=== PATIENT | female | born 1950 | race Hispanic/Latino ===

== ENCOUNTER 2018-12-14 00:58 | Emergency (ER) | payer MEDICARE ==
[2018-12-14] MEDS ORDERED: Adacel (T-DAP) 0.5 ML SYRINGE ONE (02:16)
[2018-12-14] MEDS ORDERED: Silver Nitrate Application 1 EACH ONE ×2 (02:37→02:47)
[2018-12-14 14:02] LABS: ALT (SGPT) 15 U/L (8-55); AST (SGOT) 18 U/L (5-34); Alkaline Phosphatase 87 U/L (40-150); Anion Gap 18 mmol/L (10-20); BUN (Urea Nitrogen) 63 mg/dL (9.8-20.1); Bilirubin, Total 0.5 mg/dL (0.2-1.2); Calc. Creatinine Clearance 0 mL/min (70-130); Calcium 9.5 mg/dL (7.8-10.44); Carbon Dioxide 23 mmol/L (23-31); Chloride 100 mmol/L (98-107); Estimated GFR-MDRD 43; Globulin 4.5 g/dL (2.4-3.5); Glucose 75 mg/dL (80-115); Potassium 3.7 mmol/L (3.5-5.1); Protein, Total 8.5 g/dL (5.8-8.1); Sodium 137 mmol/L (136-145)
[2018-12-14 14:03] LABS: %Eosinophils 3.7 % (0.0-10.0); %Lymphocytes 18.1 % (21.0-51.0); %Monocytes 8.2 % (0.0-10.0); %Neutrophils 69.1 % (42.0-75.0); Mean Corpuscular Hemoglobin 30.8 pg (27.0-31.0); Mean Corpuscular Volume 93.3 fL (78.0-98.0); Mean Platelet Volume 8.8 fL (7.4-10.4); Platelet Count 265 thou/uL (130-400); RBC Distribution Width 11.6 % (11.5-14.5); Red Blood Cell (RBC) Count 3.59 mill/uL (4.20-5.40); Troponin I Less than 0.010 ng/mL (< 0.028); White Blood Cell (WBC) Count 11.3 thou/uL (4.8-10.8)
[2018-12-14 14:04] LABS: #Basophils 0.1 thou/uL (0.0-0.2); #Eosinphils 0.4 thou/uL (0.0-0.7); #Monocytes 0.9 thou/uL (0.11-0.59); #Neutrophils 7.8 thou/uL (1.40-6.50); INR-International Normal Ratio 1.1; PTT 30.7 SEC (22.9-36.1); Prothrombin Time 14.5 SEC (12.0-14.7)
== END 2018-12-14 12:01 | disposition home or self-care (01) ==
LOC: ERS 00:58
DX: L76.22 Postprocedural hemorrhage of skin and subcutaneous tissue following other procedure (principal); I11.0 Hypertensive heart disease with heart failure; I50.9 Heart failure, unspecified; E11.9 Type 2 diabetes mellitus without complications; Z23 Encounter for immunization; Z79.82 Long term (current) use of aspirin; Z79.891 Long term (current) use of opiate analgesic; Z79.899 Other long term (current) drug therapy
CPT/HCPCS: 80053; 84484; 85025; 85610; 85730; 90471; 90715

== ENCOUNTER 2019-01-16 14:29 | Inpatient (IN) | payer MEDICARE ==
[~2019-01-16 14:29] MED LIST: ISOVUE-370 76%-LOCM 1 ML ONE
[2019-01-16] MEDS ORDERED: Piperacillin/Tazobactam 3.375 GM VIAL ONE (15:20)
--- NOTE | 2019-01-16 15:26 | RAD ---
XR Foot Rt 3 View STANDARD History: Pain. Diabetic wound. Comparison: None. Findings: Osteopenia and gas with loss of cortical integrity small toe metatarsal head as well as pro ximal phalanx. Extensive adjacent soft tissue calcifications. Extensive arterial medial sclerosis. Diabetic neuropathic changes of the midfoot. Soft tissue gas is seen along the dorsal aspect of the midfoot. Impression: 1. Osteomyelitis of the small toe metatarsal head/neck extending into the proximal phalanx. 2. Subcutaneous emphysema surrounds the small toe metatarsophalangeal joint extends to the mid foot. 3. Neuropathic changes of the midfoot.
[2019-01-16 15:32] LABS: Hemoglobin 9.2 g/dL (12.0-16.0); Mean Corpuscular HGB CONC 30.6 g/dL (32.0-36.0); Mean Corpuscular Hemoglobin 28.7 pg (27.0-31.0); Mean Corpuscular Volume 93.8 fL (78.0-98.0); Mean Platelet Volume 9.1 fL (7.4-10.4); Platelet Count 337 thou/uL (130-400); RBC Distribution Width 12.2 % (11.5-14.5); Red Blood Cell (RBC) Count 3.21 mill/uL (4.20-5.40); White Blood Cell (WBC) Count 21.1 thou/uL (4.8-10.8)
[2019-01-16 15:46] LABS: ALT (SGPT) 34 U/L (8-55); AST (SGOT) 22 U/L (5-34); Albumin 3.1 g/dL (3.4-4.8); Alkaline Phosphatase 125 U/L (40-150); Anion Gap 17 mmol/L (10-20); BUN (Urea Nitrogen) 71 mg/dL (9.8-20.1); Bilirubin, Total 0.4 mg/dL (0.2-1.2); Calc. Creatinine Clearance 0 mL/min (70-130); Calcium 8.9 mg/dL (7.8-10.44); Carbon Dioxide 19 mmol/L (23-31); Chloride 99 mmol/L (98-107); Estimated GFR-MDRD 31; Glucose 236 mg/dL (80-115); Potassium 4.5 mmol/L (3.5-5.1); Protein, Total 8.1 g/dL (6.0-8.3); Sodium 130 mmol/L (136-145)
[2019-01-16 15:50] LABS: Band 7 % (5-11); Lymphocytes 3 % (21-51); MDiff Complete? YES; Monocytes 8 % (0-10); Neutrophil 82 % (42-75); Platelet Morphology Comment Appears Adequate
[2019-01-16] MEDS ORDERED: Nitroglycerin 2% Ointment 1 INCH/1 GM Packet ONE (18:03)
--- NOTE | 2019-01-16 18:33 | RAD ---
PORTABLE CHEST: 01/16/19 HISTORY: Dyspnea. COMPARISON: 11/21/15. Cardiomegaly with postop sternotomy change. Mild vascular congestion. No focal infiltrate. No signifi cant effusion. IMPRESSION: Cardiomegaly with mild vascular engorgement. POS: [facility]
[2019-01-16 18:47] LABS: Analyzer IN Cardio ER; Base Excess (BEa) -5.3 mEq/L (-2.0 to +3.0); CO2 Tension 27.7 mmHg (35.0-45.0); Calcium, Ionized 1.08 mmol/L (1.12-1.30); Carboxyhemoglobin (COHb) 0.1 gm% (0.0-3.0); Hemoglobin (Hb) 9.7 g/dL (12.0-16.0); O2 Tension (PaO2) 83.4 mmHg (> 80.0); Potassium - ABG Lab 4.03 mmol/L (3.70-5.30); pH, Arterial 7.43 (7.35-7.45)
[2019-01-16 19:04] LABS: Puncture Site R BRACHIAL
[2019-01-16 19:05] LABS: ALV-art Gradient 110.135 (0-20)
[2019-01-16] MEDS ORDERED: Ondansetron ODT 4 MG TAB PO PRN (19:17)
[2019-01-16] MEDS ORDERED: Dextrose 5% in Water 1,000 ML IV PRN (19:17)
[2019-01-16] MEDS ORDERED: Dextrose 50% Abboject 50 ML SYRINGE SLOW IVP PRN (19:17)
[2019-01-16] MEDS ORDERED: Enoxaparin Sodium 40 MG/0.4 ML SYRINGE SC SCH (19:30)
[2019-01-16] MEDS ORDERED: Nitroglycerin 0.4 MG TAB (25 Tab Bottle) SL PRN (19:42)
[2019-01-16] MEDS ORDERED: cloNIDine 0.1 MG TAB PO PRN (19:42)
[2019-01-16] MEDS ORDERED: cefTRIAXone\\ROCEPHIN 2 GM in Sodium Chloride 0.9% 100 ML IVPB SCH (20:00)
--- NOTE | 2019-01-16 20:29 | CT ---
EXAM: CT ANGIOGRAM CHEST WITH 3D RENDERIN01/16/19 HISTORY: Dyspnea. History of diabetes. History of coronary artery bypass graft. No CT evidence for acute pulmonary embolism. Postop midline sternotomy and coronary artery bypass traci nges. Somewhat dilated pulmonary outflow tract. Minimal bilateral pleural thickening. No significant acute pulmonary parenchymal process or pleural effusion. IMPRESSION: No convincing CT evidence for acute pulmonary embolism. Cardiomegaly with postop midline sternotomy a nd coronary artery bypass graft changes. Somewhat prominent pulmonary outflow tract. No evidence for other significant acute process. POS: [facility]
[2019-01-16] MEDS: Carvedilol 25 MG TAB PO SCH (21:26)
[2019-01-16] MEDS: Insulin Regular 300 UNITS/3 ML VIAL SC PRN (21:27)
[2019-01-16] MEDS: Sodium Chloride 0.9% 1,000 ML IV SCH (21:28)
[2019-01-16] MEDS: Docusate 100 MG CAP PO SCH (21:29)
[2019-01-16 23:00] LABS: CKMB 2.6 ng/mL (0-6.6)
--- NOTE | 2019-01-17 01:20 | CON ---
DATE OF CONSULTATION: HISTORY OF PRESENT ILLNESS: Ms. Perkins is a 68-year-old woman who has an extensive past cardiac and vascular history. We do not have any details available currently. Apparently, she underwent coronary artery bypass grafting in [address] Weston , but the details have been purged from the system. She is followed by Dr. Noland and has had multiple coronary stents along with peripheral vascular stents placed. She has had chronic wounds on the left foot, which have all healed. She presented to the emergency department with a right foot ulceration and I was called for further evaluation. Since her arrival, she has had some cardiopulmonary difficulties, become short of breath and is unable to give me much more history than what I have been given by the emergency department. PAST MEDICAL HISTORY: 1. Diabetes mellitus. 2. Hypertension. 3. Dyslipidemia. 4. Coronary artery disease. 5. Peripheral vascular disease. PAST SURGICAL HISTORY: All I am aware of, currently is her coronary artery bypass grafting and peripheral and coronary stenting. CURRENT MEDICATIONS: Unknown. ALLERGIES: UNKNOWN. PHYSICAL EXAMINATION: GENERAL: This is an obese, elderly woman, sitting upright in the bed who nods off to sleep when not stimulated. VITAL SIGNS: Current vitals, her pulse is 70 and regular. Blood pressure is 140/68. NECK: Supple. LUNGS: Clear bilaterally. HEART: Rhythm is regular. ABDOMEN: Obese. EXTREMITIES: The left foot has no ulcerations on it. Her right foot 4th and 5th toes have wet gangrene and extremely foul odor. This has been wrapped in dressing. I cannot palpate pulses, but I do hear a Doppler signal in dorsalis pedis and posterior tibial arteries bilaterally. ASSESSMENT AND PLAN: This is a chronically ill patient who has chronic peripheral vascular disease and gangrene of the right 4th and 5th toes with sepsis. She needs amputation of at least this 4th and 5th toes, but may ultimately lose her forefoot if not her leg at the below-knee area. She has received a dose of antibiotics and is being worked up for congestive heart failure and pulmonary embolism currently. She is being admitted to the ICU and I will follow along with you. I have tried to discuss amputation with her, and she in no uncertain terms, declined any amputation and said "save my toes." Said she will not consent for any surgery acutely. We will treat her with antibiotics, and if the foot is demarcated, we can certainly proceed if she allows us to at that time. Job ID: [id number] DENICE
--- NOTE | 2019-01-17 01:40 | CON ---
DATE OF CONSULTATION: HISTORY OF PRESENT ILLNESS: The patient is an unfortunate 68-year-old woman with a long history of peripheral vascular disease and coronary artery disease, who presented with weakness, dyspnea, and chest discomfort. The patient apparently has had multiple stents placed. She is followed primarily by Dr. Noland. She also had severe peripheral vascular disease. The patient was diagnosed with some osteomyelitis. She developed chest pain and dyspnea. The patient received nitroglycerin with resolution of her pain. PAST MEDICAL HISTORY: Significant for; 1. Coronary artery disease. 2. Peripheral vascular disease. 3. Hypertension. PAST SURGICAL HISTORY: . SOCIAL HISTORY: . MEDICATIONS: See nursing list. PHYSICAL EXAMINATION: GENERAL: Somnolent woman, in mild distress. VITAL SIGNS: Blood pressure 148/80. NECK: Full. LUNGS: Clear to auscultation. HEART: Regular rate and rhythm. Normal S1, S2. ABDOMEN: Distended. EXTREMITIES: Show infected right foot. IMPRESSION: 1. Sepsis. 2. Osteomyelitis. 3. History of coronary artery disease. 4. History of peripheral vascular disease. This patient presents with sepsis. She developed acute dyspnea. She will undergo an emergent CT scan to rule out pulmonary embolus. From a cardiac standpoint, she is being treated with nitroglycerin paste. We will obtain records from Dr. Noland. The patient's prognosis is guarded. Critical care note, time 30 minutes. Job ID: [id number]
[2019-01-17 01:58] LABS: CKMB 4.2 ng/mL (0-6.6)
--- NOTE | 2019-01-17 02:01 | HP ---
HISTORY OF PRESENT ILLNESS: The patient is a 68-year-old female. She has a known history of peripheral vascular disease. She was brought to the emergency room by ambulance noting right foot pain. She notes a wound to her right foot. Upon my arrival to the ER, the patient began to have a sudden onset of shortness of breath, tachypnea. She was given oxygen in the emergency room and sat up. It took approximately 20-30 minutes for this situation to resolve. She did note chest pain during this time. An EKG was done, which did not reveal any evidence of acute cardiac injury. Stat troponin level was done, which was mildly elevated at 0.52. Her BNP was elevated at 662. Her lactic acid was not elevated. The etiology of her sudden shortness of breath still unknown at the time of this dictation. She is undergoing CT angiogram. As noted, she originally presented for right foot wound. X-ray was taken in the emergency room, which did reveal osteomyelitis involving the phalanges of the foot. The wound had a significantly foul odor noted. She was given one dose of Zosyn and 1 dose of vancomycin. It was noted time denise that after the vancomycin, she began having some sudden shortness of breath. Once again, etiology of that is unknown. It is noted that her white blood count was elevated at 21.1, hemoglobin 9.2, hematocrit 30.1, 82 segs, 7 bands, 3 lymphocytes. An arterial blood gas was done which showed a pH of 7.43, bicarbonate 18.0, O2 saturation of 83.4. Otherwise, history is difficult to obtain from the patient. She had various levels of responsiveness. Sometimes, she was seen to fall asleep in middle of sentences. Sometimes, she seems confused to this provider who has known her for over 25 years. ALLERGIES: SHE IS ALLERGIC TO AMOXICILLIN. CURRENT MEDICATIONS: Noted and have been reviewed. PAST MEDICAL HISTORY: Positive for atherosclerotic coronary artery disease, type 2 diabetes, peripheral vascular disease, hypertension, hypercholesterolemia, previous history of sepsis. It is noted most of her medical care has been at [facility] previously. PAST SURGICAL HISTORY: Positive for coronary artery bypass graft. She believes she has had a hysterectomy. She has had multiple stents placed for peripheral vascular disease to her legs. She has a previous history of a leg ulcer, which did require some debridement and extended hospitalization. SOCIAL PERSONAL HISTORY: She is single. She does not smoke at this time. She lives mostly alone. She has nearby help. REVIEW OF SYSTEMS: Could not be obtained. PHYSICAL EXAMINATION: VITAL SIGNS: Her blood pressure is 90/70, pulse 80, respirations 16, O2 saturations 98% on 3 L. GENERAL: She appears to be somewhat pale, does respond to questioning when prompted. She is accurate with her answers. HEENT: Normocephalic. Sclerae and conjunctivae are clear. NECK: Supple. Full range of motion. No masses. No bruits are auscultated. LUNGS: Reveal bilateral breath sounds. HEART: Reveals a regular rate and rhythm. No murmurs, gallops, or rubs. ABDOMEN: Soft and nontender. Bowel sounds are present and active. No hepatosplenomegaly is noted. EXTREMITIES: Special attention to the right foot shows a gaping wound about the right 4th, 5th toe, distal aspect fairly foul odor. It appears to be gangrenous at this time. Peripheral pulses are difficult to obtain. The left foot appears to be totally clear without evidence of any type of infectious issue. LABORATORY DATA: White blood count 21.1, hemoglobin 9.2, hematocrit 30.1. Chemistry; sodium 130, potassium 4.5, chloride 99, CO2 of 19, BUN 71, creatinine 1.65, GFR 31. IMPRESSION: 1. The patient presents with possible sepsis with osteomyelitis to the right foot. 2. History of peripheral vascular disease. 3. History of coronary artery disease. 4. Sudden-onset tachypnea, shortness of breath of unknown etiology. PLAN: 1. The patient will be admitted to the ICU under sepsis protocol. She will be given IV ceftriaxone. Due to her previous allergic reaction to amoxicillin, we will hold penicillin drugs at this time. 2. I have consulted Cardiology, Cardiovascular Surgery, Intensive Care Specialties as well as Infectious Disease. We will monitor vital signs tonight. Continue IV antibiotics as noted above. Job ID: [id number]
[2019-01-17 04:17] LABS: #Basophils 0.1 thou/uL (0.0-0.2); #Eosinphils 0.2 thou/uL (0.0-0.7); #Lymphocytes 1.2 thou/uL (1.20-3.40); #Monocytes 1.4 thou/uL (0.11-0.59); #Neutrophils 18.7 thou/uL (1.40-6.50); %Basophils 0.3 % (0.0-1.0); %Eosinophils 0.8 % (0.0-10.0); %Lymphocytes 5.5 % (21.0-51.0); %Monocytes 6.5 % (0.0-10.0); Hemoglobin 8.4 g/dL (12.0-16.0); Mean Corpuscular HGB CONC 31.3 g/dL (32.0-36.0); Mean Corpuscular Hemoglobin 29.1 pg (27.0-31.0); Mean Platelet Volume 8.7 fL (7.4-10.4); Platelet Count 362 thou/uL (130-400); RBC Distribution Width 12.2 % (11.5-14.5); White Blood Cell (WBC) Count 21.5 thou/uL (4.8-10.8)
[2019-01-17 04:39] LABS: ALT (SGPT) 32 U/L (8-55); AST (SGOT) 21 U/L (5-34); Alkaline Phosphatase 138 U/L (40-150); Anion Gap 14 mmol/L (10-20); BUN (Urea Nitrogen) 64 mg/dL (9.8-20.1); Bilirubin, Total 0.3 mg/dL (0.2-1.2); Calc. Creatinine Clearance 53 mL/min (70-130); Calcium 8.2 mg/dL (7.8-10.44); Carbon Dioxide 22 mmol/L (23-31); Chloride 102 mmol/L (98-107); Estimated GFR-MDRD 35; Globulin 3.8 g/dL (2.4-3.5); Glucose 187 mg/dL (80-115); Potassium 4.3 mmol/L (3.5-5.1); Protein, Total 6.8 g/dL (6.0-8.3); Sodium 134 mmol/L (136-145)
[2019-01-17 05:05] LABS: CKMB 4.2 ng/mL (0-6.6)
[2019-01-17] MEDS ORDERED: Meperidine HCl/PF 25 MG/ML VIAL ONE (06:37)
--- NOTE | 2019-01-17 07:31 | RAD ---
Portable upright frontal chest radiograph: 01/17/2019 COMPARISON: 01/16/2019 HISTORY: Sepsis FINDINGS: Stable midline sternotomy wires, mediastinal clips, and enlargement of the cardiac silhouet te. No pneumothorax or pleural fluid. No focal consolidation or alveolar edema. IMPRESSION: No acute findings.
[2019-01-17] MEDS: Vancomycin HCl 1 GM in Premix Bag 1 BAG IVPB SCH ×2 (08:00→19:50)
[2019-01-17] MEDS: metroNIDAZOLE 500 MG in Premix Bag 1 BAG IVPB SCH ×3 (08:00→20:56)
[2019-01-17] MEDS ORDERED: Midazolam HCl 2 mg/2 ml Vial ONE (10:02)
[2019-01-17] MEDS ORDERED: Ondansetron HCl/PF 4 MG/2 ML Vial IVP PRN (10:15)
[2019-01-17] MEDS ORDERED: Promethazine HCl 25 MG/ML VIAL SLOW IVP PRN (10:15)
[2019-01-17] MEDS ORDERED: Promethazine HCl 25 MG/ML VIAL IM PRN (10:15)
[2019-01-17] MEDS ORDERED: Bupivacaine HCl 0.5%/Epinephrine 1:200,000/PF 30 ml Vial ONE (10:20)
[2019-01-17] MEDS ORDERED: Fentanyl 100 MCG/2 ML VIAL SLOW IVP PRN (11:09)
[2019-01-17] MEDS: Carvedilol 25 MG TAB PO SCH ×2 (15:17→20:56)
[2019-01-17] MEDS: Docusate 100 MG CAP PO SCH ×2 (15:17→20:57)
[2019-01-17] MEDS: Losartan 25 MG TAB PO SCH (15:17)
[2019-01-17] MEDS: Magnesium Oxide 250 MG TAB PO SCH (15:17)
[2019-01-17] MEDS: Aspirin 325 mg Enteric Coated Tablet PO SCH (15:17)
[2019-01-17] MEDS: Lorazepam 0.5 MG TAB PO SCH (15:17)
[2019-01-17] MEDS: Potassium Chloride 20 MEQ TAB PO SCH (15:18)
[2019-01-17] MEDS: Pantoprazole 40 MG GRANULES PACKET PO SCH (15:18)
--- NOTE | 2019-01-17 17:18 | OP ---
DATE OF PROCEDURE: 01/17/2019 PREOPERATIVE DIAGNOSIS: Gangrene of the right 4th and 5th toes. POSTOPERATIVE DIAGNOSIS: Gangrene of the right 4th and 5th toes. PROCEDURE PERFORMED: Transmetatarsal amputation of the right 4th and 5th toes with wound VAC application. ANESTHESIA: General endotracheal. ESTIMATED BLOOD LOSS: 100. FINDINGS: Gangrenous tissue extending down to the mid metatarsal level on the 5th toe and the metatarsal head on the 4th toe. All gangrenous tissue was debrided and wound VAC applied. DESCRIPTION OF PROCEDURE: After consent was obtained, the patient was brought to the operating room and placed in supine position on the operating table. A block had been applied to the preoperative area. Right foot was prepped and draped in usual sterile fashion. Skin incision was made around the 4th and 5th toes, extending down the mid metatarsal level on the 5th toe and the metatarsal head on the 4th toe. Gangrenous tissue was debrided. Cautery was used for hemostasis. Wound was copiously irrigated. After hemostasis had been ensured, the wound care team was called. There was excellent bleeding tissue and healthy muscle that was present underneath the gangrenous tissue that was debrided. Wound VAC was then applied. The patient was transferred to the recovery room in stable condition. Needle, sponge, and instrument counts were all reported as correct at the end of the procedure. Job ID: [id number]
[2019-01-17] MEDS: Sodium Chloride 0.9% 1,000 ML IV SCH (18:16)
[2019-01-17] MEDS: traMADol HCl 50 MG TAB PO PRN (19:24)
[2019-01-17] MEDS: Ubidecarenone 50 MG CAP PO SCH (20:56)
[2019-01-17] MEDS: Insulin Regular 300 UNITS/3 ML VIAL SC PRN (21:12)
--- NOTE | 2019-01-17 22:11 | CON ---
DATE OF CONSULTATION: 01/17/2019 REASON FOR CONSULTATION: Peripheral vascular disease and right foot gangrene. HISTORY OF PRESENT ILLNESS: A 68-year-old patient, history of coronary artery disease type 2 diabetes, and peripheral vascular disease, who developed fairly rapid onset of right foot pain and noticed the swelling and discoloration of the lateral forefoot area. On arrival, she developed tachypnea and was given supplemental oxygen, had some chest pain with normal EKG. Troponin was mildly elevated, BNP was at 662, lactic acid was normal. She has remained afebrile. Initial white cell count of 21,000. Imaging studies include a chest CTA, which showed no evidence of acute pulmonary embolism. The patient had no focal infiltrates or edema or effusions. She was transferred to the ICU and had evaluation by Dr. Mohan and she underwent amputation of the 4th and 5th rays of right foot. Currently, she is awake and oriented. Dyspnea and chest pain have resolved. No headaches. No change in visual symptoms, sore throat, odynophagia, or dysphagia. No abdominal pain. She has a Camargo catheter in place. PAST MEDICAL HISTORY: Includes coronary artery disease, type 2 diabetes, peripheral vascular disease, hypertension. PAST SURGICAL HISTORY: Bypass graft surgery, hysterectomy, and multiple peripheral vascular interventions by Dr. Noland in the past, mostly on the left side. SOCIAL HISTORY: Single, former smoker. ALLERGIES: AMOXICILLIN WITH RASH. CURRENT MEDICATIONS: 1. Tylenol. 2. DuoNeb. 3. Ecotrin. 4. Coreg. 5. Catapres. 6. Colace. 7. Sublimaze. 8. Insulin. 9. Imdur. 10. Ativan. 11. Cozaar. 12. Flagyl. 13. Protonix. 14. Vancomycin. PHYSICAL EXAMINATION: VITAL SIGNS: T-max 98.7, BP 124/64, pulse 57, respirations 20, O2 saturation 99. SKIN: Remarkable for the areas of gangrene at the distal lateral aspect of the right foot involving the 4th and 5th toes with a round ulceration measuring about 3 cm with a dark eschar at the center. No lymphadenopathy. HEENT: Ocular movements conjugate. Oral cavity is not remarkable. NECK: Supple. No jugular vein distention. LUNGS: Symmetric. Clear breath sounds. HEART: S1 and S2, regular rate. No S3 or S4. ABDOMEN: Soft, not distended or tender. No ascites. No bladder distention. Camargo catheter in place. EXTREMITIES: Pulses are not palpable in dorsalis pedis, faintly palpable in popliteals. Cap refill appears to be a little bit delayed, but the feet are warm to touch. LABORATORY DATA: Followup white cell count 21.5, hemoglobin 8.4, platelets 362. Sodium 134, creatinine 1.48, and her baseline from 2017 was 0.82, in 2018, had gone up to 1.21, so it seems to be going up her creatinine over time. In microbiology, we have presumptive Proteus mirabilis from the foot culture, not clear what this the sample is from. It looks like it is from the emergency room, so probably is a swab from the surface of the ulcer. In the Gram stain, there are multiple different organisms including gram negatives and gram-positive rods, cocci in clusters, and so on there. IMAGING STUDIES: We have a foot x-ray from 01/16 with osteomyelitis, small toe metatarsal head and neck extending into the proximal phalanx. ASSESSMENT: 1. Type 2 diabetes. 2. Chronic renal failure. 3. Coronary artery disease. 4. Peripheral vascular disease. 5. Gangrene of the right lateral forefoot region. DISCUSSION: The patient has had multiple revascularizations in the past that she has a decreased GFR and does not seem to be either eligible for angiography or likely to benefit from any further attempted intervention at this point in time. She was hesitant about allowing amputation, but finally she agreed to it and she is at risk for healing problems and higher levels of amputation even all the way to the BKA level depending on progress. Continue with the broad-spectrum coverage as currently prescribed. She does need MRSA coverage and she has also anaerobic, and gram-negative dionisio coverage will be added with Azactam. Job ID: [id number]
[2019-01-17] MEDS: Aztreonam 1 GM in Sodium Chloride 0.9% 100 ML IVPB SCH (22:31)
[2019-01-18] MEDS: Acetaminophen 325 MG TAB PO PRN (00:03)
[2019-01-18] MEDS: metroNIDAZOLE 500 MG in Premix Bag 1 BAG IVPB SCH ×4 (01:27→20:16)
[2019-01-18 05:08] LABS: #Basophils 0.1 thou/uL (0.0-0.2); #Eosinphils 0.3 thou/uL (0.0-0.7); #Lymphocytes 1.4 thou/uL (1.20-3.40); #Monocytes 1.2 thou/uL (0.11-0.59); #Neutrophils 12.7 thou/uL (1.40-6.50); %Basophils 0.6 % (0.0-1.0); %Eosinophils 1.7 % (0.0-10.0); %Lymphocytes 8.8 % (21.0-51.0); %Monocytes 7.9 % (0.0-10.0); Hemoglobin 8.9 g/dL (12.0-16.0); Mean Corpuscular Hemoglobin 30.4 pg (27.0-31.0); Mean Corpuscular Volume 92.1 fL (78.0-98.0); Mean Platelet Volume 8.8 fL (7.4-10.4); Platelet Count 423 thou/uL (130-400); RBC Distribution Width 12.2 % (11.5-14.5); Red Blood Cell (RBC) Count 2.93 mill/uL (4.20-5.40); White Blood Cell (WBC) Count 15.7 thou/uL (4.8-10.8)
[2019-01-18 05:25] LABS: Anion Gap 14 mmol/L (10-20); BUN (Urea Nitrogen) 47 mg/dL (9.8-20.1); Calc. Creatinine Clearance 72 mL/min (70-130); Calcium 8.5 mg/dL (7.8-10.44); Carbon Dioxide 23 mmol/L (23-31); Chloride 103 mmol/L (98-107); Estimated GFR-MDRD 50; Glucose 256 mg/dL (80-115); Potassium 4.2 mmol/L (3.5-5.1); Sodium 136 mmol/L (136-145)
[2019-01-18] MEDS: Aztreonam 1 GM in Sodium Chloride 0.9% 100 ML IVPB SCH ×3 (05:50→23:13)
[2019-01-18] MEDS: Insulin Regular 300 UNITS/3 ML VIAL SC PRN ×4 (05:59→20:21)
[2019-01-18 07:34] LABS: Vancomycin, Trough 17.7 ug/mL
[2019-01-18] MEDS: Vancomycin HCl 1 GM in Premix Bag 1 BAG IVPB SCH ×2 (08:34→20:17)
[2019-01-18] MEDS: Docusate 100 MG CAP PO SCH ×2 (08:40→20:17)
[2019-01-18] MEDS: Insulin Glargine 70 UNITS in Pre-Filled Syringe 1 EACH SC SCH (08:40)
[2019-01-18] MEDS: Enoxaparin Sodium 30 MG/0.3 ML SYRINGE SC SCH (08:40)
[2019-01-18] MEDS: Losartan 25 MG TAB PO SCH (08:40)
[2019-01-18] MEDS: Pantoprazole 40 MG GRANULES PACKET PO SCH (08:41)
[2019-01-18] MEDS: Aspirin 325 mg Enteric Coated Tablet PO SCH (08:42)
[2019-01-18] MEDS: Potassium Chloride 20 MEQ TAB PO SCH (08:42)
[2019-01-18] MEDS: Carvedilol 25 MG TAB PO SCH ×2 (08:42→20:17)
[2019-01-18] MEDS: Lorazepam 0.5 MG TAB PO SCH (08:42)
[2019-01-18] MEDS: Magnesium Oxide 250 MG TAB PO SCH (08:50)
[2019-01-18] MEDS ORDERED: Non-Formulary Item 1 EACH (Insulin Glargine,Hum.Rec.Anlog [Lantus Solostar] 70 UNIT) SC SCH (09:00)
--- NOTE | 2019-01-18 09:02 | PRG ---
DATE OF SERVICE: 01/18/2019 SUBJECTIVE: This morning, she is awake, alert, and responsive. She is doing better. Antibiotics were adjusted by Infectious Disease. Pulmonary denise, she is doing better. She is no longer hypotensive. OBJECTIVE: VITAL SIGNS: Blood pressure 148/70, O2 saturation _96%room air_ and pulse 60. CHEST: No wheezing or crackles. CARDIAC: Normal S1 and S2. No gallops. ABDOMEN: No masses. LABORATORY DATA: Gram-negative foot infection. Sensitive to all antibiotics. IMPRESSION AND PLAN: Status post right foot amputation in several toes, obesity , diabetes, and not septic. Will be transferred out of the ICU. Pulmonary/ Critical Care will follow at a distance. Job ID: [id number] [facility]
--- NOTE | 2019-01-18 09:27 | CON ---
DATE OF CONSULTATION: HISTORY OF PRESENT ILLNESS: This is a 68-year-old female, who was admitted to the hospital overnight with sepsis syndrome she has known history of diabetes, has chills and sweats. In the ER, blood pressure was 120/54, respiratory rate 18, temperature 98, sats are 100% on room air. She was transferred to the ICU and saw Cardiovascular Surgery and underwent amputation of several of her toes. She is back in the ICU, reason for consult. She says she has longstanding history of nocturnal hypoxemia, has low-flow O2 at 2 L. Apparently, a sleep study was done elsewhere, which was negative for sleep apnea as per the patient. She has smoked a pack a day for about 10 years, quit smoking many years ago. No previous history of TB, pneumonia, or bronchial asthma. Denies any snoring. Denies any witnessed apnea. Denies any daytime hypersomnolence. PAST MEDICAL HISTORY: Coronary artery disease, status post bypass; diabetes; hypertension; chronic pain; COPD; hypoxemia; peripheral vascular disease; anxiety; and depression. PAST SURGICAL HISTORY: Bypass, cholecystectomy, hysterectomy, leg surgery, stents. HOME MEDICATIONS: Include: 1. Home O2 at 2 L. 2. Losartan 100. 3. ISMO 90. 4. Protonix 40. 5. Aspirin 325. 6. Zoloft 25. 7. Metolaxone 2.5. 8. Nitroglycerin p.r.n. 9. Insulin 70 units in the morning, 50 at nighttime. 10. Catapres 0.1 p.r.n. 11. Lasix 40. 12. Coreg 12.5 b.i.d. ALLERGIES: PENICILLIN. SOCIAL HISTORY: Alcohol, none. Tobacco, as noted. REVIEW OF SYSTEMS: Ten-point negative. PHYSICAL EXAMINATION: VITAL SIGNS: Postsurgery, pulse 59, blood pressure 129/56, saturations 100%, and respiratory rate 16. CHEST: No wheezing or crackles. CARDIAC: Normal S1 and S2. No gallops. ABDOMEN: No mass. LABORATORY DATA: White count 21,000, H and H 8 and 26, platelet count 362. Creatinine 1.4, BUN is 64. Troponin is elevated. She has culture done, which shows Proteus mirabilis. Otherwise, blood cultures so far negative. IMPRESSION: 1. Nocturnal hypoxemia, chronic obstructive pulmonary disease, obesity hypoventilation syndrome. 2. Infected fourth and fifth toe, status post surgery; diabetes; renal failure; coronary artery disease; peripheral vascular disease; and hypertension. She is not hypertensive, she never was, even on admission. Most of the antibiotics gram-positive coverage. There is no gram-negative coverage. Since she is not hypertensive, we will not add additional antibiotics at this stage, pulmonary denise, continue neb treatment, low-flow O2, supportive care only ambulation, DVT prophylaxis. We will follow. This is a 70-minute consultation note, 50% direct patient care. Job ID: [id number]
[2019-01-18] MEDS: Sodium Chloride 0.9% 1,000 ML IV SCH (11:20)
--- NOTE | 2019-01-18 13:46 | PRG ---
DATE OF SERVICE: 01/18/2019 SUBJECTIVE: Ms. Perkins is doing well. She has had recent surgery to her right foot for amputation and necrotic tissue. She is doing well postoperatively. She reports no chest pain. OBJECTIVE: VITAL SIGNS: BP 136/70, O2 saturation 98% on 2 L. GENERAL: She is alert and active, in no distress. LUNGS: Clear. HEART: Reveals a regular rate and rhythm. No murmurs, gallops, or rubs. LABORATORY DATA: Her white blood count is 15.7, hemoglobin 8.9, hematocrit 27.0, BUN 47, creatinine 1.09. Initial blood culture done showed Proteus mirabilis organism. It is sensitive to multiple antibiotics that she is on at this time. IMPRESSION: 1. Osteomyelitis. 2. History of atherosclerotic coronary artery disease. 3. Peripheral vascular disease. 4. Type 2 diabetes mellitus. PLAN: The patient continued to be stable postop. We will restart her regular insulin, schedule that she is normally home. From my purview, she probably can be transferred to the floor. We will await other specialist's comment further for transferring. Job ID: [id number]
[2019-01-18] MEDS: traMADol HCl 50 MG TAB PO PRN (15:05)
[2019-01-18] MEDS: Ubidecarenone 50 MG CAP PO SCH (20:16)
[2019-01-18] MEDS: Insulin Glargine 50 UNITS in Pre-Filled Syringe 1 EACH SC SCH (20:16)
[2019-01-18] MEDS ORDERED: Non-Formulary Item 1 EACH (Insulin Glargine,Hum.Rec.Anlog [Lantus Solostar] 50 UNIT) SC SCH (21:00)
[2019-01-19] MEDS: metroNIDAZOLE 500 MG in Premix Bag 1 BAG IVPB SCH ×4 (01:44→20:28)
[2019-01-19] MEDS: Aztreonam 1 GM in Sodium Chloride 0.9% 100 ML IVPB SCH ×3 (05:34→21:47)
[2019-01-19] MEDS: Insulin Regular 300 UNITS/3 ML VIAL SC PRN ×4 (06:08→20:31)
[2019-01-19 06:20] LABS: Vancomycin, Random 25.2 ug/mL (See Comment)
[2019-01-19] MEDS: Vancomycin HCl 1 GM in Premix Bag 1 BAG IVPB SCH ×2 (09:01→20:28)
[2019-01-19] MEDS: Potassium Chloride 20 MEQ TAB PO SCH (09:12)
[2019-01-19] MEDS: Losartan 25 MG TAB PO SCH (09:12)
[2019-01-19] MEDS: Magnesium Oxide 250 MG TAB PO SCH (09:12)
[2019-01-19] MEDS: Carvedilol 25 MG TAB PO SCH ×2 (09:13→20:30)
[2019-01-19] MEDS: Aspirin 325 mg Enteric Coated Tablet PO SCH (09:13)
[2019-01-19] MEDS: Docusate 100 MG CAP PO SCH ×2 (09:13→20:30)
[2019-01-19] MEDS: Pantoprazole 40 MG GRANULES PACKET PO SCH (09:14)
[2019-01-19] MEDS: Enoxaparin Sodium 30 MG/0.3 ML SYRINGE SC SCH (09:14)
[2019-01-19] MEDS: Insulin Glargine 70 UNITS in Pre-Filled Syringe 1 EACH SC SCH (09:23)
[2019-01-19] MEDS: Lorazepam 0.5 MG TAB PO SCH (11:11)
[2019-01-19] MEDS: traMADol HCl 50 MG TAB PO PRN (11:12)
[2019-01-19] MEDS: Acetaminophen 325 MG TAB PO PRN (14:39)
--- NOTE | 2019-01-19 18:46 | PRG ---
DATE OF SERVICE: 01/19/2019 SUBJECTIVE: Ms. Perkins is feeling much better. She is doing well. She has no medical complaints. OBJECTIVE: VITAL SIGNS: Temperature is 97.9, BP 143/83. LUNGS: Clear. HEART: No murmur. LABORATORY DATA: Bacterial cultures of the foot show no Proteus mirabilis and presumptive Enterococcus. Her blood sugars are under better control. IMPRESSION: 1. Osteomyelitis, status post partial amputation of right foot. 2. History of atherosclerotic coronary artery disease. 3. History of peripheral vascular disease. PLAN: Continue current antibiotic regimen. We will get a Physical Therapy consult. Job ID: [id number]
[2019-01-19] MEDS: Pravastatin Sodium 20 MG TAB PO SCH (20:30)
[2019-01-19] MEDS: Insulin Glargine 50 UNITS in Pre-Filled Syringe 1 EACH SC SCH (20:30)
[2019-01-19] MEDS: Ubidecarenone 50 MG CAP PO SCH (20:30)
[2019-01-20] MEDS: metroNIDAZOLE 500 MG in Premix Bag 1 BAG IVPB SCH ×4 (02:32→21:12)
[2019-01-20] MEDS: Aztreonam 1 GM in Sodium Chloride 0.9% 100 ML IVPB SCH ×3 (05:40→22:51)
[2019-01-20] MEDS: Insulin Regular 300 UNITS/3 ML VIAL SC PRN ×4 (05:42→20:32)
[2019-01-20] MEDS ORDERED: Furosemide 40 MG/4 ML VIAL SLOW IVP SCH (07:45)
[2019-01-20] MEDS: Pantoprazole 40 MG GRANULES PACKET PO SCH (08:34)
[2019-01-20] MEDS: Enoxaparin Sodium 30 MG/0.3 ML SYRINGE SC SCH (08:34)
[2019-01-20] MEDS: Docusate 100 MG CAP PO SCH ×2 (08:34→20:13)
[2019-01-20] MEDS: Magnesium Oxide 250 MG TAB PO SCH (08:34)
[2019-01-20] MEDS: Aspirin 325 mg Enteric Coated Tablet PO SCH (08:35)
[2019-01-20] MEDS: Vancomycin HCl 1 GM in Premix Bag 1 BAG IVPB SCH ×2 (09:46→20:19)
[2019-01-20] MEDS: Insulin Glargine 70 UNITS in Pre-Filled Syringe 1 EACH SC SCH (09:47)
[2019-01-20] MEDS: Carvedilol 25 MG TAB PO SCH ×2 (09:47→20:14)
[2019-01-20] MEDS: Potassium Chloride 20 MEQ TAB PO SCH (09:50)
[2019-01-20] MEDS ORDERED: Losartan 25 MG TAB PO SCH (10:00)
[2019-01-20] MEDS: Lorazepam 1 MG TAB PO SCH (10:06)
[2019-01-20] MEDS: Losartan 25 MG TAB PO SCH (10:09)
--- NOTE | 2019-01-20 11:29 | PRG ---
DATE OF SERVICE: 01/20/2019 PRIMARY CARE PHYSICIAN: Dr. Israel Mohan. Postop day #4 from right transmetatarsal amputation fourth and fifth toes. SUBJECTIVE: The patient is doing better. She did state that she had some shortness of breath last night, required oxygen as she feels better this morning. Denies chest pain or shortness of breath now. Denies nausea or vomiting. She has not been able to ambulate yet with therapy due to needing a walking shoe, a protective boot. OBJECTIVE: VITAL SIGNS: Temperature 98.3, pulse of 51, respirations 20, blood pressure 125/63, pulse ox is 100% on 2 L. GENERAL: She is awake and alert, in no acute distress. Sitting comfortably in bed. HEENT: Mucosa is moist. NECK: Supple. HEART: Regular rate and rhythm. LUNGS: Clear. ABDOMEN: Obese, soft. EXTREMITIES: With edema bilaterally. Dressing on right foot. LABORATORY DATA: Pending. Accu-Cheks of 233, 256, 367, 261. ASSESSMENT AND PLAN: This is a 68-year-old female patient with type 2 diabetes with neuropathy, nephropathy, and peripheral artery disease, now status post right toe amputation due to gangrene and peripheral vascular disease. 1. Status post amputation. Further plan per Dr. George Mohan. 2. Type 2 diabetes. We will increase her insulin coverage due to hyperglycemia. 3. Gram-negative foot infection. We will continue antibiotics as per Dr. Rodriguez. The patient is on broad-spectrum antibiotics. 4. History of cardiomyopathy with congestive heart failure, transitioning to oral diuretics. 5. Disposition: Case Management looking at placement for rehab [facility], possible transfer to [facility]. Job ID: [id number]
[2019-01-20 12:18] LABS: Anion Gap 17 mmol/L (10-20); BUN (Urea Nitrogen) 24 mg/dL (9.8-20.1); Calc. Creatinine Clearance 95 mL/min (70-130); Carbon Dioxide 20 mmol/L (23-31); Chloride 103 mmol/L (98-107); Estimated GFR-MDRD 63; Glucose 231 mg/dL (80-115); Potassium 4.2 mmol/L (3.5-5.1); Sodium 136 mmol/L (136-145)
[2019-01-20] MEDS: Lorazepam 0.5 MG TAB PO SCH (13:15)
[2019-01-20] MEDS: Furosemide 40 MG TAB PO SCH (15:15)
[2019-01-20] MEDS: Pravastatin Sodium 20 MG TAB PO SCH (20:13)
[2019-01-20] MEDS: Ubidecarenone 50 MG CAP PO SCH (20:13)
[2019-01-20] MEDS: Insulin Glargine 50 UNITS in Pre-Filled Syringe 1 EACH SC SCH (20:33)
[2019-01-20] MEDS: traMADol HCl 50 MG TAB PO PRN (21:16)
[2019-01-21] MEDS: metroNIDAZOLE 500 MG in Premix Bag 1 BAG IVPB SCH ×3 (04:44→15:06)
[2019-01-21] MEDS: Aztreonam 1 GM in Sodium Chloride 0.9% 100 ML IVPB SCH ×2 (05:29→13:55)
[2019-01-21] MEDS: Insulin Regular 300 UNITS/3 ML VIAL SC PRN (06:47)
[2019-01-21 07:13] LABS: #Basophils 0.1 thou/uL (0.0-0.2); #Eosinphils 0.5 thou/uL (0.0-0.7); #Monocytes 0.9 thou/uL (0.11-0.59); #Neutrophils 10.5 thou/uL (1.40-6.50); %Basophils 0.7 % (0.0-1.0); %Eosinophils 3.7 % (0.0-10.0); %Monocytes 6.7 % (0.0-10.0); Hemoglobin 9.4 g/dL (12.0-16.0); Mean Corpuscular HGB CONC 31.1 g/dL (32.0-36.0); Mean Corpuscular Volume 93.3 fL (78.0-98.0); Mean Platelet Volume 7.6 fL (7.4-10.4); Platelet Count 579 thou/uL (130-400); RBC Distribution Width 12.7 % (11.5-14.5); Red Blood Cell (RBC) Count 3.25 mill/uL (4.20-5.40)
[2019-01-21 07:30] LABS: Vancomycin, Trough 23.6 ug/mL
[2019-01-21 07:37] LABS: ALT (SGPT) 20 U/L (8-55); AST (SGOT) 12 U/L (5-34); Alkaline Phosphatase 107 U/L (40-150); Anion Gap 11 mmol/L (10-20); BUN (Urea Nitrogen) 18 mg/dL (9.8-20.1); Bilirubin, Total 0.2 mg/dL (0.2-1.2); Calc. Creatinine Clearance 107 mL/min (70-130); Calcium 8.8 mg/dL (7.8-10.44); Carbon Dioxide 25 mmol/L (23-31); Chloride 106 mmol/L (98-107); Estimated GFR-MDRD 73; Globulin 4.9 g/dL (2.4-3.5); Glucose 121 mg/dL (80-115); Potassium 4.3 mmol/L (3.5-5.1); Protein, Total 7.9 g/dL (6.0-8.3); Sodium 138 mmol/L (136-145)
[2019-01-21] MEDS: Vancomycin HCl 1 GM in Premix Bag 1 BAG IVPB SCH (08:16)
[2019-01-21] MEDS: Losartan 25 MG TAB PO SCH (08:18)
[2019-01-21] MEDS: Magnesium Oxide 250 MG TAB PO SCH (08:18)
[2019-01-21] MEDS: Furosemide 40 MG TAB PO SCH ×2 (08:19→15:06)
[2019-01-21] MEDS: Aspirin 325 mg Enteric Coated Tablet PO SCH (08:19)
[2019-01-21] MEDS: Potassium Chloride 20 MEQ TAB PO SCH (08:19)
[2019-01-21] MEDS: Lorazepam 1 MG TAB PO SCH (08:20)
[2019-01-21] MEDS: Carvedilol 25 MG TAB PO SCH ×2 (08:20→20:31)
[2019-01-21] MEDS: Enoxaparin Sodium 40 MG/0.4 ML SYRINGE SC SCH (08:22)
[2019-01-21] MEDS: Pantoprazole 40 MG GRANULES PACKET PO SCH (08:22)
[2019-01-21] MEDS: Docusate 100 MG CAP PO SCH ×2 (08:23→20:33)
[2019-01-21] MEDS: Insulin Glargine 80 UNITS in Pre-Filled Syringe 1 EACH SC SCH (09:23)
--- NOTE | 2019-01-21 09:35 | PRG ---
DATE OF SERVICE: 01/21/2019 PRIMARY CARE PHYSICIAN: Israel Mohan MD Postop day #5, from right transmetatarsal amputation of the fourth and fifth toes. SUBJECTIVE: The patient is feeling better. Less short of breath today. Still requiring oxygen. Denies chest pain or shortness of breath. At this time, denies nausea or vomiting. Her appetite is good. Having no pain. OBJECTIVE: VITAL SIGNS: Temperature 97.7, pulse 61, respirations 16, blood pressure 161/65, pulse ox 100% on room air. GENERAL: She is awake and alert, in no acute distress. Speech is clear. NECK: Supple. HEART: Regular rate and rhythm. LUNGS: Clear bilaterally. ABDOMEN: Obese, soft. EXTREMITIES: No edema on the left. Right foot with dressing in place. Wound VAC in place. LABORATORY DATA: Sodium 138, potassium 4.3, chloride 106, CO2 of 25, BUN and creatinine are 18 and 0.79 with a GFR of 73. Accu-Cheks of 121, 183, 25, 342. Albumin of 3.0. White blood cell count is down to 14,000, hemoglobin and hematocrit 9.4 and 30.3, and platelets of 579. ASSESSMENT AND PLAN: This is a 68-year-old female patient admitted with gangrenous toe, history of type 2 diabetes with neuropathy and nephropathy, and peripheral artery disease. 1. Status post right foot amputation, PT and further plan per Dr. George Mohan. 2. Type 2 diabetes. We will continue to increase her insulin for better daytime coverage. 3. Foot infection. We will continue antibiotics as per Dr. Rodriguez. 4. History of cardiomyopathy and congestive heart failure, now on oral diuretics and doing well. 5. Disposition. Likely placement for inpatient rehab when she is weightbearing. Job ID: [id number]
[2019-01-21] MEDS: HumaLOG 300 UNITS/3 ML VIAL SC SCH ×2 (12:47→18:11)
--- NOTE | 2019-01-21 16:31 | PRG ---
DATE OF SERVICE: 01/21/2019 SUBJECTIVE: No pain. No dyspnea. No abdominal pain. OBJECTIVE: VITAL SIGNS: Temperature has been normal. Blood pressure 119/60, pulse 62. GENERAL: Awake, alert, in no distress, oriented. Speech is normal. LUNGS: Clear. HEART: S1 and S2, regular rate. ABDOMEN: Soft. Not distended. EXTREMITIES: Right foot with negative pressure dressing. LABORATORY DATA: White cell count 14,000, hemoglobin 9.4, platelets 579, and 75% neutrophils. Chemistry with sodium of 138, creatinine 0.79. Liver profile, normal. Microbiology with Proteus mirabilis and Enterococcus faecalis from the site with a very broad susceptibility profile. ASSESSMENT AND DISCUSSION: Type 2 diabetes, renal failure, coronary artery disease, peripheral vascular disease with previous revascularization, gangrene in right lateral forefoot region, status post ray amputation of 4th and 5th toes. Currently, on aztreonam, Flagyl, and vancomycin. In view of the susceptibilities, we will be able to switch her to levofloxacin, amoxicillin. Discontinue IV antimicrobials. The patient is not truly allergic to amoxicillin, but only she develops diarrhea when she takes it with amoxicillin and clavulanic acid formulation. Duration of therapy will depend on healing of the amputation site, but probably no more than 2 weeks depending on clinical progress. Job ID: [id number]
[2019-01-21] MEDS: Ubidecarenone 50 MG CAP PO SCH (20:28)
[2019-01-21] MEDS: AMOXicillin 250 MG CAP PO SCH (20:28)
[2019-01-21] MEDS: Pravastatin Sodium 20 MG TAB PO SCH (20:33)
[2019-01-21] MEDS: Insulin Glargine 50 UNITS in Pre-Filled Syringe 1 EACH SC SCH (21:52)
[2019-01-22] MEDS: traMADol HCl 50 MG TAB PO PRN (00:03)
[2019-01-22 06:38] LABS: #Basophils 0.1 thou/uL (0.0-0.2); #Eosinphils 0.4 thou/uL (0.0-0.7); #Lymphocytes 2.2 thou/uL (1.20-3.40); #Neutrophils 9.5 thou/uL (1.40-6.50); %Basophils 0.6 % (0.0-1.0); %Eosinophils 2.8 % (0.0-10.0); %Lymphocytes 16.4 % (21.0-51.0); %Monocytes 7.7 % (0.0-10.0); %Neutrophils 72.5 % (42.0-75.0); Hemoglobin 8.8 g/dL (12.0-16.0); Mean Corpuscular HGB CONC 32.2 g/dL (32.0-36.0); Mean Corpuscular Hemoglobin 30.6 pg (27.0-31.0); Mean Corpuscular Volume 95.3 fL (78.0-98.0); Mean Platelet Volume 7.5 fL (7.4-10.4); Platelet Count 521 thou/uL (130-400); Red Blood Cell (RBC) Count 2.88 mill/uL (4.20-5.40); White Blood Cell (WBC) Count 13.1 thou/uL (4.8-10.8)
[2019-01-22 06:59] LABS: ALT (SGPT) 17 U/L (8-55); AST (SGOT) 18 U/L (5-34); Albumin 2.9 g/dL (3.4-4.8); Alkaline Phosphatase 93 U/L (40-150); Anion Gap 12 mmol/L (10-20); BUN (Urea Nitrogen) 14 mg/dL (9.8-20.1); Bilirubin, Total 0.2 mg/dL (0.2-1.2); Calc. Creatinine Clearance 99 mL/min (70-130); Calcium 8.8 mg/dL (7.8-10.44); Carbon Dioxide 24 mmol/L (23-31); Chloride 108 mmol/L (98-107); Estimated GFR-MDRD 68; Globulin 4.5 g/dL (2.4-3.5); Glucose 73 mg/dL (80-115); Potassium 4.1 mmol/L (3.5-5.1); Protein, Total 7.4 g/dL (6.0-8.3); Sodium 140 mmol/L (136-145)
[2019-01-22] MEDS ORDERED: Metolazone 2.5 MG TAB PO PRN (07:33)
[2019-01-22] MEDS ORDERED: Furosemide 40 MG TAB PO SCH (09:00)
[2019-01-22] MEDS: AMOXicillin 250 MG CAP PO SCH ×3 (09:08→20:44)
[2019-01-22] MEDS: HumaLOG 300 UNITS/3 ML VIAL SC SCH ×3 (09:10→16:38)
[2019-01-22] MEDS: Insulin Glargine 80 UNITS in Pre-Filled Syringe 1 EACH SC SCH (09:10)
[2019-01-22] MEDS: Docusate 100 MG CAP PO SCH ×2 (09:11→20:45)
[2019-01-22] MEDS: Potassium Chloride 20 MEQ TAB PO SCH (09:11)
[2019-01-22] MEDS: Furosemide 40 MG TAB PO SCH ×2 (09:11→13:18)
[2019-01-22] MEDS: Pantoprazole 40 MG GRANULES PACKET PO SCH (09:11)
[2019-01-22] MEDS: Magnesium Oxide 250 MG TAB PO SCH (09:11)
[2019-01-22] MEDS: Prenatal Vitamin 1 TAB PO SCH ×2 (09:11→20:46)
[2019-01-22] MEDS: Lorazepam 1 MG TAB PO SCH (09:12)
[2019-01-22] MEDS: Carvedilol 25 MG TAB PO SCH ×2 (09:12→20:45)
[2019-01-22] MEDS: Aspirin 325 mg Enteric Coated Tablet PO SCH (09:14)
[2019-01-22] MEDS: Losartan 25 MG TAB PO SCH (09:15)
[2019-01-22] MEDS: Sodium Chloride 0.65% Nasal 44 ML BOT EA NARE SCH ×3 (09:22→20:47)
[2019-01-22] MEDS: Enoxaparin Sodium 40 MG/0.4 ML SYRINGE SC SCH (09:23)
--- NOTE | 2019-01-22 10:18 | PRG ---
DATE OF SERVICE: 01/22/2019 SUBJECTIVE: She is awake and alert. Does not have any medical complaints. She is currently on her breathing treatment. OBJECTIVE: VITAL SIGNS: Temperature 98.4, blood pressure 144/76. LUNGS: Clear. HEART: Reveals no murmur. LABORATORY DATA: Her hemoglobin is 8.8, hematocrit 27.5, and white count 13.1. Creatinine 0.84. Blood sugars appear to be adequately controlled for the process that she is experiencing. IMPRESSION: 1. Osteomyelitis, cellulitis, right foot. 2. History of atherosclerotic coronary artery disease. 3. History of peripheral vascular disease. 4. Type 2 diabetes mellitus. PLAN: She has been switched off the oral medicines, assessed to be in the hospital is now becoming limited as [facility] disposition was that whether she can go to [facility] or rehab. The patient would do better to be placed in some place where she could have proper wound care rather than going home directly where she has very little care. Job ID: [id number]
[2019-01-22 12:53] VITALS: BMI 39.4
[2019-01-22] MEDS: HYDROcodone/Acetaminophen 5/325 mg Tablet PO PRN ×2 (13:20→23:57)
[2019-01-22] MEDS ORDERED: Fluconazole 100 MG TAB PO SCH (15:45)
[2019-01-22] MEDS: Loratadine 10 MG TAB PO SCH (20:45)
[2019-01-22] MEDS: Insulin Glargine 50 UNITS in Pre-Filled Syringe 1 EACH SC SCH (20:46)
[2019-01-22] MEDS: Pravastatin Sodium 20 MG TAB PO SCH (20:46)
[2019-01-22] MEDS: Ubidecarenone 50 MG CAP PO SCH (20:46)
[2019-01-22] MEDS ORDERED: Lorazepam 1 MG TAB PO SCH (21:15)
[2019-01-23] MEDS: HumaLOG 300 UNITS/3 ML VIAL SC SCH ×3 (07:59→17:05)
[2019-01-23] MEDS: Insulin Glargine 80 UNITS in Pre-Filled Syringe 1 EACH SC SCH (07:59)
[2019-01-23] MEDS: Enoxaparin Sodium 40 MG/0.4 ML SYRINGE SC SCH (07:59)
[2019-01-23] MEDS: Pantoprazole 40 MG GRANULES PACKET PO SCH (08:00)
[2019-01-23] MEDS: Magnesium Oxide 250 MG TAB PO SCH (08:00)
[2019-01-23] MEDS: Furosemide 40 MG TAB PO SCH ×2 (08:00→14:34)
[2019-01-23] MEDS: AMOXicillin 250 MG CAP PO SCH ×3 (08:00→21:33)
[2019-01-23] MEDS: Potassium Chloride 20 MEQ TAB PO SCH (08:00)
[2019-01-23] MEDS: Fluconazole 100 MG TAB PO SCH (08:01)
[2019-01-23] MEDS: Aspirin 325 mg Enteric Coated Tablet PO SCH (08:01)
[2019-01-23] MEDS: Prenatal Vitamin 1 TAB PO SCH ×2 (08:01→21:34)
[2019-01-23] MEDS: Losartan 25 MG TAB PO SCH (08:01)
[2019-01-23] MEDS: Docusate 100 MG CAP PO SCH ×2 (08:02→20:11)
[2019-01-23] MEDS: Carvedilol 25 MG TAB PO SCH ×2 (08:02→21:32)
[2019-01-23] MEDS: Sodium Chloride 0.65% Nasal 44 ML BOT EA NARE SCH ×3 (08:03→21:35)
--- NOTE | 2019-01-23 14:08 | PRG ---
DATE OF SERVICE: 01/23/2019 SUBJECTIVE: Ms. Perkins is doing well. She reports no medical complaints. OBJECTIVE: VITAL SIGNS: Temperature 96.8, BP 162/96. LUNGS: Clear. HEART: Reveals a regular rate and rhythm. No murmurs, gallops, or rubs. LABORATORY DATA: Her blood sugars were adequately controlled. IMPRESSION: Osteomyelitis of the right foot, status post partial amputation of left foot with fourth and fifth toes. PLAN: The patient is able to be discharged at any time. She is stabilized from Surgery. Once we get final disposition with regard to either home or an extended care facility, we can make discharge. Job ID: [id number]
[2019-01-23] MEDS: HYDROcodone/Acetaminophen 5/325 mg Tablet PO PRN (17:08)
[2019-01-23] MEDS ORDERED: Lorazepam 1 MG TAB PO SCH (21:00)
[2019-01-23] MEDS: Ubidecarenone 50 MG CAP PO SCH (21:32)
[2019-01-23] MEDS: Pravastatin Sodium 20 MG TAB PO SCH (21:33)
[2019-01-23] MEDS: Loratadine 10 MG TAB PO SCH (21:34)
[2019-01-23] MEDS: Insulin Glargine 50 UNITS in Pre-Filled Syringe 1 EACH SC SCH (21:35)
[2019-01-24] MEDS: Insulin Glargine 80 UNITS in Pre-Filled Syringe 1 EACH SC SCH (08:50)
[2019-01-24] MEDS: Enoxaparin Sodium 40 MG/0.4 ML SYRINGE SC SCH (08:51)
[2019-01-24] MEDS: Pantoprazole 40 MG GRANULES PACKET PO SCH (08:51)
[2019-01-24] MEDS: Furosemide 40 MG TAB PO SCH ×2 (08:51→13:55)
[2019-01-24] MEDS: Potassium Chloride 20 MEQ TAB PO SCH (08:51)
[2019-01-24] MEDS: Carvedilol 25 MG TAB PO SCH (08:52)
[2019-01-24] MEDS: Aspirin 325 mg Enteric Coated Tablet PO SCH (08:52)
[2019-01-24] MEDS: Docusate 100 MG CAP PO SCH (08:53)
[2019-01-24] MEDS: Losartan 25 MG TAB PO SCH (08:53)
[2019-01-24] MEDS: Prenatal Vitamin 1 TAB PO SCH (08:54)
[2019-01-24] MEDS: Magnesium Oxide 250 MG TAB PO SCH (08:54)
[2019-01-24] MEDS: Fluconazole 100 MG TAB PO SCH (08:54)
[2019-01-24] MEDS: AMOXicillin 250 MG CAP PO SCH (09:01)
[2019-01-24] MEDS: HumaLOG 300 UNITS/3 ML VIAL SC SCH ×2 (09:02→12:41)
[2019-01-24] MEDS: Sodium Chloride 0.65% Nasal 44 ML BOT EA NARE SCH (09:04)
[2019-01-24] MEDS: HYDROcodone/Acetaminophen 5/325 mg Tablet PO PRN (10:24)
[2019-01-24 11:26] VITALS: BP 146/52; TEMP 98
--- NOTE | 2019-01-24 12:16 | CON ---
DATE OF CONSULTATION: 01/24/2019 SUBJECTIVE: Ms. Perkins is resting well. She has no medical complaints. OBJECTIVE: VITAL SIGNS: BP 158/78, temperature 97.7. LUNGS: Reveals bilateral breath sounds. HEART: Reveals a regular rate and rhythm. No murmurs, gallops, or rubs. EXTREMITIES: No clubbing, edema, or cyanosis. Wound VACs in place to the right foot. IMPRESSION: 1. Osteomyelitis, right foot. 2. History of amputation of right 4th, 5th toes. 3. Atherosclerotic coronary artery disease. 4. Type 2 diabetes mellitus, well controlled. 5. Peripheral vascular disease. PLAN: The patient is doing well. She is still on p.o. antibiotics. Hopefully, she will be placed soon in rehab center or extended nursing care. Job ID: [id number]
== END 2019-01-24 14:30 | DRG 853 ==
LOC: ERS 14:29 → CCU 18:38 → SJJU 01-18 16:22
PROVIDERS: ADMIT Family Medicine; ATTEND Family Medicine
PROC: 0Y6M0ZD Detachment at Right Foot, Partial 4th Ray, Open Approach (ICD-10-PCS; principal; 2019-01-17)
PROC: 0Y6M0ZF Detachment at Right Foot, Partial 5th Ray, Open Approach (ICD-10-PCS; 2019-01-17)
DX: A41.9 Sepsis, unspecified organism (principal); I21.A1 Myocardial infarction type 2; E11.52 Type 2 diabetes mellitus with diabetic peripheral angiopathy with gangrene; I96 Gangrene, not elsewhere classified; M86.171 Other acute osteomyelitis, right ankle and foot; Z68.41 Body mass index [BMI] 40.0-44.9, adult; I25.10 Atherosclerotic heart disease of native coronary artery without angina pectoris; E66.9 Obesity, unspecified; F41.9 Anxiety disorder, unspecified; F32.9 Major depressive disorder, single episode, unspecified; E78.00 Pure hypercholesterolemia, unspecified; E11.69 Type 2 diabetes mellitus with other specified complication; E11.22 Type 2 diabetes mellitus with diabetic chronic kidney disease; I12.9 Hypertensive chronic kidney disease with stage 1 through stage 4 chronic kidney disease, or unspecified chronic kidney disease; J44.9 Chronic obstructive pulmonary disease, unspecified; N18.9 Chronic kidney disease, unspecified; Z88.1 Allergy status to other antibiotic agents; Z88.8 Allergy status to other drugs, medicaments and biological substances; Z91.040 Latex allergy status; Z79.4 Long term (current) use of insulin; Z90.49 Acquired absence of other specified parts of digestive tract; Z95.1 Presence of aortocoronary bypass graft; Z88.0 Allergy status to penicillin; Z90.710 Acquired absence of both cervix and uterus
CPT/HCPCS: 36415; 36416; 51702; 71045; 71275; 80048; 80053; 80202; 82553; 82805; 83605; 83880; 84484; 85025; 86850; 86900; 86901; 87070; 87077; 87186; 87205; 93005; 94640; 96365; 96367; J0670; J0696; J1650; J1815; J1940; J2175; J2250; J2543; J3370; J3490; J7620; Q9966

== ENCOUNTER 2019-02-10 16:38 | Inpatient (IN) | payer MEDICARE ==
[2019-02-10 17:33] LABS: #Eosinphils 0.2 thou/uL (0.0-0.7); #Lymphocytes 1.1 thou/uL (1.20-3.40); #Monocytes 1.2 thou/uL (0.11-0.59); #Neutrophils 10.1 thou/uL (1.40-6.50); %Basophils 0.2 % (0.0-1.0); %Eosinophils 1.9 % (0.0-10.0); %Lymphocytes 8.6 % (21.0-51.0); %Monocytes 9.4 % (0.0-10.0); %Neutrophils 79.9 % (42.0-75.0); Hemoglobin 10.5 g/dL (12.0-16.0); Mean Corpuscular HGB CONC 32.1 g/dL (32.0-36.0); Mean Corpuscular Hemoglobin 29.8 pg (27.0-31.0); Mean Corpuscular Volume 92.7 fL (78.0-98.0); Mean Platelet Volume 8.4 fL (7.4-10.4); Platelet Count 300 thou/uL (130-400); RBC Distribution Width 13.2 % (11.5-14.5); Red Blood Cell (RBC) Count 3.54 mill/uL (4.20-5.40); White Blood Cell (WBC) Count 12.6 thou/uL (4.8-10.8)
[2019-02-10 17:52] LABS: ALT (SGPT) 10 U/L (8-55); AST (SGOT) 15 U/L (5-34); Albumin 3.8 g/dL (3.4-4.8); Alkaline Phosphatase 101 U/L (40-150); Anion Gap 18 mmol/L (10-20); BUN (Urea Nitrogen) 35 mg/dL (9.8-20.1); Bilirubin, Total 0.4 mg/dL (0.2-1.2); Calc. Creatinine Clearance 0 mL/min (70-130); Carbon Dioxide 25 mmol/L (23-31); Chloride 100 mmol/L (98-107); Estimated GFR-MDRD 33; Globulin 4.7 g/dL (2.4-3.5); Glucose 92 mg/dL (80-115); Potassium 4.7 mmol/L (3.5-5.1); Protein, Total 8.5 g/dL (6.0-8.3); Sodium 138 mmol/L (136-145)
[2019-02-10 18:12] LABS: CKMB 1.5 ng/mL (0-6.6)
[2019-02-10 18:24] LABS: Bilirubin Negative (Negative); Blood, Urine Negative (Negative); Clarity Clear (Clear); Glucose, Urine (Dipstick) Normal (Negative); Leukocyte Negative Leu/uL (Negative); Nitrite Negative (Negative); Protein, Urine (Dipstick) 20 mg/dL (Neg-Trace); Urobilinogen Normal mg/dL (Less than 2)
--- NOTE | 2019-02-10 18:38 | RAD ---
RADIOGRAPH CHEST 1 VIEW: DATE: 02/10/2019 TIME: 6:24 PM HISTORY: 68-year-old female with chest pain and fever. COMPARISON: 01/17/2019. FINDINGS: Again noted are the sternotomy wires and multiple surgical clips overlying the left heart and mediast inum. Again noted is the cardiomegaly. There is mild pulmonary venous engorgement, slightly greater than previously. There is mild haziness of the bilateral mid lung zones. No consolidation identified. No pneumothorax. IMPRESSION: 1. Cardiomegaly. 2. Probable mild congestive heart failure. 3. Status post coronary artery bypass graft surgery is evidence for coronary atherosclerotic disease.
[2019-02-10] MEDS ORDERED: Aspirin 325 MG TAB ONE (18:54)
--- NOTE | 2019-02-10 18:59 | RAD ---
Radiograph right foot 3 views: DATE: 02/10/2019 HISTORY: 68-year-old female with fever and right foot pain. COMPARISON: 01/16/2019 FINDINGS: Since the prior study, there has been interval amputations at the neck of the fourth metatarsal, and mid diaphysis of the fifth metatarsal. There is large overlying soft tissue defect. No christiano destructive osseous lesion identified. Diffuse soft tissue edema of the foot, especially the dorsum. Atherosclerotic calcification of the dorsalis pedis artery and posterior tibial artery. IMPRESSION: Status post recent amputations of head of fourth metatarsal and mid shaft of fifth metatarsal.
[2019-02-10] MEDS ORDERED: Ondansetron PF 4 MG/2 ML Vial ONE ×2 (19:59→20:02)
[2019-02-10] MEDS ORDERED: Morphine 2 MG/ML SYRINGE ONE ×2 (19:59→20:02)
[2019-02-10 20:58] LABS: Troponin I 0.385 ng/mL (< 0.028)
[2019-02-10] MEDS ORDERED: Acetaminophen 325 MG TAB PO PRN (22:14)
[2019-02-10 23:43] LABS: Troponin I 1.798 ng/mL (< 0.028)
[2019-02-11] MEDS ORDERED: Morphine 2 MG/ML SYRINGE SLOW IVP PRN
[2019-02-11] MEDS ORDERED: Acetaminophen 325 MG TAB PO PRN
[2019-02-11] MEDS ORDERED: Morphine 4 MG/ML VIAL SLOW IVP PRN (00:01)
[2019-02-11 05:59] LABS: Anion Gap 13 mmol/L (10-20); BUN (Urea Nitrogen) 38 mg/dL (9.8-20.1); CRP (Inflammatory) 9.72 mg/dL (= or < 0.5); Calc. Creatinine Clearance 58 mL/min (70-130); Calcium 9.1 mg/dL (7.8-10.44); Carbon Dioxide 26 mmol/L (23-31); Chloride 100 mmol/L (98-107); Estimated GFR-MDRD 38; Glucose 185 mg/dL (80-115); Potassium 4.4 mmol/L (3.5-5.1); Sodium 135 mmol/L (136-145)
[2019-02-11] MEDS ORDERED: Furosemide 40 MG/4 ML VIAL SLOW IVP SCH (10:15)
[2019-02-11] MEDS: Sodium Chloride 0.9% 10 ML ONE ×2 (11:29→16:51)
[2019-02-11] MEDS ORDERED: cloNIDine 0.1 MG TAB PO PRN (12:30)
[2019-02-11] MEDS ORDERED: Metolazone 2.5 MG TAB PO PRN (12:39)
[2019-02-11] MEDS ORDERED: Nitroglycerin 0.4 MG TAB (25 Tab Bottle) SL PRN (12:40)
[2019-02-11] MEDS ORDERED: Dextrose 5% in Water 1,000 ML IV PRN (12:45)
[2019-02-11] MEDS ORDERED: Dextrose 50% Abboject 50 ML SYRINGE IVP PRN (12:45)
[2019-02-11] MEDS ORDERED: Potassium Chloride 20 MEQ TAB PO SCH (13:30)
[2019-02-11] MEDS ORDERED: Losartan 25 MG TAB PO SCH (13:30)
[2019-02-11] MEDS ORDERED: Clopidogrel Bisulfate 75 MG TAB PO SCH (13:30)
[2019-02-11] MEDS ORDERED: Isosorbide Mononitrate (ER) 30 MG TAB PO SCH (13:30)
[2019-02-11] MEDS ORDERED: Aspirin 325 MG TAB PO SCH (13:45)
[2019-02-11] MEDS ORDERED: Sodium Chloride 0.9% 10 ML ONE (13:59)
[2019-02-11] MEDS: Sodium Chloride 0.65% Nasal 44 ML BOT EA NARE SCH ×2 (14:15→20:37)
[2019-02-11] MEDS: HumaLOG 300 UNITS/3 ML VIAL SC PRN ×2 (14:28→17:01)
[2019-02-11] MEDS: Vancomycin HCl 1 GM in Premix Bag 1 BAG IVPB SCH (16:50)
[2019-02-11] MEDS: HumaLOG 300 UNITS/3 ML VIAL SC SCH (17:00)
[2019-02-11] MEDS: Ubidecarenone 50 MG CAP PO SCH (20:35)
[2019-02-11] MEDS: Carvedilol 6.25 MG TAB PO SCH (20:36)
[2019-02-11] MEDS: Docusate 100 MG CAP PO SCH (20:36)
[2019-02-11] MEDS: Lorazepam 0.5 MG TAB PO SCH (20:37)
[2019-02-11] MEDS: Baclofen 10 MG TAB PO SCH (20:37)
[2019-02-11] MEDS: Nystatin Cream 15 GM TUBE TOP SCH (20:38)
[2019-02-11] MEDS: Furosemide 40 MG/4 ML VIAL SLOW IVP SCH (20:39)
[2019-02-11] MEDS: Simvastatin 5 MG TAB PO SCH (20:39)
[2019-02-11] MEDS: HYDROcodone/Acetaminophen 5/325 mg Tablet PO PRN (20:42)
[2019-02-11] MEDS: Insulin Glargine 45 UNITS in Pre-Filled Syringe 1 EACH SC SCH (20:49)
[2019-02-11] MEDS ORDERED: CERAVE TOP SCH (21:00)
--- NOTE | 2019-02-12 01:08 | CON ---
DATE OF CONSULTATION: HISTORY OF PRESENT ILLNESS: Fe Perkins is a 68-year-old white female, admitted with chest pain and sepsis. She underwent CABG x4 by Dr. Lehman in November 1997. She was cared for by Dr. Alvarado at that time. Since that time, she has been cared for by Dr. Noland. She underwent catheterization here in August 2000 and her grafts were patent. She also states that she underwent catheterization at the [facility] 4 or 5 years ago and her grafts were still patent. She has never had any intervention in her coronary arteries. She was in the hospital in December 2018 and underwent transmetatarsal amputation of the right 4th and 5th toes for osteomyelitis. She now was treated with IV antibiotics and discharged on p.o. antibiotics. She now is admitted to the emergency room with a temperature of 101, complained of chest pressure. She also states that she had generalized body aches and pains. With one sublingual nitroglycerin, her pain resolved. She has been admitted and placed back on IV antibiotics. PAST MEDICAL HISTORY: Coronary artery disease, hypertension, hypercholesterolemia, peripheral vascular disease with percutaneous transluminal angioplasty and she states she has never had any stents placed in her legs. Coronary artery disease with patent grafts 4 or 5 years ago. She has never had any further intervention in her coronary arteries. PAST SURGICAL HISTORY: Appendectomy, CABG, transmetatarsal amputation of the 4th and 5th toes of the right foot 3 weeks ago, cholecystectomy, hysterectomy. MEDICATIONS: As noted in the chart. ALLERGIES: AMOXICILLIN, HYDRALAZINE, AND LATEX. SOCIAL HISTORY: She does not smoke or drink. PHYSICAL EXAMINATION: VITAL SIGNS: Blood pressure 104/58, pulse 83. HEENT: PERRL. NECK: Supple. CHEST: Clear. CARDIAC: S1 and S2 are normal without any S3, S4, or murmurs. ABDOMEN: Normal bowel sounds without tenderness or organomegaly. EXTREMITIES: Reveal bandage on her right foot. No edema. LABORATORY DATA: EKG reveals old septal infarction. Hemoglobin 10.5, hematocrit 32.8, white count 12,600, platelets 300,000. Sodium 135, potassium 4.4, chloride 100, carbon dioxide 26, BUN 38, creatinine 1.39. Troponin I 1.798. BNP 351.7. IMPRESSION: 1. Probable [id number] myocardial infarction, type 1. 2. Status post coronary artery bypass grafting x4. 3. Sepsis syndrome. 4. Status post transmetatarsal amputation of 4th and 5th toes of the right foot. 5. Peripheral vascular disease, status post interventions, mostly in the left leg. 6. Hypertension. 7. Hyperlipidemia. 8. Diabetes. 9. Obesity. PLAN: At the present time, the patient is pain free and a lot of this may be a result of her sepsis syndrome. I do not feel any acute intervention is warranted at this time and that she needs to be treated with antibiotics to gain control of her infection. [facility] will [facility] from [facility] regarding her last catheterization. Dr. Rhoades followed her during her last hospitalization. However, he is out of town for the next week and I will be seeing her during that time. Job ID: [id number] [facility]
[2019-02-12] MEDS: Vancomycin HCl 1 GM in Premix Bag 1 BAG IVPB SCH ×2 (04:18→15:41)
[2019-02-12 05:56] LABS: #Basophils 0.1 thou/uL (0.0-0.2); #Eosinphils 0.5 thou/uL (0.0-0.7); #Lymphocytes 1.4 thou/uL (1.20-3.40); #Monocytes 1.2 thou/uL (0.11-0.59); #Neutrophils 7.4 thou/uL (1.40-6.50); %Eosinophils 4.6 % (0.0-10.0); %Lymphocytes 13.3 % (21.0-51.0); %Monocytes 11.1 % (0.0-10.0); %Neutrophils 70.1 % (42.0-75.0); Hemoglobin 10.4 g/dL (12.0-16.0); Mean Corpuscular Volume 94.1 fL (78.0-98.0); Mean Platelet Volume 8.3 fL (7.4-10.4); Platelet Count 306 thou/uL (130-400); RBC Distribution Width 13.2 % (11.5-14.5); Red Blood Cell (RBC) Count 3.35 mill/uL (4.20-5.40); White Blood Cell (WBC) Count 10.5 thou/uL (4.8-10.8)
[2019-02-12] MEDS: Ondansetron ODT 4 MG TAB PO PRN (05:57)
[2019-02-12 06:19] LABS: Anion Gap 16 mmol/L (10-20); BUN (Urea Nitrogen) 38 mg/dL (9.8-20.1); CRP (Inflammatory) 11.33 mg/dL (= or < 0.5); Calc. Creatinine Clearance 62 mL/min (70-130); Calcium 9.3 mg/dL (7.8-10.44); Carbon Dioxide 24 mmol/L (23-31); Chloride 99 mmol/L (98-107); Estimated GFR-MDRD 40; Glucose 181 mg/dL (80-115); Potassium 4.7 mmol/L (3.5-5.1); Sodium 134 mmol/L (136-145)
[2019-02-12] MEDS ORDERED: Sodium Chloride 0.9% 10 ML ONE (07:45)
[2019-02-12] MEDS: Carvedilol 6.25 MG TAB PO SCH ×2 (08:07→20:47)
[2019-02-12] MEDS: Aspirin 325 MG TAB PO SCH (08:07)
[2019-02-12] MEDS: Docusate 100 MG CAP PO SCH ×2 (08:14→20:48)
[2019-02-12] MEDS: Baclofen 10 MG TAB PO SCH ×2 (08:15→20:48)
--- NOTE | 2019-02-12 08:54 | HP ---
CHIEF COMPLAINT: Fever and foot infection getting worse. HISTORY OF PRESENT ILLNESS: This is a 68-year-old Latin-[place] female patient of Dr. Israel Mohan, who had been at [place] in late December of this year for an ulcer on her right foot. She underwent a transmetatarsal amputation of the right 4th and 5th toes due to gangrene. She had a wound VAC applied and then she was discharged to the rehab center, one of the extended nursing cares was not [facility]. The patient states that the wound VAC had not been working well at the facility and so she has essentially been without continuous wound VAC since discharge. She said they took the wound VAC off one or two days prior to her leaving and coming to the emergency room and that she had copious amounts of very foul smelling effluent contaminating her ortho shoe. The surgery was performed by Dr. George Mohan, and currently she has a new dressing applied to the wound. She has chronic diabetic peripheral neuropathy and poor sensation to both of her legs and feet. She has had some mild chest pain as she describes, but no true shortness of breath, and in the ER, she had a low-grade temperature around 99 to 100 and due to the level of discharge on the temperature, it felt best she get readmitted. Her initial troponin in the ER was 0.08, and her beta-natriuretic peptide at that point was 350 with a creatinine of 1.5. She has chronic renal insufficiency, so that was not necessarily different for her. PAST MEDICAL HISTORY: Positive for atherosclerotic cardiovascular disease. She has had a four-v[place] [address] W[address]. She since that time sees Dr. 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 She is also a type 2 diabetic. She has hypertension and hyperlipidemia. She has a past history of sepsis. She had recent gangrene. She has significant peripheral vascular disease. PAST SURGICAL HISTORY: CABG x4 in 1995. She has had peripheral vascular ballooning of vessels. She has had transmetatarsal amputation of the right foot 4th and 5th digits that was just last month. She has had a vaginal hysterectomy followed later by a previously unknown ruptured appendix extraction that has significant calcified phlegmon around it, and at that time, they took both her ovaries, which had been left from the previous hysterectomy. She has also had a cholecystectomy. [facility] ALLERGIES: SHE HAS NO KNOWN DRUG ALLERGIES, ALTHOUGH SHE DOES STATE THAT SHE GETS SEVERE DIARRHEA FROM [facility], BUT SHE HAS NO PROBLEMS WITH PENICILLINS BY THEMSELVES, IT IS JUST THE CLAVULANIC THAT SHE DOES NOT TOLERATE. FAMILY HISTORY: Noncontributory. 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 Stopped smoking in 1995 at the time of the bypass. She does not drink alcohol. She is , has two children, and has a couple of grandchildren. REVIEW OF SYSTEMS: She denies any headache. No visual changes. No trouble chewing or swallowing. She had mild chest pain, but no shortness of breath. She denies any abdominal pain. Denies any cough or hemoptysis. No nausea or vomiting. Denies any changes in bowel or bladder habits. Denies any weakness. She has chronic numbness in her legs and feet. Denies any suicidal or homicidal ideations. She denies any auditory or visual hallucinations. PHYSICAL EXAMINATION: VITAL SIGNS: Today, she is afebrile. Temperature is 97.4, pulse 83, respirations 17 to 18, saturating 98% to 99% on 2 L, and BP currently is 125/62. GENERAL: She is lying in bed, relatively comfortable, cooperative, pleasant. HEENT: Essentially unremarkable. Pupils are equal, round, and reactive to light and accommodation. Extraocular movements are intact. Mucous membranes are moist and pink. NECK: Obese, but supple. No JVD. No bruits. No thyromegaly. HEART: S1 and S2 with no rubs, murmurs, or gallops. No heaves, lifts, or clicks. LUNGS: Clear to auscultation. No rales, rhonchi, or wheezes. ABDOMEN: Soft, obese, nontender. No appreciable organomegaly. Bowel sounds are hypoactive at this time. GENITOURINARY: Deferred. EXTREMITIES: She has weak, but palpable pulses in all four extremities. There are some bruising and ecchymosis on the right ankle, possibly from her ortho shoe. She has a dressing in place over the wounds on her right foot with some serosanguineous drainage. The wounds have some purulent type drainage, but there is appearance of good blood flow and appear trying to heal. There is some proud flesh forming. NEUROLOGIC: She is alert and oriented x4. Cranial nerves 2 through 12 are equal and symmetrical. LABORATORY DATA: Her white count is 12.6, RBC is 3.5, hemoglobin is 10.5, hematocrit is 32.8, platelet counts of 300, neutrophils at 80%, lymphocytes at 8.6%. Chemistries; sodium is initially 138, potassium is 4.7, chloride is 100, bicarb is 25, BUN is 35 with a creatinine of 1.55, GFR is 33. Lactic acid is 1.8. Her CK-MB came back at 1.5 with a troponin of 0.08. Her beta-natriuretic peptide was 350. Urine was essentially unremarkable. Repeat troponins, the second one came back slightly elevated at 0.38, the next one came back at 1.79. The C-reactive protein came back this morning at 9.7. Her creatinine improved a little bit this morning with some IV fluids overnight and it is down to 1.39. Her glucose is elevated at 180s to 190s. HOME MEDICINES: She has [place] 5/325, she takes one every eight as needed for pain. She has isosorbide mononitrate 30 mg extended release, she takes three of those a day. She is on 325 aspirin a day. She is on 75 mg Plavix a day. She has 25 mg of sertraline a day. She has 20 mEq of K-Dur daily. She has metolazone 2.5 mg daily as needed. She has nitroglycerin sublingual as needed. She has 0.5 lorazepam at night. She has Lantus, she told me she takes 50 units at night and 70 units in the morning. She also has baclofen 10 mg twice a day. She has Colace 100 mg twice a day. Clonidine 0.1 mg p.o. as needed at night. She is on Lasix 40 mg, she says she takes one a day, although the list has down as two a day, but she says she only takes one. Her carvedilol 12.5 mg twice a day and losartan 100 mg daily. She has a mealtime sliding scale Humalog. She has been on Levaquin orally 500 mg a day. She also has p.r.n. Zofran. She is on pravastatin 20 mg a day, CoQ10 of 200 mg a day. She has been on nystatin cream and Lamisil cream as well as Protonix 20 mg a day. She is also getting Santyl applied to her wound daily. DIAGNOSTIC STUDIES: She had a chest x-ray done in the ER, which showed cardiomegaly, mild congestive heart failure, and there is visible coronary atherosclerotic calcified vessel disease. Her foot x-ray showed no signs of destructive osseous nature. All the issues on the x-ray appeared to be soft tissue in nature. There are no fractures or dislocations. Her EKG does not show an ST depression or elevation, normal sinus rhythm. ASSESSMENT: Postop cellulitis and amputation site with known peripheral vascular disease, known chronic renal insufficiency. She has known congestive heart failure and coronary artery disease with a 4-vessel bypass. She has increased troponin and increased beta-natriuretic peptide with congestive heart failure. Also type 2 diabetes with renal insufficiency and also type 2 diabetes with peripheral neuropathy. PLAN: We are waiting to restart her empirical antibiotics. We are waiting on results of cultures. Wound Care has been consulted. Hopefully, we will get a new wound VAC applied. Cardiology has been consulted. We will see about getting an echo as well as further input on her elevated troponins. At this point, the differential diagnosis includes renal causes an infection and also her CHF exacerbation with increase in her troponins, and since she has been asymptomatic and there are no EKG changes with it. They will see her this morning and Dr. Mohan will take over tomorrow. Job ID: [id number]
[2019-02-12] MEDS ORDERED: Clopidogrel Bisulfate 75 MG TAB PO SCH (09:00)
[2019-02-12] MEDS ORDERED: Insulin Glargine 80 UNITS in Pre-Filled Syringe 1 EACH SC SCH (09:00)
[2019-02-12] MEDS ORDERED: Isosorbide Mononitrate (ER) 30 MG TAB PO SCH (09:00)
[2019-02-12] MEDS ORDERED: Losartan 25 MG TAB PO SCH (09:00)
[2019-02-12] MEDS ORDERED: Potassium Chloride 20 MEQ TAB PO SCH (09:00)
[2019-02-12] MEDS: Furosemide 40 MG/4 ML VIAL SLOW IVP SCH ×2 (11:53→20:49)
[2019-02-12] MEDS: Nystatin Cream 15 GM TUBE TOP SCH ×2 (11:54→20:53)
[2019-02-12] MEDS: HumaLOG 300 UNITS/3 ML VIAL SC SCH ×3 (11:54→19:05)
[2019-02-12] MEDS: Sodium Chloride 0.65% Nasal 44 ML BOT EA NARE SCH ×3 (11:55→20:50)
--- NOTE | 2019-02-12 12:58 | PRG ---
DATE OF SERVICE: 02/12/2019 SUBJECTIVE: The patient is resting comfortably. She has no medical complaints. OBJECTIVE: VITAL SIGNS: Temperature 98.2, BP 120/63. LUNGS: Clear. HEART: Regular rate and rhythm. No murmur, gallops, or rubs. LABORATORY DATA: White blood count 10.5, hemoglobin 10.4, and hematocrit 31.5. Electrolytes; sodium 134, potassium 4.7, chloride 99, CO2 of 24, BUN 38, and creatinine 1.32. Troponin is 5.332. Blood culture reveals a methicillin-resistant Staph. IMPRESSION: 1. Status post amputation of foot with possible secondary foot infection. 2. She does have an elevated troponin. I have been notified the filenet developer. 3. Consult Dr. George Mohan who previously operated on her foot for further recommendations. 4. Consult Dr. Rodriguez. Job ID: [id number]
[2019-02-12] MEDS: Sodium Chloride 0.9% 10 ML ONE (15:32)
[2019-02-12] MEDS ORDERED: Nitroglycerin 100MG/250ML BOT 0 ML ONE (16:45)
[2019-02-12] MEDS: Ubidecarenone 50 MG CAP PO SCH (20:46)
[2019-02-12] MEDS: HYDROcodone/Acetaminophen 5/325 mg Tablet PO PRN (20:47)
[2019-02-12] MEDS: Lorazepam 0.5 MG TAB PO SCH (20:47)
[2019-02-12] MEDS: Simvastatin 5 MG TAB PO SCH (20:49)
[2019-02-12] MEDS: Insulin Glargine 45 UNITS in Pre-Filled Syringe 1 EACH SC SCH (21:43)
--- NOTE | 2019-02-12 23:20 | CON ---
DATE OF CONSULTATION: 02/12/2019 REASON FOR REQUEST: Concern with infection, right foot amputation site. HISTORY OF PRESENT ILLNESS: A 68-year-old whom I had seen in December 2018 when she presented with a history of coronary artery disease, type 2 diabetes, and PVD with right lateral forefoot necrosis/gangrene. The patient had amputation of the 4th and 5th rays and was prescribed broad spectrum coverage, and initially she was placed on aztreonam, Flagyl, and vancomycin, and then transitioned to levofloxacin and amoxicillin, IV antimicrobials were discontinued. She had been receiving the treatment at [facility] and apparently they left the pump for the negative pressure dressing and left the tubing and dressing in place without removing it and then developed chest pain and had some chills and fever. Looking at the lists reported she had been still on levofloxacin, but not amoxicillin. The vital signs on arrival with a temperature of 101. The remainder of the exam showed some tachycardia. Lungs sounds were clear and the right foot wound with foul odor. Currently, she is awake, sitting in bed, appears in no distress. Some visual impairment related to her diabetes. No sore throat, odynophagia, or dysphagia. No dyspnea or chest pain anymore. No abdominal pain or diarrhea. Voiding without difficulty. PAST MEDICAL HISTORY: Includes type 2 diabetes mellitus, peripheral vascular disease with multiple prior revascularizations, not eligible for any further intervention due to her renal function, coronary artery disease, chronic renal failure, hypertension. PAST SURGICAL HISTORY: Bypass graft, hysterectomy, multiple peripheral vascular interventions by Dr. Noland, mostly on the left side. SOCIAL HISTORY: Single, former smoker. ALLERGIES: AMOXICILLINS, NOT A TRUE ALLERGY, MORE OF GASTROINTESTINAL ADVERSE REACTION. CURRENT MEDICATIONS: 1. Tylenol. 2. Mondamin. 3. DuoNeb. 4. Aspirin. 5. Lioresal. 6. Coreg. 7. Catapres. 8. Plavix. 9. Colace. 10. Lasix. 11. Insulin. 12. Levofloxacin. 13. Cozaar. 14. Morphine. 15. Zofran. 16. Vancomycin. PHYSICAL EXAMINATION: VITAL SIGNS: T-max 101, she has been afebrile since, blood pressure 102/51, pulse 63, respirations 16, O2 saturation 95. SKIN: Shows the amputation site with fairly healthy-appearing granulation tissue at the base. No undermining. Hyperpigmentation surrounding the round-shaped wound which measures about 7 cm x 5 with granulation tissue covers about 100% of the base of the wound. HEENT: No lymphadenopathy. Ocular movements are conjugate. LUNGS: Symmetric, clear breath sounds. NECK: No jugular vein distention. HEART: S1 and S2. No murmurs. ABDOMEN: Soft, not distended. No bladder distention. NEUROLOGIC: Nonfocal. Diminished dorsalis pedis, but right and left leg pulses are 1+ in popliteals. Cognitive function appears to be intact. LABORATORY DATA: White cell count is 12.6 and 10.5, hemoglobin 10.4, platelets 300, 79% neutrophils and now 70%. Sodium 134, creatinine 1.32 and her baseline of 1.55, GFR at 40. CRP 11. BNP 962. Urinalysis was normal. Microbiology with MRSA retrieved from the wound with susceptibility to rifampin, tetracycline, and vancomycin. Repeat foot x-ray with the amputations, without any destructive osseous lesions. She had a chest x-ray with cardiomegaly and mild CHF. She had a previous CT angio from January 16 without evidence of pulmonary embolism. ASSESSMENT: 1. Coronary artery disease. 2. Type 2 diabetes. 3. Peripheral vascular disease with prior revascularizations, mostly on the left side. 4. Chronic renal insufficiency, stage 3 to 4. 5. Hypertension. 6. Gangrene right lateral forefoot, status post 4th and 5th ray amputations. 7. Malfunction of the negative pressure dressing with partial removal. 8. Fever. 9. Chest pain. DISCUSSION: The patient may have had transient bacteremia associated with the open wound and dysfunction of the negative pressure dressing with maceration and accumulation of pathogens in the surface of the wound. She had previously been on Levaquin and amoxicillin based on prior microbiology, which included Proteus mirabilis and Enterococcus faecalis. The current isolate may not be related to her clinical decompensation, but there is a possibility that she may have had transient bacteremia and I believe it is worthwhile to cover the MRSA with clindamycin or with the doxycycline and rifampin, probably doxycycline and rifampin to decrease the risk of Clostridium difficile. The wound has excellent granulation tissue, and if the blood cultures remain negative, then she could be discharged to complete another 2 weeks of doxycycline and rifampin. Job ID: [id number] [facility]
[2019-02-13 03:40] LABS: Hemoglobin 9.1 g/dL (12.0-16.0); Mean Corpuscular HGB CONC 32.9 g/dL (32.0-36.0); Mean Corpuscular Hemoglobin 30.6 pg (27.0-31.0); Mean Corpuscular Volume 92.9 fL (78.0-98.0); Platelet Count 308 thou/uL (130-400); Red Blood Cell (RBC) Count 2.97 mill/uL (4.20-5.40); White Blood Cell (WBC) Count 8.9 thou/uL (4.8-10.8)
[2019-02-13] MEDS: Vancomycin HCl 1 GM in Premix Bag 1 BAG IVPB SCH (03:45)
[2019-02-13 03:54] LABS: Vancomycin, Trough 22.9 ug/mL
[2019-02-13 03:57] LABS: Anion Gap 14 mmol/L (10-20); BUN (Urea Nitrogen) 37 mg/dL (9.8-20.1); CRP (Inflammatory) 5.71 mg/dL (= or < 0.5); Calc. Creatinine Clearance 69 mL/min (70-130); Calcium 8.8 mg/dL (7.8-10.44); Carbon Dioxide 26 mmol/L (23-31); Cardiac Risk 5.5 (Less than 4.5); Chloride 99 mmol/L (98-107); Cholesterol 149 mg/dl (< 200 Desired); Estimated GFR-MDRD 46; Glucose 187 mg/dL (80-115); HDL Cholesterol 27 mg/dL (>60 Neg Risk); LDL Cholesterol, Calculated 90 mg/dL; Potassium 4.3 mmol/L (3.5-5.1); Sodium 135 mmol/L (136-145); Triglycerides 160 mg/dL (Less than 150)
[2019-02-13 04:44] LABS: Band 2 % (5-11); Eosinophils 3 % (0-10); Lymphocytes 21 % (21-51); MDiff Complete? YES; Monocytes 12 % (0-10); Myelocyte 1 % (0-0); Neutrophil 61 % (42-75)
[2019-02-13] MEDS ORDERED: traMADol HCl 50 MG TAB PO PRN (07:35)
[2019-02-13] MEDS ORDERED: cloNIDine 0.1 MG TAB PO PRN (07:35)
[2019-02-13] MEDS ORDERED: Metolazone 2.5 MG TAB PO PRN (07:35)
[2019-02-13] MEDS ORDERED: HYDROcodone/Acetaminophen 5/325 mg Tablet PO PRN (07:35)
[2019-02-13] MEDS ORDERED: NITROGLYCERIN 0.4 MG SL PRN (07:35)
--- NOTE | 2019-02-13 08:09 | PRG ---
DATE OF SERVICE: 02/13/2019 SUBJECTIVE: Ms. Perkins is resting comfortably. She has no medical complaints. OBJECTIVE: VITAL SIGNS: Temperature 99.4, pulse 56, BP 113/54. LUNGS: Clear. HEART: Reveals no murmur. LABORATORY DATA: White blood count is 8.9, hemoglobin 9.1, hematocrit 27.6. Sodium 135, potassium 4.3, chloride 99, CO2 of 26, BUN 118. BNP slightly elevated at 967. C-reactive protein is 5.71. IMPRESSION: 1. Cellulitis, osteomyelitis, right foot. 2. Possible transient bacteremia with fever, now under control. 3. Status post [id number] elevated myocardial infarction. PLAN: I have discussed the wound care. The wound issues have been discussed with the cardiovascular surgeon as well as Infectious Disease and feels like this patient could be transferred back expectantly in the next couple of days for p.o. medications. Cardiology needs to come back to reassess and put in further input regarding her cardiac situation. Job ID: [id number]
[2019-02-13] MEDS: Aspirin 325 MG TAB PO SCH (08:48)
[2019-02-13] MEDS: Carvedilol 6.25 MG TAB PO SCH ×2 (08:48→20:37)
[2019-02-13] MEDS: Docusate 100 MG CAP PO SCH ×2 (08:49→20:36)
[2019-02-13] MEDS: Potassium Chloride 20 MEQ TAB PO SCH (08:49)
[2019-02-13] MEDS: Isosorbide Mononitrate (ER) 30 MG TAB PO SCH (08:49)
[2019-02-13] MEDS: Clopidogrel Bisulfate 75 MG TAB PO SCH (08:49)
[2019-02-13] MEDS: Furosemide 80 MG TAB PO SCH (08:49)
[2019-02-13] MEDS: Baclofen 10 MG TAB PO SCH ×2 (08:50→20:37)
[2019-02-13] MEDS: Sodium Chloride 0.65% Nasal 44 ML BOT EA NARE SCH ×3 (08:51→20:38)
[2019-02-13] MEDS: HumaLOG 300 UNITS/3 ML VIAL SC SCH ×4 (08:53→17:20)
[2019-02-13] MEDS: Pantoprazole 40 MG GRANULES PACKET PO SCH (08:53)
[2019-02-13] MEDS ORDERED: Non-Formulary Item 1 EACH (Pantoprazole Sodium [Pantoprazole Sodium] 20 MG) PO SCH (09:00)
[2019-02-13] MEDS ORDERED: Furosemide 40 MG TAB PO SCH (09:00)
[2019-02-13] MEDS ORDERED: Non-Formulary Item 1 EACH (Losartan Potassium [Losartan Potassium] 100 MG) PO SCH (09:00)
[2019-02-13] MEDS ORDERED: Furosemide 40 MG/4 ML VIAL SLOW IVP SCH (09:00)
[2019-02-13] MEDS ORDERED: Insulin Glargine 80 UNITS in Pre-Filled Syringe 1 EACH SC SCH (09:00)
[2019-02-13] MEDS: Losartan 25 MG TAB PO SCH (09:01)
[2019-02-13] MEDS: Nystatin Cream 15 GM TUBE TOP SCH ×2 (09:09→20:39)
[2019-02-13] MEDS: Sodium Chloride 0.9% 1,000 ML IV SCH (09:21)
--- NOTE | 2019-02-13 15:48 | PQF ---
CLINICAL DOCUMENTATION IMPROVEMENT CLARIFICATION FORM: ICD-10 Updated PLEASE DO AN ADDENDUM TO THE PROGRESS NOTE WITH ANY DOCUMENTATION UPDATES OR ADDITIONS AND CARRY THROUGH TO DC SUMMARY. THANK YOU. DATE: 02/13/2019; 02/16/2019; 02/19/2019; 02/21/2019 ATTN: Dr. Mohan Please exercise your independent, professional judgment in responding to the clarification form. Clinical indicators are provided on the bottom of this form for your review Please check appropriate box(es): [ ] Sepsis due to post-op wound. [ ] Sepsis due to other: [ x ] Localized infection without sepsis [ ] Other diagnosis [ ] Unable to determine In addition, please specify: Present on Admission (POA): [ x ] Yes [ ] No [ ] Unable to determine For continuity of documentation, please document condition throughout progress notes and discharge summary. Thank You. CLINICAL INDICATORS - SIGNS / SYMPTOMS / LABS ED RECORD 02/10: BP 159/77, Pulse 101, R18, Temp. 101.0 DX: Sepsis H&P 02/10: white count is 12.6 C-reactive protein 9.7 Postop cellulitis and amputation site with known PVD 02/12 (Himanshu) admitted with chest pain and sepsis. Sepsis syndrome 02/12 (Jennifer) Pt may have had transient bacteremia associated with the open wound and dysfunction of the negative pressure dressing with maceration and accumulation of pathogens in the surface of the wound. RISKS: H&P: She has had transmetatarsal amputation of the r foot 4th and 5th digits that was last month. Postop cellulitis and amputation site with known PVD, known chronic renal insufficiency. She has known CHF and CAD with 4-vessel bypass. PN 02/13: Possible transient bacteremia with fever. TREATMENT: ID Consult MAR: 02/11-02/13: IV Levaquin MAR: Order 02/13 Vancomycin HCL 750 mg IV Thank you, Aixa (This form is maintained as a part of the permanent medical record) 2014 [employer]. All Rights Reserved Aixa Hatfield RN, BSN [email or web address] Office: [phone]
[2019-02-13] MEDS ORDERED: Vancomycin HCl 750 MG in Sodium Chloride 0.9% 250 ML 250 ML IVPB SCH (16:00)
--- NOTE | 2019-02-13 16:12 | PQF ---
CLINICAL DOCUMENTATION IMPROVEMENT CLARIFICATION FORM: ICD-10 Updated PLEASE DO AN ADDENDUM TO THE PROGRESS NOTE WITH ANY DOCUMENTATION UPDATES OR ADDITIONS AND CARRY THROUGH TO DC SUMMARY. THANK YOU. DATE: 02/13/2019; 02/16/2019 ATTN: Dr. Mohan Please exercise your independent, professional judgment in responding to the clarification form. Clinical indicators are provided on the bottom of this form for your review Please check appropriate box(s): HEART FAILURE: A. TYPE: [ ] Systolic / HFrEF [ ] Diastolic / HFpEF [ x ] Combined Systolic / Diastolic B. ACUITY [ ] Acute [ ] Acute on Chronic [ ] Chronic [ ] Other diagnosis [ ] Unable to determine In addition, please specify: Present on Admission (POA): [ ] Yes [ ] No [ x ] Unable to determine For continuity of documentation, please document condition throughout progress notes and discharge summary. Thank You. CLINICAL INDICATORS - SIGNS / SYMPTOMS / LABS H&P 02/10: Her beta-natriuretic peptide was 350 She has increased troponin and increased beta-natriuretic peptide with congestive heart failure. ECHO 02/11: Ejection fraction is visually estimated at 35-40% 02/12 (Jennifer) BNP 962 chest x-ray with cardiomegaly and mild CHF RISKS: H&P 02/10: She has known congestive heart failure and CAD with a 4-vessel bypass. Also type 2 DM with renal insufficiency and also type 2 diabetes with peripheral neuropathy. 02/13 (Marques) S/p NONSTEMI. TREAMENT: MAR: Order 02/11-02/13: Lasix 40mg slow IVP daily MAR: Order 02/13: Lasix 80mg po daily Thank you, Aixa (This form is maintained as a part of the permanent medical record) 2014 [employer]. All Rights Reserved Aixa Hatfield RN, BSN [email or web address] Office: [phone] [facility]
[2019-02-13] MEDS ORDERED: Communication Order-Pharmacy FS SCH (16:30)
[2019-02-13] MEDS: Vancomycin HCl 750 MG in Sodium Chloride 0.9% 250 ML 250 ML IVPB SCH (16:51)
[2019-02-13] MEDS: Ubidecarenone 50 MG CAP PO SCH (20:36)
[2019-02-13] MEDS: Insulin Glargine 45 UNITS in Pre-Filled Syringe 1 EACH SC SCH (20:37)
[2019-02-13] MEDS: Loratadine 10 MG TAB PO SCH (20:37)
[2019-02-13] MEDS: Lorazepam 0.5 MG TAB PO SCH (20:37)
[2019-02-13] MEDS: HYDROcodone/Acetaminophen 5/325 mg Tablet PO PRN (20:50)
[2019-02-13] MEDS ORDERED: DIMETHICONE TP SCH (21:00)
[2019-02-13] MEDS ORDERED: Non-Formulary Item 1 EACH (Insulin Glargine,Hum.Rec.Anlog [Lantus Solostar] 45 UNIT) SC SCH (21:00)
[2019-02-13] MEDS ORDERED: Atorvastatin Calcium 40 MG TAB PO SCH (21:00)
[2019-02-13] MEDS ORDERED: DIMETHICONE TOP SCH (21:00)
[2019-02-13] MEDS ORDERED: Pravastatin Sodium 20 MG TAB PO SCH (21:00)
[2019-02-13] MEDS ORDERED: Non-Formulary Item 1 EACH (Loratadine [Loratadine] 10 MG) PO SCH (21:00)
[2019-02-13] MEDS ORDERED: Simvastatin 5 MG TAB PO SCH (21:00)
--- NOTE | 2019-02-13 22:44 | EKG ---
Test Reason : STAT Blood Pressure : / mmHG Vent. Rate : 093 BPM Atrial Rate : 093 BPM P-R Int : 210 ms QRS Dur : 110 ms QT Int : 402 ms P-R-T Axes : 051 014 118 degrees QTc Int : 499 ms Sinus rhythm with 1st degree A-V block Cannot rule out Anterior infarct , age undetermined Abnormal ECG When compared with ECG of 10-FEB-2019 16:55, (Unconfirmed) CO interval has increased QRS axis Shifted left Minimal criteria for Anterior infarct are now Present T wave inversion no longer evident in Lateral leads Confirmed by Elidia ADEN ([id number]) on 02/13/2019 10:44:15 PM Referred By: Jonny ROBLERO Confirmed By:Elidia ADEN
[2019-02-14] MEDS: Vancomycin HCl 750 MG in Sodium Chloride 0.9% 250 ML 250 ML IVPB SCH ×2 (04:12→16:36)
[2019-02-14 05:25] LABS: #Eosinphils 0.4 thou/uL (0.0-0.7); #Lymphocytes 2.3 thou/uL (1.20-3.40); #Monocytes 1.1 thou/uL (0.11-0.59); %Basophils 0.5 % (0.0-1.0); %Eosinophils 4.8 % (0.0-10.0); %Neutrophils 56.7 % (42.0-75.0); Hemoglobin 9.3 g/dL (12.0-16.0); Mean Corpuscular HGB CONC 32.4 g/dL (32.0-36.0); Mean Corpuscular Hemoglobin 30.3 pg (27.0-31.0); Mean Corpuscular Volume 93.6 fL (78.0-98.0); Mean Platelet Volume 8.1 fL (7.4-10.4); Platelet Count 326 thou/uL (130-400); Red Blood Cell (RBC) Count 3.07 mill/uL (4.20-5.40); White Blood Cell (WBC) Count 8.8 thou/uL (4.8-10.8)
[2019-02-14] MEDS: Aspirin 325 MG TAB PO SCH (05:34)
[2019-02-14] MEDS: Carvedilol 6.25 MG TAB PO SCH ×2 (05:35→20:57)
[2019-02-14] MEDS: Losartan 25 MG TAB PO SCH (05:35)
[2019-02-14] MEDS: Isosorbide Mononitrate (ER) 30 MG TAB PO SCH (05:35)
[2019-02-14] MEDS: Baclofen 10 MG TAB PO SCH ×2 (05:35→20:56)
[2019-02-14] MEDS: Clopidogrel Bisulfate 75 MG TAB PO SCH (05:36)
[2019-02-14 05:46] LABS: Anion Gap 15 mmol/L (10-20); BUN (Urea Nitrogen) 32 mg/dL (9.8-20.1); CRP (Inflammatory) 3.04 mg/dL (= or < 0.5); Calc. Creatinine Clearance 80 mL/min (70-130); Calcium 8.6 mg/dL (7.8-10.44); Carbon Dioxide 21 mmol/L (23-31); Chloride 102 mmol/L (98-107); Estimated GFR-MDRD 53; Glucose 99 mg/dL (80-115); Potassium 4.2 mmol/L (3.5-5.1); Sodium 134 mmol/L (136-145)
[2019-02-14] MEDS ORDERED: Protamine Sulfate 50 MG/5 ML VIAL ONE (06:20)
[2019-02-14] MEDS ORDERED: Heparin 10,000 UNITS/1 ML VIAL ONE (06:20)
[2019-02-14] MEDS ORDERED: Lidocaine 1% (PF) 30 ML VIAL ONE (06:21)
[2019-02-14] MEDS: Sodium Chloride 0.9% 1,000 ML IV SCH (06:22)
[2019-02-14] MEDS ORDERED: Midazolam HCl 2 mg/2 ml Vial ONE (07:25)
[2019-02-14] MEDS ORDERED: Fentanyl 100 MCG/2 ML VIAL ONE (07:25)
[2019-02-14] MEDS ORDERED: Sodium Chloride 0.9% 200 ML IV PRN (08:33)
[2019-02-14] MEDS ORDERED: Nitroglycerin 0.4 MG TAB (25 Tab Bottle) SL PRN (08:33)
[2019-02-14] MEDS ORDERED: Acetaminophen/Codeine 30-300mg Tablet PO PRN ×2 (08:33)
[2019-02-14] MEDS ORDERED: Sodium Chloride 0.9% 1,000 ML IV SCH (08:34)
[2019-02-14] MEDS: Docusate 100 MG CAP PO SCH ×2 (09:37→20:57)
[2019-02-14] MEDS: Ezetimibe 10 MG TAB PO SCH (09:45)
[2019-02-14] MEDS: Pantoprazole 40 MG GRANULES PACKET PO SCH (09:45)
[2019-02-14] MEDS: Potassium Chloride 20 MEQ TAB PO SCH (09:46)
[2019-02-14] MEDS: Furosemide 80 MG TAB PO SCH (09:46)
[2019-02-14] MEDS: Sodium Chloride 0.65% Nasal 44 ML BOT EA NARE SCH ×3 (09:47→20:59)
[2019-02-14] MEDS: Nystatin Cream 15 GM TUBE TOP SCH ×2 (09:47→20:58)
[2019-02-14] MEDS: HYDROcodone/Acetaminophen 5/325 mg Tablet PO PRN ×2 (10:04→21:05)
[2019-02-14] MEDS: HumaLOG 300 UNITS/3 ML VIAL SC SCH ×2 (12:59→17:09)
[2019-02-14] MEDS ORDERED: Iopamidol 370 76% 50 ML VIAL FS ONE (13:31)
[2019-02-14] MEDS ORDERED: Iopamidol 370 76% 100 ML VIAL ONE (13:31)
[2019-02-14 16:22] LABS: Vancomycin, Trough 25.7 ug/mL
[2019-02-14] MEDS: Lorazepam 0.5 MG TAB PO SCH (20:58)
[2019-02-14] MEDS: Loratadine 10 MG TAB PO SCH (20:58)
[2019-02-14] MEDS: Insulin Glargine 45 UNITS in Pre-Filled Syringe 1 EACH SC SCH (20:58)
[2019-02-14] MEDS: Ubidecarenone 50 MG CAP PO SCH (21:00)
[2019-02-14] MEDS ORDERED: Atorvastatin Calcium 40 MG TAB PO SCH ×2 (21:00)
[2019-02-15] MEDS: Vancomycin HCl 750 MG in Sodium Chloride 0.9% 250 ML 250 ML IVPB SCH ×2 (03:54→17:30)
[2019-02-15 05:35] LABS: Anion Gap 15 mmol/L (10-20); BUN (Urea Nitrogen) 29 mg/dL (9.8-20.1); Calc. Creatinine Clearance 86 mL/min (70-130); Calcium 8.5 mg/dL (7.8-10.44); Carbon Dioxide 22 mmol/L (23-31); Chloride 105 mmol/L (98-107); Estimated GFR-MDRD 57; Glucose 100 mg/dL (80-115); Potassium 4.2 mmol/L (3.5-5.1); Sodium 138 mmol/L (136-145)
[2019-02-15] MEDS ORDERED: Furosemide 100 MG/10 ML VIAL SLOW IVP SCH (06:45)
--- NOTE | 2019-02-15 08:13 | RAD ---
CHEST 2 VIEWS: Date: 02/15/19 HISTORY: Shortness of breath. COMPARISON: 02/10/19. FINDINGS: Minimal cardiomegaly with postop midline sternotomy changes. Bilateral vascular congestion with some increased interstitial markings bilaterally and evidence for small left pleural effusion. No confluen t pneumonia. IMPRESSION: Minimal cardiomegaly. Mild vascular congestion. Probable small left pleural effusion. Evidence for mi nimal congestive heart failure. No new process. POS: MARCO ANTONIO
[2019-02-15] MEDS: HumaLOG 300 UNITS/3 ML VIAL SC SCH ×3 (08:46→17:31)
[2019-02-15] MEDS: Clopidogrel Bisulfate 75 MG TAB PO SCH (08:47)
[2019-02-15] MEDS: Ezetimibe 10 MG TAB PO SCH (08:47)
[2019-02-15] MEDS: Aspirin 325 MG TAB PO SCH (08:47)
[2019-02-15] MEDS: Carvedilol 6.25 MG TAB PO SCH ×2 (08:48→21:45)
[2019-02-15] MEDS: Losartan 25 MG TAB PO SCH (08:49)
[2019-02-15] MEDS: Pantoprazole 40 MG GRANULES PACKET PO SCH (08:49)
[2019-02-15] MEDS: Isosorbide Mononitrate (ER) 30 MG TAB PO SCH (08:49)
[2019-02-15] MEDS: Potassium Chloride 20 MEQ TAB PO SCH (08:49)
[2019-02-15] MEDS: Baclofen 10 MG TAB PO SCH ×2 (08:49→21:46)
[2019-02-15] MEDS: Docusate 100 MG CAP PO SCH ×2 (08:51→21:45)
[2019-02-15] MEDS: Sodium Chloride 0.65% Nasal 44 ML BOT EA NARE SCH ×3 (09:00→21:49)
[2019-02-15] MEDS: Nystatin Cream 15 GM TUBE TOP SCH ×2 (09:00→21:46)
[2019-02-15] MEDS: Insulin Glargine 80 UNITS in Pre-Filled Syringe 1 EACH SC SCH (11:52)
[2019-02-15] MEDS ORDERED: Furosemide 40 MG/4 ML VIAL SLOW IVP SCH (15:00)
--- NOTE | 2019-02-15 15:46 | PRG ---
DATE OF SERVICE: 02/15/2019 SUBJECTIVE: Ms. Perkins apparently had a little bit tougher night last night. She was complaining of some shortness of breath, and is feeling she maybe overhydrated and fluid overloaded. She had a chest x-ray done this morning. She received some breathing treatment. She was getting ready to get some IV Lasix that was ordered by physician. There is no chest pain. No fever. No nausea, vomiting, or diarrhea. OBJECTIVE: VITAL SIGNS: Temperature 98.2, BP 124/60, weight is 212, which was slightly increased from an admission weight and yesterday's weight. LUNGS: Bilateral breath sounds. HEART: Reveals a regular rate and rhythm without murmurs, gallops, or rubs. IMAGING DATA: Chest x-ray does show some vascular congestion consistent with pulmonary edema. IMPRESSION: 1. Atherosclerotic coronary artery disease, status post . 2. Status post partial foot amputations of the fourth and fifth digits, right foot, with active cellulitis of the right foot. 3. Probable pulmonary edema. PLAN: She will receive 60 mg of IV Lasix now. Re-evaluate situation at 12 noon. Job ID: [id number]
[2019-02-15] MEDS: Ubidecarenone 50 MG CAP PO SCH (21:45)
[2019-02-15] MEDS: Loratadine 10 MG TAB PO SCH (21:45)
[2019-02-15] MEDS: Lorazepam 0.5 MG TAB PO SCH (21:45)
[2019-02-15] MEDS: Rosuvastatin 20 MG TAB PO SCH (21:45)
[2019-02-15] MEDS: Insulin Glargine 45 UNITS in Pre-Filled Syringe 1 EACH SC SCH (21:49)
[2019-02-16] MEDS: HYDROcodone/Acetaminophen 5/325 mg Tablet PO PRN (01:12)
[2019-02-16] MEDS: Vancomycin HCl 750 MG in Sodium Chloride 0.9% 250 ML 250 ML IVPB SCH ×2 (04:11→18:43)
[2019-02-16 05:34] LABS: Anion Gap 13 mmol/L (10-20); BUN (Urea Nitrogen) 23 mg/dL (9.8-20.1); Calc. Creatinine Clearance 80 mL/min (70-130); Calcium 8.6 mg/dL (7.8-10.44); Carbon Dioxide 25 mmol/L (23-31); Chloride 103 mmol/L (98-107); Estimated GFR-MDRD 52; Glucose 167 mg/dL (80-115); Potassium 4.6 mmol/L (3.5-5.1); Sodium 136 mmol/L (136-145)
[2019-02-16] MEDS ORDERED: Metolazone 5 MG TAB PO SCH (08:00)
[2019-02-16] MEDS: Pantoprazole 40 MG GRANULES PACKET PO SCH (09:40)
[2019-02-16] MEDS: Losartan 25 MG TAB PO SCH (09:40)
[2019-02-16] MEDS: Potassium Chloride 20 MEQ TAB PO SCH (09:41)
[2019-02-16] MEDS: Ezetimibe 10 MG TAB PO SCH (09:41)
[2019-02-16] MEDS: Isosorbide Mononitrate (ER) 30 MG TAB PO SCH (09:41)
[2019-02-16] MEDS: Baclofen 10 MG TAB PO SCH ×2 (09:41→20:51)
[2019-02-16] MEDS: Clopidogrel Bisulfate 75 MG TAB PO SCH (09:41)
[2019-02-16] MEDS: Aspirin 325 MG TAB PO SCH (09:41)
[2019-02-16] MEDS: Furosemide 80 MG TAB PO SCH (09:42)
[2019-02-16] MEDS: Carvedilol 6.25 MG TAB PO SCH ×2 (09:42→20:51)
[2019-02-16] MEDS: Docusate 100 MG CAP PO SCH ×2 (09:43→20:52)
[2019-02-16] MEDS: Nystatin Cream 15 GM TUBE TOP SCH ×2 (09:43→20:52)
[2019-02-16] MEDS: Sodium Chloride 0.65% Nasal 44 ML BOT EA NARE SCH ×3 (09:43→20:52)
[2019-02-16] MEDS: Insulin Glargine 80 UNITS in Pre-Filled Syringe 1 EACH SC SCH (09:44)
[2019-02-16] MEDS: HumaLOG 300 UNITS/3 ML VIAL SC SCH ×3 (09:44→18:44)
--- NOTE | 2019-02-16 13:51 | PRG ---
DATE OF SERVICE: 02/16/2019 SUBJECTIVE: The patient is resting comfortably. She still complains of some mild shortness of breath, otherwise states she is feeling good. OBJECTIVE: VITAL SIGNS: Temperature 98.1, O2 saturations 99% on nasal cannula, BP 120/58. LUNGS: Bilateral breath sounds. HEART: Reveals regular rate and rhythm. No murmurs, gallops, or rubs. Her weight is still elevated at 212. She still has some home positive fluid intake balance. LABORATORY DATA: Creatinine is 1.05. IMPRESSION: 1. Osteomyelitis, right foot. 2. Myocardial infarction. 3. Probably still having some evidence of pulmonary edema. PLAN: We will give extra dose of Lasix today. Continue current treatments. Job ID: [id number]
[2019-02-16] MEDS: Rosuvastatin 20 MG TAB PO SCH (20:51)
[2019-02-16] MEDS: Lorazepam 0.5 MG TAB PO SCH (20:51)
[2019-02-16] MEDS: Loratadine 10 MG TAB PO SCH (20:51)
[2019-02-16] MEDS: Ubidecarenone 50 MG CAP PO SCH (20:51)
[2019-02-16] MEDS: Insulin Glargine 45 UNITS in Pre-Filled Syringe 1 EACH SC SCH (20:51)
[2019-02-17] MEDS: Vancomycin HCl 750 MG in Sodium Chloride 0.9% 250 ML 250 ML IVPB SCH ×2 (04:55→16:19)
[2019-02-17 07:13] LABS: Anion Gap 14 mmol/L (10-20); BUN (Urea Nitrogen) 22 mg/dL (9.8-20.1); Calc. Creatinine Clearance 92 mL/min (70-130); Calcium 8.6 mg/dL (7.8-10.44); Carbon Dioxide 26 mmol/L (23-31); Chloride 101 mmol/L (98-107); Estimated GFR-MDRD 62; Glucose 102 mg/dL (80-115); Potassium 4.2 mmol/L (3.5-5.1); Sodium 137 mmol/L (136-145)
--- NOTE | 2019-02-17 09:06 | PRG ---
DATE OF SERVICE: 02/17/2019 PRIMARY CARE PHYSICIAN: Dr. Israel Mohan. SUBJECTIVE: The patient has some shortness of breath when out of bed, feeling comfortable now, sleeping okay at nighttime. No events noted per nursing. She denies chest pain. She denies pain in her foot. No further fevers or chills. OBJECTIVE: VITAL SIGNS: Temperature 96.6, pulse of 59-66, respirations 18, blood pressure 117/58, pulse ox is 98% on 2 L, fluid balance is -930 mL after a dose of IV Lasix yesterday. Weight is 212. GENERAL: She is awake and alert, in no acute distress. She is resting in bed. NECK: Supple. HEART: Regular rate and rhythm. LUNGS: Distant, but no wheeze, rales, or rhonchi. ABDOMEN: Obese, soft, nontender, and nondistended. EXTREMITIES: Wound VAC placed on right foot. LABORATORY DATA: Reviewed. Sodium 137, potassium 4.2, chloride 101, CO2 of 26 , BUN and creatinine 22 and 0.91, with a GFR of 62. Accu-Cheks of 120, 163 and 187. ASSESSMENT/PLAN: This is a 68-year-old female patient with a history of obesity , type 2 diabetes, coronary artery disease status post coronary artery bypass graft with recent amputation of her foot, admitted with postoperative cellulitis and congestive heart failure exacerbation. 1. Recent osteomyelitis and cellulitis. Further plan per surgery, possible extension of her amputation next week. 2. Coronary artery disease status post myocardial infarction resulting in left ventricular function depression with an ejection fraction of 35-40 percent. Cardiology following, planning on LifeVest placement. 3. Type 2 diabetes. We will continue current regimen including insulin coverage. 4. Congestive heart failure with decreased left ventricular ejection fraction. Her fluid status appears to be stable. I will continue diuresis including Lasix and p.r.n. metolazone. Job ID: [id number] [facility]
[2019-02-17] MEDS: HumaLOG 300 UNITS/3 ML VIAL SC SCH ×3 (10:37→17:13)
[2019-02-17] MEDS: Insulin Glargine 80 UNITS in Pre-Filled Syringe 1 EACH SC SCH (10:37)
[2019-02-17] MEDS: Ezetimibe 10 MG TAB PO SCH (10:38)
[2019-02-17] MEDS: Isosorbide Mononitrate (ER) 30 MG TAB PO SCH (10:38)
[2019-02-17] MEDS: Aspirin 325 MG TAB PO SCH (10:39)
[2019-02-17] MEDS: Carvedilol 6.25 MG TAB PO SCH ×2 (10:39→21:24)
[2019-02-17] MEDS: Docusate 100 MG CAP PO SCH ×2 (10:39→21:26)
[2019-02-17] MEDS: Potassium Chloride 20 MEQ TAB PO SCH (10:39)
[2019-02-17] MEDS: Losartan 25 MG TAB PO SCH (10:40)
[2019-02-17] MEDS: Furosemide 80 MG TAB PO SCH (10:50)
[2019-02-17] MEDS: Clopidogrel Bisulfate 75 MG TAB PO SCH (10:50)
[2019-02-17] MEDS: Sodium Chloride 0.65% Nasal 44 ML BOT EA NARE SCH ×3 (10:51→21:26)
[2019-02-17] MEDS: Nystatin Cream 15 GM TUBE TOP SCH ×2 (10:51→21:26)
[2019-02-17] MEDS: Pantoprazole 40 MG GRANULES PACKET PO SCH (10:56)
[2019-02-17] MEDS: Baclofen 10 MG TAB PO SCH ×2 (10:56→21:25)
--- NOTE | 2019-02-17 11:24 | PDOC.CTH ---
Cardiology Progress Note - Subjective Patient still with SOB and orthopnea. Admits to frequent urination, but still having difficulty breathing. - Objective Vital Signs Temp Pulse Resp BP BP BP Pulse Ox 02/17/19 10:39 133/75 02/17/19 07:58 96.6 F L 59 L 18 117/58 L 98 02/17/19 04:00 98.1 F 66 18 164/75 H 97 Admit Weight 205 lb Weight 212 lb 5 oz 02/16/19 02/17/19 02/18/19 06:59 06:59 06:59 Intake Total 1840 1270 Output Total 1250 2200 400 Balance 590 -930 -400 - Physical Examination General/Neuro: alert & oriented x3 Neck: no JVD present Lungs: other: (decreased BS bilaterally) Heart: RRR Abdomen: NT/ND - Labs Result Diagrams: 02/14/19 04:54 02/17/19 05:28 Troponin/CKMB CK-MB (CK-2) 1.5 ng/mL (0-6.6) 02/10/19 17:15 Troponin I 5.320 ng/mL (< 0.028) H* 02/12/19 05:41 - Assessment/Plan 1. Acute on chronic systolic CHF 2. ICMO 3. CAD 4. Osteomyelitis Patient still volume overloaded. Will add zaroxolyn x 2-3 days. Pt seen and examined. Agree with above.
[2019-02-17] MEDS ORDERED: Metolazone 5 MG TAB PO SCH (11:30)
--- NOTE | 2019-02-17 14:31 | EKG ---
Test Reason : SEPSIS Blood Pressure : / mmHG Vent. Rate : 103 BPM Atrial Rate : 103 BPM P-R Int : 164 ms QRS Dur : 102 ms QT Int : 378 ms P-R-T Axes : 018 114 108 degrees QTc Int : 495 ms Sinus tachycardia Right axis deviation Marked ST abnormality, possible lateral subendocardial injury Abnormal ECG Confirmed by JAYCEE BAKER ([id number]), commissioning editor CON DAVIS ([id number]) on 02/17/2019 2:31:34 PM Referred By: Confirmed By:JAYCEE BAKER
[2019-02-17] MEDS: Ubidecarenone 50 MG CAP PO SCH (21:24)
[2019-02-17] MEDS: Rosuvastatin 20 MG TAB PO SCH (21:25)
[2019-02-17] MEDS: Insulin Glargine 45 UNITS in Pre-Filled Syringe 1 EACH SC SCH (21:25)
[2019-02-17] MEDS: Lorazepam 0.5 MG TAB PO SCH (21:25)
[2019-02-17] MEDS: Loratadine 10 MG TAB PO SCH (21:25)
[2019-02-18] MEDS: HYDROcodone/Acetaminophen 5/325 mg Tablet PO PRN (02:08)
[2019-02-18] MEDS: Vancomycin HCl 750 MG in Sodium Chloride 0.9% 250 ML 250 ML IVPB SCH ×2 (03:04→16:29)
[2019-02-18 04:58] LABS: Anion Gap 16 mmol/L (10-20); BUN (Urea Nitrogen) 19 mg/dL (9.8-20.1); Calc. Creatinine Clearance 90 mL/min (70-130); Calcium 8.7 mg/dL (7.8-10.44); Carbon Dioxide 25 mmol/L (23-31); Chloride 103 mmol/L (98-107); Estimated GFR-MDRD 60; Glucose 132 mg/dL (80-115); Potassium 3.9 mmol/L (3.5-5.1); Sodium 140 mmol/L (136-145)
[2019-02-18] MEDS ORDERED: Metolazone 5 MG TAB PO SCH (08:30)
[2019-02-18] MEDS: Carvedilol 6.25 MG TAB PO SCH ×2 (09:28→20:55)
[2019-02-18] MEDS: HumaLOG 300 UNITS/3 ML VIAL SC SCH ×3 (09:42→17:23)
[2019-02-18] MEDS: Pantoprazole 40 MG GRANULES PACKET PO SCH (09:43)
[2019-02-18] MEDS: Furosemide 80 MG TAB PO SCH (09:43)
[2019-02-18] MEDS: Losartan 25 MG TAB PO SCH (09:43)
[2019-02-18] MEDS: Insulin Glargine 80 UNITS in Pre-Filled Syringe 1 EACH SC SCH (09:43)
[2019-02-18] MEDS: Baclofen 10 MG TAB PO SCH ×2 (09:43→20:55)
[2019-02-18] MEDS: Aspirin 325 MG TAB PO SCH (09:44)
[2019-02-18] MEDS: Isosorbide Mononitrate (ER) 30 MG TAB PO SCH (09:44)
[2019-02-18] MEDS: Clopidogrel Bisulfate 75 MG TAB PO SCH (09:44)
[2019-02-18] MEDS: Potassium Chloride 20 MEQ TAB PO SCH (09:44)
[2019-02-18] MEDS: Sodium Chloride 0.65% Nasal 44 ML BOT EA NARE SCH ×3 (09:45→20:56)
[2019-02-18] MEDS: Nystatin Cream 15 GM TUBE TOP SCH ×2 (09:45→20:57)
[2019-02-18] MEDS: Docusate 100 MG CAP PO SCH ×2 (09:46→20:52)
[2019-02-18] MEDS: Ezetimibe 10 MG TAB PO SCH (09:46)
--- NOTE | 2019-02-18 10:07 | PRG ---
DATE OF SERVICE: 02/18/2019 PRIMARY CARE PHYSICIAN: Israel Mohan MD SUBJECTIVE: The patient is feeling much better today than yesterday. She is not short of breath, not requiring oxygen at this time. She is getting out of bed to the bedside chair with little difficulty. Denies chest pain. Tolerating wound dressing changes to her foot. No fevers or chills. Appetite is good. OBJECTIVE: VITAL SIGNS: Temperature 96.1, pulse 65, respirations 16, blood pressure 120/58, pulse ox is 96% on room air. I's and O's from yesterday 1450 and output 4200. Weight today is 212 pounds. GENERAL: She is awake and alert, in no acute distress. She is resting comfortably. No conversational dyspnea. NECK: Supple. HEART: Regular rate and rhythm. LUNGS: Distant, but clear. ABDOMEN: Soft. EXTREMITIES: With dressing in place. Wound VAC in place. LABORATORY DATA: Vancomycin trough is 24. White blood cell count down to 8800, hemoglobin and hematocrit 9.3 and 28.7, and platelets of 326 from 02/14. Sodium 140, potassium 3.9, chloride 103, CO2 of 25, BUN and creatinine are 19 and 0.93 with a GFR of 60. Serum glucose of 132. Accu-Cheks of 143, 164, 113. ASSESSMENT AND PLAN: This is a 68-year-old female patient with a history of obesity, type 2 diabetes, coronary artery disease with recent amputation of her foot for osteomyelitis with methicillin-resistant Staphylococcus aureus. 1. Osteomyelitis and cellulitis. Further plan per surgery considering placement of a graft if she can tolerate the surgery. We will continue vancomycin for methicillin-resistant Staphylococcus aureus. We will switch to doxycycline and rifampin as per Dr. Rodriguez when she is getting ready to be discharged to a facility. Continue wound care as per plan. 2. Coronary artery disease, status post myocardial infarction. 3. Ischemic cardiomyopathy with decreased left ventricular ejection fraction. Awaiting LifeVest placement. 4. Type 2 diabetes. We will continue insulin coverage. 5. Congestive heart failure, much improved after Zaroxolyn. Continue as per Cardiology. Job ID: [id number]
--- NOTE | 2019-02-18 11:02 | PDOC.CTH ---
Cardiology Progress Note - Subjective Patient feeling much better today. Breathing easier. No complaints. - Objective Vital Signs Temp Pulse Resp BP BP BP Pulse Ox 02/18/19 09:28 133/75 02/18/19 08:07 96.1 F L 65 16 120/58 L 96 02/18/19 04:00 98.4 F 62 20 138/61 98 Admit Weight 205 lb Weight 212 lb 5 oz 02/17/19 02/18/19 02/19/19 06:59 06:59 06:59 Intake Total 1270 1450 Output Total 2200 4200 Balance -930 -2750 - Physical Examination General/Neuro: alert & oriented x3 Neck: no JVD present Lungs: CTA Heart: RRR Abdomen: NT/ND - Telemetry Telemetry Rhythm: SR - Labs Result Diagrams: 02/14/19 04:54 02/18/19 04:07 Troponin/CKMB CK-MB (CK-2) 1.5 ng/mL (0-6.6) 02/10/19 17:15 Troponin I 5.320 ng/mL (< 0.028) H* 02/12/19 05:41 - Assessment/Plan 1. Acute on chronic systolic CHF 2. ICMO 3. CAD 4. Osteomyelitis Overall improved. Zaroxolyn today and then d/c. Plan for surgery per primary team. High risk of ACS and regional block recommended by Dr. Downs.
[2019-02-18] MEDS: Rosuvastatin 20 MG TAB PO SCH (20:55)
[2019-02-18] MEDS: Loratadine 10 MG TAB PO SCH (20:56)
[2019-02-18] MEDS: Lorazepam 0.5 MG TAB PO SCH (20:56)
[2019-02-18] MEDS: Ubidecarenone 50 MG CAP PO SCH (20:56)
[2019-02-18] MEDS: Insulin Glargine 45 UNITS in Pre-Filled Syringe 1 EACH SC SCH (21:46)
[2019-02-19] MEDS: HYDROcodone/Acetaminophen 5/325 mg Tablet PO PRN ×2 (00:06→22:26)
[2019-02-19] MEDS: Vancomycin HCl 750 MG in Sodium Chloride 0.9% 250 ML 250 ML IVPB SCH ×2 (04:16→16:00)
[2019-02-19 05:20] LABS: Anion Gap 15 mmol/L (10-20); BUN (Urea Nitrogen) 19 mg/dL (9.8-20.1); Calc. Creatinine Clearance 92 mL/min (70-130); Calcium 8.5 mg/dL (7.8-10.44); Carbon Dioxide 24 mmol/L (23-31); Chloride 102 mmol/L (98-107); Estimated GFR-MDRD 62; Glucose 109 mg/dL (80-115); Potassium 4.2 mmol/L (3.5-5.1); Sodium 137 mmol/L (136-145)
[2019-02-19] MEDS: Baclofen 10 MG TAB PO SCH ×2 (09:33→21:07)
[2019-02-19] MEDS: Ezetimibe 10 MG TAB PO SCH (09:35)
[2019-02-19] MEDS: Furosemide 80 MG TAB PO SCH (09:35)
[2019-02-19] MEDS: Clopidogrel Bisulfate 75 MG TAB PO SCH (09:35)
[2019-02-19] MEDS: Aspirin 325 MG TAB PO SCH (09:35)
[2019-02-19] MEDS: Nystatin Cream 15 GM TUBE TOP SCH ×2 (09:36→21:14)
[2019-02-19] MEDS: Sodium Chloride 0.65% Nasal 44 ML BOT EA NARE SCH ×3 (09:37→21:14)
[2019-02-19] MEDS: Pantoprazole 40 MG GRANULES PACKET PO SCH (09:38)
[2019-02-19] MEDS: Isosorbide Mononitrate (ER) 30 MG TAB PO SCH (09:42)
[2019-02-19] MEDS: Carvedilol 6.25 MG TAB PO SCH ×2 (09:42→21:07)
[2019-02-19] MEDS: Docusate 100 MG CAP PO SCH ×2 (09:43→21:08)
[2019-02-19] MEDS: Insulin Glargine 80 UNITS in Pre-Filled Syringe 1 EACH SC SCH (09:43)
[2019-02-19] MEDS: Losartan 25 MG TAB PO SCH (09:43)
[2019-02-19] MEDS: HumaLOG 300 UNITS/3 ML VIAL SC SCH ×3 (09:44→17:20)
[2019-02-19] MEDS: Potassium Chloride 20 MEQ TAB PO SCH (09:45)
--- NOTE | 2019-02-19 15:00 | PRG ---
DATE OF SERVICE: 02/19/2019 SUBJECTIVE: The patient is feeling well and has no medical complaints today. OBJECTIVE: VITAL SIGNS: BP . LUNGS: Clear. HEART: Reveals no murmur. EXTREMITIES: Wound to the right foot was re-examined with Dr. George Mohan today. The wound is healing well. He informs me, he will possibly skin graft her as early as of this week. IMPRESSION: 1. Osteomyelitis, right foot. 2. Atherosclerotic coronary artery disease. 3. Chronic renal insufficiency. 4. Type 2 diabetes mellitus. PLAN: Continue current therapy. Job ID: [id number]
[2019-02-19 15:46] LABS: Vancomycin, Trough 26.4 ug/mL
[2019-02-19] MEDS: Ubidecarenone 50 MG CAP PO SCH (21:06)
[2019-02-19] MEDS: Loratadine 10 MG TAB PO SCH (21:07)
[2019-02-19] MEDS: Rosuvastatin 20 MG TAB PO SCH (21:07)
[2019-02-19] MEDS: Lorazepam 0.5 MG TAB PO SCH (21:08)
[2019-02-19] MEDS: Insulin Glargine 45 UNITS in Pre-Filled Syringe 1 EACH SC SCH (21:08)
[2019-02-20 05:27] LABS: Anion Gap 15 mmol/L (10-20); BUN (Urea Nitrogen) 19 mg/dL (9.8-20.1); Calc. Creatinine Clearance 87 mL/min (70-130); Calcium 8.9 mg/dL (7.8-10.44); Carbon Dioxide 25 mmol/L (23-31); Chloride 101 mmol/L (98-107); Estimated GFR-MDRD 57; Glucose 121 mg/dL (80-115); Sodium 137 mmol/L (136-145)
--- NOTE | 2019-02-20 08:53 | PRG ---
DATE OF SERVICE: 02/20/2019 SUBJECTIVE: Ms. Perkins is resting well. She has no medical complaints. She states she is actually feeling pretty good. OBJECTIVE: VITAL SIGNS: Her blood pressure is 118/58, temperature 98.3, and O2 sats 95% on room air. LUNGS: Clear. HEART: Reveals a regular rate and rhythm. No murmurs, gallops, or rubs. LABORATORY DATA: Her blood glucoses are well controlled. IMPRESSION: 1. Status post partial amputation of right foot, right 2nd and 3rd toe. 2. Status post [id number] elevated myocardial infarction. 3. Type 2 diabetes mellitus. 4. Chronic renal insufficiency. PLAN: The patient will have her wound re-evaluated tomorrow and probably will have skin grafting done. Otherwise, medically she is stable. The largest problem she face right now is actually disposition. The patient is unable to care for herself mostly at home. She will probably need some type of temporary placement for both walking and wound care. We will put in a returned case inspector consult for future disposition for rehab, wound care, and overall reconditioning. Job ID: [id number]
[2019-02-20] MEDS: HumaLOG 300 UNITS/3 ML VIAL SC SCH ×3 (09:07→17:46)
[2019-02-20] MEDS: Insulin Glargine 80 UNITS in Pre-Filled Syringe 1 EACH SC SCH (09:08)
[2019-02-20] MEDS: Sodium Chloride 0.65% Nasal 44 ML BOT EA NARE SCH ×3 (09:18→21:50)
[2019-02-20] MEDS: Nystatin Cream 15 GM TUBE TOP SCH ×2 (09:19→21:49)
[2019-02-20] MEDS: Losartan 25 MG TAB PO SCH (09:21)
[2019-02-20] MEDS: Baclofen 10 MG TAB PO SCH ×2 (09:22→21:48)
[2019-02-20] MEDS: Clopidogrel Bisulfate 75 MG TAB PO SCH (09:22)
[2019-02-20] MEDS: Carvedilol 6.25 MG TAB PO SCH ×2 (09:22→21:48)
[2019-02-20] MEDS: Isosorbide Mononitrate (ER) 30 MG TAB PO SCH (09:22)
[2019-02-20] MEDS: Furosemide 80 MG TAB PO SCH (09:22)
[2019-02-20] MEDS: Aspirin 325 MG TAB PO SCH (09:22)
[2019-02-20] MEDS: Ezetimibe 10 MG TAB PO SCH (09:22)
[2019-02-20] MEDS: Potassium Chloride 20 MEQ TAB PO SCH (09:22)
[2019-02-20] MEDS: Pantoprazole 40 MG GRANULES PACKET PO SCH (09:23)
[2019-02-20] MEDS: Docusate 100 MG CAP PO SCH ×2 (09:25→21:49)
[2019-02-20] MEDS: Ondansetron ODT 4 MG TAB PO PRN (13:52)
[2019-02-20 15:34] LABS: Vancomycin, Random 12.9 ug/mL (See Comment)
[2019-02-20 15:40] LABS: Troponin I 0.069 ng/mL (< 0.028)
[2019-02-20] MEDS: Vancomycin HCl 500 MG in Sodium Chloride 0.9% 100 ML IVPB SCH (17:45)
[2019-02-20 19:53] LABS: Troponin I 0.055 ng/mL (< 0.028)
[2019-02-20 20:09] LABS: Troponin I 0.057 ng/mL (< 0.028)
[2019-02-20] MEDS: Ubidecarenone 50 MG CAP PO SCH (21:48)
[2019-02-20] MEDS: Lorazepam 0.5 MG TAB PO SCH (21:48)
[2019-02-20] MEDS: Rosuvastatin 20 MG TAB PO SCH (21:48)
[2019-02-20] MEDS: Loratadine 10 MG TAB PO SCH (21:48)
[2019-02-20] MEDS: Insulin Glargine 45 UNITS in Pre-Filled Syringe 1 EACH SC SCH (21:49)
[2019-02-21] MEDS: HYDROcodone/Acetaminophen 5/325 mg Tablet PO PRN ×2 (00:01→21:37)
[2019-02-21] MEDS: Vancomycin HCl 500 MG in Sodium Chloride 0.9% 100 ML IVPB SCH ×2 (03:00→15:41)
[2019-02-21 05:55] LABS: Anion Gap 14 mmol/L (10-20); BUN (Urea Nitrogen) 26 mg/dL (9.8-20.1); Calc. Creatinine Clearance 78 mL/min (70-130); Calcium 8.9 mg/dL (7.8-10.44); Carbon Dioxide 28 mmol/L (23-31); Chloride 100 mmol/L (98-107); Estimated GFR-MDRD 50; Glucose 89 mg/dL (80-115); Sodium 138 mmol/L (136-145)
[2019-02-21] MEDS: Insulin Glargine 80 UNITS in Pre-Filled Syringe 1 EACH SC SCH (09:20)
[2019-02-21] MEDS: HumaLOG 300 UNITS/3 ML VIAL SC SCH ×3 (09:20→18:34)
[2019-02-21] MEDS: Carvedilol 6.25 MG TAB PO SCH ×2 (09:29→20:26)
[2019-02-21] MEDS: Baclofen 10 MG TAB PO SCH ×2 (09:29→20:26)
[2019-02-21] MEDS: Losartan 25 MG TAB PO SCH (09:29)
[2019-02-21] MEDS: Furosemide 80 MG TAB PO SCH (09:30)
[2019-02-21] MEDS: Aspirin 325 MG TAB PO SCH (09:30)
[2019-02-21] MEDS: Potassium Chloride 20 MEQ TAB PO SCH (09:30)
[2019-02-21] MEDS: Pantoprazole 40 MG GRANULES PACKET PO SCH (09:31)
[2019-02-21] MEDS: Docusate 100 MG CAP PO SCH ×2 (09:33→20:27)
[2019-02-21] MEDS: Nystatin Cream 15 GM TUBE TOP SCH ×2 (09:34→20:27)
[2019-02-21] MEDS: Sodium Chloride 0.65% Nasal 44 ML BOT EA NARE SCH ×3 (09:35→20:27)
[2019-02-21] MEDS: Ezetimibe 10 MG TAB PO SCH ×2 (09:44→20:26)
--- NOTE | 2019-02-21 14:04 | PRG ---
DATE OF SERVICE: 02/21/2019 SUBJECTIVE: The patient is resting well. She had noticed an episode of chest pain yesterday that has now resolved. Cardiac enzymes are negative for acute DC. She reports that she is feeling better now. OBJECTIVE: VITAL SIGNS: Temperature 96.5, blood pressure 106/53, and O2 saturation 97% on room air. LUNGS: Clear. HEART: Reveals a regular rate and rhythm. No murmurs, gallops, or rubs. LABORATORY DATA: Sodium 138, potassium 4.0, chloride 100, CO2 of 28, BUN 26, and creatinine 1.09. Blood sugars are under good control. IMPRESSION: 1. Status post partial amputation of foot. 2. Atherosclerotic coronary artery disease. 3. Type 2 diabetes mellitus, insulin dependent. PLAN: 1. The patient is in need of LifeVest. 2. Foot procedure tomorrow. Job ID: [id number]
[2019-02-21] MEDS ORDERED: Sodium Chloride 0.9% 10 ML ONE (15:33)
[2019-02-21 15:48] LABS: Vancomycin, Trough 15.2 ug/mL
[2019-02-21] MEDS: Loratadine 10 MG TAB PO SCH (20:25)
[2019-02-21] MEDS: Ubidecarenone 50 MG CAP PO SCH (20:25)
[2019-02-21] MEDS: Lorazepam 0.5 MG TAB PO SCH (20:25)
[2019-02-21] MEDS: Rosuvastatin 20 MG TAB PO SCH (20:26)
[2019-02-21] MEDS: Insulin Glargine 45 UNITS in Pre-Filled Syringe 1 EACH SC SCH (20:27)
[2019-02-22] MEDS: Vancomycin HCl 500 MG in Sodium Chloride 0.9% 100 ML IVPB SCH ×2 (02:56→16:58)
[2019-02-22 07:06] LABS: Anion Gap 16 mmol/L (10-20); BUN (Urea Nitrogen) 28 mg/dL (9.8-20.1); Calc. Creatinine Clearance 87 mL/min (70-130); Calcium 9.2 mg/dL (7.8-10.44); Carbon Dioxide 26 mmol/L (23-31); Chloride 102 mmol/L (98-107); Estimated GFR-MDRD 57; Glucose 86 mg/dL (80-115); Potassium 4.1 mmol/L (3.5-5.1); Sodium 140 mmol/L (136-145)
[2019-02-22] MEDS: Sodium Chloride 0.65% Nasal 44 ML BOT EA NARE SCH ×3 (08:58→21:39)
[2019-02-22] MEDS: HumaLOG 300 UNITS/3 ML VIAL SC SCH ×3 (08:58→17:38)
[2019-02-22] MEDS ORDERED: Glycopyrrolate 0.2 MG/ML 5 ML SYRINGE ONE (10:11)
[2019-02-22] MEDS ORDERED: Succinylcholine Chloride 20 MG/ML 10 ml SYRINGE FS ONE (10:11)
[2019-02-22] MEDS ORDERED: Ondansetron PF 4 MG/2 ML Vial ONE (10:11)
[2019-02-22] MEDS ORDERED: ePHEDrine 50 MG/ML VIAL ONE (10:11)
[2019-02-22] MEDS ORDERED: PROVENTIL INHALER 6.7 G (200 INHALATIONS) ONE (10:11)
[2019-02-22] MEDS ORDERED: PHENYLEPHRINE-NS 100 MCG/ML 10 ML SYRINGE ONE (10:11)
[2019-02-22] MEDS ORDERED: Lidocaine 1% PF 5 ML VIAL ONE (10:11)
[2019-02-22] MEDS ORDERED: PROPOFOL 200 MG/20 ML VIAL ONE (10:11)
--- NOTE | 2019-02-22 11:01 | PQF ---
CLINICAL DOCUMENTATION IMPROVEMENT CLARIFICATION FORM: ICD-10 Updated PLEASE DO AN ADDENDUM TO THE PROGRESS NOTE WITH ANY DOCUMENTATION UPDATES OR ADDITIONS AND CARRY THROUGH TO DC SUMMARY. THANK YOU. DATE: 02/22/2019 ATTN: Dr. Mohan Please exercise your independent, professional judgment in responding to the clarification form. Clinical indicators are provided on the bottom of this form for your review Please check appropriate box(s): [ ] Acute on Chronic Renal Failure please specify Stage of CKD (see below) [ x ] CKD without ARF/FUENTES please specify Stage of CKD [ ] Other diagnosis [ ] Unable to determine In addition, please specify: Present on Admission (POA): [ ] Yes [ ] No [ ] Unable to determine For continuity of documentation, please document condition throughout progress notes and discharge summary. Thank You. CLINICAL INDICATORS - SIGNS / SYMPTOMS / LABS 02/12 (Jennifer) creatinine 1.32 and her baseline of 1.55, GFR at 40 Chronic renal insufficiency, stage 3 to 4 02/10 02/16 02/22 LABS: Creatinine 1.55 1.05 0.97 Estimated GFR 33 52 57 02/14(Himanshu) FUENTES resolved PN 02/19-02/20: Chronic renal insufficiency. RISKS: H&P 02/10: She has chronic renal insufficiency. PMH Positive for atherosclerotic cardiovascular disease. She is also a type 2 diabetic. TREATMENT: Order 02/13-02/14: NS IV 50ml/hr Lab Orders for CMP 02/10, and BMP 02/11 through 02/22 National Kid[employer] Guidelines for CKD Staging Stage I Kidney damage with normal or increased GFR GFR > 90 Stage II Kidney damage with mildly decreased GFR GFR 60-89 Stage III Kidney damage with moderately decreased GFR GFR 30-59 Stage IV Kidney damage with severely decreased GFR GFR 16-29 Stage V Kidney failure GFR<15 ESRD End Stage Renal Disease On dialysis Acute Renal Failure/Acute Kidney Failure defined as: Increases in SCr by (>) 0.3 mg/dl within 48 hours OR- Increases in SCr by (>) 1.5 times baseline, known or presumed to have occurred within the prior 7 days OR- Urine volume < 0.5 ml/kg/hour for 6 hours (KDIGO supplement 2012 for RIFLE/KRISTEN criteria) Thank you, Aixa (This form is maintained as a part of the permanent medical record) 2014 [employer]. All Rights Reserved Aixa Hatfield RN, BSN [email or web address] Office: [phone] [facility]
[2019-02-22] MEDS ORDERED: Midazolam HCl 2 mg/2 ml Vial ONE (11:34)
[2019-02-22] MEDS ORDERED: Fentanyl 100 MCG/2 ML VIAL ONE (11:34)
[2019-02-22] MEDS ORDERED: Bupivacaine HCl 0.5%/Epinephrine 1:200,000/PF 30 ml Vial ONE (11:35)
[2019-02-22] MEDS ORDERED: Dextrose 50% Abboject 50 ML SYRINGE ONE (11:46)
[2019-02-22] MEDS ORDERED: Ketamine 50 MG/ML (10ML VIAL) ONE (12:09)
[2019-02-22] MEDS ORDERED: Albuterol Sulfate HFA (OR ONLY) ONE (13:38)
[2019-02-22] MEDS ORDERED: Promethazine HCl 25 MG/ML VIAL SLOW IVP PRN (13:52)
[2019-02-22] MEDS ORDERED: Ondansetron HCl/PF 4 MG/2 ML Vial IVP PRN (13:52)
[2019-02-22] MEDS ORDERED: Promethazine HCl 25 MG/ML VIAL IM PRN (13:52)
[2019-02-22] MEDS: Insulin Glargine 80 UNITS in Pre-Filled Syringe 1 EACH SC SCH (13:54)
--- NOTE | 2019-02-22 14:39 | PRG ---
DATE OF SERVICE: 02/22/2019 SUBJECTIVE: She is doing well. She reports no medical complaints or problems. She feels like she is doing good. She is scheduled for procedures today. OBJECTIVE: VITAL SIGNS: BP 137/68, temperature 96.7, O2 saturation 99%. LUNGS: Clear. HEART: Reveals regular rate and rhythm. No murmurs, gallops, or rubs. LABORATORY DATA: Her blood sugars are adequate. Creatinine 0.97. IMPRESSION: 1. Osteomyelitis, right foot. 2. Status post non ST-segment elevated myocardial infarction. 3. Renal insufficiency. 4. Type 2 diabetes mellitus. PLAN: She is scheduled to proceed with skin graft today. Job ID: [id number]
[2019-02-22] MEDS: Carvedilol 6.25 MG TAB PO SCH ×2 (15:00→21:36)
[2019-02-22] MEDS: Nystatin Cream 15 GM TUBE TOP SCH ×2 (15:00→21:40)
[2019-02-22] MEDS: Baclofen 10 MG TAB PO SCH ×2 (15:00→21:36)
[2019-02-22] MEDS: Docusate 100 MG CAP PO SCH ×2 (15:00→21:39)
[2019-02-22] MEDS: Aspirin 325 MG TAB PO SCH (15:32)
[2019-02-22] MEDS: Potassium Chloride 20 MEQ TAB PO SCH (15:33)
[2019-02-22] MEDS: Pantoprazole 40 MG GRANULES PACKET PO SCH (15:33)
[2019-02-22] MEDS: Losartan 25 MG TAB PO SCH (15:33)
[2019-02-22] MEDS: Furosemide 80 MG TAB PO SCH (15:35)
--- NOTE | 2019-02-22 21:12 | OP ---
DATE OF PROCEDURE: 02/22/2019 PREOPERATIVE DIAGNOSIS: Open wound for skin grafting of the right foot. POSTOPERATIVE DIAGNOSIS: Open wound for skin grafting of the right foot. PROCEDURE PERFORMED: Split-thickness skin graft placed to the right foot with wound VAC coverage. ANESTHESIA: General endotracheal. ESTIMATED BLOOD LOSS: Minimal. SPECIMENS: None. DESCRIPTION OF PROCEDURE: After consent was obtained, the patient was brought to the operating room, placed in supine position on the operating room table. Appropriate central line was placed and general endotracheal anesthesia was induced. The right leg was prepped and draped in usual sterile fashion. The granulation bed was freshened sharply. The right thigh was then prepped with mineral oil for skin graft donation. A short skin graft specimen was taken with dermatome. This was then meshed. The best specimen was placed on the granulation bed and sutured with clips. Xeroform dressing was applied followed by wound VAC. The donor site was covered with a Tegaderm dressing. The patient tolerated the procedure well, was awakened, extubated, and transferred to recovery room in stable condition. Needle, sponge, and instrument counts were reported as correct at the end of the procedure. Job ID: [id number]
[2019-02-22] MEDS: Loratadine 10 MG TAB PO SCH (21:35)
[2019-02-22] MEDS: Ezetimibe 10 MG TAB PO SCH (21:35)
[2019-02-22] MEDS: Ubidecarenone 50 MG CAP PO SCH (21:35)
[2019-02-22] MEDS: Rosuvastatin 20 MG TAB PO SCH (21:36)
[2019-02-22] MEDS: Lorazepam 0.5 MG TAB PO SCH (21:36)
[2019-02-22] MEDS: Insulin Glargine 45 UNITS in Pre-Filled Syringe 1 EACH SC SCH (21:37)
[2019-02-22] MEDS: HYDROcodone/Acetaminophen 5/325 mg Tablet PO PRN (23:17)
[2019-02-23] MEDS: Vancomycin HCl 500 MG in Sodium Chloride 0.9% 100 ML IVPB SCH ×2 (03:40→16:19)
[2019-02-23 05:18] LABS: Anion Gap 15 mmol/L (10-20); BUN (Urea Nitrogen) 23 mg/dL (9.8-20.1); Calc. Creatinine Clearance 89 mL/min (70-130); Calcium 8.6 mg/dL (7.8-10.44); Carbon Dioxide 22 mmol/L (23-31); Chloride 102 mmol/L (98-107); Estimated GFR-MDRD 60; Glucose 177 mg/dL (80-115); Potassium 4.4 mmol/L (3.5-5.1); Sodium 135 mmol/L (136-145)
[2019-02-23] MEDS: Carvedilol 6.25 MG TAB PO SCH ×2 (09:30→22:02)
[2019-02-23] MEDS: Insulin Glargine 80 UNITS in Pre-Filled Syringe 1 EACH SC SCH (09:32)
[2019-02-23] MEDS: Losartan 25 MG TAB PO SCH (09:33)
[2019-02-23] MEDS: Potassium Chloride 20 MEQ TAB PO SCH (09:34)
[2019-02-23] MEDS: Furosemide 80 MG TAB PO SCH (09:34)
[2019-02-23] MEDS: Aspirin 325 MG TAB PO SCH (09:35)
[2019-02-23] MEDS: Pantoprazole 40 MG GRANULES PACKET PO SCH (09:35)
[2019-02-23] MEDS: Baclofen 10 MG TAB PO SCH ×2 (09:35→22:02)
[2019-02-23] MEDS: HumaLOG 300 UNITS/3 ML VIAL SC SCH ×3 (09:37→17:46)
[2019-02-23] MEDS: Docusate 100 MG CAP PO SCH ×2 (09:38→22:06)
[2019-02-23] MEDS: Sodium Chloride 0.65% Nasal 44 ML BOT EA NARE SCH ×3 (09:39→22:14)
[2019-02-23] MEDS: Nystatin Cream 15 GM TUBE TOP SCH ×2 (09:40→22:15)
[2019-02-23] MEDS: Fluconazole 100 MG TAB PO SCH (09:45)
--- NOTE | 2019-02-23 12:03 | PRG ---
DATE OF SERVICE: 02/23/2019 SUBJECTIVE: She is doing well. She had her skin graft procedure yesterday. She reports that she may be having a yeast infection today. OBJECTIVE: VITAL SIGNS: Temperature 97.1, blood pressure 115/55. LUNGS: Clear. HEART: Reveals a regular rate and rhythm. No murmurs, gallops, or rubs. LABORATORY DATA: Blood sugars out of controlled. IMPRESSION: 1. Status post partial amputation of right foot, specifically right 4th and 5th toes, status post skin grafting to previous wound. 2. ST-segment elevated myocardial infarction. 3. Type 2 diabetes mellitus. PLAN: She will continue current medications. We will add Diflucan. Can hopefully anticipate discharge shortly next week. Job ID: [id number]
[2019-02-23] MEDS: Ubidecarenone 50 MG CAP PO SCH (22:01)
[2019-02-23] MEDS: Rosuvastatin 20 MG TAB PO SCH (22:02)
[2019-02-23] MEDS: Lorazepam 0.5 MG TAB PO SCH (22:03)
[2019-02-23] MEDS: Loratadine 10 MG TAB PO SCH (22:05)
[2019-02-23] MEDS: Insulin Glargine 45 UNITS in Pre-Filled Syringe 1 EACH SC SCH (22:38)
[2019-02-23] MEDS: HumaLOG 300 UNITS/3 ML VIAL SC PRN (22:39)
[2019-02-23] MEDS: Ezetimibe 10 MG TAB PO SCH (22:41)
[2019-02-24] MEDS: Vancomycin HCl 500 MG in Sodium Chloride 0.9% 100 ML IVPB SCH (04:29)
[2019-02-24 05:47] LABS: Anion Gap 13 mmol/L (10-20); BUN (Urea Nitrogen) 22 mg/dL (9.8-20.1); Calc. Creatinine Clearance 83 mL/min (70-130); Carbon Dioxide 25 mmol/L (23-31); Chloride 103 mmol/L (98-107); Estimated GFR-MDRD 55; Glucose 116 mg/dL (80-115); Potassium 4.3 mmol/L (3.5-5.1); Sodium 137 mmol/L (136-145)
[2019-02-24] MEDS ORDERED: Labetalol HCl 100 MG/20 ML VIAL ONE (08:14)
[2019-02-24] MEDS: Aspirin 325 MG TAB PO SCH (08:57)
[2019-02-24] MEDS: Baclofen 10 MG TAB PO SCH ×2 (08:57→20:43)
[2019-02-24] MEDS: Potassium Chloride 20 MEQ TAB PO SCH (08:57)
[2019-02-24] MEDS: Carvedilol 6.25 MG TAB PO SCH ×2 (08:58→20:43)
[2019-02-24] MEDS: Fluconazole 100 MG TAB PO SCH (08:58)
[2019-02-24] MEDS: Pantoprazole 40 MG GRANULES PACKET PO SCH (08:59)
[2019-02-24] MEDS: Losartan 25 MG TAB PO SCH (08:59)
[2019-02-24] MEDS: Furosemide 80 MG TAB PO SCH (08:59)
[2019-02-24] MEDS: Docusate 100 MG CAP PO SCH ×2 (09:00→20:44)
[2019-02-24] MEDS: Nystatin Cream 15 GM TUBE TOP SCH ×2 (09:00→20:45)
[2019-02-24] MEDS: Sodium Chloride 0.65% Nasal 44 ML BOT EA NARE SCH ×3 (09:01→20:45)
[2019-02-24] MEDS: HumaLOG 300 UNITS/3 ML VIAL SC SCH ×2 (09:02→17:41)
[2019-02-24] MEDS: Insulin Glargine 80 UNITS in Pre-Filled Syringe 1 EACH SC SCH (09:09)
[2019-02-24] MEDS: Clopidogrel Bisulfate 75 MG TAB PO SCH (09:10)
--- NOTE | 2019-02-24 09:55 | PRG ---
DATE OF SERVICE: 02/24/2019 PRIMARY CARE PHYSICIAN: Israel Mohan MD SUBJECTIVE: The patient is feeling well. She denies chest pain. Denies shortness of breath. Appetite is good. She is ready to leave the hospital, doing well postoperatively. Minimal pain in her foot. OBJECTIVE: VITAL SIGNS: Temperature is 97.4, pulse is 61, respirations are 17, blood pressure is 141/65, pulse ox is 94% on room air. GENERAL: She is awake and alert, in no acute distress. Speech is clear. NECK: Supple. HEART: Regular rate and rhythm. LUNGS: Clear. ABDOMEN: Soft. EXTREMITIES: With no edema. Right foot with dressing in place, wound VAC in place. LABORATORY DATA: Sodium 137, potassium 4.3, chloride 103, CO2 of 25, BUN and creatinine 22 and 1.01 with a GFR of 55. Accu-Cheks of 124, 206, 170, 64. ASSESSMENT/PLAN: This is a 68-year-old female patient admitted with osteomyelitis and cellulitis, status post amputation of her right forefoot with methicillin-resistant Staphylococcus aureus. She is now postoperative day 2 from skin graft placement. 1. Status post skin graft. Further plan per Dr. George Mohan. He would like the wound VAC to be in place without being changed for 7 days for re-evaluation later next week. 2. Osteomyelitis and cellulitis. Appreciate Dr. Rodriguez' evaluation. We will go ahead and switch her to oral doxycycline, rifampin, and will continue that for 2 weeks after her discharge. 3. Type 2 diabetes with some hypoglycemia. We will hold her lunchtime Humalog. 4. Coronary artery disease status post myocardial infarction. She appears to be stable at this time. 5. Ischemic cardiomyopathy with decreased left ventricular ejection fraction. Continue to await for LifeVest placement to be done prior to her discharge. Job ID: [id number]
[2019-02-24] MEDS: HumaLOG 300 UNITS/3 ML VIAL SC PRN (11:28)
[2019-02-24] MEDS: Rifampin 300 MG CAP PO SCH ×2 (11:28→20:44)
[2019-02-24] MEDS: Ezetimibe 10 MG TAB PO SCH (20:44)
[2019-02-24] MEDS: Ubidecarenone 50 MG CAP PO SCH (20:44)
[2019-02-24] MEDS: Loratadine 10 MG TAB PO SCH (20:44)
[2019-02-24] MEDS: Lorazepam 0.5 MG TAB PO SCH (20:44)
[2019-02-24] MEDS: Rosuvastatin 20 MG TAB PO SCH (20:44)
[2019-02-24] MEDS: Doxycycline 100 MG CAP PO SCH (20:44)
[2019-02-24] MEDS: Insulin Glargine 45 UNITS in Pre-Filled Syringe 1 EACH SC SCH (20:51)
[2019-02-25 05:38] LABS: #Basophils 0.1 thou/uL (0.0-0.2); #Eosinphils 0.4 thou/uL (0.0-0.7); #Lymphocytes 1.7 thou/uL (1.20-3.40); #Monocytes 0.9 thou/uL (0.11-0.59); #Neutrophils 6.7 thou/uL (1.40-6.50); %Basophils 0.6 % (0.0-1.0); %Eosinophils 4.3 % (0.0-10.0); %Lymphocytes 17.2 % (21.0-51.0); %Monocytes 9.2 % (0.0-10.0); %Neutrophils 68.6 % (42.0-75.0); Hemoglobin 10.6 g/dL (12.0-16.0); Mean Corpuscular HGB CONC 32.9 g/dL (32.0-36.0); Mean Corpuscular Hemoglobin 29.7 pg (27.0-31.0); Mean Corpuscular Volume 90.3 fL (78.0-98.0); Platelet Count 308 thou/uL (130-400); RBC Distribution Width 13.3 % (11.5-14.5); Red Blood Cell (RBC) Count 3.58 mill/uL (4.20-5.40); White Blood Cell (WBC) Count 9.8 thou/uL (4.8-10.8)
[2019-02-25] MEDS: Doxycycline 100 MG CAP PO SCH ×2 (08:56→20:26)
[2019-02-25] MEDS: Fluconazole 100 MG TAB PO SCH (08:56)
[2019-02-25] MEDS: Aspirin 325 MG TAB PO SCH (08:56)
[2019-02-25] MEDS: Baclofen 10 MG TAB PO SCH ×2 (08:56→20:27)
[2019-02-25] MEDS: Potassium Chloride 20 MEQ TAB PO SCH (08:56)
[2019-02-25] MEDS: Furosemide 80 MG TAB PO SCH (08:56)
[2019-02-25] MEDS: Losartan 25 MG TAB PO SCH (08:57)
[2019-02-25] MEDS: Clopidogrel Bisulfate 75 MG TAB PO SCH (08:58)
[2019-02-25] MEDS: Pantoprazole 40 MG GRANULES PACKET PO SCH (08:58)
[2019-02-25] MEDS: Insulin Glargine 80 UNITS in Pre-Filled Syringe 1 EACH SC SCH (08:59)
[2019-02-25] MEDS: Sodium Chloride 0.65% Nasal 44 ML BOT EA NARE SCH ×3 (09:01→20:29)
[2019-02-25] MEDS: Nystatin Cream 15 GM TUBE TOP SCH ×2 (09:01→20:29)
[2019-02-25] MEDS: HumaLOG 300 UNITS/3 ML VIAL SC SCH ×2 (09:03→17:06)
--- NOTE | 2019-02-25 09:03 | PRG ---
DATE OF SERVICE: 02/25/2019 PRIMARY CARE PHYSICIAN: Israel Mohan MD SUBJECTIVE: Postoperative day #3 from skin graft placement. The patient continues to feel well. She did have some pain last night in her foot. She denies chest pain. Denies shortness of breath. Appetite is good. Nonweightbearing on her right foot. OBJECTIVE: VITAL SIGNS: Temperature is 97.6, pulse of 68, respirations are 14, blood pressure is 108/54, pulse ox is 94% on room air. Weight is 200. GENERAL: She is awake and alert, in no acute distress. Speech is clear. HEENT: Mucosa is moist. NECK: Supple. HEART: Regular rate and rhythm. LUNGS: Clear. ABDOMEN: Obese, soft, nontender, nondistended. EXTREMITIES: Right foot with dressing in place with wound VAC appearing patent. Left foot decreased sensation, dry calluses on the foot. No sign of infection. LABORATORY DATA: White blood cell count 9.8, hemoglobin and hematocrit 10.6 and 32.3, and platelets of 308. Accu-Cheks are 105, 151, 119, and 136. ASSESSMENT AND PLAN: This is a 68-year-old female patient admitted with osteomyelitis and cellulitis of her right foot status post amputation of the right forefoot, being treated for methicillin-resistant Staphylococcus aureus infection, now postoperative day #3 from skin graft placement. 1. Status post skin graft. Further plan per Dr. George Mohan. Plan to keep the wound VAC in place until of this week, to be re-evaluated at that time. 2. Osteomyelitis and cellulitis. We will continue doxycycline and rifampin for two weeks as per Dr. Rodriguez. 3. Type 2 diabetes. Seems to be more stable. We will continue insulin as ordered, holding her lunchtime Humalog to prevent hypoglycemia. 4. Coronary artery disease status post myocardial infarction, stable. 5. Ischemic cardiomyopathy. Continuing to await LifeVest to be delivered prior to her discharge. Job ID: [id number]
[2019-02-25] MEDS: Docusate 100 MG CAP PO SCH ×2 (09:04→20:28)
[2019-02-25] MEDS: Carvedilol 6.25 MG TAB PO SCH ×2 (09:19→20:27)
[2019-02-25] MEDS: Rifampin 300 MG CAP PO SCH ×2 (12:53→20:42)
[2019-02-25] MEDS ORDERED: HYDROcodone/Acetaminophen 5/325 mg Tablet PO PRN (13:46)
[2019-02-25] MEDS: Ubidecarenone 50 MG CAP PO SCH (20:27)
[2019-02-25] MEDS: Loratadine 10 MG TAB PO SCH (20:27)
[2019-02-25] MEDS: Rosuvastatin 20 MG TAB PO SCH (20:27)
[2019-02-25] MEDS: Ezetimibe 10 MG TAB PO SCH (20:27)
[2019-02-25] MEDS: Lorazepam 0.5 MG TAB PO SCH (20:28)
[2019-02-25] MEDS: Insulin Glargine 45 UNITS in Pre-Filled Syringe 1 EACH SC SCH (20:30)
[2019-02-25] MEDS: HYDROcodone/Acetaminophen 5/325 mg Tablet PO PRN (23:34)
[2019-02-26] MEDS: Doxycycline 100 MG CAP PO SCH ×2 (09:14→20:51)
[2019-02-26] MEDS: Pantoprazole 40 MG GRANULES PACKET PO SCH (09:14)
[2019-02-26] MEDS: Baclofen 10 MG TAB PO SCH ×2 (09:16→20:52)
[2019-02-26] MEDS: Clopidogrel Bisulfate 75 MG TAB PO SCH (09:16)
[2019-02-26] MEDS: Aspirin 325 MG TAB PO SCH (09:16)
[2019-02-26] MEDS: Furosemide 80 MG TAB PO SCH (09:16)
[2019-02-26] MEDS: Fluconazole 100 MG TAB PO SCH (09:16)
[2019-02-26] MEDS: Carvedilol 6.25 MG TAB PO SCH ×2 (09:16→20:52)
[2019-02-26] MEDS: Sodium Chloride 0.65% Nasal 44 ML BOT EA NARE SCH ×3 (09:17→20:53)
[2019-02-26] MEDS: Losartan 25 MG TAB PO SCH (09:17)
[2019-02-26] MEDS: Potassium Chloride 20 MEQ TAB PO SCH (09:17)
[2019-02-26] MEDS: HumaLOG 300 UNITS/3 ML VIAL SC SCH ×2 (09:18→18:09)
[2019-02-26] MEDS: Docusate 100 MG CAP PO SCH ×2 (09:18→20:54)
[2019-02-26] MEDS: Nystatin Cream 15 GM TUBE TOP SCH ×2 (09:18→20:53)
[2019-02-26] MEDS: Insulin Glargine 80 UNITS in Pre-Filled Syringe 1 EACH SC SCH (09:24)
[2019-02-26] MEDS: Aquaphor 30 GM JAR TOP SCH (09:25)
--- NOTE | 2019-02-26 09:38 | PRG ---
DATE OF SERVICE: 02/26/2019 SUBJECTIVE: Ms. Perkins is doing well. Her blood sugars are running a little bit low. She has no other medical complaints. OBJECTIVE: VITAL SIGNS: Blood pressure 143/72, temperature 97.6. LUNGS: Clear. HEART: Reveals a regular rate and rhythm. No murmurs, gallops, or rubs. IMPRESSION: 1. Status post partial amputation of left foot. 2. Status post skin graft. 3. ST-segment elevated myocardial infarction and history of atherosclerotic coronary artery disease. 4. Type 2 diabetes mellitus. PLAN: We will reduce her nighttime insulin dose by 5 units. Continue current medications. Job ID: [id number]
[2019-02-26] MEDS: Rifampin 300 MG CAP PO SCH ×2 (11:13→20:54)
[2019-02-26] MEDS: Ezetimibe 10 MG TAB PO SCH (20:51)
[2019-02-26] MEDS: Rosuvastatin 20 MG TAB PO SCH (20:51)
[2019-02-26] MEDS: Ubidecarenone 50 MG CAP PO SCH (20:51)
[2019-02-26] MEDS: Loratadine 10 MG TAB PO SCH (20:52)
[2019-02-26] MEDS: Insulin Glargine 40 UNITS in Pre-Filled Syringe 1 EACH SC SCH (20:53)
[2019-02-26] MEDS: Lorazepam 0.5 MG TAB PO SCH (20:53)
[2019-02-26] MEDS: HYDROcodone/Acetaminophen 5/325 mg Tablet PO PRN (23:40)
[2019-02-27] MEDS ORDERED: hydrALAZINE 20 MG/ML VIAL ONE (05:37)
[2019-02-27] MEDS: HumaLOG 300 UNITS/3 ML VIAL SC SCH ×2 (08:01→12:00)
[2019-02-27] MEDS: Nystatin Cream 15 GM TUBE TOP SCH ×2 (08:01→20:22)
[2019-02-27] MEDS: Aquaphor 30 GM JAR TOP SCH (08:02)
[2019-02-27] MEDS: Doxycycline 100 MG CAP PO SCH ×2 (08:02→20:20)
[2019-02-27] MEDS: Baclofen 10 MG TAB PO SCH ×2 (08:02→20:20)
[2019-02-27] MEDS: Carvedilol 6.25 MG TAB PO SCH ×2 (08:03→21:43)
[2019-02-27] MEDS: Losartan 25 MG TAB PO SCH (08:03)
[2019-02-27] MEDS: Clopidogrel Bisulfate 75 MG TAB PO SCH (08:03)
[2019-02-27] MEDS: Fluconazole 100 MG TAB PO SCH (08:04)
[2019-02-27] MEDS: Sodium Chloride 0.65% Nasal 44 ML BOT EA NARE SCH ×3 (08:04→20:21)
[2019-02-27] MEDS: Furosemide 80 MG TAB PO SCH (08:04)
[2019-02-27] MEDS: Potassium Chloride 20 MEQ TAB PO SCH (08:04)
[2019-02-27] MEDS: Docusate 100 MG CAP PO SCH ×2 (08:04→20:20)
[2019-02-27] MEDS: Pantoprazole 40 MG GRANULES PACKET PO SCH (08:04)
[2019-02-27] MEDS: Aspirin 325 MG TAB PO SCH (08:04)
[2019-02-27] MEDS: Insulin Glargine 80 UNITS in Pre-Filled Syringe 1 EACH SC SCH (10:19)
[2019-02-27] MEDS: Rifampin 300 MG CAP PO SCH ×2 (11:17→20:24)
[2019-02-27] MEDS: HumaLOG 300 UNITS/3 ML VIAL SC PRN (11:58)
[2019-02-27 12:47] VITALS: BMI 39.4
--- NOTE | 2019-02-27 14:26 | PRG ---
DATE OF SERVICE: 02/27/2019 SUBJECTIVE: Ms. Perkins is still having some issues with hypoglycemia. Otherwise, she reports no other complaints. OBJECTIVE: VITAL SIGNS: Temperature 97.1, blood pressure 115/56. LUNGS: Clear. HEART: Reveals regular rate and rhythm. No murmurs, gallops, or rubs. LABORATORY DATA: Blood sugar last night was 51, this morning is 166. IMPRESSION: 1. Status post partial amputation of right foot with skin graft down. 2. Atherosclerotic coronary artery disease. 3. Type 2 diabetes mellitus. PLAN: We will provide through the daytime and at night to avoid hypoglycemic reaction. Also, provide Glucerna at the bedside as well. Job ID: [id number]
[2019-02-27] MEDS: Ezetimibe 10 MG TAB PO SCH (20:20)
[2019-02-27] MEDS: Lorazepam 0.5 MG TAB PO SCH (20:20)
[2019-02-27] MEDS: Loratadine 10 MG TAB PO SCH (20:21)
[2019-02-27] MEDS: Insulin Glargine 40 UNITS in Pre-Filled Syringe 1 EACH SC SCH (20:22)
[2019-02-27] MEDS: Rosuvastatin 20 MG TAB PO SCH (20:23)
[2019-02-27] MEDS: Ubidecarenone 50 MG CAP PO SCH (21:43)
[2019-02-28] MEDS: HYDROcodone/Acetaminophen 5/325 mg Tablet PO PRN ×2 (00:16→23:35)
[2019-02-28] MEDS: Pantoprazole 40 MG GRANULES PACKET PO SCH (08:58)
[2019-02-28] MEDS: Losartan 25 MG TAB PO SCH (08:58)
[2019-02-28] MEDS: Aspirin 325 MG TAB PO SCH (08:58)
[2019-02-28] MEDS: Doxycycline 100 MG CAP PO SCH ×2 (08:58→21:07)
[2019-02-28] MEDS: Carvedilol 6.25 MG TAB PO SCH ×2 (08:59→21:06)
[2019-02-28] MEDS: Clopidogrel Bisulfate 75 MG TAB PO SCH (08:59)
[2019-02-28] MEDS: Furosemide 80 MG TAB PO SCH (08:59)
[2019-02-28] MEDS: Fluconazole 100 MG TAB PO SCH (08:59)
[2019-02-28] MEDS: Baclofen 10 MG TAB PO SCH ×2 (09:00→21:06)
[2019-02-28] MEDS: Docusate 100 MG CAP PO SCH ×2 (09:00→21:07)
[2019-02-28] MEDS: Sodium Chloride 0.65% Nasal 44 ML BOT EA NARE SCH ×3 (09:01→21:08)
[2019-02-28] MEDS: Aquaphor 30 GM JAR TOP SCH (09:02)
[2019-02-28] MEDS: Nystatin Cream 15 GM TUBE TOP SCH ×2 (09:02→21:08)
[2019-02-28] MEDS: HumaLOG 300 UNITS/3 ML VIAL SC SCH ×2 (11:02→17:44)
[2019-02-28] MEDS: Potassium Chloride 20 MEQ TAB PO SCH (11:03)
[2019-02-28] MEDS: Insulin Glargine 80 UNITS in Pre-Filled Syringe 1 EACH SC SCH (11:03)
[2019-02-28] MEDS: Rifampin 300 MG CAP PO SCH ×2 (11:03→21:08)
--- NOTE | 2019-02-28 12:28 | PRG ---
DATE OF SERVICE: 02/28/2019 SUBJECTIVE: She is resting well. She has no medical complaints. All IV antibiotics have been stopped. She is now on rifampin. OBJECTIVE: VITAL SIGNS: Temperature 99.6 and BP 149/91. LUNGS: Clear. HEART: No murmur. IMPRESSION: She is stable. She will be getting LifeVest soon. At this point, she is stable for discharge once wound VAC comes off. Job ID: [id number]
[2019-02-28] MEDS: Ezetimibe 10 MG TAB PO SCH (21:07)
[2019-02-28] MEDS: Rosuvastatin 20 MG TAB PO SCH (21:07)
[2019-02-28] MEDS: Insulin Glargine 40 UNITS in Pre-Filled Syringe 1 EACH SC SCH (21:07)
[2019-02-28] MEDS: Lorazepam 0.5 MG TAB PO SCH (21:07)
[2019-02-28] MEDS: Loratadine 10 MG TAB PO SCH (21:07)
[2019-02-28] MEDS: Ubidecarenone 50 MG CAP PO SCH (21:08)
[2019-03-01] MEDS: Insulin Glargine 80 UNITS in Pre-Filled Syringe 1 EACH SC SCH (10:20)
[2019-03-01] MEDS: Doxycycline 100 MG CAP PO SCH ×2 (10:20→20:42)
[2019-03-01] MEDS: Furosemide 80 MG TAB PO SCH (10:20)
[2019-03-01] MEDS: Aspirin 325 MG TAB PO SCH (10:21)
[2019-03-01] MEDS: Fluconazole 100 MG TAB PO SCH (10:21)
[2019-03-01] MEDS: Rifampin 300 MG CAP PO SCH ×2 (10:21→20:44)
[2019-03-01] MEDS: Pantoprazole 40 MG GRANULES PACKET PO SCH (10:21)
[2019-03-01] MEDS: Carvedilol 6.25 MG TAB PO SCH ×2 (10:21→20:43)
[2019-03-01] MEDS: Baclofen 10 MG TAB PO SCH ×2 (10:21→20:42)
[2019-03-01] MEDS: Clopidogrel Bisulfate 75 MG TAB PO SCH (10:22)
[2019-03-01] MEDS: Losartan 25 MG TAB PO SCH (10:22)
[2019-03-01] MEDS: Sodium Chloride 0.65% Nasal 44 ML BOT EA NARE SCH ×3 (10:23→20:41)
[2019-03-01] MEDS: Nystatin Cream 15 GM TUBE TOP SCH ×2 (10:24→20:43)
[2019-03-01] MEDS: Aquaphor 30 GM JAR TOP SCH (10:25)
[2019-03-01] MEDS: HumaLOG 300 UNITS/3 ML VIAL SC SCH ×2 (10:25→17:53)
[2019-03-01] MEDS: Docusate 100 MG CAP PO SCH ×2 (10:26→20:44)
[2019-03-01] MEDS: Potassium Chloride 20 MEQ TAB PO SCH (13:12)
[2019-03-01] MEDS: HumaLOG 300 UNITS/3 ML VIAL SC PRN (13:12)
--- NOTE | 2019-03-01 14:25 | PRG ---
DATE OF SERVICE: 03/01/2019 SUBJECTIVE: Ms. Perkins is doing well. She has now had her wound VAC removed. OBJECTIVE: VITAL SIGNS: Temperature 97.3, blood pressure 165/74. LUNGS: Clear. HEART: Reveals no murmur. LABORATORY DATA: Blood sugars adequately controlled. IMPRESSION: 1. Status post partial amputation, right foot. 2. Status post skin graft, right foot. 3. Atherosclerotic coronary artery disease, status post [id number] elevated myocardial infarction. 4. Type 2 diabetes mellitus. 5. Renal insufficiency. PLAN: The patient is medically ready to be discharged to any rehab facility. Job ID: [id number]
[2019-03-01] MEDS: Ubidecarenone 50 MG CAP PO SCH (20:41)
[2019-03-01] MEDS: Ezetimibe 10 MG TAB PO SCH (20:41)
[2019-03-01] MEDS: Lorazepam 0.5 MG TAB PO SCH (20:42)
[2019-03-01] MEDS: Rosuvastatin 20 MG TAB PO SCH (20:43)
[2019-03-01] MEDS: Insulin Glargine 40 UNITS in Pre-Filled Syringe 1 EACH SC SCH (20:43)
[2019-03-01] MEDS: Loratadine 10 MG TAB PO SCH (20:43)
[2019-03-01] MEDS: HYDROcodone/Acetaminophen 5/325 mg Tablet PO PRN (23:42)
[2019-03-02] MEDS: Aspirin 325 MG TAB PO SCH (08:42)
[2019-03-02] MEDS: Clopidogrel Bisulfate 75 MG TAB PO SCH (08:42)
[2019-03-02] MEDS: Carvedilol 6.25 MG TAB PO SCH ×2 (08:42→21:32)
[2019-03-02] MEDS: Baclofen 10 MG TAB PO SCH ×2 (08:42→21:32)
[2019-03-02] MEDS: Furosemide 80 MG TAB PO SCH (08:43)
[2019-03-02] MEDS: Potassium Chloride 20 MEQ TAB PO SCH (08:43)
[2019-03-02] MEDS: Losartan 25 MG TAB PO SCH (08:43)
[2019-03-02] MEDS: Doxycycline 100 MG CAP PO SCH ×2 (08:43→21:32)
[2019-03-02] MEDS: Fluconazole 100 MG TAB PO SCH (08:43)
[2019-03-02] MEDS: Nystatin Cream 15 GM TUBE TOP SCH ×2 (08:44→21:32)
[2019-03-02] MEDS: Pantoprazole 40 MG GRANULES PACKET PO SCH (08:44)
[2019-03-02] MEDS: Sodium Chloride 0.65% Nasal 44 ML BOT EA NARE SCH ×3 (08:44→21:32)
[2019-03-02] MEDS: Aquaphor 30 GM JAR TOP SCH (08:45)
[2019-03-02] MEDS: Docusate 100 MG CAP PO SCH ×2 (08:46→21:33)
[2019-03-02] MEDS: HumaLOG 300 UNITS/3 ML VIAL SC SCH ×2 (10:15→18:25)
[2019-03-02] MEDS: Rifampin 300 MG CAP PO SCH ×2 (10:15→21:33)
[2019-03-02] MEDS: HYDROcodone/Acetaminophen 5/325 mg Tablet PO PRN ×2 (10:16→22:48)
[2019-03-02] MEDS: Insulin Glargine 80 UNITS in Pre-Filled Syringe 1 EACH SC SCH (10:16)
--- NOTE | 2019-03-02 14:35 | PRG ---
DATE OF SERVICE: 03/02/2019 SUBJECTIVE: She is doing well. She is ready for discharge from the hospital. We are awaiting placement in a assisted facility for rehabilitation and wound care. OBJECTIVE: VITAL SIGNS: Temperature is 97.8, blood pressure 164/65. LUNGS: Clear. HEART: Reveals a regular rate and rhythm. No murmurs, gallops, or rubs. EXTREMITIES: No clubbing, edema, or cyanosis. LABORATORY DATA: Her blood sugars are out of control. IMPRESSION: Stable at this time. PLAN: Can probably be discharged today to rehab bed or assisted facility bed if it becomes available. Job ID: [id number]
[2019-03-02] MEDS: Rosuvastatin 20 MG TAB PO SCH (21:32)
[2019-03-02] MEDS: Ubidecarenone 50 MG CAP PO SCH (21:32)
[2019-03-02] MEDS: Ezetimibe 10 MG TAB PO SCH (21:32)
[2019-03-02] MEDS: Loratadine 10 MG TAB PO SCH (21:32)
[2019-03-02] MEDS: Lorazepam 0.5 MG TAB PO SCH (21:33)
[2019-03-02] MEDS: Insulin Glargine 40 UNITS in Pre-Filled Syringe 1 EACH SC SCH (21:33)
[2019-03-03] MEDS: Carvedilol 6.25 MG TAB PO SCH ×2 (09:13→20:12)
[2019-03-03] MEDS: Pantoprazole 40 MG GRANULES PACKET PO SCH (09:13)
[2019-03-03] MEDS: Losartan 25 MG TAB PO SCH (09:13)
[2019-03-03] MEDS: Doxycycline 100 MG CAP PO SCH ×2 (09:14→20:14)
[2019-03-03] MEDS: Fluconazole 100 MG TAB PO SCH (09:14)
[2019-03-03] MEDS: Potassium Chloride 20 MEQ TAB PO SCH (09:14)
[2019-03-03] MEDS: Furosemide 80 MG TAB PO SCH (09:15)
[2019-03-03] MEDS: Baclofen 10 MG TAB PO SCH ×2 (09:16→20:13)
[2019-03-03] MEDS: Insulin Glargine 80 UNITS in Pre-Filled Syringe 1 EACH SC SCH (09:16)
[2019-03-03] MEDS: Aquaphor 30 GM JAR TOP SCH (09:16)
[2019-03-03] MEDS: Clopidogrel Bisulfate 75 MG TAB PO SCH (09:16)
[2019-03-03] MEDS: Nystatin Cream 15 GM TUBE TOP SCH ×2 (09:16→20:15)
[2019-03-03] MEDS: Sodium Chloride 0.65% Nasal 44 ML BOT EA NARE SCH ×3 (09:16→20:15)
[2019-03-03] MEDS: Aspirin 325 MG TAB PO SCH (09:16)
[2019-03-03] MEDS: Docusate 100 MG CAP PO SCH ×2 (09:17→20:16)
[2019-03-03] MEDS: HumaLOG 300 UNITS/3 ML VIAL SC SCH ×2 (09:17→17:49)
[2019-03-03] MEDS: Rifampin 300 MG CAP PO SCH ×2 (09:18→20:13)
[2019-03-03] MEDS: Ubidecarenone 50 MG CAP PO SCH (20:06)
[2019-03-03] MEDS: Rosuvastatin 20 MG TAB PO SCH (20:07)
[2019-03-03] MEDS: Ezetimibe 10 MG TAB PO SCH (20:10)
[2019-03-03] MEDS: Lorazepam 0.5 MG TAB PO SCH (20:12)
[2019-03-03] MEDS: Loratadine 10 MG TAB PO SCH (20:12)
[2019-03-03] MEDS: HYDROcodone/Acetaminophen 5/325 mg Tablet PO PRN (20:14)
[2019-03-03] MEDS: Insulin Glargine 40 UNITS in Pre-Filled Syringe 1 EACH SC SCH (20:15)
[2019-03-04] MEDS: HYDROcodone/Acetaminophen 5/325 mg Tablet PO PRN ×2 (04:49→22:08)
[2019-03-04] MEDS: Doxycycline 100 MG CAP PO SCH ×2 (09:59→21:51)
[2019-03-04] MEDS: Aspirin 325 MG TAB PO SCH (09:59)
[2019-03-04] MEDS: Furosemide 80 MG TAB PO SCH (09:59)
[2019-03-04] MEDS: Sodium Chloride 0.65% Nasal 44 ML BOT EA NARE SCH ×3 (09:59→21:55)
[2019-03-04] MEDS: Losartan 25 MG TAB PO SCH (09:59)
[2019-03-04] MEDS: Clopidogrel Bisulfate 75 MG TAB PO SCH (10:00)
[2019-03-04] MEDS: Potassium Chloride 20 MEQ TAB PO SCH (10:00)
[2019-03-04] MEDS: Fluconazole 100 MG TAB PO SCH (10:00)
[2019-03-04] MEDS: Pantoprazole 40 MG GRANULES PACKET PO SCH (10:00)
[2019-03-04] MEDS: Carvedilol 6.25 MG TAB PO SCH ×2 (10:00→21:52)
[2019-03-04] MEDS: Baclofen 10 MG TAB PO SCH ×2 (10:00→21:54)
[2019-03-04] MEDS: Docusate 100 MG CAP PO SCH ×2 (10:01→21:54)
[2019-03-04] MEDS: Aquaphor 30 GM JAR TOP SCH (10:01)
[2019-03-04] MEDS: Nystatin Cream 15 GM TUBE TOP SCH ×2 (10:01→21:55)
[2019-03-04] MEDS: Insulin Glargine 80 UNITS in Pre-Filled Syringe 1 EACH SC SCH (10:02)
[2019-03-04] MEDS: HumaLOG 300 UNITS/3 ML VIAL SC SCH ×2 (10:06→17:13)
[2019-03-04] MEDS: Rifampin 300 MG CAP PO SCH ×2 (10:21→22:01)
[2019-03-04] MEDS: HumaLOG 300 UNITS/3 ML VIAL SC PRN (12:10)
--- NOTE | 2019-03-04 13:26 | PRG ---
DATE OF SERVICE: 03/04/2019 SUBJECTIVE: The patient is doing well this morning. She is awake and alert. She is sitting up. She has a good appetite. OBJECTIVE: VITAL SIGNS: Temperature 98.1, pulse 89, respiration 18, pulse ox 97%, and blood pressure 126/71. HEART: Regular rate and rhythm. LUNGS: Clear. ABDOMEN: Soft. ASSESSMENT: 1. Status post partial amputation, right foot. 2. Status post skin graft, right foot. 3. Atherosclerotic coronary artery disease, status post non-ST elevation myocardial infarction. 4. Diabetes. 5. Renal insufficiency. PLAN: 1. Continue wound care. 2. Hopefully placement in the a.m. Job ID: [id number]
[2019-03-04] MEDS: Ubidecarenone 50 MG CAP PO SCH (21:51)
[2019-03-04] MEDS: Lorazepam 0.5 MG TAB PO SCH (21:51)
[2019-03-04] MEDS: Rosuvastatin 20 MG TAB PO SCH (21:52)
[2019-03-04] MEDS: Loratadine 10 MG TAB PO SCH (21:52)
[2019-03-04] MEDS: Ezetimibe 10 MG TAB PO SCH (21:54)
[2019-03-04] MEDS: Insulin Glargine 40 UNITS in Pre-Filled Syringe 1 EACH SC SCH (22:03)
--- NOTE | 2019-03-05 08:31 | PRG ---
DATE OF SERVICE: 03/03/2019 SUBJECTIVE: The patient remains stable. She is status post partial amputation of the right foot with skin grafting. She is presently receiving antibiotics. She is awaiting transfer to residential facility, presently having insurance issues. OBJECTIVE: VITAL SIGNS: Temperature 97.0, pulse 77, blood pressure , and O2 saturation 97%. HEART: Regular rate and rhythm. LUNGS: Clear. ABDOMEN: Soft, obese. EXTREMITIES: Right lower extremity with a dressing present. LABORATORY DATA: Blood sugar 128, 155. ASSESSMENT: 1. Status post partial amputation, right foot. 2. Status post skin graft, right foot. 3. Atherosclerotic coronary artery disease, status post non-ST elevation myocardial infarction. 4. Diabetes. 5. Renal insufficiency. PLAN: Awaiting discharge to a rehab facility. Job ID: [id number]
[2019-03-05] MEDS: Baclofen 10 MG TAB PO SCH ×2 (08:57→20:48)
[2019-03-05] MEDS: Fluconazole 100 MG TAB PO SCH (08:57)
[2019-03-05] MEDS: Clopidogrel Bisulfate 75 MG TAB PO SCH (08:58)
[2019-03-05] MEDS: Furosemide 80 MG TAB PO SCH (08:58)
[2019-03-05] MEDS: Pantoprazole 40 MG GRANULES PACKET PO SCH (08:58)
[2019-03-05] MEDS: Carvedilol 6.25 MG TAB PO SCH ×2 (08:59→20:48)
[2019-03-05] MEDS: Losartan 25 MG TAB PO SCH (08:59)
[2019-03-05] MEDS: Docusate 100 MG CAP PO SCH ×2 (09:00→20:49)
[2019-03-05] MEDS: HumaLOG 300 UNITS/3 ML VIAL SC SCH ×2 (09:00→18:00)
[2019-03-05] MEDS: Doxycycline 100 MG CAP PO SCH ×2 (09:00→20:47)
[2019-03-05] MEDS: Aspirin 325 MG TAB PO SCH (09:00)
[2019-03-05] MEDS: Potassium Chloride 20 MEQ TAB PO SCH (09:00)
[2019-03-05] MEDS: Sodium Chloride 0.65% Nasal 44 ML BOT EA NARE SCH ×3 (09:01→20:49)
[2019-03-05] MEDS: Aquaphor 30 GM JAR TOP SCH (09:01)
[2019-03-05] MEDS: Nystatin Cream 15 GM TUBE TOP SCH ×2 (09:01→20:49)
[2019-03-05] MEDS: Insulin Glargine 80 UNITS in Pre-Filled Syringe 1 EACH SC SCH (09:07)
[2019-03-05] MEDS: Rifampin 300 MG CAP PO SCH ×2 (11:58→20:48)
--- NOTE | 2019-03-05 12:52 | PRG ---
DATE OF SERVICE: 03/05/2019 SUBJECTIVE: The patient is doing well. She has had no medical complaints. She is ready for discharge. We are awaiting for acceptance at a correction facility. She is complaining that her cholesterol medicine is causing body aches. She will like to have it stopped. OBJECTIVE: VITAL SIGNS: Temperature 98.2, blood pressure 124/59. LUNGS: Clear. HEART: Reveals no murmur. IMPRESSION: 1. Status post partial amputation of right foot with skin graft present. 2. On this hospitalization, non-ST segment elevated myocardial infarction. PLAN: Due to her cholesterol intolerance, we will stop Zetia as well as at this time. Job ID: [id number]
[2019-03-05] MEDS: Loratadine 10 MG TAB PO SCH (20:48)
[2019-03-05] MEDS: Ubidecarenone 50 MG CAP PO SCH (20:48)
[2019-03-05] MEDS: HYDROcodone/Acetaminophen 5/325 mg Tablet PO PRN (20:54)
[2019-03-05] MEDS: Insulin Glargine 40 UNITS in Pre-Filled Syringe 1 EACH SC SCH (20:54)
[2019-03-06] MEDS: HYDROcodone/Acetaminophen 5/325 mg Tablet PO PRN (07:16)
--- NOTE | 2019-03-06 08:24 | RAD ---
EXAM: Right knee: 4 views INDICATIONS: Knee pain COMPARISON: None. FINDINGS: Joint spaces are maintained. Very mild degenerative change. No fracture or acute osseous le dank. No significant joint effusion. IMPRESSION: Very mild degenerative change
[2019-03-06] MEDS: HumaLOG 300 UNITS/3 ML VIAL SC SCH ×2 (08:43→11:55)
[2019-03-06] MEDS: Docusate 100 MG CAP PO SCH (08:43)
[2019-03-06] MEDS: Losartan 25 MG TAB PO SCH (08:45)
[2019-03-06] MEDS: Doxycycline 100 MG CAP PO SCH (08:45)
[2019-03-06] MEDS: Clopidogrel Bisulfate 75 MG TAB PO SCH (08:46)
[2019-03-06] MEDS: Carvedilol 6.25 MG TAB PO SCH (08:46)
[2019-03-06] MEDS: Potassium Chloride 20 MEQ TAB PO SCH (08:46)
[2019-03-06] MEDS: Aspirin 325 MG TAB PO SCH (08:46)
[2019-03-06] MEDS: Nystatin Cream 15 GM TUBE TOP SCH (08:47)
[2019-03-06] MEDS: Baclofen 10 MG TAB PO SCH (08:47)
[2019-03-06] MEDS: Pantoprazole 40 MG GRANULES PACKET PO SCH (08:47)
[2019-03-06] MEDS: Furosemide 80 MG TAB PO SCH (08:47)
[2019-03-06] MEDS: Aquaphor 30 GM JAR TOP SCH (08:51)
[2019-03-06] MEDS: Sodium Chloride 0.65% Nasal 44 ML BOT EA NARE SCH (08:51)
[2019-03-06] MEDS: Insulin Glargine 80 UNITS in Pre-Filled Syringe 1 EACH SC SCH (10:15)
[2019-03-06 11:25] VITALS: BP 125/61; TEMP 98.1
[2019-03-06] MEDS: Rifampin 300 MG CAP PO SCH (11:55)
--- NOTE | 2019-03-06 13:39 | PRG ---
DATE OF SERVICE: 03/06/2019 SUBJECTIVE: She complained of right knee pain, right elbow pain. She is worried that might be related to her cholesterol medicines that has been stopped. She has not noted any trauma. Pain came on all of a sudden. Otherwise, no other medical complaints. OBJECTIVE: VITAL SIGNS: Blood pressure 142/67, temperature 97.8. LUNGS: Clear. HEART: Reveals no murmur. EXTREMITIES: The right knee shows no evidence of any significant redness or effusion. Right elbow shows no evidence of any redness or effusion. IMPRESSION: 1. Stable. 2. Right elbow and right knee pain. PLAN: We will check uric acid, x-ray of right knee. From my standpoint, she still is stable to be discharged. Unfortunately, we have been waiting for insurance approval for [facility] discharge. We will continue to await their approval. Job ID: [id number]
--- NOTE | 2019-03-07 21:10 | PQF ---
[address]JEY L[address] RICHARD A MD [id number] [facility]-283 [id number] CLINICAL DOCUMENTATION CLARIFICATION FORM: POST DISCHARGE Addendum to original discharge summary date: ____ Late entry note date: __ DATE: 03/07/19 ATTN: Israel Porter Please exercise your independent, professional judgment in responding to the clarification form. Clinical indicators are provided on the bottom of this form for your review Can you please further specify if Right foot Cellulitis is due to post amputation or not? Please check appropriate box(s): [ ] Right foot Cellulitis is due to post amputation [ ] Right foot Cellulitis is not due to post amputation [ ] Other diagnosis please specify [ ] Unable to determine In addition, please specify: Present on Admission (POA): [ ] Yes [ ] No [ ] Unable to determine CLINICAL INDICATORS - SIGNS / SYMPTOMS / LABS H and P 02/10 pg.1- "Chief complaint: Fever and foot infection getting worse" H and P 02/10 pg.1- "She underwent a transmetatarsal amputation of the right 4th and 5th toes due to gangrene" PN 02/12 Dr. Mohan pg.1- "Status post amputation with possible secondary foot infection" PN 02/15 Dr. Mohan pg.1- "Status post partial foot amputation of the 4th and 5th digits, right foot, with active cellulitis of the right foot " PN 02/16 Dr. Mohan pg.1- "Osteomyelitis right foot" Microbiology 02/10- "Methicillin resistant S. aureus" RISK FACTORS Diabetes mellitus- H and P 02/10 pg.1 Hypertension- H and P 02/10 pg.1 Peripheral Vascular Disease- H and P 02/10 pg.1 Status post amputation -PN 02/12 Dr. Mohan pg.1 TREATMENT: Infectious Consult- Dr. Rodriguez 02/12 Split-thickness skin graft- OP report 02/22 Dr. Mohan IV Fluids- SEP 01 Wound culture- Microbiology IV antibiotics- SEP 01 (This form is maintained as a part of the permanent medical record) 2014 [employer], [employer]. All Rights Reserved Charles [employer] .[employer] [not provided] MTDD
== END 2019-03-06 12:54 | DRG 573 ==
LOC: ERS 16:38 → 2NO 18:58
PROVIDERS: ADMIT Family Medicine; ATTEND Family Medicine
PROC: 4A023N7 Measurement of Cardiac Sampling and Pressure, Left Heart, Percutaneous Approach (ICD-10-PCS; 2019-02-14)
PROC: B2131ZZ Fluoroscopy of Multiple Coronary Artery Bypass Grafts using Low Osmolar Contrast (ICD-10-PCS; 2019-02-14)
PROC: B2111ZZ Fluoroscopy of Multiple Coronary Arteries using Low Osmolar Contrast (ICD-10-PCS; 2019-02-14)
PROC: B2151ZZ Fluoroscopy of Left Heart using Low Osmolar Contrast (ICD-10-PCS; 2019-02-14)
PROC: 0HRMX74 Replacement of Right Foot Skin with Autologous Tissue Substitute, Partial Thickness, External Approach (ICD-10-PCS; principal; 2019-02-22)
PROC: 0HBHXZZ Excision of Right Upper Leg Skin, External Approach (ICD-10-PCS; 2019-02-22)
DX: L03.115 Cellulitis of right lower limb (principal); I21.A1 Myocardial infarction type 2; I50.23 Acute on chronic systolic (congestive) heart failure; I13.0 Hypertensive heart and chronic kidney disease with heart failure and stage 1 through stage 4 chronic kidney disease, or unspecified chronic kidney disease; N18.4 Chronic kidney disease, stage 4 (severe); M86.171 Other acute osteomyelitis, right ankle and foot; N17.9 Acute kidney failure, unspecified; B95.62 Methicillin resistant Staphylococcus aureus infection as the cause of diseases classified elsewhere; I25.10 Atherosclerotic heart disease of native coronary artery without angina pectoris; E11.22 Type 2 diabetes mellitus with diabetic chronic kidney disease; I25.5 Ischemic cardiomyopathy; E78.00 Pure hypercholesterolemia, unspecified; E66.9 Obesity, unspecified; E11.69 Type 2 diabetes mellitus with other specified complication; E11.51 Type 2 diabetes mellitus with diabetic peripheral angiopathy without gangrene; E11.649 Type 2 diabetes mellitus with hypoglycemia without coma; Z95.5 Presence of coronary angioplasty implant and graft; Z95.1 Presence of aortocoronary bypass graft; Z90.710 Acquired absence of both cervix and uterus; Z90.49 Acquired absence of other specified parts of digestive tract; Z88.1 Allergy status to other antibiotic agents; Z79.899 Other long term (current) drug therapy; Z87.891 Personal history of nicotine dependence; Z79.4 Long term (current) use of insulin; Z88.8 Allergy status to other drugs, medicaments and biological substances; Z91.040 Latex allergy status; Z68.38 Body mass index [BMI] 38.0-38.9, adult
CPT/HCPCS: 36415; 36416; 51701; 71045; 71046; 80048; 80053; 80061; 80202; 81003; 82553; 83605; 83880; 84484; 84550; 85025; 85347; 86140; 87040; 87070; 87077; 87186; 87205; 93005; 93010; 93306; 93459; 93798; 94640; 94760; 96365; 96375; 99152; A4353; C1769; J0360; J0670; J1644; J1815; J1940; J1956; J2001; J2250; J2270; J2405; J2704; J2720; J3010; J3370; J3490; J7050; J7620; Q0162; Q9967

== ENCOUNTER 2019-03-30 23:55 | Emergency (ER) | payer MEDICARE | END 2019-03-31 02:52 | disposition home or self-care (01) | LOC: ERS 23:55 | DX: T38.3X1A Poisoning by insulin and oral hypoglycemic [antidiabetic] drugs, accidental (unintentional), initial encounter (principal); E11.9 Type 2 diabetes mellitus without complications; I10 Essential (primary) hypertension; F41.9 Anxiety disorder, unspecified; F32.9 Major depressive disorder, single episode, unspecified; I25.10 Atherosclerotic heart disease of native coronary artery without angina pectoris; Z95.1 Presence of aortocoronary bypass graft; Z79.899 Other long term (current) drug therapy; Z79.82 Long term (current) use of aspirin; Z79.4 Long term (current) use of insulin | CPT/HCPCS: 36416; 99284 ==

== ENCOUNTER 2019-04-07 11:12 | Inpatient (IN) | payer MEDICARE ==
[2019-04-07 11:30] LABS: #Basophils 0.1 thou/uL (0.0-0.2); #Eosinphils 1.7 thou/uL (0.0-0.7); #Lymphocytes 1.3 thou/uL (1.20-3.40); #Monocytes 0.8 thou/uL (0.11-0.59); #Neutrophils 5.6 thou/uL (1.40-6.50); %Basophils 0.9 % (0.0-1.0); %Eosinophils 18.1 % (0.0-10.0); %Lymphocytes 14.1 % (21.0-51.0); %Monocytes 8.3 % (0.0-10.0); %Neutrophils 58.6 % (42.0-75.0); Hemoglobin 11.4 g/dL (12.0-16.0); Mean Corpuscular HGB CONC 32.6 g/dL (32.0-36.0); Mean Corpuscular Hemoglobin 30.1 pg (27.0-31.0); Mean Corpuscular Volume 92.1 fL (78.0-98.0); Mean Platelet Volume 8.1 fL (7.4-10.4); Platelet Count 244 thou/uL (130-400); RBC Distribution Width 14.4 % (11.5-14.5); White Blood Cell (WBC) Count 9.5 thou/uL (4.8-10.8)
[2019-04-07 11:54] LABS: ALT (SGPT) 12 U/L (8-55); AST (SGOT) 20 U/L (5-34); Albumin 3.6 g/dL (3.4-4.8); Alkaline Phosphatase 84 U/L (40-110); Anion Gap 15 mmol/L (10-20); BUN (Urea Nitrogen) 24 mg/dL (9.8-20.1); Bilirubin, Total 0.3 mg/dL (0.2-1.2); CK (CPK) 61 U/L (29-168); Calc. Creatinine Clearance 0 mL/min (70-130); Calcium 9.1 mg/dL (7.8-10.44); Carbon Dioxide 25 mmol/L (23-31); Chloride 100 mmol/L (98-107); Estimated GFR-MDRD 47; Globulin 5.1 g/dL (2.4-3.5); Glucose 111 mg/dL (80-115); Potassium 4.5 mmol/L (3.5-5.1); Protein, Total 8.7 g/dL (6.0-8.3); Sodium 135 mmol/L (136-145)
--- NOTE | 2019-04-07 12:01 | RAD ---
PORTABLE CHEST ONE VIEW: 04/07/2019 11:23 a.m. HISTORY: Dizziness. Near syncope. COMPARISON: 02/15/2019 FINDINGS: Changes of median sternotomy are again seen. The heart is enlarged. No lobar consolidation, pneumotho races, christiano pulmonary edema or pleural effusions are seen. IMPRESSION: No acute process. POS: [facility]
[2019-04-07] MEDS ORDERED: Norepinephrine 4 MG/4 ML VIAL ONE (12:24)
--- NOTE | 2019-04-07 13:07 | CT ---
CT BRAIN WITHOUT CONTRAST: HISTORY: Syncope. FINDINGS: No evidence of acute infarct, hemorrhage, midline shift or abnormal extraaxial fluid collections is s een. The ventricular size is appropriate and the basilar cisterns are patent. The bony calvarium is i ntact. There is mild mucosal disease in the paranasal sinuses. IMPRESSION: No CT evidence of acute intracranial process. POS: [facility]
[2019-04-07 15:36] LABS: Lactic Acid 1.3 mmol/L (0.5-2.2)
[2019-04-07] MEDS ORDERED: Dextrose 5% in Water 1,000 ML IV PRN (17:16)
[2019-04-07] MEDS ORDERED: Dextrose 50% Abboject 50 ML SYRINGE SLOW IVP PRN (17:16)
[2019-04-07] MEDS ORDERED: Norepinephrine 8 MG/0.9% NS 250 ML IVPB SCH (17:30)
[2019-04-07] MEDS: Lorazepam 1 MG TAB PO SCH (21:47)
[2019-04-07] MEDS ORDERED: HYDROcodone/Acetaminophen 5/325 mg Tablet PO SCH (22:00)
[2019-04-08 04:44] LABS: #Basophils 0.1 thou/uL (0.0-0.2); #Eosinphils 1.6 thou/uL (0.0-0.7); #Lymphocytes 1.8 thou/uL (1.20-3.40); #Monocytes 0.9 thou/uL (0.11-0.59); #Neutrophils 5.9 thou/uL (1.40-6.50); %Basophils 0.6 % (0.0-1.0); %Eosinophils 15.2 % (0.0-10.0); %Lymphocytes 17.9 % (21.0-51.0); %Monocytes 8.9 % (0.0-10.0); %Neutrophils 57.3 % (42.0-75.0); Hemoglobin 10.2 g/dL (12.0-16.0); Mean Corpuscular Hemoglobin 30.4 pg (27.0-31.0); Mean Corpuscular Volume 92.1 fL (78.0-98.0); Mean Platelet Volume 8.2 fL (7.4-10.4); Platelet Count 233 thou/uL (130-400); RBC Distribution Width 14.1 % (11.5-14.5); Red Blood Cell (RBC) Count 3.36 mill/uL (4.20-5.40); White Blood Cell (WBC) Count 10.3 thou/uL (4.8-10.8)
[2019-04-08 04:52] LABS: ALT (SGPT) 11 U/L (8-55); AST (SGOT) 18 U/L (5-34); Albumin 3.1 g/dL (3.4-4.8); Alkaline Phosphatase 74 U/L (40-110); Anion Gap 11 mmol/L (10-20); BUN (Urea Nitrogen) 17 mg/dL (9.8-20.1); Bilirubin, Total Less than 0.2 mg/dL (0.2-1.2); Calc. Creatinine Clearance 100 mL/min (70-130); Calcium 8.3 mg/dL (7.8-10.44); Carbon Dioxide 26 mmol/L (23-31); Chloride 104 mmol/L (98-107); Estimated GFR-MDRD 69; Globulin 4.5 g/dL (2.4-3.5); Glucose 124 mg/dL (80-115); Potassium 4.1 mmol/L (3.5-5.1); Protein, Total 7.6 g/dL (6.0-8.3); Sodium 137 mmol/L (136-145)
[2019-04-08] MEDS ORDERED: HYDROcodone/Acetaminophen 5/325 mg Tablet PO PRN (07:34)
[2019-04-08] MEDS: Aspirin 325 mg Enteric Coated Tablet PO SCH (08:27)
[2019-04-08] MEDS: Enoxaparin Sodium 30 MG/0.3 ML SYRINGE SC SCH (08:27)
[2019-04-08] MEDS: HumaLOG 300 UNITS/3 ML VIAL SC SCH ×2 (08:29→17:13)
[2019-04-08] MEDS ORDERED: Aspirin 81 mg Enteric Coated Tablet PO SCH (09:00)
[2019-04-08] MEDS ORDERED: Insulin Glargine 80 UNITS in Pre-Filled Syringe 1 EACH SC SCH (09:00)
[2019-04-08] MEDS ORDERED: Prevnar 13-Val Conj/PF 0.5 ML SYRINGE IM ONE (09:00)
--- NOTE | 2019-04-08 10:58 | CON ---
DATE OF CONSULTATION: 04/08/2019 ORGAN BUILDER: While at [facility] is Himanshu Wagner. Her primary securities analyst is Dr. Moisés Noland. HISTORY OF PRESENT ILLNESS: Ms. Perkins is a 68-year-old woman with history of severe coronary artery disease. She recently was hospitalized. Please see the details on that admission. She went home. She is feeling progressively weak and lightheaded. She almost fainted. She was able to get up against the wall and slide down without falling. She was found to be hypotensive here. She was on Levophed last night, but she is off the Levophed now. The patient apparently was discharged on 03/06/2019. PAST MEDICAL HISTORY: 1. She has a history of bypass surgery. 2. History of peripheral vascular disease. She has had a balloon dilatation of arteries to her lower extremities. She has had previous bypass as mentioned. PAST SURGICAL HISTORY: 1. Previous bypass surgery. 2. Transmetatarsal amputation in the fourth and fifth toes, right foot recently. ALLERGIES: INTOLERANCE TO AMOXICILLIN AND LATEX. HOME MEDICATIONS: 1. Hydrocodone. 2. Clopidogrel. 3. Aspirin. 4. Potassium. 5. Furosemide 80 mg a day. 6. Coreg 12.5 mg twice a day. 7. Losartan 100 mg a day. 8. Ranolazine. REVIEW OF SYSTEMS: CONSTITUTIONAL: Positive for weakness and fatigue. VISION: No changes. HEARING: No changes. PULMONARY: No shortness of breath currently. CARDIAC: No chest pain. GASTROINTESTINAL: No nausea, vomiting, or diarrhea. PHYSICAL EXAMINATION: GENERAL: This is a pleasant elderly woman resting comfortably, in no distress. She does look chronically ill. VITAL SIGNS: Her blood pressure now 118/57, pulse 90. LUNGS: Clear. CARDIAC: Normal S1, normal S2. ABDOMEN: Obese, nontender. EXTREMITIES: Warm and dry. No clubbing, cyanosis, or edema. LABORATORY DATA: The troponin level 0.015. ASSESSMENT: 1. Orthostatic hypotension probably related to medications. 2. Coronary artery disease, previous bypass. 3. Peripheral vascular disease. PLAN: Reduce cardiac medicines. Okay to move out to the floor. Dr. Downs to resume care tomorrow. Job ID: [id number]
[2019-04-08] MEDS: HumaLOG 300 UNITS/3 ML VIAL SC PRN ×3 (11:41→20:33)
--- NOTE | 2019-04-08 13:00 | CON ---
DATE OF CONSULTATION: 04/08/2019 SERVICE: Pulmonary Medicine. HISTORY OF PRESENT ILLNESS: The patient is a 68-year-old white female with past medical history significant for polypharmacy. She lives in a nursing facility. She woke up, absolutely normal yesterday morning. She took all of her medications and within a couple of hours, she started having feelings of severe dizziness. She describes it as the entire world was spinning on her. She slumped up against a wall in order to not fall. She slid down the wall, and landed on her bottom. In this location, she continued to have persistent dizziness. She called her family, who subsequently called 911. She was brought to the emergency department. There, she was discovered to have severely reduced blood pressure. A central line was placed, and she was initially on some Levophed. Whenever the Levophed was provided, her blood pressure came up and her dizziness went away, but as it was being weaned away, her blood pressure would fall and her dizziness would return. Prior to this, she did not have any fevers, chills, cough, sputum production, nausea, vomiting, diarrhea, or any nidus of infection. She denies having any significant vaginal discharge, sore throat, hot red swollen joints, or new rashes. PAST MEDICAL HISTORY: 1. Peripheral vascular disease. 2. Coronary artery disease. 3. Type 2 diabetes mellitus. 4. Hypertension. 5. Dyslipidemia. 6. Major depressive disorder. PAST SURGICAL HISTORY: 1. Coronary artery bypass graft. 2. Peripheral vascular ballooning of vessels. 3. Transmetatarsal amputation, right foot, 4th and 5th digits. 4. Hysterectomy, transvaginal. 5. Bilateral oophorectomy. 6. Laparotomy. 7. Cholecystectomy. ALLERGIES: NO KNOWN DRUG ALLERGIES. MEDICATIONS: List of her inpatient medications were reviewed. No specific updates were made at this time. FAMILY HISTORY: Noncontributory. SOCIAL HISTORY: Negative for current alcohol, tobacco, or illicit drug use. She has a 40-zbid-uorr history of smoking, but quit in the 90s. 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 REVIEW OF SYSTEMS: General, head, ears, eyes, nose, throat, cardiovascular, respiratory, GI, , musculoskeletal, neurologic, and skin is negative except as mentioned in the HPI. PHYSICAL EXAMINATION: VITAL SIGNS: Afebrile; pulse 75; blood pressure 132/62; respirations 24; and saturation 93%, currently on room air. GENERAL: The patient is awake and alert, in no apparent distress. LUNGS: Very good air entry with no prolonged expiratory phase, wheezing, rhonchi, or crackles. HEART: Normal rate, regular. ABDOMEN: Soft, nontender, and nondistended. Bowel sounds are positive. MUSCULOSKELETAL: No cyanosis or clubbing. No pitting in bilateral lower extremities. NEUROLOGIC: Grossly nonfocal. LABORATORY DATA: WBC 10.3, hemoglobin 10.2, and platelets 233,000. Basic metabolic profile and liver function studies are all unremarkable. Cortisol level and TSH fall within normal limits. Urinalysis is negative. ASSESSMENT: 1. Hypotension, likely secondary to polypharmacy. 2. Prerenal azotemia, resolved. DISCUSSION AND PLAN: Now that she is off the Levophed, the femoral catheter can be discontinued. She is stable for transition out of the ICU to the telemetry unit. We will watch her for an additional day, but we will likely need to deescalate her blood pressure medications and other nonessential medications through time. When she leaves the ICU, she will have no further requirements for inpatient Pulmonary or Critical Care opinion, I will sign off. Please call with additional questions or concerns through time. 70 minutes have been devoted to this patient in various activities. I personally reviewed all imaging studies and laboratory data noted within this document. For fifty percent of this time, I was interacting with the patient at the bedside or coordinating care with the care team. For the remainder of the time I was immediately available to the patient in the hospital unit. Job ID: [id number] [facility]
[2019-04-08] MEDS ORDERED: Acetaminophen 325 MG TAB PO PRN (16:29)
[2019-04-08] MEDS ORDERED: traMADol HCl 50 MG TAB PO PRN (16:29)
[2019-04-08] MEDS: HYDROcodone/Acetaminophen 5/325 mg Tablet PO PRN (16:37)
--- NOTE | 2019-04-08 16:40 | PRG ---
DATE OF SERVICE: 04/08/2019 SUBJECTIVE: The patient was seen and examined at the bedside. OBJECTIVE: VITAL SIGNS: Her blood pressure is 142/69, pulse is 77, respiratory rate is 17, O2 saturation is 97% on room air. HEENT: Head is atraumatic and normocephalic. Sclerae are nonicteric. Conjunctivae are pinkish. LUNGS: Clear. HEART: S1, S2 normal. No S3. No S4. ABDOMEN: Soft, nontender, nondistended. EXTREMITIES: No clubbing, cyanosis, or edema. NEUROLOGIC: She follows my commands. She moves all 4 extremities. LABORATORY DATA: White count of 10.3, hemoglobin 10.2, hematocrit 30.9, platelet count 233,000. Normal chemistry except for glucose which is 124, albumin of 3.1 and globulin 4.5. IMPRESSION: 1. Hypotension most likely related to volume depletion and the patient is on several blood pressure medications at home and diuretics. We will cut back significantly on that regimen and during the next couple of days we will try to introduce gradually much smaller regimen for her blood pressure. 2. Coronary artery disease, chronic, stable. 3. Peripheral vascular disease. 4. Renal insufficiency, which is improved with IV fluids and her creatinine is back to normal. We will continue her rifampin which is supposed to be for her previous infection of her foot. Job ID: [id number]
[2019-04-08] MEDS: Carvedilol 6.25 MG TAB PO SCH (17:15)
[2019-04-08] MEDS: Lorazepam 1 MG TAB PO SCH (20:07)
[2019-04-08] MEDS: Ubidecarenone 50 MG CAP PO SCH (20:26)
[2019-04-08] MEDS: Baclofen 10 MG TAB PO SCH (20:30)
[2019-04-08] MEDS: Insulin Glargine 40 UNITS in Pre-Filled Syringe 1 EACH SC SCH (20:31)
[2019-04-08] MEDS: Loratadine 10 MG TAB PO SCH (20:32)
[2019-04-08] MEDS: Nystatin Cream 30 GM TUBE TOP SCH (20:33)
[2019-04-08] MEDS: Rifampin 300 MG CAP PO SCH (20:33)
[2019-04-09] MEDS: HYDROcodone/Acetaminophen 5/325 mg Tablet PO PRN ×2 (01:00→12:16)
[2019-04-09 05:24] LABS: #Basophils 0.1 thou/uL (0.0-0.2); #Eosinphils 1.9 thou/uL (0.0-0.7); #Lymphocytes 2.4 thou/uL (1.20-3.40); #Monocytes 0.9 thou/uL (0.11-0.59); #Neutrophils 4.6 thou/uL (1.40-6.50); %Basophils 0.6 % (0.0-1.0); %Eosinophils 19.2 % (0.0-10.0); %Lymphocytes 24.2 % (21.0-51.0); %Monocytes 9.2 % (0.0-10.0); %Neutrophils 46.7 % (42.0-75.0); Hemoglobin 11.8 g/dL (12.0-16.0); Mean Corpuscular HGB CONC 32.9 g/dL (32.0-36.0); Mean Corpuscular Hemoglobin 29.8 pg (27.0-31.0); Mean Corpuscular Volume 90.5 fL (78.0-98.0); Mean Platelet Volume 8.6 fL (7.4-10.4); Platelet Count 218 thou/uL (130-400); RBC Distribution Width 14.2 % (11.5-14.5); Red Blood Cell (RBC) Count 3.96 mill/uL (4.20-5.40); White Blood Cell (WBC) Count 9.9 thou/uL (4.8-10.8)
[2019-04-09 05:45] LABS: Anion Gap 16 mmol/L (10-20); BUN (Urea Nitrogen) 18 mg/dL (9.8-20.1); Calc. Creatinine Clearance 87 mL/min (70-130); Calcium 9.1 mg/dL (7.8-10.44); Carbon Dioxide 21 mmol/L (23-31); Chloride 103 mmol/L (98-107); Estimated GFR-MDRD 59; Glucose 190 mg/dL (80-115); Potassium 4.1 mmol/L (3.5-5.1); Sodium 136 mmol/L (136-145)
[2019-04-09] MEDS: HumaLOG 300 UNITS/3 ML VIAL SC PRN ×4 (06:10→21:26)
[2019-04-09] MEDS: Carvedilol 6.25 MG TAB PO SCH ×2 (07:54→16:44)
[2019-04-09] MEDS: Clopidogrel Bisulfate 75 MG TAB PO SCH (07:54)
[2019-04-09] MEDS: Losartan 25 MG TAB PO SCH (07:55)
[2019-04-09] MEDS: Baclofen 10 MG TAB PO SCH ×2 (07:56→20:14)
[2019-04-09] MEDS: Enoxaparin Sodium 30 MG/0.3 ML SYRINGE SC SCH (07:56)
--- NOTE | 2019-04-09 08:04 | HP ---
CHIEF COMPLAINT: Lightheadedness. HISTORY OF PRESENT ILLNESS: This patient is a 68-year-old female with a history of diabetes mellitus, significant coronary artery disease, recent amputation of the right 3rd, 4th, and 5th toes with subsequent infection which was treated in the hospital and then she had a skin graft applied, which has been actually doing quite well. The patient was subsequently admitted to [place]. When she left there, she came home and said she had a bit of time getting all of her medications straightened out and was actually here on 03/31/2019, after having taken the wrong insulin. She says she has been back on her medicines appropriately weighed and has been doing well this morning. She was doing well, got up to get some breakfast. She subsequently became lightheaded and had a significant headache. She then had to lean up against the wall because she was so lightheaded and essentially slid down to the ground. She did not injure herself in any way. She was brought here to the emergency department where she was hypotensive with a BP of 60/40. She has received fluid resuscitation and has still required Levophed drip. She reports she is feeling much better now, almost back to normal, but continues to have some mild headache. REVIEW OF SYSTEMS: She has had normal appetite and thirst. She has had normal p.o. intake. Denies any fevers, chills, any specific sources of any infections. All other systems reviewed, all pertinent positives and negatives noted in the History of Present Illness. PAST MEDICAL HISTORY: Atherosclerotic heart disease with a 4-vessel bypass in 1995. She typically was followed by Dr. Noland. She has had multiple balloon angioplasties done in both of her lower extremities. She had echocardiogram done in January with an ejection fraction of 35% to 40% with moderate mitral regurgitation. The patient reports that she was placed on a LifeVest at that time, which she has continued to wear at home, but had taken it off today because she was going to take shower. She also had a heart catheterization performed in January, which revealed a left main and 3-vessel coronary artery disease, indicating 3 of 4 grafts were patent with diffuse disease in 2, the patent vein grafts, moderately-impaired ventricular function and moderate mitral regurgitation. She has the above-mentioned type 2 diabetes, hypertension, and hyperlipidemia. Chronic back pain with disk pathology. PAST SURGICAL HISTORY: 4-vessel bypass in 1995, peripheral vascular interventions, transmetatarsal amputation of the right foot 4th and 5th digits, vaginal hysterectomy, appendectomy, oophorectomy, and cholecystectomy. FAMILY HISTORY: Reviewed, noncontributory. 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 Quit smoking in 1995, and she had her bypass graft. No alcohol. No drugs. She is . She has two children. She is a partial code indicating she is okay with the pressors that she is currently receiving. She is also okay with intubation, but does not want chest compressions or cardioversion. ALLERGIES: AMOXICILLIN, HYDRALAZINE, AND LATEX. HOME MEDICATIONS: 1. Tylenol p.r.n. 2. Aspirin 325 daily. 3. Baclofen 10 mg b.i.d. p.r.n. abdominal cramps and spasm. 4. Carvedilol 12.5 b.i.d. 5. Plavix 75 mg daily. 6. Clonidine 0.1 mg daily p.r.n. hypertension. 7. CoQ10. 8. Docusate. 9. Lasix 40 mg two p.o. daily. 10. DuoNebs p.r.n. 11. Isosorbide 90 mg daily. 12. Lantus 45 units subcu at bedtime and 80 units q.a.m. 13. Loratadine 10 mg daily. 14. Lorazepam 0.5 at bedtime p.r.n. 15. Losartan 100 mg daily. 16. Metolazone 2.5 daily p.r.n. edema. 17. Nitroglycerin p.r.n. 18. [place] p.r.n. 19. Ondansetron p.r.n. 20. Potassium 20 mEq daily. 21. Pravastatin 20 mg daily. 22. Protonix 40 mg daily. 23. Sertraline 25 mg daily. 24. Tramadol p.r.n. 25. Santyl ointment topical. PHYSICAL EXAMINATION: VITAL SIGNS: Most recent vital signs; blood pressure 135/59 on Levophed drip, pulse 75, respirations 18, and O2 saturation 100% on room air. GENERAL APPEARANCE: Age-appropriate female, in no distress. She is awake, alert, oriented, pleasant, and cooperative. HEART: Regular rate and rhythm. No murmurs, gallops, or rubs. LUNGS: Clear to auscultation bilaterally. Good chest wall expansion and air exchange. ABDOMEN: Soft, nontender, and nondistended. Positive bowel sounds. No masses. No organomegaly. EXTREMITIES: No cyanosis, clubbing, or edema. There is some chronic stasis dermatitis changes of both lower extremities, nothing active. The right distal lateral foot status post amputation with skin graft. This area looks good. There is no significant erythema, drainage, or odor. The skin graft site of the right mid thigh appears healthy as well. PSYCHIATRIC: The patient has normal affect and behavior. NEUROLOGIC: The patient has normal spontaneous movement of all extremities. Normal cognition. LABORATORY DATA: White count 9.5, hemoglobin 11.4, and platelets 244. Sodium 135, potassium 4.5, chloride 100, CO2 of 25, BUN 24, creatinine 1.16, glucose 111, lactic acid 2.2, calcium 9.1, AST 20, ALT 12, troponin 0.015, and albumin 3.6. IMAGING STUDIES: Chest x-ray, no acute processes. Brain CT, no evidence of acute intracranial process. IMPRESSION AND PLAN: 1. Severe hypotension, etiology is unclear. She does not appear to have cardiogenic shock nor does she appear to have active sepsis. Concerned the patient may have simply hypotension related to her blood pressure medications. We will continue with the Levophed drip. She has had 2.5 L of fluid in the emergency department. We will not aggressively continue with those fluids given her ejection fraction. We will discuss with Dr. Rodrigues. We will check a TSH and a cortisol level in the morning and hold off on any steroids prior to that time. 2. Cardiomyopathy. The patient appeared to have an ejection fraction of 35% to 40% with significant coronary artery disease. I do not see any evidence that she has had any ventricular arrhythmias yet. She was put on a LifeVest. We will continue to monitor her heart rhythm and avoid too much volume resuscitation to avoid volume overload or heart failure. We will consult Cardiology. 3. Diabetes mellitus. Continue with her home insulin regimen with a.c. and h.s. Accu-Cheks and diabetic diet. 4. Coronary artery disease. We will continue with her aspirin, but holding her other medications until we can establish a better blood pressure. Also holding her diuretics. 5. Peripheral arterial disease. The patient's amputation site appears to be healthy with no evidence of infection. Not starting any antibiotics at this time as there is no clear indication. Job ID: [id number]
[2019-04-09] MEDS: Aspirin 325 mg Enteric Coated Tablet PO SCH (08:05)
[2019-04-09] MEDS: Insulin Glargine 40 UNITS in Pre-Filled Syringe 1 EACH SC SCH ×2 (08:05→20:15)
[2019-04-09] MEDS: HumaLOG 300 UNITS/3 ML VIAL SC SCH ×2 (08:06→16:45)
[2019-04-09] MEDS: Nystatin Cream 30 GM TUBE TOP SCH ×2 (08:13→20:16)
--- NOTE | 2019-04-09 08:48 | PRG ---
DATE OF SERVICE: 04/09/2019 SUBJECTIVE: Fe Perkins, who was admitted to the hospital with hypotension. This morning, her blood pressure much improved. Denies any pain, discomfort, dizziness, or shortness of breath. It is felt the hypotension was due to multiple medication. OBJECTIVE: VITAL SIGNS: This morning, her blood pressure is 130/75, saturations 90% on room air, respiratory rate 18, and pulse 80. CHEST: No wheezing or crackles. CARDIAC: Normal S1 and S2. No gallops. ABDOMEN: No masses. LABORATORY DATA: Unremarkable. Lytes are normal. Glucose 211. ASSESSMENT: 1. Hypotension, medication related. 2. Obesity. PLAN: She was transferred out of the ICU. Pulmonary/Critical Care will follow at a distance. Job ID: [id number]
[2019-04-09] MEDS: Rifampin 300 MG CAP PO SCH ×2 (09:31→20:17)
--- NOTE | 2019-04-09 13:04 | PRG ---
DATE OF SERVICE: 04/09/2019 SUBJECTIVE: The patient is seen and examined at bedside. She is doing well. She does not have much complaints to offer. OBJECTIVE: VITAL SIGNS: Blood pressure is 134/75, pulse is 77, respiratory rate is 21, temperature is 98.5. Echocardiogram showed LVEF estimated at 50% to 55%, moderate mitral regurgitation and moderately elevated pulmonary artery pressure. IMPRESSION: 1. Hypotension, resolved. 2. Coronary artery disease, chronic, stable. 3. Peripheral vascular disease. 4. Renal insufficiency improved with intravenous fluids. PLAN: Transition to telemetry for additional 24 hour observation to make sure the blood pressure is in the appropriate range. Also, the patient was put back on her home meds except for diuretics and Cardiology will make decision about the dose of Lasix she needs to be on. For now, we will start her back on 40 mg of Lasix tomorrow morning. Job ID: [id number]
[2019-04-09 14:33] VITALS: BMI 39.2
[2019-04-09] MEDS: Loratadine 10 MG TAB PO SCH (20:15)
[2019-04-09] MEDS: Ubidecarenone 50 MG CAP PO SCH (20:17)
[2019-04-10] MEDS: Lorazepam 1 MG TAB PO SCH (00:20)
[2019-04-10] MEDS: HYDROcodone/Acetaminophen 5/325 mg Tablet PO PRN (00:20)
[2019-04-10 04:26] LABS: #Basophils 0.1 thou/uL (0.0-0.2); #Eosinphils 1.9 thou/uL (0.0-0.7); #Lymphocytes 1.9 thou/uL (1.20-3.40); #Monocytes 0.8 thou/uL (0.11-0.59); #Neutrophils 4.3 thou/uL (1.40-6.50); %Basophils 0.6 % (0.0-1.0); %Eosinophils 21.4 % (0.0-10.0); %Lymphocytes 21.3 % (21.0-51.0); %Monocytes 8.4 % (0.0-10.0); %Neutrophils 48.3 % (42.0-75.0); Hemoglobin 10.8 g/dL (12.0-16.0); Mean Corpuscular HGB CONC 32.5 g/dL (32.0-36.0); Mean Corpuscular Hemoglobin 29.6 pg (27.0-31.0); Mean Corpuscular Volume 90.9 fL (78.0-98.0); Mean Platelet Volume 8.1 fL (7.4-10.4); Platelet Count 242 thou/uL (130-400); RBC Distribution Width 14.1 % (11.5-14.5); Red Blood Cell (RBC) Count 3.64 mill/uL (4.20-5.40); White Blood Cell (WBC) Count 8.9 thou/uL (4.8-10.8)
[2019-04-10 04:36] VITALS: TEMP 98.5
[2019-04-10 04:44] LABS: Anion Gap 16 mmol/L (10-20); BUN (Urea Nitrogen) 18 mg/dL (9.8-20.1); Calc. Creatinine Clearance 98 mL/min (70-130); Carbon Dioxide 23 mmol/L (23-31); Chloride 104 mmol/L (98-107); Estimated GFR-MDRD 68; Glucose 120 mg/dL (80-115); Sodium 139 mmol/L (136-145)
[2019-04-10] MEDS: Losartan 25 MG TAB PO SCH (08:46)
[2019-04-10] MEDS: Baclofen 10 MG TAB PO SCH (08:50)
[2019-04-10] MEDS: Carvedilol 6.25 MG TAB PO SCH (08:51)
[2019-04-10] MEDS: Rifampin 300 MG CAP PO SCH (08:52)
[2019-04-10] MEDS: Clopidogrel Bisulfate 75 MG TAB PO SCH (08:53)
[2019-04-10] MEDS: Insulin Glargine 40 UNITS in Pre-Filled Syringe 1 EACH SC SCH (08:53)
[2019-04-10] MEDS: Aspirin 325 mg Enteric Coated Tablet PO SCH (08:54)
[2019-04-10] MEDS: Enoxaparin Sodium 30 MG/0.3 ML SYRINGE SC SCH (08:54)
[2019-04-10] MEDS: HumaLOG 300 UNITS/3 ML VIAL SC SCH (08:54)
[2019-04-10 08:59] VITALS: BP 144/75
[2019-04-10] MEDS ORDERED: Furosemide 40 MG TAB PO SCH (09:00)
--- NOTE | 2019-04-10 11:09 | DIS ---
DATE OF ADMISSION: 04/07/2019 DATE OF DISCHARGE: 04/10/2019 PRIMARY CARE PHYSICIAN: Dr. Israel Mohan. DISCHARGE DISPOSITION: Home. PRIMARY DISCHARGE DIAGNOSIS: Hypotension due to orthostatic hypotension secondary to medication. SECONDARY DISCHARGE DIAGNOSES: Chronic cardiomyopathy with EF 35% to 40%, coronary artery disease, peripheral vascular disease, diabetes type 2, anxiety and depression, obesity with BMI 39, gastroesophageal reflux disease. PRIMARY PROCEDURE/OPERATION: None. RADIOLOGICAL INVESTIGATION: CT brain negative. A chest x-ray, normal. Echocardiography showed EF 50% to 55%. SIGNIFICANT LABORATORY DATA: WBC 8.9, hemoglobin 10.8, platelet 242. Sodium 139, potassium 4.0, BUN 18, creatinine 0.84, calcium 9.0. DISCHARGE MEDICATIONS: 1. Aspirin 325 mg p.o. daily. 2. Plavix 75 mg p.o. daily. 3. Baclofen 10 mg daily. 4. Dimethicone topical lotion as needed at bedtime. 5. Colace 100 mg b.i.d. 6. Claritin 10 mg at bedtime. 7. Lorazepam 2 mg at bedtime. 8. Losartan 100 mg daily. 9. Nystatin topical application b.i.d. 10. Protonix 20 mg daily. 11. Potassium chloride 20 mEq p.o. daily. 12. Santyl ointment topical application as directed. 13. Zoloft 25 mg daily. 14. Coreg 6.25 mg b.i.d., dose reduced. 15. Lasix 40 mg p.o. daily, dose reduced. 16. Humalog 10 units subcu b.i.d. 17. Lantus 80 units in the morning and 40 units at bedtime. 18. Imdur 120 mg daily. 19. Ranexa 500 mg b.i.d. 20. Rifampin 300 mg b.i.d. 21. Coenzyme Q10 200 mg p.o. at bedtime. 22. Clonidine 0.1 mg p.o. at bedtime p.r.n. 23. [place] 5 one tab q.8 hourly p.r.n. 24. Zofran 4 mg q.6 hourly p.r.n. 25. Tramadol 50 mg q.6 hourly p.r.n. 26. Tylenol 650 mg q.4 hourly p.r.n. CONTRAINDICATION: None. CODE STATUS: Intubation only. INPATIENT PROFESSOR OF THEATRE: Cardiology group was consulted while in hospital. Pulmonary group was consulted while in hospital. TEST RESULT PENDING ON DISCHARGE: None. ALLERGIES: AMOXICILLIN, AUGMENTIN, HYDRALAZINE. DISCHARGE PLAN: Posthospital, the patient will follow up with primary care physician in one week. The patient will follow up with Cardiology and cardiovascular surgeon as instructed. HOSPITAL COURSE: A 68-year-old female who was admitted by Dr. Donald. Please see his H and P for further details. The patient was brought to the ER for hypotension. Her blood pressure was 60/40. She received fluid resuscitation in the emergency room, but her blood pressure was low and that is why she required Levophed drip. She was admitted to ICU. Her low blood pressure was related with overmedication. Subsequently, her blood pressure significantly improved. During this admission, echocardiography showed improvement in the EF. Cardiology reduced dose of Lasix to 40 mg daily and Coreg to 6.25 mg b.i.d. Rest of medication was continued as per previous. The patient is instructed to keep checking her blood pressure at home and monitoring blood pressure and keep a record of blood pressure as well. If blood pressure is less than 120 systolic, then the patient is advised to hold blood pressure medication. After record of 1 week blood pressure reading, the patient is instructed to make appointment with primary care physician for further adjustment of medication. During this admission, we have reduced Coreg and Lasix. Rest of medication will be adjusted based on her vitals recorded. I have seen and examined the patient at bedside today. Plan of care discussed with the patient in detail. Cardiology cleared her for discharge as well. PHYSICAL EXAMINATION: VITAL SIGNS: Today vital sign; temperature 98.5, pulse 72, respiratory rate 18, blood pressure 144/75. Weight 207 pounds. GENERAL: The patient is currently alert, awake, no obvious acute distress. HEENT: Head; normocephalic, atraumatic. NECK: Supple. No JVD. No thyromegaly. No carotid bruit. No jugular venous distention. LUNGS: Clear to auscultation without any rhonchi or rales. CARDIAC: S1, S2. Regular without any murmur. No gallop. No rub. ABDOMEN: Soft. Bowel sounds present. Nontender. Nondistended. No organomegaly. No mass. EXTREMITIES: Right foot is in dressing, otherwise unremarkable. NEUROLOGIC: Nonfocal examination. The patient is overall medically stable for discharge today. Job ID: [id number] [facility]
[2019-04-10] MEDS: HumaLOG 300 UNITS/3 ML VIAL SC PRN (12:04)
--- NOTE | 2019-04-11 04:46 | PQF ---
[employer]ner [employer] Winform Viewer [address] SALIM NOORJIBHAI MD [id number] CLINICAL DOCUMENTATION CLARIFICATION FORM: POST DISCHARGE Addendum to original discharge summary date: ____ Late entry note date: __ DATE: 04/11/19 ATTN: Theodore Dick Please exercise your independent, professional judgment in responding to the clarification form. Clinical indicators are provided on the bottom of this form for your review Can you please further specify the diagnosis based on the clinical indicators below? Please check appropriate box(s): [ x ] Hypotension due to adverse effect of multiple drugs [ ] Hypotension due to poisoning of multiple drugs [ ] Other diagnosis please specify [ ] Unable to determine In addition, please specify: Present on Admission (POA): [x ] Yes [ ] No [ ] Unable to determine For continuity of documentation, please document condition throughout progress notes and discharge summary. Thank You. CLINICAL INDICATORS - SIGNS / SYMPTOMS / LABS H and P pg.1 04/07- she was hypotensive with BP of 60/[address] Mahoney 04/08 pg.2- Orthostatic hypotension probably related to medications Consult Dr. Rodrigues 04/08 pg.2- Hypotension likely secondary to polypharmacy PN 04/09 Dr. Shaw- Hypotension was due to multiple medication DS 04/10 pg.1- Hypotension due to orthostatic hypotension secondary to medication DS pg.2- her blood pressure was related with overmedication RISK FACTORS Diabetes Mellitus- H and P og.4 CAD-Consult Dr. Mahoney pg.2 Obesity- PN 04/[address] Shaw 68 years old female H and P pg 1 HTN H and P pg 1 HLD H and P pg 1 TREATMENTS: 2.5 L Fluid resuscitation- H and P pg.1 Levophed drip- H and P pg.1 (This form is maintained as a part of the permanent medical record) 2015 [employer]. All Rights Reserved [email or web address] [not provided] ARANZAD
== END 2019-04-10 14:10 | disposition home or self-care (01) | DRG 312 ==
LOC: ERS 11:12 → CCU 16:21
PROVIDERS: ADMIT Internal Medicine; ATTEND Internal Medicine
PROC: 06HY33Z Insertion of Infusion Device into Lower Vein, Percutaneous Approach (ICD-10-PCS; 2019-04-07)
PROC: 3E033XZ Introduction of Vasopressor into Peripheral Vein, Percutaneous Approach (ICD-10-PCS; principal; 2019-04-08)
PROC: 3E0234Z Introduction of Serum, Toxoid and Vaccine into Muscle, Percutaneous Approach (ICD-10-PCS; 2019-04-08)
DX: I95.2 Hypotension due to drugs (principal); I42.9 Cardiomyopathy, unspecified; T50.915A Adverse effect of multiple unspecified drugs, medicaments and biological substances, initial encounter; I25.10 Atherosclerotic heart disease of native coronary artery without angina pectoris; E78.5 Hyperlipidemia, unspecified; E11.51 Type 2 diabetes mellitus with diabetic peripheral angiopathy without gangrene; F41.9 Anxiety disorder, unspecified; F32.9 Major depressive disorder, single episode, unspecified; R79.89 Other specified abnormal findings of blood chemistry; E66.9 Obesity, unspecified; I34.0 Nonrheumatic mitral (valve) insufficiency; N28.9 Disorder of kidney and ureter, unspecified; Z68.39 Body mass index [BMI] 39.0-39.9, adult; Z89.421 Acquired absence of other right toe(s); Z90.710 Acquired absence of both cervix and uterus; Z95.1 Presence of aortocoronary bypass graft; Z90.49 Acquired absence of other specified parts of digestive tract; Z88.1 Allergy status to other antibiotic agents; Z88.8 Allergy status to other drugs, medicaments and biological substances; Z91.040 Latex allergy status; Z79.82 Long term (current) use of aspirin; Z79.4 Long term (current) use of insulin; Z79.899 Other long term (current) drug therapy; I11.0 Hypertensive heart disease with heart failure; I50.9 Heart failure, unspecified; Z95.5 Presence of coronary angioplasty implant and graft; G89.29 Other chronic pain; Z79.02 Long term (current) use of antithrombotics/antiplatelets
CPT/HCPCS: 36415; 36416; 36556; 70450; 71045; 80048; 80053; 82533; 82550; 83605; 84443; 84484; 85025; 90471; 90670; 93005; 93306; 96361; 96365; 96366; G0009; J1650; J1815

== ENCOUNTER 2019-05-27 08:46 | Emergency (ER) | payer MEDICARE, SELFPAY ==
[2019-05-27] MEDS ORDERED: Ketorolac Tromethamine 30 MG/ML VIAL ONE (09:15)
[2019-05-27] MEDS ORDERED: Cyclobenzaprine 10 MG TAB ONE (09:15)
[2019-05-27] MEDS ORDERED: Morphine 4 MG/ML VIAL ONE (10:17)
== END 2019-05-27 10:50 | disposition home or self-care (01) ==
LOC: ERS 08:46
DX: G89.29 Other chronic pain (principal); M54.5 Low back pain; I25.10 Atherosclerotic heart disease of native coronary artery without angina pectoris; E11.9 Type 2 diabetes mellitus without complications; I10 Essential (primary) hypertension; F41.9 Anxiety disorder, unspecified; F32.9 Major depressive disorder, single episode, unspecified; Z79.899 Other long term (current) drug therapy
CPT/HCPCS: 96372; 99283; J1885; J2270

== ENCOUNTER 2020-04-02 11:17 | Outpatient (CLI) | payer BC, MEDICARE ==
--- NOTE | 2020-04-02 11:52 | RAD ---
EXAM: Chest PA and lateral: HISTORY: Dyspnea COMPARISON: 02/15/2019 FINDINGS: Cardiomegaly with mild vascular engorgement is similar to prior exam. No focal infiltrate. Postop kashif rnotomy change.Pacemaker leads have been placed since prior exam and appear adequately positioned. Osseous structures are unremarkable. IMPRESSION: No acute finding
== END 2020-04-02 11:18 | disposition home or self-care (01) ==
LOC: SCSRAD 11:17
PROVIDERS: ATTEND Family Medicine
DX: R06.00 Dyspnea, unspecified (principal)
CPT/HCPCS: 36415; 71046; 80053; 83036; 85025

== ENCOUNTER 2021-10-26 22:31 | Inpatient (IN) | payer MEDICARE ==
[2021-10-26 23:20] LABS: #Basophils 0.1 thou/uL (0.0-0.2); #Eosinphils 0.3 thou/uL (0.0-0.7); #Lymphocytes 1.5 thou/uL (1.20-3.40); #Neutrophils 5.4 thou/uL (1.40-6.50); %Basophils 0.8 % (0.0-1.0); %Eosinophils 3.6 % (0.0-10.0); %Lymphocytes 18.6 % (21.0-51.0); %Monocytes 12.1 % (0.0-10.0); Hemoglobin 8.3 g/dL (12.0-16.0); Mean Corpuscular HGB CONC 29.5 g/dL (32.0-36.0); Mean Corpuscular Hemoglobin 23.9 pg (27.0-31.0); Mean Corpuscular Volume 80.9 fL (78.0-98.0); Mean Platelet Volume 9.4 fL (7.4-10.4); Platelet Count 380 thou/uL (130-400); RBC Distribution Width 18.9 % (11.5-14.5); Red Blood Cell (RBC) Count 3.46 mill/uL (4.20-5.40); White Blood Cell (WBC) Count 8.2 thou/uL (4.8-10.8)
[2021-10-26 23:31] LABS: ALT (SGPT) 9 U/L (8-55); AST (SGOT) 16 U/L (5-34); Albumin 3.5 g/dL (3.4-4.8); Alkaline Phosphatase 89 U/L (40-110); Anion Gap 17 mmol/L (10-20); BUN (Urea Nitrogen) 45 mg/dL (9.8-20.1); Bilirubin, Total 0.3 mg/dL (0.2-1.2); Calc. Creatinine Clearance 0 mL/min (70-130); Calcium 8.5 mg/dL (7.8-10.44); Carbon Dioxide 20 mmol/L (23-31); Chloride 104 mmol/L (98-107); Glucose 306 mg/dL (80-115); Potassium 5.8 mmol/L (3.5-5.1); Protein, Total 7.5 g/dL (5.8-8.1); Sodium 135 mmol/L (136-145)
[2021-10-26] MEDS ORDERED: ALPRAZolam 0.25 MG TAB ONE (23:31)
[2021-10-27] MEDS ORDERED: Furosemide 40 MG/4 ML VIAL ONE (01:40)
[2021-10-27 03:44] VITALS: BMI 62.5
[2021-10-27 03:44] LABS: Troponin I 0.251 ng/mL (< 0.028)
[2021-10-27] MEDS ORDERED: Ondansetron PF 4 MG/2 ML Vial IVP PRN (05:26)
[2021-10-27] MEDS ORDERED: Dextrose 50% Abboject 50 ML SYRINGE SLOW IVP PRN (05:28)
[2021-10-27] MEDS ORDERED: HumaLOG 300 UNITS/3 ML VIAL SC PRN (05:28)
[2021-10-27] MEDS ORDERED: Dextrose 5% in Water 1,000 ML IV PRN (05:28)
[2021-10-27 06:47] LABS: #Basophils 0.1 thou/uL (0.0-0.2); #Eosinphils 0.4 thou/uL (0.0-0.7); #Lymphocytes 2.2 thou/uL (1.20-3.40); #Monocytes 1.1 thou/uL (0.11-0.59); #Neutrophils 4.5 thou/uL (1.40-6.50); %Basophils 1.1 % (0.0-1.0); %Eosinophils 4.5 % (0.0-10.0); %Lymphocytes 26.1 % (21.0-51.0); %Monocytes 13.4 % (0.0-10.0); %Neutrophils 54.9 % (42.0-75.0); Hemoglobin 8.5 g/dL (12.0-16.0); Mean Corpuscular HGB CONC 27.8 g/dL (32.0-36.0); Mean Corpuscular Hemoglobin 22.7 pg (27.0-31.0); Mean Corpuscular Volume 81.9 fL (78.0-98.0); Mean Platelet Volume 9.1 fL (7.4-10.4); Platelet Count 424 thou/uL (130-400); Red Blood Cell (RBC) Count 3.74 mill/uL (4.20-5.40); White Blood Cell (WBC) Count 8.3 thou/uL (4.8-10.8)
[2021-10-27 07:07] LABS: Anion Gap 14 mmol/L (10-20); BUN (Urea Nitrogen) 42 mg/dL (9.8-20.1); Calc. Creatinine Clearance 59 mL/min (70-130); Calcium 8.9 mg/dL (7.8-10.44); Carbon Dioxide 22 mmol/L (23-31); Chloride 107 mmol/L (98-107); Glucose 109 mg/dL (80-115); Sodium 138 mmol/L (136-145)
[2021-10-27 07:27] LABS: Free T4 (Free Thyroxine) 0.84 ng/dL (0.70-1.48)
[2021-10-27 08:46] LABS: Troponin I 0.265 ng/mL (< 0.028)
[2021-10-27] MEDS: Heparin 5,000 UNITS/ML VIAL SC SCH ×3 (08:47→20:28)
[2021-10-27] MEDS: Aspirin 325 mg Enteric Coated Tablet PO SCH (08:47)
[2021-10-27] MEDS ORDERED: Furosemide 20 MG TAB PO SCH (09:00)
[2021-10-27] MEDS: Metolazone 2.5 MG TAB PO SCH (09:01)
[2021-10-27 12:12] LABS: SARS-CoV-2 PCR by NAA Not Detected (NotDetected)
[2021-10-27 12:26] LABS: Actual Bicarbonate (HCO3a) 24.1 mEq/L (22-28); CO2 Tension 36.5 mmHg (35.0-45.0); Calcium, Ionized (arterial) 1.13 mmol/L (1.12-1.30); Carboxyhemoglobin (COHb) 0.7 gm% (0.0-3.0); Hemoglobin (Hb) 9.2 g/dL (12.0-16.0); O2 Tension (PaO2), arterial 73.3 mmHg (> 80.0); Potassium - ABG Lab 5.25 mmol/L (3.70-5.30); pH, Arterial 7.44 (7.35-7.45)
[2021-10-27 12:32] LABS: ALV-art Gradient 30.805 mmHg (0-20); Puncture Site LRA
[2021-10-27] MEDS: Furosemide 40 MG/4 ML VIAL SLOW IVP SCH (14:42)
[2021-10-27] MEDS: Acetaminophen 325 MG TAB PO PRN ×2 (15:23→23:31)
[2021-10-27] MEDS: HumaLOG 300 UNITS/3 ML VIAL SC PRN (17:27)
[2021-10-27] MEDS: traMADol HCl 50 MG TAB PO PRN (18:30)
[2021-10-27] MEDS ORDERED: Carvedilol 6.25 MG TAB PO SCH (21:00)
[2021-10-28] MEDS: traMADol HCl 50 MG TAB PO PRN (00:34)
[2021-10-28 05:16] LABS: #Basophils 0.1 thou/uL (0.0-0.2); #Eosinphils 0.3 thou/uL (0.0-0.7); #Lymphocytes 1.8 thou/uL (1.20-3.40); #Monocytes 0.8 thou/uL (0.11-0.59); #Neutrophils 4.1 thou/uL (1.40-6.50); %Eosinophils 4.8 % (0.0-10.0); %Lymphocytes 25.4 % (21.0-51.0); %Monocytes 11.2 % (0.0-10.0); %Neutrophils 57.7 % (42.0-75.0); Hemoglobin 8.2 g/dL (12.0-16.0); Mean Corpuscular HGB CONC 27.6 g/dL (32.0-36.0); Mean Corpuscular Hemoglobin 22.5 pg (27.0-31.0); Mean Corpuscular Volume 81.6 fL (78.0-98.0); Mean Platelet Volume 9.4 fL (7.4-10.4); Platelet Count 438 thou/uL (130-400); RBC Distribution Width 18.9 % (11.5-14.5); Red Blood Cell (RBC) Count 3.64 mill/uL (4.20-5.40); White Blood Cell (WBC) Count 7.1 thou/uL (4.8-10.8)
[2021-10-28 05:27] LABS: Anion Gap 15 mmol/L (10-20); BUN (Urea Nitrogen) 46 mg/dL (9.8-20.1); Calc. Creatinine Clearance 52 mL/min (70-130); Calcium 8.6 mg/dL (7.8-10.44); Carbon Dioxide 23 mmol/L (23-31); Chloride 102 mmol/L (98-107); Glucose 227 mg/dL (80-115); Potassium 4.9 mmol/L (3.5-5.1); Sodium 135 mmol/L (136-145)
[2021-10-28] MEDS: Furosemide 40 MG/4 ML VIAL SLOW IVP SCH (05:29)
[2021-10-28] MEDS: HumaLOG 300 UNITS/3 ML VIAL SC PRN ×2 (06:16→11:12)
[2021-10-28 07:28] VITALS: TEMP 97.7
[2021-10-28] MEDS: Aspirin 325 mg Enteric Coated Tablet PO SCH (07:31)
[2021-10-28] MEDS: Heparin 5,000 UNITS/ML VIAL SC SCH (07:31)
[2021-10-28] MEDS: Metolazone 2.5 MG TAB PO SCH (07:32)
[2021-10-28] MEDS: Acetaminophen 325 MG TAB PO PRN (07:32)
[2021-10-28 11:34] VITALS: BP 116/72
== END 2021-10-28 15:30 | disposition short-term general hospital (02) | DRG 291 ==
LOC: ERS 22:31 → 2SW 10-27 00:46 → OBSVTOIN 10-28 12:04
PROVIDERS: ADMIT Internal Medicine; ATTEND Internal Medicine
DX: I13.0 Hypertensive heart and chronic kidney disease with heart failure and stage 1 through stage 4 chronic kidney disease, or unspecified chronic kidney disease (principal); I50.43 Acute on chronic combined systolic (congestive) and diastolic (congestive) heart failure; J96.00 Acute respiratory failure, unspecified whether with hypoxia or hypercapnia; N17.9 Acute kidney failure, unspecified; E66.2 Morbid (severe) obesity with alveolar hypoventilation; I24.8 Other forms of acute ischemic heart disease; Z68.41 Body mass index [BMI] 40.0-44.9, adult; E78.5 Hyperlipidemia, unspecified; I25.10 Atherosclerotic heart disease of native coronary artery without angina pectoris; E11.51 Type 2 diabetes mellitus with diabetic peripheral angiopathy without gangrene; D63.1 Anemia in chronic kidney disease; G89.29 Other chronic pain; F41.9 Anxiety disorder, unspecified; E11.22 Type 2 diabetes mellitus with diabetic chronic kidney disease; E87.5 Hyperkalemia; F32.A Depression, unspecified; E78.2 Mixed hyperlipidemia; E11.621 Type 2 diabetes mellitus with foot ulcer; L97.519 Non-pressure chronic ulcer of other part of right foot with unspecified severity; N18.32 Chronic kidney disease, stage 3b; I48.91 Unspecified atrial fibrillation; E03.9 Hypothyroidism, unspecified; Z20.822 Contact with and (suspected) exposure to COVID-19; Z88.1 Allergy status to other antibiotic agents; Z88.8 Allergy status to other drugs, medicaments and biological substances; Z91.040 Latex allergy status; Z79.82 Long term (current) use of aspirin; Z79.4 Long term (current) use of insulin; Z79.899 Other long term (current) drug therapy; Z95.810 Presence of automatic (implantable) cardiac defibrillator; Z95.1 Presence of aortocoronary bypass graft; Z95.5 Presence of coronary angioplasty implant and graft; Z90.710 Acquired absence of both cervix and uterus; Z90.49 Acquired absence of other specified parts of digestive tract; Z89.431 Acquired absence of right foot
CPT/HCPCS: 36415; 36416; 36600; 71045; 80048; 80053; 82140; 82553; 82805; 83880; 84439; 84443; 84481; 84484; 85025; 87804; 93005; 94760; 96374; J1644; J1940; J2405; U0003; U0005

== ENCOUNTER 2022-01-02 13:29 | Inpatient (IN) | payer MEDICARE ==
[~2022-01-02 13:29] MED LIST changes: +Heparin 1,000 UNITS/ML VIAL ONE; -ISOVUE-370 76%-LOCM 1 ML ONE
[2022-01-02] MEDS ORDERED: Cefepime 2 GM VIAL ONE (14:19)
[2022-01-02 14:24] LABS: #Basophils 0.1 thou/uL (0.0-0.2); #Eosinphils 0.3 thou/uL (0.0-0.7); #Lymphocytes 1.7 thou/uL (1.20-3.40); #Monocytes 0.8 thou/uL (0.11-0.59); #Neutrophils 5.2 thou/uL (1.40-6.50); %Basophils 0.6 % (0.0-1.0); %Eosinophils 3.4 % (0.0-10.0); %Lymphocytes 20.9 % (21.0-51.0); %Monocytes 9.4 % (0.0-10.0); %Neutrophils 65.6 % (42.0-75.0); Hemoglobin 9.8 g/dL (12.0-16.0); Mean Corpuscular HGB CONC 28.9 g/dL (32.0-36.0); Mean Corpuscular Hemoglobin 26.2 pg (27.0-31.0); Mean Corpuscular Volume 90.7 fL (78.0-98.0); Mean Platelet Volume 9.6 fL (7.4-10.4); Platelet Count 289 thou/uL (130-400); RBC Distribution Width 21.6 % (11.5-14.5); Red Blood Cell (RBC) Count 3.73 mill/uL (4.20-5.40); White Blood Cell (WBC) Count 7.9 thou/uL (4.8-10.8)
[2022-01-02 14:38] LABS: Anisocytosis MODERATE=16-30 cells (100X) (0-5/hpf); Hypochromia SLIGHT = 6-15 cells (100X) (0-5/hpf); MDiff Complete? YES; Ovalocytes SLIGHT = 2-5 cells (100X) (0-1/hpf); Platelet Morphology Comment Appears Adequate; Polychromasia SLIGHT = 2-3 cells (100X) (0-2/hpf)
[2022-01-02 14:43] LABS: ALT (SGPT) 13 U/L (8-55); AST (SGOT) 15 U/L (5-34); Albumin 2.7 g/dL (3.4-4.8); Alkaline Phosphatase 99 U/L (40-110); Anion Gap 14 mmol/L (10-20); BUN (Urea Nitrogen) 16 mg/dL (9.8-20.1); Bilirubin, Total 0.8 mg/dL (0.2-1.2); Calc. Creatinine Clearance 0 mL/min (70-130); Calcium 8.5 mg/dL (7.8-10.44); Carbon Dioxide 23 mmol/L (23-31); Chloride 103 mmol/L (98-107); Estimated GFR 71; Globulin 5.1 g/dL (2.4-3.5); Glucose 142 mg/dL (80-115); Potassium 4.3 mmol/L (3.5-5.1); Protein, Total 7.8 g/dL (5.8-8.1); Sodium 136 mmol/L (136-145)
[2022-01-02] MEDS ORDERED: VANCOMYCIN 2 GRAM/500 ML BAG 2 GM in Premix Bag 1 BAG IVPB SCH (14:45)
[2022-01-02] MEDS ORDERED: Dextrose 5% in Water 1,000 ML IV PRN (16:48)
[2022-01-02] MEDS ORDERED: Dextrose 50% Abboject 50 ML SYRINGE SLOW IVP PRN (16:48)
[2022-01-02 16:49] LABS: SARS-CoV-2 NAA Rapid Test Not Detected (NotDetected)
[2022-01-02 20:04] VITALS: BMI 38.0
[2022-01-02] MEDS ORDERED: Vancomycin 1 GM in Premix Bag 1 BAG IVPB SCH (21:00)
[2022-01-03] MEDS: Cefepime 2 GM in Sodium Chloride 0.9% 100 ML IVPB SCH ×2 (02:19→13:56)
[2022-01-03] MEDS: HYDROcodone/Acetaminophen 5/325 mg Tablet PO PRN ×4 (02:54→21:00)
[2022-01-03 05:49] LABS: #Eosinphils 0.2 thou/uL (0.0-0.7); #Lymphocytes 1.4 thou/uL (1.20-3.40); #Monocytes 0.8 thou/uL (0.11-0.59); #Neutrophils 6.7 thou/uL (1.40-6.50); %Basophils 0.2 % (0.0-1.0); %Eosinophils 2.1 % (0.0-10.0); %Lymphocytes 15.1 % (21.0-51.0); %Monocytes 8.7 % (0.0-10.0); %Neutrophils 73.8 % (42.0-75.0); Hemoglobin 10.6 g/dL (12.0-16.0); Mean Corpuscular HGB CONC 29.5 g/dL (32.0-36.0); Mean Corpuscular Hemoglobin 26.7 pg (27.0-31.0); Mean Corpuscular Volume 90.5 fL (78.0-98.0); Mean Platelet Volume 9.8 fL (7.4-10.4); Platelet Count 305 thou/uL (130-400); RBC Distribution Width 21.6 % (11.5-14.5); Red Blood Cell (RBC) Count 3.98 mill/uL (4.20-5.40)
[2022-01-03 06:11] LABS: ALT (SGPT) 12 U/L (8-55); AST (SGOT) 15 U/L (5-34); Albumin 2.6 g/dL (3.4-4.8); Alkaline Phosphatase 97 U/L (40-110); Anion Gap 16 mmol/L (10-20); BUN (Urea Nitrogen) 12 mg/dL (9.8-20.1); Bilirubin, Total 0.8 mg/dL (0.2-1.2); Calc. Creatinine Clearance 99 mL/min (70-130); Calcium 8.7 mg/dL (7.8-10.44); Carbon Dioxide 20 mmol/L (23-31); Chloride 107 mmol/L (98-107); Estimated GFR 83; Globulin 5.1 g/dL (2.4-3.5); Glucose 154 mg/dL (80-115); Potassium 4.7 mmol/L (3.5-5.1); Protein, Total 7.7 g/dL (5.8-8.1); Sodium 138 mmol/L (136-145)
[2022-01-03] MEDS: Enoxaparin Sodium 40 MG/0.4 ML SYRINGE SC SCH (09:24)
[2022-01-03] MEDS: HumaLOG 300 UNITS/3 ML VIAL SC PRN ×3 (11:49→20:56)
[2022-01-03] MEDS ORDERED: Nitroglycerin 0.4 MG TAB (25 Tab Bottle) SL PRN (15:59)
[2022-01-03] MEDS: VANCOMYCIN 1.75 GM/500 ML BAG 1.75 GM in Premix Bag 1 BAG IVPB SCH (16:41)
[2022-01-03] MEDS: Carvedilol 6.25 MG TAB PO SCH (16:42)
[2022-01-03] MEDS: Dronedarone HCl 400 MG TAB PO SCH (16:42)
[2022-01-03] MEDS: Insulin Glargine 30 UNITS/0.3 ML VIAL SC SCH (20:55)
[2022-01-04] MEDS: Cefepime 2 GM in Sodium Chloride 0.9% 100 ML IVPB SCH ×2 (02:26→14:57)
[2022-01-04 05:26] LABS: #Basophils 0.1 thou/uL (0.0-0.2); #Eosinphils 0.4 thou/uL (0.0-0.7); #Lymphocytes 1.5 thou/uL (1.20-3.40); #Monocytes 0.8 thou/uL (0.11-0.59); #Neutrophils 6.8 thou/uL (1.40-6.50); %Basophils 0.6 % (0.0-1.0); %Eosinophils 4.7 % (0.0-10.0); %Lymphocytes 15.1 % (21.0-51.0); %Monocytes 8.7 % (0.0-10.0); Mean Corpuscular Hemoglobin 26.7 pg (27.0-31.0); Mean Corpuscular Volume 91.9 fL (78.0-98.0); Mean Platelet Volume 9.3 fL (7.4-10.4); Platelet Count 303 thou/uL (130-400); RBC Distribution Width 21.3 % (11.5-14.5); Red Blood Cell (RBC) Count 3.76 mill/uL (4.20-5.40); White Blood Cell (WBC) Count 9.6 thou/uL (4.8-10.8)
[2022-01-04 05:41] LABS: ALT (SGPT) 12 U/L (8-55); AST (SGOT) 11 U/L (5-34); Albumin 2.5 g/dL (3.4-4.8); Alkaline Phosphatase 98 U/L (40-110); Anion Gap 12 mmol/L (10-20); BUN (Urea Nitrogen) 14 mg/dL (9.8-20.1); Bilirubin, Total 0.6 mg/dL (0.2-1.2); Calc. Creatinine Clearance 97 mL/min (70-130); Calcium 8.4 mg/dL (7.8-10.44); Carbon Dioxide 23 mmol/L (23-31); Chloride 106 mmol/L (98-107); Estimated GFR 81; Globulin 5.1 g/dL (2.4-3.5); Glucose 201 mg/dL (80-115); Potassium 4.4 mmol/L (3.5-5.1); Protein, Total 7.6 g/dL (5.8-8.1); Sodium 137 mmol/L (136-145)
[2022-01-04] MEDS: Clopidogrel Bisulfate 75 MG TAB PO SCH (08:46)
[2022-01-04] MEDS: Ferrous Sulfate 325 MG TAB PO SCH (08:46)
[2022-01-04] MEDS: Digoxin 0.125 MG TAB PO SCH (08:47)
[2022-01-04] MEDS: Spironolactone 25 MG TAB PO SCH (08:47)
[2022-01-04] MEDS: Magnesium Oxide 400 MG TAB PO SCH (08:47)
[2022-01-04] MEDS: Carvedilol 6.25 MG TAB PO SCH ×2 (08:47→16:51)
[2022-01-04] MEDS: Ascorbic Acid 500 mg Chewable Tablet PO SCH (08:47)
[2022-01-04] MEDS: Dronedarone HCl 400 MG TAB PO SCH ×2 (08:47→16:52)
[2022-01-04] MEDS: Enoxaparin Sodium 40 MG/0.4 ML SYRINGE SC SCH (08:48)
[2022-01-04] MEDS: Aspirin 81 mg Enteric Coated Tablet PO SCH (08:48)
[2022-01-04] MEDS: Furosemide 20 MG TAB PO SCH (08:48)
[2022-01-04] MEDS: HYDROcodone/Acetaminophen 5/325 mg Tablet PO PRN ×2 (09:35→20:52)
[2022-01-04] MEDS: Insulin Glargine 30 UNITS/0.3 ML VIAL SC SCH ×2 (09:36→22:01)
[2022-01-04] MEDS ORDERED: Bacitracin Zinc Ointment 30 gm TUBE ONE (15:25)
[2022-01-04] MEDS ORDERED: Bupivacaine PF 0.5% 30 ML VIAL ONE (15:25)
[2022-01-04] MEDS ORDERED: Thrombin 5000 UNITS/5 ML VIAL ONE (15:25)
[2022-01-04] MEDS ORDERED: Neomycin-Polymyxin 1 ML AMP ONE (15:25)
[2022-01-04] MEDS ORDERED: fentaNYL Citrate/PF 100 MCG/2 ML SYRINGE ONE ×2 (15:26→17:05)
[2022-01-04] MEDS ORDERED: Midazolam HCl 2 mg/2 ml Vial ONE (15:26)
[2022-01-04] MEDS ORDERED: Ketamine 50 MG/ML (10ML VIAL) ONE (15:27)
[2022-01-04] MEDS ORDERED: Dexmedetomidine 200 MCG/2 ML VIAL ONE (15:27)
[2022-01-04 15:34] LABS: Vancomycin, Trough 14.6 ug/mL
[2022-01-04] MEDS ORDERED: ePHEDrine 50 MG/ML VIAL ONE ×2 (15:45)
[2022-01-04] MEDS ORDERED: Ondansetron PF 4 MG/2 ML Vial ONE (15:45)
[2022-01-04] MEDS ORDERED: Lidocaine 1% PF 5 ML VIAL ONE (15:45)
[2022-01-04] MEDS: VANCOMYCIN 1.75 GM/500 ML BAG 1.75 GM in Premix Bag 1 BAG IVPB SCH (16:51)
[2022-01-04] MEDS ORDERED: Promethazine HCl 25 MG/ML VIAL IM PRN (18:17)
[2022-01-04] MEDS ORDERED: Ondansetron HCl/PF 4 MG/2 ML Vial IVP PRN (18:17)
[2022-01-04] MEDS ORDERED: Promethazine HCl 25 MG/ML VIAL IVPB PRN (18:17)
[2022-01-04] MEDS: Ondansetron PF 4 MG/2 ML Vial IVP PRN (20:17)
[2022-01-05] MEDS: Cefepime 2 GM in Sodium Chloride 0.9% 100 ML IVPB SCH ×2 (03:38→13:15)
[2022-01-05] MEDS: Clopidogrel Bisulfate 75 MG TAB PO SCH (08:22)
[2022-01-05] MEDS: Dronedarone HCl 400 MG TAB PO SCH ×2 (08:22→16:51)
[2022-01-05] MEDS: Furosemide 20 MG TAB PO SCH (08:22)
[2022-01-05] MEDS: Enoxaparin Sodium 40 MG/0.4 ML SYRINGE SC SCH (08:22)
[2022-01-05] MEDS: Digoxin 0.125 MG TAB PO SCH (08:22)
[2022-01-05] MEDS: Carvedilol 6.25 MG TAB PO SCH ×2 (08:22→16:51)
[2022-01-05] MEDS: Ferrous Sulfate 325 MG TAB PO SCH (08:23)
[2022-01-05] MEDS: Magnesium Oxide 400 MG TAB PO SCH (08:23)
[2022-01-05] MEDS: Spironolactone 25 MG TAB PO SCH (08:23)
[2022-01-05] MEDS: Insulin Glargine 30 UNITS/0.3 ML VIAL SC SCH ×2 (08:24→20:23)
[2022-01-05] MEDS: Ascorbic Acid 500 mg Chewable Tablet PO SCH (08:24)
[2022-01-05] MEDS: Aspirin 81 mg Enteric Coated Tablet PO SCH (08:24)
[2022-01-05] MEDS: HYDROcodone/Acetaminophen 5/325 mg Tablet PO PRN ×2 (08:26→14:13)
[2022-01-05] MEDS ORDERED: Meperidine HCl/PF 25 MG/ML VIAL IM PRN (14:07)
[2022-01-05] MEDS ORDERED: Promethazine HCl 25 MG/ML VIAL IM PRN (14:10)
[2022-01-05] MEDS: Morphine 4 MG/ML VIAL SLOW IVP PRN (14:26)
[2022-01-05] MEDS: VANCOMYCIN 1.75 GM/500 ML BAG 1.75 GM in Premix Bag 1 BAG IVPB SCH (15:50)
[2022-01-05] MEDS: Senokot S 8.6-50 MG TAB PO SCH (20:23)
[2022-01-05] MEDS: HYDROcodone/Acetaminophen 7.5/325 mg Tablet PO PRN (23:39)
[2022-01-06] MEDS: Cefepime 2 GM in Sodium Chloride 0.9% 100 ML IVPB SCH ×2 (01:38→14:07)
[2022-01-06] MEDS: Polyethylene Glycol 3350 17 GM Packet PO SCH (08:29)
[2022-01-06] MEDS: Carvedilol 6.25 MG TAB PO SCH ×2 (08:30→16:44)
[2022-01-06] MEDS: Dronedarone HCl 400 MG TAB PO SCH ×2 (08:30→16:44)
[2022-01-06] MEDS: Digoxin 0.125 MG TAB PO SCH (08:30)
[2022-01-06] MEDS: Spironolactone 25 MG TAB PO SCH (08:30)
[2022-01-06] MEDS: Saccharomyces boulardii 250 MG CAP PO SCH (08:30)
[2022-01-06] MEDS: Senokot S 8.6-50 MG TAB PO SCH ×2 (08:31→21:04)
[2022-01-06] MEDS: Magnesium Oxide 400 MG TAB PO SCH (08:31)
[2022-01-06] MEDS: Aspirin 81 mg Enteric Coated Tablet PO SCH (08:31)
[2022-01-06] MEDS: Clopidogrel Bisulfate 75 MG TAB PO SCH (08:32)
[2022-01-06] MEDS: Furosemide 20 MG TAB PO SCH (08:32)
[2022-01-06] MEDS: Ferrous Sulfate 325 MG TAB PO SCH (08:32)
[2022-01-06] MEDS: Insulin Glargine 30 UNITS/0.3 ML VIAL SC SCH ×3 (08:32→21:05)
[2022-01-06] MEDS: Ascorbic Acid 500 mg Chewable Tablet PO SCH (08:32)
[2022-01-06] MEDS: Heparin 5,000 UNITS/ML VIAL SC SCH ×2 (08:42→21:05)
[2022-01-06] MEDS: Morphine 4 MG/ML VIAL SLOW IVP PRN (11:00)
[2022-01-06] MEDS: HYDROcodone/Acetaminophen 7.5/325 mg Tablet PO PRN ×2 (14:11→21:04)
[2022-01-06 15:14] LABS: #Basophils 0.1 thou/uL (0.0-0.2); #Eosinphils 0.4 thou/uL (0.0-0.7); #Lymphocytes 1.2 thou/uL (1.20-3.40); #Monocytes 0.9 thou/uL (0.11-0.59); #Neutrophils 7.1 thou/uL (1.40-6.50); %Basophils 0.6 % (0.0-1.0); %Eosinophils 4.3 % (0.0-10.0); %Lymphocytes 11.9 % (21.0-51.0); %Monocytes 9.6 % (0.0-10.0); %Neutrophils 73.7 % (42.0-75.0); Hemoglobin 8.9 g/dL (12.0-16.0); Mean Corpuscular HGB CONC 29.2 g/dL (32.0-36.0); Mean Corpuscular Hemoglobin 26.5 pg (27.0-31.0); Mean Corpuscular Volume 90.7 fL (78.0-98.0); Mean Platelet Volume 9.6 fL (7.4-10.4); Platelet Count 280 thou/uL (130-400); RBC Distribution Width 21.8 % (11.5-14.5); Red Blood Cell (RBC) Count 3.37 mill/uL (4.20-5.40); White Blood Cell (WBC) Count 9.7 thou/uL (4.8-10.8)
[2022-01-06 15:30] LABS: Anion Gap 15 mmol/L (10-20); BUN (Urea Nitrogen) 16 mg/dL (9.8-20.1); Calc. Creatinine Clearance 68 mL/min (70-130); Calcium 8.3 mg/dL (7.8-10.44); Carbon Dioxide 24 mmol/L (23-31); Chloride 106 mmol/L (98-107); Estimated GFR 53; Glucose 104 mg/dL (80-115); Magnesium 1.6 mg/dL (1.6-2.6); Potassium 4.5 mmol/L (3.5-5.1); Sodium 140 mmol/L (136-145)
[2022-01-06 15:32] LABS: Vancomycin, Trough 23.6 ug/mL
[2022-01-06] MEDS: VANCOMYCIN 1.25 GM/250 ML BAG 1.25 GM in Premix Bag 1 BAG IVPB SCH (16:42)
[2022-01-06] MEDS ORDERED: Electrolyte Replacement Protocol FS SCH (17:45)
[2022-01-06] MEDS ORDERED: Magnesium 2 GM/50 ML(in water) 2 GM in Premix Bag 1 BAG IVPB SCH (18:00)
[2022-01-07] MEDS: Cefepime 2 GM in Sodium Chloride 0.9% 100 ML IVPB SCH ×2 (01:05→14:27)
[2022-01-07] MEDS: HYDROcodone/Acetaminophen 7.5/325 mg Tablet PO PRN ×2 (04:32→09:41)
[2022-01-07] MEDS: Furosemide 20 MG TAB PO SCH (08:25)
[2022-01-07] MEDS: Digoxin 0.125 MG TAB PO SCH (08:25)
[2022-01-07] MEDS: Clopidogrel Bisulfate 75 MG TAB PO SCH (08:25)
[2022-01-07] MEDS: Ferrous Sulfate 325 MG TAB PO SCH (08:25)
[2022-01-07] MEDS: Aspirin 81 mg Enteric Coated Tablet PO SCH (08:26)
[2022-01-07] MEDS: Dronedarone HCl 400 MG TAB PO SCH ×2 (08:26→16:13)
[2022-01-07] MEDS: Senokot S 8.6-50 MG TAB PO SCH ×2 (08:26→20:21)
[2022-01-07] MEDS: Magnesium Oxide 400 MG TAB PO SCH (08:27)
[2022-01-07] MEDS: Carvedilol 6.25 MG TAB PO SCH ×2 (08:27→16:13)
[2022-01-07] MEDS: Heparin 5,000 UNITS/ML VIAL SC SCH ×2 (08:28→20:21)
[2022-01-07] MEDS: Ascorbic Acid 500 mg Chewable Tablet PO SCH (08:28)
[2022-01-07] MEDS: Spironolactone 25 MG TAB PO SCH (08:28)
[2022-01-07] MEDS: Saccharomyces boulardii 250 MG CAP PO SCH (08:28)
[2022-01-07] MEDS: Insulin Glargine 30 UNITS/0.3 ML VIAL SC SCH (08:46)
[2022-01-07] MEDS: Polyethylene Glycol 3350 17 GM Packet PO SCH (09:42)
[2022-01-07] MEDS ORDERED: Insulin Glargine 30 UNITS/0.3 ML VIAL SC SCH ×2 (11:45→21:00)
[2022-01-07] MEDS: HumaLOG 300 UNITS/3 ML VIAL SC PRN (16:15)
[2022-01-07] MEDS: VANCOMYCIN 1.25 GM/250 ML BAG 1.25 GM in Premix Bag 1 BAG IVPB SCH (16:16)
[2022-01-07] MEDS: Morphine 4 MG/ML VIAL SLOW IVP PRN (17:20)
[2022-01-07] MEDS: ALPRAZolam 0.25 MG TAB PO PRN (20:21)
[2022-01-08] MEDS: HYDROcodone/Acetaminophen 7.5/325 mg Tablet PO PRN ×3 (00:27→15:30)
[2022-01-08] MEDS: Cefepime 2 GM in Sodium Chloride 0.9% 100 ML IVPB SCH ×2 (02:00→13:47)
[2022-01-08] MEDS: Simethicone Chewable 80 MG TAB PO PRN (04:32)
[2022-01-08] MEDS: Ondansetron ODT 4 MG TAB PO PRN (04:32)
[2022-01-08 06:35] LABS: #Basophils 0.1 thou/uL (0.0-0.2); #Eosinphils 0.4 thou/uL (0.0-0.7); #Lymphocytes 1.3 thou/uL (1.20-3.40); #Monocytes 0.8 thou/uL (0.11-0.59); %Basophils 0.9 % (0.0-1.0); %Lymphocytes 13.3 % (21.0-51.0); %Monocytes 9.7 % (0.0-10.0); %Neutrophils 73.2 % (42.0-75.0); Anion Gap 13 mmol/L (10-20); BUN (Urea Nitrogen) 21 mg/dL (9.8-20.1); Calc. Creatinine Clearance 61 mL/min (70-130); Calcium 8.2 mg/dL (7.8-10.44); Carbon Dioxide 23 mmol/L (23-31); Chloride 105 mmol/L (98-107); Estimated GFR 47; Glucose 221 mg/dL (80-115); Hemoglobin 8.8 g/dL (12.0-16.0); Mean Corpuscular HGB CONC 29.8 g/dL (32.0-36.0); Mean Corpuscular Hemoglobin 27.2 pg (27.0-31.0); Mean Corpuscular Volume 91.4 fL (78.0-98.0); Mean Platelet Volume 9.4 fL (7.4-10.4); Platelet Count 294 thou/uL (130-400); Potassium 4.8 mmol/L (3.5-5.1); Red Blood Cell (RBC) Count 3.23 mill/uL (4.20-5.40); Sodium 136 mmol/L (136-145); White Blood Cell (WBC) Count 9.2 thou/uL (4.8-10.8)
[2022-01-08] MEDS: Carvedilol 6.25 MG TAB PO SCH ×2 (08:09→16:37)
[2022-01-08] MEDS: Ferrous Sulfate 325 MG TAB PO SCH (09:23)
[2022-01-08] MEDS: Ascorbic Acid 500 mg Chewable Tablet PO SCH (09:23)
[2022-01-08] MEDS: Dronedarone HCl 400 MG TAB PO SCH ×2 (09:23→16:37)
[2022-01-08] MEDS: Magnesium Oxide 400 MG TAB PO SCH (09:24)
[2022-01-08] MEDS: Digoxin 0.125 MG TAB PO SCH (09:24)
[2022-01-08] MEDS: Polyethylene Glycol 3350 17 GM Packet PO SCH (09:24)
[2022-01-08] MEDS: Heparin 5,000 UNITS/ML VIAL SC SCH ×2 (09:24→22:03)
[2022-01-08] MEDS: Aspirin 81 mg Enteric Coated Tablet PO SCH (09:24)
[2022-01-08] MEDS: Clopidogrel Bisulfate 75 MG TAB PO SCH (09:24)
[2022-01-08] MEDS: Senokot S 8.6-50 MG TAB PO SCH ×2 (09:25→22:02)
[2022-01-08] MEDS: Saccharomyces boulardii 250 MG CAP PO SCH (09:25)
[2022-01-08] MEDS ORDERED: diphenhydrAMINE 30 GM TUBE TOP PRN (14:21)
[2022-01-08] MEDS: Vancomycin 1 GM in Premix Bag 1 BAG IVPB SCH (16:49)
[2022-01-08] MEDS ORDERED: Ketamine 50 MG/ML (10ML VIAL) ONE (18:23)
[2022-01-08] MEDS ORDERED: fentaNYL Citrate/PF 100 MCG/2 ML SYRINGE ONE (18:24)
[2022-01-08] MEDS ORDERED: Neomycin-Polymyxin 1 ML AMP ONE (18:27)
[2022-01-08] MEDS ORDERED: Bacitracin Zinc Ointment 30 gm TUBE ONE (18:27)
[2022-01-08] MEDS ORDERED: Bupivacaine 0.25% HCL 30 ML VIAL ONE (18:27)
[2022-01-08] MEDS ORDERED: Ondansetron PF 4 MG/2 ML Vial ONE (19:00)
[2022-01-08] MEDS ORDERED: Lidocaine 1% PF 5 ML VIAL ONE (19:00)
[2022-01-08] MEDS ORDERED: Mineral Oil Sterile 10 ML VIAL ONE (19:34)
[2022-01-08] MEDS ORDERED: Ondansetron HCl/PF 4 MG/2 ML Vial IVP PRN (20:20)
[2022-01-08] MEDS ORDERED: HYDROmorphone 2 MG/ML VIAL SLOW IVP PRN (20:20)
[2022-01-08] MEDS ORDERED: Promethazine HCl 25 MG/ML VIAL IVPB PRN (20:20)
[2022-01-08] MEDS ORDERED: PACU-Morphine 4MG/ML VIAL SLOW IVP PRN (20:20)
[2022-01-08] MEDS ORDERED: Morphine Sulfate 2 MG/ML SYRINGE SLOW IVP PRN (20:20)
[2022-01-08] MEDS ORDERED: Promethazine HCl 25 MG/ML VIAL IM PRN (20:20)
[2022-01-08] MEDS ORDERED: Fentanyl 100 MCG/2 ML VIAL ONE (21:05)
[2022-01-08] MEDS: Ammonium Lactate 12% Lotion 225 GM BOT TOP SCH (22:01)
[2022-01-08] MEDS: Morphine 4 MG/ML VIAL SLOW IVP PRN (22:02)
[2022-01-09] MEDS: Cefepime 2 GM in Sodium Chloride 0.9% 100 ML IVPB SCH ×2 (01:13→13:57)
[2022-01-09] MEDS: HYDROcodone/Acetaminophen 7.5/325 mg Tablet PO PRN ×3 (02:05→15:02)
[2022-01-09] MEDS: Polyethylene Glycol 3350 17 GM Packet PO SCH (08:37)
[2022-01-09] MEDS: Digoxin 0.125 MG TAB PO SCH (08:37)
[2022-01-09] MEDS: Dronedarone HCl 400 MG TAB PO SCH ×2 (08:38→18:00)
[2022-01-09] MEDS: Senokot S 8.6-50 MG TAB PO SCH ×2 (08:38→21:06)
[2022-01-09] MEDS: Carvedilol 6.25 MG TAB PO SCH ×2 (08:38→18:00)
[2022-01-09] MEDS: Ferrous Sulfate 325 MG TAB PO SCH (08:41)
[2022-01-09] MEDS: Clopidogrel Bisulfate 75 MG TAB PO SCH (08:41)
[2022-01-09] MEDS: Ascorbic Acid 500 mg Chewable Tablet PO SCH (08:41)
[2022-01-09] MEDS: Furosemide 20 MG TAB PO SCH (08:41)
[2022-01-09] MEDS: Aspirin 81 mg Enteric Coated Tablet PO SCH (08:42)
[2022-01-09] MEDS: Saccharomyces boulardii 250 MG CAP PO SCH (08:44)
[2022-01-09] MEDS: Magnesium Oxide 400 MG TAB PO SCH (08:44)
[2022-01-09] MEDS: Spironolactone 25 MG TAB PO SCH (08:44)
[2022-01-09] MEDS: Ammonium Lactate 12% Lotion 225 GM BOT TOP SCH ×2 (08:46→21:04)
[2022-01-09] MEDS: Heparin 5,000 UNITS/ML VIAL SC SCH ×2 (08:46→21:07)
[2022-01-09 11:25] LABS: #Eosinphils 0.3 thou/uL (0.0-0.7); #Lymphocytes 0.9 thou/uL (1.20-3.40); #Monocytes 0.6 thou/uL (0.11-0.59); #Neutrophils 6.2 thou/uL (1.40-6.50); %Basophils 0.6 % (0.0-1.0); %Eosinophils 3.6 % (0.0-10.0); %Lymphocytes 11.6 % (21.0-51.0); %Monocytes 7.5 % (0.0-10.0); %Neutrophils 76.7 % (42.0-75.0); Hemoglobin 9.4 g/dL (12.0-16.0); Mean Corpuscular HGB CONC 29.9 g/dL (32.0-36.0); Mean Corpuscular Hemoglobin 27.4 pg (27.0-31.0); Mean Corpuscular Volume 91.9 fL (78.0-98.0); Platelet Count 308 thou/uL (130-400); RBC Distribution Width 20.5 % (11.5-14.5); Red Blood Cell (RBC) Count 3.43 mill/uL (4.20-5.40); White Blood Cell (WBC) Count 8.1 thou/uL (4.8-10.8)
[2022-01-09] MEDS: HumaLOG 300 UNITS/3 ML VIAL SC PRN ×3 (12:53→21:06)
[2022-01-09] MEDS ORDERED: Insulin Glargine 30 UNITS/0.3 ML VIAL SC SCH (15:15)
[2022-01-09] MEDS: Vancomycin 1 GM in Premix Bag 1 BAG IVPB SCH (15:35)
[2022-01-09] MEDS: traZODone HCl 50 MG TAB PO PRN (21:05)
[2022-01-09] MEDS: Acetaminophen 325 MG TAB PO PRN (21:05)
[2022-01-10] MEDS: Cefepime 2 GM in Sodium Chloride 0.9% 100 ML IVPB SCH ×2 (01:31→13:10)
[2022-01-10] MEDS: HYDROcodone/Acetaminophen 7.5/325 mg Tablet PO PRN ×3 (02:05→16:02)
[2022-01-10] MEDS: Ascorbic Acid 500 mg Chewable Tablet PO SCH (07:50)
[2022-01-10] MEDS: Saccharomyces boulardii 250 MG CAP PO SCH (07:50)
[2022-01-10] MEDS: Furosemide 20 MG TAB PO SCH (07:50)
[2022-01-10] MEDS: Senokot S 8.6-50 MG TAB PO SCH ×2 (07:50→21:13)
[2022-01-10] MEDS: Carvedilol 6.25 MG TAB PO SCH ×2 (07:51→17:42)
[2022-01-10] MEDS: Magnesium Oxide 400 MG TAB PO SCH (07:51)
[2022-01-10] MEDS: Spironolactone 25 MG TAB PO SCH (07:51)
[2022-01-10] MEDS: Aspirin 81 mg Enteric Coated Tablet PO SCH (07:52)
[2022-01-10] MEDS: Digoxin 0.125 MG TAB PO SCH (07:53)
[2022-01-10] MEDS: Ferrous Sulfate 325 MG TAB PO SCH (07:53)
[2022-01-10] MEDS: Clopidogrel Bisulfate 75 MG TAB PO SCH (07:53)
[2022-01-10] MEDS: Insulin Glargine 30 UNITS/0.3 ML VIAL SC SCH (07:56)
[2022-01-10] MEDS: Dronedarone HCl 400 MG TAB PO SCH ×2 (07:56→17:42)
[2022-01-10] MEDS: Heparin 5,000 UNITS/ML VIAL SC SCH ×2 (07:56→21:12)
[2022-01-10] MEDS: Ammonium Lactate 12% Lotion 225 GM BOT TOP SCH ×2 (07:57→21:13)
[2022-01-10] MEDS: Polyethylene Glycol 3350 17 GM Packet PO SCH (07:57)
[2022-01-10] MEDS: HumaLOG 300 UNITS/3 ML VIAL SC PRN ×2 (13:11→17:42)
[2022-01-10 15:16] LABS: Vancomycin, Trough 21.2 ug/mL
[2022-01-10] MEDS: Vancomycin 1 GM in Premix Bag 1 BAG IVPB SCH (15:46)
[2022-01-10] MEDS: traZODone HCl 50 MG TAB PO PRN (21:12)
[2022-01-10] MEDS: Acetaminophen 325 MG TAB PO PRN (21:12)
[2022-01-11] MEDS: HYDROcodone/Acetaminophen 7.5/325 mg Tablet PO PRN ×4 (00:55→22:35)
[2022-01-11] MEDS: HumaLOG 300 UNITS/3 ML VIAL SC PRN ×3 (05:47→17:12)
[2022-01-11 07:19] LABS: #Basophils 0.1 thou/uL (0.0-0.2); #Eosinphils 0.4 thou/uL (0.0-0.7); #Lymphocytes 1.3 thou/uL (1.20-3.40); #Monocytes 0.7 thou/uL (0.11-0.59); #Neutrophils 5.8 thou/uL (1.40-6.50); %Basophils 0.7 % (0.0-1.0); %Eosinophils 4.9 % (0.0-10.0); %Monocytes 8.4 % (0.0-10.0); Hemoglobin 9.1 g/dL (12.0-16.0); Mean Corpuscular HGB CONC 27.8 g/dL (32.0-36.0); Mean Corpuscular Hemoglobin 26.3 pg (27.0-31.0); Mean Corpuscular Volume 94.9 fL (78.0-98.0); Mean Platelet Volume 9.3 fL (7.4-10.4); Platelet Count 318 thou/uL (130-400); RBC Distribution Width 20.4 % (11.5-14.5); Red Blood Cell (RBC) Count 3.46 mill/uL (4.20-5.40); White Blood Cell (WBC) Count 8.2 thou/uL (4.8-10.8)
[2022-01-11 07:37] LABS: Anion Gap 17 mmol/L (10-20); BUN (Urea Nitrogen) 21 mg/dL (9.8-20.1); Calc. Creatinine Clearance 64 mL/min (70-130); Calcium 8.5 mg/dL (7.8-10.44); Carbon Dioxide 18 mmol/L (23-31); Chloride 107 mmol/L (98-107); Estimated GFR 49; Glucose 219 mg/dL (80-115); Magnesium 1.6 mg/dL (1.6-2.6); Potassium 4.8 mmol/L (3.5-5.1); Sodium 137 mmol/L (136-145)
[2022-01-11] MEDS: Spironolactone 25 MG TAB PO SCH (08:20)
[2022-01-11] MEDS: Dronedarone HCl 400 MG TAB PO SCH ×2 (08:20→16:14)
[2022-01-11] MEDS: Clopidogrel Bisulfate 75 MG TAB PO SCH (08:20)
[2022-01-11] MEDS: Ascorbic Acid 500 mg Chewable Tablet PO SCH (08:20)
[2022-01-11] MEDS: Ferrous Sulfate 325 MG TAB PO SCH (08:21)
[2022-01-11] MEDS: Furosemide 20 MG TAB PO SCH (08:21)
[2022-01-11] MEDS: Carvedilol 6.25 MG TAB PO SCH ×2 (08:22→16:15)
[2022-01-11] MEDS: Digoxin 0.125 MG TAB PO SCH (08:22)
[2022-01-11] MEDS: Aspirin 81 mg Enteric Coated Tablet PO SCH (08:22)
[2022-01-11] MEDS: Insulin Glargine 30 UNITS/0.3 ML VIAL SC SCH ×2 (08:22→21:31)
[2022-01-11] MEDS: Saccharomyces boulardii 250 MG CAP PO SCH (08:22)
[2022-01-11] MEDS: Senokot S 8.6-50 MG TAB PO SCH (08:22)
[2022-01-11] MEDS: Magnesium Oxide 400 MG TAB PO SCH (08:22)
[2022-01-11] MEDS: Heparin 5,000 UNITS/ML VIAL SC SCH ×2 (08:22→21:00)
[2022-01-11] MEDS: Ammonium Lactate 12% Lotion 225 GM BOT TOP SCH ×2 (08:23→21:01)
[2022-01-11] MEDS: Polyethylene Glycol 3350 17 GM Packet PO SCH (08:33)
[2022-01-11 08:51] LABS: MDiff Complete? YES; Platelet Morphology Comment Appears Adequate; Polychromasia SLIGHT = 2-3 cells (100X) (0-2/hpf)
[2022-01-11] MEDS ORDERED: Magnesium 2 GM/50 ML(in water) 2 GM in Premix Bag 1 BAG IVPB SCH (09:00)
[2022-01-11] MEDS ORDERED: Senokot S 8.6-50 MG TAB PO PRN (11:19)
[2022-01-11] MEDS: Vancomycin HCl 750 MG in Sodium Chloride 0.9% 250 ML 250 ML IVPB SCH (16:14)
[2022-01-12] MEDS ORDERED: Albuterol Sulfate 2.5 mg/3 ml Neb NEB PRN (05:04)
[2022-01-12] MEDS: Heparin 5,000 UNITS/ML VIAL SC SCH ×2 (08:40→21:23)
[2022-01-12] MEDS: Ferrous Sulfate 325 MG TAB PO SCH (08:40)
[2022-01-12] MEDS: Spironolactone 25 MG TAB PO SCH (08:40)
[2022-01-12] MEDS: Clopidogrel Bisulfate 75 MG TAB PO SCH (08:40)
[2022-01-12] MEDS: Saccharomyces boulardii 250 MG CAP PO SCH (08:41)
[2022-01-12] MEDS: Magnesium Oxide 400 MG TAB PO SCH (08:41)
[2022-01-12] MEDS: Ammonium Lactate 12% Lotion 225 GM BOT TOP SCH ×2 (08:41→21:22)
[2022-01-12] MEDS: Ascorbic Acid 500 mg Chewable Tablet PO SCH (08:41)
[2022-01-12] MEDS: Furosemide 20 MG TAB PO SCH (08:41)
[2022-01-12] MEDS: Carvedilol 6.25 MG TAB PO SCH ×2 (08:41→16:20)
[2022-01-12] MEDS: Digoxin 0.125 MG TAB PO SCH (08:41)
[2022-01-12] MEDS: Aspirin 81 mg Enteric Coated Tablet PO SCH (08:41)
[2022-01-12] MEDS: Dronedarone HCl 400 MG TAB PO SCH ×2 (08:41→16:20)
[2022-01-12] MEDS: Insulin Glargine 30 UNITS/0.3 ML VIAL SC SCH ×2 (08:42→21:23)
[2022-01-12 08:55] LABS: Troponin I 0.017 ng/mL (< 0.028)
[2022-01-12] MEDS: Ondansetron ODT 4 MG TAB PO PRN (09:00)
[2022-01-12 11:40] LABS: Troponin I 0.019 ng/mL (< 0.028)
[2022-01-12] MEDS: HYDROcodone/Acetaminophen 7.5/325 mg Tablet PO PRN (14:27)
[2022-01-12 14:28] LABS: Troponin I 0.024 ng/mL (< 0.028)
[2022-01-12] MEDS: Vancomycin HCl 750 MG in Sodium Chloride 0.9% 250 ML 250 ML IVPB SCH (16:21)
[2022-01-12] MEDS: HumaLOG 300 UNITS/3 ML VIAL SC PRN ×2 (17:37→21:29)
[2022-01-13] MEDS: HYDROcodone/Acetaminophen 7.5/325 mg Tablet PO PRN ×3 (00:23→18:12)
[2022-01-13] MEDS: HumaLOG 300 UNITS/3 ML VIAL SC PRN ×3 (06:08→21:17)
[2022-01-13] MEDS: Simethicone Chewable 80 MG TAB PO PRN (06:09)
[2022-01-13 06:47] LABS: ALT (SGPT) 9 U/L (8-55); AST (SGOT) 13 U/L (5-34); Albumin 2.9 g/dL (3.4-4.8); Alkaline Phosphatase 93 U/L (40-110); Anion Gap 19 mmol/L (10-20); BUN (Urea Nitrogen) 24 mg/dL (9.8-20.1); Bilirubin, Total 0.4 mg/dL (0.2-1.2); Calc. Creatinine Clearance 63 mL/min (70-130); Calcium 8.7 mg/dL (7.8-10.44); Carbon Dioxide 21 mmol/L (23-31); Chloride 103 mmol/L (98-107); Estimated GFR 48; Globulin 5.1 g/dL (2.4-3.5); Glucose 172 mg/dL (80-115); Magnesium 1.6 mg/dL (1.6-2.6); Potassium 4.5 mmol/L (3.5-5.1); Sodium 138 mmol/L (136-145)
[2022-01-13 07:30] LABS: #Eosinphils 0.3 thou/uL (0.0-0.7); #Lymphocytes 1.4 thou/uL (1.20-3.40); #Monocytes 0.8 thou/uL (0.11-0.59); #Neutrophils 5.9 thou/uL (1.40-6.50); %Basophils 0.6 % (0.0-1.0); %Eosinophils 3.2 % (0.0-10.0); %Lymphocytes 16.9 % (21.0-51.0); %Monocytes 9.8 % (0.0-10.0); %Neutrophils 69.5 % (42.0-75.0); Hemoglobin 9.5 g/dL (12.0-16.0); Mean Corpuscular HGB CONC 29.7 g/dL (32.0-36.0); Mean Corpuscular Volume 90.7 fL (78.0-98.0); Mean Platelet Volume 9.5 fL (7.4-10.4); Platelet Count 323 thou/uL (130-400); RBC Distribution Width 20.9 % (11.5-14.5); Red Blood Cell (RBC) Count 3.54 mill/uL (4.20-5.40); White Blood Cell (WBC) Count 8.5 thou/uL (4.8-10.8)
[2022-01-13] MEDS ORDERED: Magnesium 2 GM/50 ML(in water) 2 GM in Premix Bag 1 BAG IVPB SCH (08:00)
[2022-01-13] MEDS: Ammonium Lactate 12% Lotion 225 GM BOT TOP SCH ×2 (08:07→21:24)
[2022-01-13] MEDS: Digoxin 0.125 MG TAB PO SCH (08:07)
[2022-01-13] MEDS: Dronedarone HCl 400 MG TAB PO SCH ×2 (08:07→18:16)
[2022-01-13] MEDS: Ferrous Sulfate 325 MG TAB PO SCH (08:07)
[2022-01-13] MEDS: Saccharomyces boulardii 250 MG CAP PO SCH (08:08)
[2022-01-13] MEDS: Aspirin 81 mg Enteric Coated Tablet PO SCH (08:09)
[2022-01-13] MEDS: Furosemide 20 MG TAB PO SCH (08:09)
[2022-01-13] MEDS: Carvedilol 6.25 MG TAB PO SCH ×2 (08:10→18:15)
[2022-01-13] MEDS: Ascorbic Acid 500 mg Chewable Tablet PO SCH (08:10)
[2022-01-13] MEDS: Magnesium Oxide 400 MG TAB PO SCH (08:10)
[2022-01-13] MEDS: Heparin 5,000 UNITS/ML VIAL SC SCH ×2 (08:10→21:20)
[2022-01-13] MEDS: Spironolactone 25 MG TAB PO SCH (08:10)
[2022-01-13] MEDS: Clopidogrel Bisulfate 75 MG TAB PO SCH (08:10)
[2022-01-13] MEDS: Insulin Glargine 30 UNITS/0.3 ML VIAL SC SCH ×2 (08:11→21:17)
[2022-01-13] MEDS ORDERED: Insulin Glargine 30 UNITS/0.3 ML VIAL SC SCH (09:00)
[2022-01-13] MEDS: Vancomycin HCl 750 MG in Sodium Chloride 0.9% 250 ML 250 ML IVPB SCH (18:13)
[2022-01-13] MEDS: Ondansetron PF 4 MG/2 ML Vial IVP PRN (21:16)
[2022-01-13] MEDS: ALPRAZolam 0.25 MG TAB PO PRN (21:20)
[2022-01-14] MEDS: Acetaminophen 325 MG TAB PO PRN ×2 (02:21→09:21)
[2022-01-14] MEDS ORDERED: Glimepiride 1 MG TAB PO SCH (08:00)
[2022-01-14] MEDS ORDERED: Losartan 25 MG TAB PO SCH (09:00)
[2022-01-14] MEDS: Carvedilol 6.25 MG TAB PO SCH (09:15)
[2022-01-14] MEDS: Dronedarone HCl 400 MG TAB PO SCH (09:17)
[2022-01-14] MEDS: Ferrous Sulfate 325 MG TAB PO SCH (09:17)
[2022-01-14] MEDS: Ammonium Lactate 12% Lotion 225 GM BOT TOP SCH (09:18)
[2022-01-14] MEDS: Spironolactone 25 MG TAB PO SCH (09:18)
[2022-01-14] MEDS: Aspirin 81 mg Enteric Coated Tablet PO SCH (09:19)
[2022-01-14] MEDS: Digoxin 0.125 MG TAB PO SCH (09:19)
[2022-01-14] MEDS: Furosemide 20 MG TAB PO SCH (09:19)
[2022-01-14] MEDS: Ascorbic Acid 500 mg Chewable Tablet PO SCH (09:19)
[2022-01-14] MEDS: Clopidogrel Bisulfate 75 MG TAB PO SCH (09:19)
[2022-01-14] MEDS: Saccharomyces boulardii 250 MG CAP PO SCH (09:20)
[2022-01-14] MEDS: Magnesium Oxide 400 MG TAB PO SCH (09:20)
[2022-01-14] MEDS: Insulin Glargine 30 UNITS/0.3 ML VIAL SC SCH (09:21)
[2022-01-14] MEDS: Heparin 5,000 UNITS/ML VIAL SC SCH (09:22)
[2022-01-14] MEDS ORDERED: ALPRAZolam 0.25 MG TAB PO PRN (11:12)
[2022-01-14 11:38] VITALS: BP 173/79; TEMP 98.1
[2022-01-14] MEDS: HYDROcodone/Acetaminophen 7.5/325 mg Tablet PO PRN (11:54)
== END 2022-01-14 14:27 | DRG 629 ==
LOC: ERS 13:29 → MSONC 16:20 → T4-B 01-04 14:11 → 2SW 01-12 09:51
PROVIDERS: ADMIT Internal Medicine; ATTEND Internal Medicine
PROC: 0LB80ZZ Excision of Left Hand Tendon, Open Approach (ICD-10-PCS; principal; 2022-01-02)
PROC: 01Q60ZZ Repair Radial Nerve, Open Approach (ICD-10-PCS; 2022-01-02)
PROC: 01Q40ZZ Repair Ulnar Nerve, Open Approach (ICD-10-PCS; 2022-01-02)
PROC: 0PBV0ZZ Excision of Left Finger Phalanx, Open Approach (ICD-10-PCS; 2022-01-02)
PROC: 0HBQXZZ Excision of Finger Nail, External Approach (ICD-10-PCS; 2022-01-02)
PROC: 0JBK0ZZ Excision of Left Hand Subcutaneous Tissue and Fascia, Open Approach (ICD-10-PCS; 2022-01-08)
PROC: 0HRGXK3 Replacement of Left Hand Skin with Nonautologous Tissue Substitute, Full Thickness, External Approach (ICD-10-PCS; 2022-01-08)
PROC: B548ZZA Ultrasonography of Superior Vena Cava, Guidance (ICD-10-PCS; 2022-01-11)
PROC: 02HV33Z Insertion of Infusion Device into Superior Vena Cava, Percutaneous Approach (ICD-10-PCS; 2022-01-11)
DX: E11.628 Type 2 diabetes mellitus with other skin complications (principal); L03.114 Cellulitis of left upper limb; L02.512 Cutaneous abscess of left hand; I50.42 Chronic combined systolic (congestive) and diastolic (congestive) heart failure; M86.142 Other acute osteomyelitis, left hand; I13.0 Hypertensive heart and chronic kidney disease with heart failure and stage 1 through stage 4 chronic kidney disease, or unspecified chronic kidney disease; I25.810 Atherosclerosis of coronary artery bypass graft(s) without angina pectoris; E11.69 Type 2 diabetes mellitus with other specified complication; M65.142 Other infective (teno)synovitis, left hand; Z20.822 Contact with and (suspected) exposure to COVID-19; E11.51 Type 2 diabetes mellitus with diabetic peripheral angiopathy without gangrene; F41.9 Anxiety disorder, unspecified; F32.A Depression, unspecified; J44.9 Chronic obstructive pulmonary disease, unspecified; E66.01 Morbid (severe) obesity due to excess calories; E11.22 Type 2 diabetes mellitus with diabetic chronic kidney disease; I48.0 Paroxysmal atrial fibrillation; N18.30 Chronic kidney disease, stage 3 unspecified; E78.2 Mixed hyperlipidemia; I25.5 Ischemic cardiomyopathy; D63.1 Anemia in chronic kidney disease; N17.9 Acute kidney failure, unspecified; B95.62 Methicillin resistant Staphylococcus aureus infection as the cause of diseases classified elsewhere; G47.33 Obstructive sleep apnea (adult) (pediatric); E83.42 Hypomagnesemia; Z90.49 Acquired absence of other specified parts of digestive tract; Z95.1 Presence of aortocoronary bypass graft; Z88.1 Allergy status to other antibiotic agents; Z91.040 Latex allergy status; Z88.8 Allergy status to other drugs, medicaments and biological substances; Z79.82 Long term (current) use of aspirin; Z79.899 Other long term (current) drug therapy; Z79.84 Long term (current) use of oral hypoglycemic drugs; Z95.810 Presence of automatic (implantable) cardiac defibrillator; Z87.891 Personal history of nicotine dependence; Z68.38 Body mass index [BMI] 38.0-38.9, adult
CPT/HCPCS: 36415; 36416; 36569; 80048; 80053; 80202; 82565; 83605; 83735; 84484; 85025; 85652; 87040; 87070; 87077; 87186; 87205; 88304; 88311; 94640; 94760; 96374; 96375; 97139; C1751; C9363-KX-JC; J0692; J1644; J1650; J1815; J2250; J2270; J2405; J3010; J3370; J3475; J3490; J7050; J7611; Q0162; S0020; U0002; U0003; U0005

== ENCOUNTER 2022-02-05 08:40 | Day surgery (SDC) | payer MEDICARE ==
[2022-01-28 14:51] VITALS: BMI 36.4
[2022-02-05] MEDS ORDERED: Dextrose 50% Abboject 50 ML SYRINGE ONE ×2 (09:51→12:36)
[2022-02-05] MEDS ORDERED: Sodium Chloride 0.9% 0 ML ONE ×2 (09:52)
[2022-02-05] MEDS ORDERED: Bacitracin Zinc Ointment 30 gm TUBE ONE (11:27)
[2022-02-05] MEDS ORDERED: Mineral Oil Sterile 10 ML VIAL ONE (11:27)
[2022-02-05] MEDS ORDERED: fentaNYL Citrate/PF 100 MCG/2 ML SYRINGE ONE (12:21)
[2022-02-05] MEDS ORDERED: Phenylephrine 10 MG/ML VIAL ONE (12:21)
[2022-02-05] MEDS ORDERED: Levofloxacin 500 mg/D5W 100 ml Premix Bag ONE (12:48)
[2022-02-05] MEDS ORDERED: Clindamycin/D5W 900 mg/50 ml Premix Bag ONE (12:48)
[2022-02-05] MEDS ORDERED: Lidocaine 1% PF 5 ML VIAL ONE (12:57)
[2022-02-05] MEDS ORDERED: Dexamethasone 20 MG/5 ML VIAL ONE (12:57)
[2022-02-05] MEDS ORDERED: PROPOFOL 200 MG/20 ML VIAL ONE (12:57)
[2022-02-05] MEDS ORDERED: HYDROcodone/Acetaminophen 5/325 mg Tablet ONE (15:43)
== END 2022-02-05 16:23 | disposition home or self-care (01) ==
LOC: SDC 08:40
PROVIDERS: ATTEND Orthopaedic Surgery Hand Surgery
PROC: 0HREX73 Replacement of Left Lower Arm Skin with Autologous Tissue Substitute, Full Thickness, External Approach (ICD-10-PCS; principal; 2022-02-05)
DX: S61.502A Unspecified open wound of left wrist, initial encounter (principal); M86.242 Subacute osteomyelitis, left hand; E11.40 Type 2 diabetes mellitus with diabetic neuropathy, unspecified; I13.0 Hypertensive heart and chronic kidney disease with heart failure and stage 1 through stage 4 chronic kidney disease, or unspecified chronic kidney disease; E11.22 Type 2 diabetes mellitus with diabetic chronic kidney disease; N18.30 Chronic kidney disease, stage 3 unspecified; I50.42 Chronic combined systolic (congestive) and diastolic (congestive) heart failure; G89.29 Other chronic pain; M54.41 Lumbago with sciatica, right side; M54.42 Lumbago with sciatica, left side; I25.10 Atherosclerotic heart disease of native coronary artery without angina pectoris; J44.9 Chronic obstructive pulmonary disease, unspecified; Z79.02 Long term (current) use of antithrombotics/antiplatelets; Z79.2 Long term (current) use of antibiotics; Z79.4 Long term (current) use of insulin; Z79.82 Long term (current) use of aspirin; Z79.84 Long term (current) use of oral hypoglycemic drugs; Z79.899 Other long term (current) drug therapy; Z88.0 Allergy status to penicillin; Z88.8 Allergy status to other drugs, medicaments and biological substances; Z91.040 Latex allergy status; Z91.048 Other nonmedicinal substance allergy status; Z95.1 Presence of aortocoronary bypass graft; Z95.810 Presence of automatic (implantable) cardiac defibrillator
CPT/HCPCS: 36416; J1100; J1956; J2370; J2704; J3490; J7999

== ENCOUNTER 2022-02-25 01:12 | Emergency (ER) | payer MEDICARE | END 2022-02-25 01:58 | disposition home or self-care (01) | LOC: ERS 01:12 | DX: S61.102A Unspecified open wound of left thumb with damage to nail, initial encounter (principal); I11.0 Hypertensive heart disease with heart failure; I50.9 Heart failure, unspecified; I25.10 Atherosclerotic heart disease of native coronary artery without angina pectoris; E11.9 Type 2 diabetes mellitus without complications; I73.9 Peripheral vascular disease, unspecified; W26.8XXA Contact with other sharp object(s), not elsewhere classified, initial encounter; Z79.82 Long term (current) use of aspirin; Z79.84 Long term (current) use of oral hypoglycemic drugs; Z79.899 Other long term (current) drug therapy | CPT/HCPCS: 99283 ==

== ENCOUNTER 2022-03-01 21:30 | Inpatient (IN) | payer MEDICARE ==
[2022-03-01 23:56] LABS: Hemoglobin 12.6 g/dL (12.0-16.0); Mean Corpuscular HGB CONC 29.5 g/dL (32.0-36.0); Mean Corpuscular Hemoglobin 27.2 pg (27.0-31.0); Mean Corpuscular Volume 92.2 fL (78.0-98.0); Mean Platelet Volume 9.9 fL (7.4-10.4); Platelet Count 302 thou/uL (130-400); RBC Distribution Width 16.6 % (11.5-14.5); Red Blood Cell (RBC) Count 4.65 mill/uL (4.20-5.40); White Blood Cell (WBC) Count 20.6 thou/uL (4.8-10.8)
[2022-03-02 00:10] LABS: ALT (SGPT) 133 U/L (8-55); AST (SGOT) 106 U/L (5-34); Albumin 2.8 g/dL (3.4-4.8); Alkaline Phosphatase 148 U/L (40-110); Anion Gap 19 mmol/L (10-20); BUN (Urea Nitrogen) 43 mg/dL (9.8-20.1); Bilirubin, Total 1.9 mg/dL (0.2-1.2); Calc. Creatinine Clearance 0 mL/min (70-130); Calcium 8.4 mg/dL (7.8-10.44); Carbon Dioxide 18 mmol/L (23-31); Chloride 108 mmol/L (98-107); Estimated GFR 41; Glucose 268 mg/dL (80-115); Potassium 4.3 mmol/L (3.5-5.1); Protein, Total 6.8 g/dL (5.8-8.1); Sodium 141 mmol/L (136-145)
[2022-03-02 00:11] LABS: Band 9 % (5-11); Lymphocytes 1 % (21-51); MDiff Complete? YES; Macrocytosis MODERATE=16-30 cells (100X) (0-5/hpf); Monocytes 2 % (0-10); Neutrophil 88 % (42-75); Ovalocytes SLIGHT = 2-5 cells (100X) (0-1/hpf); Platelet Morphology Comment Appears Decreased; Target Cells SLIGHT = 2-5 cells (100X) (0-1/hpf)
[2022-03-02 01:18] LABS: CKMB 23.8 ng/mL (0-6.6)
[2022-03-02 03:05] LABS: Bilirubin Negative (Negative); Blood, Urine 1+ (Negative); Clarity Turbid (Clear); Glucose, Urine (Dipstick) 200 mg/dL (Negative); Ketone, Urine Trace mg/dL (Negative); Leukocyte 75 Leu/uL (Negative); Nitrite Negative (Negative); Protein, Urine (Dipstick) 300 mg/dL (Neg-Trace); Specific Gravity, Urine 1.024 (1.002-1.036); Urobilinogen Normal mg/dL (Less than 2); pH, Urine 5.5 (5.0-9.0)
[2022-03-02 03:20] LABS: Renal Epithelial 0-3 HPF (None Seen)
[2022-03-02 03:21] LABS: Bacteria/HPF Rare-Few HPF (None Seen); RBC/HPF 0-3 HPF (0-3)
[2022-03-02] MEDS ORDERED: Cefepime 2 GM VIAL ONE (03:33)
[2022-03-02] MEDS ORDERED: Preparation H Suppository PR SCH (04:00)
[2022-03-02 04:24] LABS: Troponin I 0.074 ng/mL (< 0.028)
[2022-03-02 05:03] LABS: SARS-CoV-2 NAA Rapid Test Not Detected (NotDetected)
[2022-03-02] MEDS ORDERED: Vancomycin 1 GM/200 ML BAG ONE (05:14)
[2022-03-02] MEDS ORDERED: Ondansetron PF 4 MG/2 ML Vial ONE ×2 (05:27→11:17)
[2022-03-02 06:58] LABS: Troponin I 0.066 ng/mL (< 0.028)
[2022-03-02] MEDS ORDERED: Bacitracin 1 PK ONE (07:02)
[2022-03-02] MEDS ORDERED: Vancomycin 1 GM in Premix Bag 1 BAG IVPB SCH (08:45)
[2022-03-02] MEDS ORDERED: Acetaminophen 325 MG TAB PO PRN (08:59)
[2022-03-02] MEDS ORDERED: Bisacodyl 5 MG TAB PO PRN (08:59)
[2022-03-02] MEDS ORDERED: Cefepime 2 GM in Sodium Chloride 0.9% 100 ML IVPB SCH (09:00)
[2022-03-02 09:02] VITALS: BMI 38.0
[2022-03-02] MEDS ORDERED: Dextrose 50% Abboject 50 ML SYRINGE SLOW IVP PRN (09:09)
[2022-03-02] MEDS ORDERED: Dextrose 5% in Water 1,000 ML IV PRN (09:09)
[2022-03-02] MEDS ORDERED: HYDROcodone/Acetaminophen 5/325 mg Tablet ONE (09:10)
[2022-03-02] MEDS ORDERED: Enoxaparin Sodium 40 MG/0.4 ML SYRINGE ONE (09:13)
[2022-03-02] MEDS ORDERED: Vancomycin HCl 500 MG in Sodium Chloride 0.9% 100 ML IVPB SCH (09:15)
[2022-03-02] MEDS: Enoxaparin Sodium 40 MG/0.4 ML SYRINGE SC SCH (09:29)
[2022-03-02] MEDS: HYDROcodone/Acetaminophen 5/325 mg Tablet PO PRN (09:30)
[2022-03-02] MEDS: Ondansetron PF 4 MG/2 ML Vial IVP PRN ×2 (11:37→16:49)
[2022-03-02 12:15] LABS: HBCM Index 0.05 S/CO (0-0.79); Hep A IgM AB Non-Reactive (NonReactive); Hep A IgM S/CO 0.15 S/CO (0-0.79); Hep B Surf Ag Non-Reactive S/CO (NonReactive); Hep C IgG Ab Non-Reactive (NonReactive); Hep C Index 0.24 S/CO (0-0.79); Hepatitis B Core IgM Abs Non-Reactive (NonReactive)
[2022-03-02] MEDS: Carvedilol 6.25 MG TAB PO SCH (16:49)
[2022-03-02] MEDS: Cefepime 2 GM in Sodium Chloride 0.9% 100 ML IVPB SCH (17:30)
[2022-03-03 05:11] LABS: Anion Gap 16 mmol/L (10-20); BUN (Urea Nitrogen) 41 mg/dL (9.8-20.1); Calc. Creatinine Clearance 60 mL/min (70-130); Calcium 8.3 mg/dL (7.8-10.44); Carbon Dioxide 20 mmol/L (23-31); Chloride 108 mmol/L (98-107); Estimated GFR 46; Glucose 287 mg/dL (80-115); Sodium 140 mmol/L (136-145)
[2022-03-03 05:16] LABS: #Eosinphils 0.1 thou/uL (0.0-0.7); #Lymphocytes 0.6 thou/uL (1.20-3.40); #Monocytes 1.1 thou/uL (0.11-0.59); #Neutrophils 10.8 thou/uL (1.40-6.50); %Eosinophils 1.1 % (0.0-10.0); %Monocytes 8.6 % (0.0-10.0); %Neutrophils 85.3 % (42.0-75.0); Hemoglobin 10.5 g/dL (12.0-16.0); Mean Corpuscular HGB CONC 29.4 g/dL (32.0-36.0); Mean Platelet Volume 9.9 fL (7.4-10.4); Platelet Count 263 thou/uL (130-400); RBC Distribution Width 16.7 % (11.5-14.5); Red Blood Cell (RBC) Count 3.89 mill/uL (4.20-5.40); White Blood Cell (WBC) Count 12.7 thou/uL (4.8-10.8)
[2022-03-03] MEDS: Cefepime 2 GM in Sodium Chloride 0.9% 100 ML IVPB SCH ×2 (05:30→15:12)
[2022-03-03] MEDS: Vancomycin 1.5 GRAM/300 ML BAG 1.5 GM in Premix Bag 1 BAG IVPB SCH (06:16)
[2022-03-03] MEDS: Digoxin 0.125 MG TAB PO SCH (08:31)
[2022-03-03] MEDS: Losartan 25 MG TAB PO SCH (08:31)
[2022-03-03] MEDS: Aspirin 81 mg Enteric Coated Tablet PO SCH (08:31)
[2022-03-03] MEDS: Furosemide 20 MG TAB PO SCH (08:32)
[2022-03-03] MEDS: Glimepiride 1 MG TAB PO SCH (08:32)
[2022-03-03] MEDS: Carvedilol 6.25 MG TAB PO SCH ×2 (08:32→17:13)
[2022-03-03] MEDS: Spironolactone 25 MG TAB PO SCH (08:32)
[2022-03-03] MEDS: Enoxaparin Sodium 40 MG/0.4 ML SYRINGE SC SCH (08:33)
[2022-03-03] MEDS: HumaLOG 300 UNITS/3 ML VIAL SC PRN (17:20)
[2022-03-03] MEDS: HYDROcodone/Acetaminophen 5/325 mg Tablet PO PRN (21:36)
[2022-03-03] MEDS: Hydrocortisone Acetate 25 MG Suppository PR PRN (21:37)
[2022-03-04] MEDS: Cefepime 2 GM in Sodium Chloride 0.9% 100 ML IVPB SCH ×2 (03:26→14:53)
[2022-03-04 04:39] LABS: #Eosinphils 0.7 thou/uL (0.0-0.7); #Lymphocytes 0.7 thou/uL (1.20-3.40); #Monocytes 0.9 thou/uL (0.11-0.59); #Neutrophils 7.3 thou/uL (1.40-6.50); %Basophils 0.3 % (0.0-1.0); %Eosinophils 7.1 % (0.0-10.0); %Monocytes 9.4 % (0.0-10.0); %Neutrophils 76.2 % (42.0-75.0); Hemoglobin 9.7 g/dL (12.0-16.0); Mean Corpuscular HGB CONC 29.9 g/dL (32.0-36.0); Mean Corpuscular Hemoglobin 27.6 pg (27.0-31.0); Mean Corpuscular Volume 92.3 fL (78.0-98.0); Platelet Count 210 thou/uL (130-400); RBC Distribution Width 16.5 % (11.5-14.5); Red Blood Cell (RBC) Count 3.51 mill/uL (4.20-5.40); White Blood Cell (WBC) Count 9.6 thou/uL (4.8-10.8)
[2022-03-04 04:56] LABS: ALT (SGPT) 75 U/L (8-55); AST (SGOT) 43 U/L (5-34); Albumin 2.5 g/dL (3.4-4.8); Alkaline Phosphatase 105 U/L (40-110); Anion Gap 14 mmol/L (10-20); BUN (Urea Nitrogen) 38 mg/dL (9.8-20.1); Bilirubin, Total 0.8 mg/dL (0.2-1.2); Calc. Creatinine Clearance 63 mL/min (70-130); Calcium 7.8 mg/dL (7.8-10.44); Carbon Dioxide 19 mmol/L (23-31); Chloride 111 mmol/L (98-107); Estimated GFR 45; Globulin 3.4 g/dL (2.4-3.5); Glucose 217 mg/dL (80-115); Potassium 4.1 mmol/L (3.5-5.1); Protein, Total 5.9 g/dL (5.8-8.1); Sodium 140 mmol/L (136-145); Vancomycin, Trough 25.6 ug/mL
[2022-03-04] MEDS: HumaLOG 300 UNITS/3 ML VIAL SC PRN ×2 (05:31→20:36)
[2022-03-04] MEDS: Vancomycin 1.5 GRAM/300 ML BAG 1.5 GM in Premix Bag 1 BAG IVPB SCH (05:37)
[2022-03-04] MEDS: Enoxaparin Sodium 40 MG/0.4 ML SYRINGE SC SCH (08:32)
[2022-03-04] MEDS: Spironolactone 25 MG TAB PO SCH (08:33)
[2022-03-04] MEDS: Digoxin 0.125 MG TAB PO SCH (08:33)
[2022-03-04] MEDS: Carvedilol 6.25 MG TAB PO SCH ×2 (08:34→18:24)
[2022-03-04] MEDS: Bacitracin 1 PK TOP SCH (08:34)
[2022-03-04] MEDS: Losartan 25 MG TAB PO SCH (08:34)
[2022-03-04] MEDS: Glimepiride 1 MG TAB PO SCH (08:35)
[2022-03-04] MEDS: Furosemide 20 MG TAB PO SCH (08:35)
[2022-03-04] MEDS: Aspirin 81 mg Enteric Coated Tablet PO SCH (08:35)
[2022-03-04] MEDS ORDERED: Bacitracin Zinc Ointment 30 gm TUBE TOP SCH (09:00)
[2022-03-04] MEDS ORDERED: Vancomycin 1 GM in Premix Bag 1 BAG IVPB SCH (12:00)
[2022-03-04] MEDS: HYDROcodone/Acetaminophen 5/325 mg Tablet PO PRN ×2 (15:44→20:31)
[2022-03-05] MEDS: HYDROcodone/Acetaminophen 5/325 mg Tablet PO PRN ×3 (02:30→21:11)
[2022-03-05] MEDS: Hydrocortisone Acetate 25 MG Suppository PR PRN (02:31)
[2022-03-05] MEDS: Cefepime 2 GM in Sodium Chloride 0.9% 100 ML IVPB SCH ×2 (03:12→16:54)
[2022-03-05] MEDS: HumaLOG 300 UNITS/3 ML VIAL SC PRN ×3 (05:55→17:02)
[2022-03-05] MEDS: Carvedilol 6.25 MG TAB PO SCH ×2 (09:17→16:55)
[2022-03-05] MEDS: Aspirin 81 mg Enteric Coated Tablet PO SCH (09:18)
[2022-03-05] MEDS: Spironolactone 25 MG TAB PO SCH (09:18)
[2022-03-05] MEDS: Digoxin 0.125 MG TAB PO SCH (09:18)
[2022-03-05] MEDS: Glimepiride 1 MG TAB PO SCH (09:18)
[2022-03-05] MEDS: Bacitracin 1 PK TOP SCH (09:18)
[2022-03-05] MEDS: Enoxaparin Sodium 40 MG/0.4 ML SYRINGE SC SCH (09:19)
[2022-03-05] MEDS: Furosemide 20 MG TAB PO SCH (09:19)
[2022-03-05] MEDS: Losartan 25 MG TAB PO SCH (09:19)
[2022-03-05 09:28] LABS: #Basophils 0.1 thou/uL (0.0-0.2); #Eosinphils 1.3 thou/uL (0.0-0.7); #Neutrophils 7.9 thou/uL (1.40-6.50); %Basophils 0.6 % (0.0-1.0); %Eosinophils 11.5 % (0.0-10.0); %Lymphocytes 9.1 % (21.0-51.0); %Monocytes 8.9 % (0.0-10.0); %Neutrophils 69.9 % (42.0-75.0); Hemoglobin 10.5 g/dL (12.0-16.0); Mean Corpuscular HGB CONC 29.2 g/dL (32.0-36.0); Mean Corpuscular Hemoglobin 26.6 pg (27.0-31.0); Mean Corpuscular Volume 91.1 fL (78.0-98.0); Platelet Count 203 thou/uL (130-400); RBC Distribution Width 16.5 % (11.5-14.5); Red Blood Cell (RBC) Count 3.94 mill/uL (4.20-5.40); White Blood Cell (WBC) Count 11.3 thou/uL (4.8-10.8)
[2022-03-05 09:37] LABS: ALT (SGPT) 68 U/L (8-55); AST (SGOT) 36 U/L (5-34); Albumin 2.9 g/dL (3.4-4.8); Alkaline Phosphatase 119 U/L (40-110); Anion Gap 14 mmol/L (10-20); BUN (Urea Nitrogen) 30 mg/dL (9.8-20.1); Bilirubin, Total 0.8 mg/dL (0.2-1.2); CRP (Inflammatory) 0.77 mg/dL (= or < 0.5); Calc. Creatinine Clearance 71 mL/min (70-130); Calcium 7.9 mg/dL (7.8-10.44); Carbon Dioxide 20 mmol/L (23-31); Chloride 107 mmol/L (98-107); Estimated GFR 51; Globulin 4.1 g/dL (2.4-3.5); Glucose 246 mg/dL (80-115); Magnesium 1.6 mg/dL (1.6-2.6); Potassium 4.1 mmol/L (3.5-5.1); Sodium 137 mmol/L (136-145)
[2022-03-05 09:56] LABS: Vancomycin, Random 26.8 ug/mL (See Comment)
[2022-03-05] MEDS: Insulin Glargine 30 UNITS/0.3 ML VIAL SC SCH ×2 (10:00→21:13)
[2022-03-05 10:08] LABS: Hypochromia SLIGHT = 6-15 cells (100X) (0-5/hpf); MDiff Complete? YES; Ovalocytes SLIGHT = 2-5 cells (100X) (0-1/hpf); Platelet Morphology Comment Appears Adequate; Polychromasia SLIGHT = 2-3 cells (100X) (0-2/hpf)
[2022-03-05] MEDS ORDERED: Vancomycin 1 GM in Premix Bag 1 BAG IVPB SCH (12:00)
[2022-03-05 12:33] LABS: Vancomycin, Trough 24.5 ug/mL
[2022-03-05] MEDS ORDERED: Vancomycin HCl 750 MG in Sodium Chloride 0.9% 250 ML 250 ML IVPB SCH ×2 (16:00→17:00)
[2022-03-06] MEDS: HYDROcodone/Acetaminophen 5/325 mg Tablet PO PRN ×4 (03:15→20:35)
[2022-03-06] MEDS: Cefepime 2 GM in Sodium Chloride 0.9% 100 ML IVPB SCH ×2 (03:16→16:04)
[2022-03-06] MEDS: Hydrocortisone Acetate 25 MG Suppository PR PRN ×2 (03:40→20:35)
[2022-03-06 03:55] LABS: #Basophils 0.1 thou/uL (0.0-0.2); #Eosinphils 1.3 thou/uL (0.0-0.7); #Lymphocytes 0.8 thou/uL (1.20-3.40); #Neutrophils 7.6 thou/uL (1.40-6.50); %Basophils 0.6 % (0.0-1.0); %Eosinophils 12.4 % (0.0-10.0); %Lymphocytes 7.1 % (21.0-51.0); %Monocytes 9.5 % (0.0-10.0); %Neutrophils 70.4 % (42.0-75.0); Hemoglobin 9.7 g/dL (12.0-16.0); Mean Corpuscular HGB CONC 29.8 g/dL (32.0-36.0); Mean Corpuscular Hemoglobin 27.3 pg (27.0-31.0); Mean Corpuscular Volume 91.7 fL (78.0-98.0); Mean Platelet Volume 10.3 fL (7.4-10.4); Platelet Count 176 thou/uL (130-400); RBC Distribution Width 16.7 % (11.5-14.5); Red Blood Cell (RBC) Count 3.55 mill/uL (4.20-5.40); White Blood Cell (WBC) Count 10.8 thou/uL (4.8-10.8)
[2022-03-06 04:11] LABS: Anion Gap 11 mmol/L (10-20); BUN (Urea Nitrogen) 26 mg/dL (9.8-20.1); Calc. Creatinine Clearance 86 mL/min (70-130); Calcium 7.7 mg/dL (7.8-10.44); Carbon Dioxide 22 mmol/L (23-31); Chloride 108 mmol/L (98-107); Estimated GFR 62; Glucose 186 mg/dL (80-115); Sodium 137 mmol/L (136-145)
[2022-03-06] MEDS: Digoxin 0.125 MG TAB PO SCH (10:04)
[2022-03-06] MEDS: Enoxaparin Sodium 40 MG/0.4 ML SYRINGE SC SCH (10:04)
[2022-03-06] MEDS: Glimepiride 1 MG TAB PO SCH (10:05)
[2022-03-06] MEDS: Furosemide 20 MG TAB PO SCH (10:05)
[2022-03-06] MEDS: Insulin Glargine 30 UNITS/0.3 ML VIAL SC SCH ×2 (10:05→20:39)
[2022-03-06] MEDS: Losartan 25 MG TAB PO SCH (10:05)
[2022-03-06] MEDS: Carvedilol 6.25 MG TAB PO SCH ×2 (10:06→16:04)
[2022-03-06] MEDS: Aspirin 81 mg Enteric Coated Tablet PO SCH (10:06)
[2022-03-06] MEDS: Spironolactone 25 MG TAB PO SCH (10:30)
[2022-03-06] MEDS: Bacitracin 1 PK TOP SCH (10:30)
[2022-03-06 16:26] LABS: Vancomycin, Random 23.7 ug/mL (See Comment)
[2022-03-06] MEDS ORDERED: Vancomycin HCl 500 MG in Sodium Chloride 0.9% 100 ML IVPB SCH (17:00)
[2022-03-07] MEDS: Cefepime 2 GM in Sodium Chloride 0.9% 100 ML IVPB SCH (03:30)
[2022-03-07] MEDS: HYDROcodone/Acetaminophen 5/325 mg Tablet PO PRN ×2 (03:35→11:11)
[2022-03-07] MEDS: Glimepiride 1 MG TAB PO SCH (09:02)
[2022-03-07] MEDS: Carvedilol 6.25 MG TAB PO SCH ×2 (09:02→17:16)
[2022-03-07] MEDS: Bacitracin 1 PK TOP SCH (09:03)
[2022-03-07] MEDS: Spironolactone 25 MG TAB PO SCH (09:03)
[2022-03-07] MEDS: Digoxin 0.125 MG TAB PO SCH (09:03)
[2022-03-07] MEDS: Aspirin 81 mg Enteric Coated Tablet PO SCH (09:03)
[2022-03-07] MEDS: Enoxaparin Sodium 40 MG/0.4 ML SYRINGE SC SCH (09:03)
[2022-03-07] MEDS: Doxycycline 100 MG CAP PO SCH ×2 (09:03→20:53)
[2022-03-07] MEDS: Furosemide 20 MG TAB PO SCH (09:03)
[2022-03-07] MEDS: Losartan 25 MG TAB PO SCH (09:04)
[2022-03-07] MEDS: Insulin Glargine 30 UNITS/0.3 ML VIAL SC SCH ×2 (09:04→20:52)
[2022-03-07 10:46] LABS: ALT (SGPT) 48 U/L (8-55); AST (SGOT) 28 U/L (5-34); Albumin 2.8 g/dL (3.4-4.8); Alkaline Phosphatase 119 U/L (40-110); BUN (Urea Nitrogen) 24 mg/dL (9.8-20.1); Bilirubin, Total 0.7 mg/dL (0.2-1.2); Calc. Creatinine Clearance 88 mL/min (70-130); Calcium 8.1 mg/dL (7.8-10.44); Carbon Dioxide 23 mmol/L (23-31); Chloride 106 mmol/L (98-107); Estimated GFR 63; Globulin 4.1 g/dL (2.4-3.5); Glucose 103 mg/dL (80-115); Potassium 4.6 mmol/L (3.5-5.1); Protein, Total 6.9 g/dL (5.8-8.1); Sodium 137 mmol/L (136-145)
[2022-03-07 10:48] LABS: Anion Gap 13 mmol/L (10-20)
[2022-03-07] MEDS ORDERED: Fluconazole 100 MG TAB PO SCH (12:45)
[2022-03-07] MEDS ORDERED: Morphine ER 15 MG TAB PO SCH (13:00)
[2022-03-07] MEDS: Ondansetron PF 4 MG/2 ML Vial IVP PRN (15:45)
[2022-03-07] MEDS: Morphine 2 MG/ML VIAL SLOW IVP PRN (17:15)
[2022-03-07] MEDS: Nystatin Ointment 15 GM TUBE TOP SCH (20:58)
[2022-03-08] MEDS: Morphine ER 15 MG TAB PO SCH ×2 (00:39→13:12)
[2022-03-08] MEDS: Doxycycline 100 MG CAP PO SCH ×2 (08:32→20:15)
[2022-03-08] MEDS: Losartan 25 MG TAB PO SCH (08:32)
[2022-03-08] MEDS: Digoxin 0.125 MG TAB PO SCH (08:33)
[2022-03-08] MEDS: Glimepiride 1 MG TAB PO SCH (08:33)
[2022-03-08] MEDS: Spironolactone 25 MG TAB PO SCH (08:33)
[2022-03-08] MEDS: Furosemide 20 MG TAB PO SCH (08:34)
[2022-03-08] MEDS: Aspirin 81 mg Enteric Coated Tablet PO SCH (08:35)
[2022-03-08] MEDS: Enoxaparin Sodium 40 MG/0.4 ML SYRINGE SC SCH (08:35)
[2022-03-08] MEDS: Carvedilol 6.25 MG TAB PO SCH ×2 (08:35→17:01)
[2022-03-08] MEDS: Insulin Glargine 30 UNITS/0.3 ML VIAL SC SCH ×2 (08:35→20:15)
[2022-03-08] MEDS: Bacitracin 1 PK TOP SCH (08:36)
[2022-03-08] MEDS: Nystatin Ointment 15 GM TUBE TOP SCH ×2 (08:36→20:15)
[2022-03-08] MEDS: Fluconazole 100 MG TAB PO SCH (14:22)
[2022-03-08] MEDS: HumaLOG 300 UNITS/3 ML VIAL SC PRN (17:03)
[2022-03-08] MEDS: HYDROcodone/Acetaminophen 5/325 mg Tablet PO PRN (19:58)
[2022-03-08] MEDS: Morphine 2 MG/ML VIAL SLOW IVP PRN (22:14)
[2022-03-09] MEDS: Morphine ER 15 MG TAB PO SCH ×2 (01:09→12:12)
[2022-03-09] MEDS: Morphine 2 MG/ML VIAL SLOW IVP PRN ×2 (04:05→21:15)
[2022-03-09] MEDS: HYDROcodone/Acetaminophen 5/325 mg Tablet PO PRN ×2 (07:28→17:59)
[2022-03-09] MEDS: Losartan 25 MG TAB PO SCH (09:20)
[2022-03-09] MEDS: Fluconazole 100 MG TAB PO SCH (09:21)
[2022-03-09] MEDS: Carvedilol 6.25 MG TAB PO SCH ×2 (09:21→16:12)
[2022-03-09] MEDS: Furosemide 20 MG TAB PO SCH (09:22)
[2022-03-09] MEDS: Insulin Glargine 30 UNITS/0.3 ML VIAL SC SCH ×2 (09:23→21:15)
[2022-03-09] MEDS: Spironolactone 25 MG TAB PO SCH (09:23)
[2022-03-09] MEDS: Aspirin 81 mg Enteric Coated Tablet PO SCH (09:23)
[2022-03-09] MEDS: Glimepiride 1 MG TAB PO SCH (09:23)
[2022-03-09] MEDS: Digoxin 0.125 MG TAB PO SCH (09:23)
[2022-03-09] MEDS: Doxycycline 100 MG CAP PO SCH ×2 (09:24→21:21)
[2022-03-09] MEDS: Enoxaparin Sodium 40 MG/0.4 ML SYRINGE SC SCH (09:24)
[2022-03-09] MEDS: Nystatin Ointment 15 GM TUBE TOP SCH ×2 (09:24→21:14)
[2022-03-09] MEDS: Bacitracin 1 PK TOP SCH (09:28)
[2022-03-09] MEDS: HumaLOG 300 UNITS/3 ML VIAL SC PRN ×2 (12:17→17:19)
[2022-03-10] MEDS: Morphine ER 15 MG TAB PO SCH ×2 (02:19→13:11)
[2022-03-10] MEDS: HYDROcodone/Acetaminophen 5/325 mg Tablet PO PRN ×2 (02:22→06:16)
[2022-03-10] MEDS: Morphine 2 MG/ML VIAL SLOW IVP PRN (05:03)
[2022-03-10 06:56] LABS: Anion Gap 12 mmol/L (10-20); BUN (Urea Nitrogen) 22 mg/dL (9.8-20.1); Calc. Creatinine Clearance 82 mL/min (70-130); Calcium 8.3 mg/dL (7.8-10.44); Carbon Dioxide 25 mmol/L (23-31); Chloride 104 mmol/L (98-107); Estimated GFR 58; Glucose 83 mg/dL (80-115); Potassium 4.7 mmol/L (3.5-5.1); Sodium 136 mmol/L (136-145)
[2022-03-10 08:02] VITALS: TEMP 97.9
[2022-03-10] MEDS: Losartan 25 MG TAB PO SCH (09:01)
[2022-03-10] MEDS: Furosemide 20 MG TAB PO SCH (09:02)
[2022-03-10] MEDS: Fluconazole 100 MG TAB PO SCH (09:02)
[2022-03-10] MEDS: Glimepiride 1 MG TAB PO SCH (09:03)
[2022-03-10] MEDS: Aspirin 81 mg Enteric Coated Tablet PO SCH (09:03)
[2022-03-10] MEDS: Insulin Glargine 30 UNITS/0.3 ML VIAL SC SCH (09:03)
[2022-03-10] MEDS: Carvedilol 6.25 MG TAB PO SCH (09:03)
[2022-03-10] MEDS: Bacitracin 1 PK TOP SCH (09:04)
[2022-03-10] MEDS: Spironolactone 25 MG TAB PO SCH (09:04)
[2022-03-10] MEDS: Doxycycline 100 MG CAP PO SCH (09:04)
[2022-03-10] MEDS: Digoxin 0.125 MG TAB PO SCH (09:04)
[2022-03-10] MEDS: Enoxaparin Sodium 40 MG/0.4 ML SYRINGE SC SCH (09:04)
[2022-03-10] MEDS: Nystatin Ointment 15 GM TUBE TOP SCH (09:05)
[2022-03-10 09:17] VITALS: BP 138/68
[2022-03-10] MEDS: Ondansetron PF 4 MG/2 ML Vial IVP PRN (13:16)
== END 2022-03-10 14:49 | disposition home or self-care (01) | DRG 641 ==
LOC: ERS 21:30 → ERHOLD 03-02 02:37 → 2NO 03-02 16:25 → T4-A 03-07 16:13
PROVIDERS: ADMIT Internal Medicine; ATTEND Internal Medicine
DX: E86.0 Dehydration (principal); I13.0 Hypertensive heart and chronic kidney disease with heart failure and stage 1 through stage 4 chronic kidney disease, or unspecified chronic kidney disease; I24.8 Other forms of acute ischemic heart disease; I50.42 Chronic combined systolic (congestive) and diastolic (congestive) heart failure; I25.5 Ischemic cardiomyopathy; Z20.822 Contact with and (suspected) exposure to COVID-19; E11.22 Type 2 diabetes mellitus with diabetic chronic kidney disease; E78.5 Hyperlipidemia, unspecified; I25.10 Atherosclerotic heart disease of native coronary artery without angina pectoris; E11.40 Type 2 diabetes mellitus with diabetic neuropathy, unspecified; E11.51 Type 2 diabetes mellitus with diabetic peripheral angiopathy without gangrene; N18.30 Chronic kidney disease, stage 3 unspecified; D72.829 Elevated white blood cell count, unspecified; Z95.1 Presence of aortocoronary bypass graft; Z90.49 Acquired absence of other specified parts of digestive tract; Z90.710 Acquired absence of both cervix and uterus; Z88.1 Allergy status to other antibiotic agents; Z91.040 Latex allergy status; Z91.048 Other nonmedicinal substance allergy status; Z79.82 Long term (current) use of aspirin; Z79.899 Other long term (current) drug therapy; Z79.01 Long term (current) use of anticoagulants; Z79.02 Long term (current) use of antithrombotics/antiplatelets; Z79.84 Long term (current) use of oral hypoglycemic drugs; Z95.810 Presence of automatic (implantable) cardiac defibrillator; Z87.891 Personal history of nicotine dependence; Z79.4 Long term (current) use of insulin
CPT/HCPCS: 36415; 36416; 71045; 76705; 80048; 80053; 80074; 80202; 81003; 81015; 82553; 83605; 83735; 84484; 85025; 85652; 86140; 87040; 87811; 93005; 96365; 96366; 96367; 96375; 97139; J0692; J1650; J1815; J2270; J2405; J3370; J3490; J7050; U0002

== ENCOUNTER 2022-03-26 20:57 | Inpatient (IN) | payer MEDICARE ==
[2022-03-26 22:04] LABS: #Eosinphils 0.3 thou/uL (0.0-0.7); #Lymphocytes 1.1 thou/uL (1.20-3.40); #Monocytes 0.9 thou/uL (0.11-0.59); #Neutrophils 6.8 thou/uL (1.40-6.50); %Basophils 0.3 % (0.0-1.0); %Eosinophils 3.7 % (0.0-10.0); %Lymphocytes 11.9 % (21.0-51.0); %Monocytes 9.6 % (0.0-10.0); %Neutrophils 74.5 % (42.0-75.0); Hemoglobin 9.3 g/dL (12.0-16.0); Mean Corpuscular HGB CONC 29.2 g/dL (32.0-36.0); Mean Corpuscular Hemoglobin 26.5 pg (27.0-31.0); Mean Corpuscular Volume 90.9 fL (78.0-98.0); Platelet Count 424 thou/uL (130-400); RBC Distribution Width 16.9 % (11.5-14.5); Red Blood Cell (RBC) Count 3.49 mill/uL (4.20-5.40); White Blood Cell (WBC) Count 9.1 thou/uL (4.8-10.8)
[2022-03-26 22:13] LABS: INR-International Normal Ratio 1.5; PTT 37.2 sec (22.9-36.1); Prothrombin Time 17.8 sec (12.0-14.7)
[2022-03-26 22:20] LABS: ALT (SGPT) 12 U/L (8-55); AST (SGOT) 16 U/L (5-34); Albumin 3.2 g/dL (3.4-4.8); Alkaline Phosphatase 120 U/L (40-110); Anion Gap 17 mmol/L (10-20); BUN (Urea Nitrogen) 41 mg/dL (9.8-20.1); CK (CPK) 56 U/L (29-168); Calc. Creatinine Clearance 0 mL/min (70-130); Calcium 8.6 mg/dL (7.8-10.44); Carbon Dioxide 23 mmol/L (23-31); Chloride 105 mmol/L (98-107); Estimated GFR 28; Globulin 4.6 g/dL (2.4-3.5); Glucose 203 mg/dL (80-115); Potassium 5.3 mmol/L (3.5-5.1); Protein, Total 7.8 g/dL (5.8-8.1); Sodium 140 mmol/L (136-145)
[2022-03-26] MEDS ORDERED: Fentanyl 100 MCG/2 ML VIAL ONE (22:20)
[2022-03-26 22:40] LABS: Bilirubin, Total 0.8 mg/dL (0.2-1.2)
[2022-03-26] MEDS ORDERED: Furosemide 40 MG/4 ML VIAL ONE (23:11)
[2022-03-26] MEDS ORDERED: Nitroglycerin 2% Ointment 1 INCH/1 GM Packet ONE (23:11)
[2022-03-26] MEDS ORDERED: Aspirin Chewable 81 MG TAB ONE (23:11)
[2022-03-27 00:42] VITALS: BMI 43.2
[2022-03-27 02:11] LABS: CKMB 2.6 ng/mL (0-6.6)
[2022-03-27] MEDS ORDERED: Dextrose 50% Abboject 50 ML SYRINGE SLOW IVP PRN (02:26)
[2022-03-27] MEDS ORDERED: Dextrose 5% in Water 1,000 ML IV PRN (02:26)
[2022-03-27] MEDS ORDERED: Acetaminophen 650 MG Suppository PR PRN (02:26)
[2022-03-27] MEDS ORDERED: Electrolyte Replacement Protocol 1 EACH FS SCH (03:00)
[2022-03-27] MEDS ORDERED: Furosemide 40 MG/4 ML VIAL SLOW IVP SCH (03:00)
[2022-03-27 04:25] LABS: #Eosinphils 0.4 thou/uL (0.0-0.7); #Lymphocytes 1.3 thou/uL (1.20-3.40); #Monocytes 0.8 thou/uL (0.11-0.59); #Neutrophils 7.1 thou/uL (1.40-6.50); %Basophils 0.3 % (0.0-1.0); %Eosinophils 4.5 % (0.0-10.0); %Lymphocytes 13.1 % (21.0-51.0); %Monocytes 8.6 % (0.0-10.0); %Neutrophils 73.5 % (42.0-75.0); Hemoglobin 9.1 g/dL (12.0-16.0); Mean Corpuscular HGB CONC 28.8 g/dL (32.0-36.0); Mean Corpuscular Hemoglobin 26.4 pg (27.0-31.0); Mean Corpuscular Volume 91.4 fL (78.0-98.0); Platelet Count 420 thou/uL (130-400); RBC Distribution Width 16.8 % (11.5-14.5); Red Blood Cell (RBC) Count 3.45 mill/uL (4.20-5.40); White Blood Cell (WBC) Count 9.6 thou/uL (4.8-10.8)
[2022-03-27 04:44] LABS: Anion Gap 17 mmol/L (10-20); BUN (Urea Nitrogen) 42 mg/dL (9.8-20.1); Calc. Creatinine Clearance 45 mL/min (70-130); Calcium 8.6 mg/dL (7.8-10.44); Carbon Dioxide 24 mmol/L (23-31); Chloride 104 mmol/L (98-107); Estimated GFR 27; Glucose 201 mg/dL (80-115); Potassium 5.1 mmol/L (3.5-5.1); Sodium 140 mmol/L (136-145)
[2022-03-27] MEDS: HumaLOG 300 UNITS/3 ML VIAL SC PRN ×3 (05:21→20:23)
[2022-03-27] MEDS: Enoxaparin Sodium 40 MG/0.4 ML SYRINGE SC SCH (08:30)
[2022-03-27 11:37] LABS: Bacteria/HPF None Seen HPF (None Seen); Bilirubin Negative (Negative); Blood, Urine Negative (Negative); Clarity Clear (Clear); Glucose, Urine (Dipstick) Normal (Negative); Ketone, Urine Negative (Negative); Leukocyte 75 Leu/uL (Negative); Nitrite Negative (Negative); Protein, Urine (Dipstick) Negative (Neg-Trace); RBC/HPF 0-3 HPF (0-3); Specific Gravity, Urine 1.011 (1.002-1.036); Squamous Epithelial 0-3 HPF (0-3); Urobilinogen Normal mg/dL (Less than 2); WBC/HPF 0-3 HPF (0-3); pH, Urine 5.5 (5.0-9.0)
[2022-03-27] MEDS: Acetaminophen 325 MG TAB PO PRN (20:17)
[2022-03-28] MEDS: Acetaminophen 325 MG TAB PO PRN (03:50)
[2022-03-28 05:05] LABS: #Eosinphils 0.5 thou/uL (0.0-0.7); #Lymphocytes 1.1 thou/uL (1.20-3.40); #Monocytes 0.9 thou/uL (0.11-0.59); #Neutrophils 5.8 thou/uL (1.40-6.50); %Basophils 0.4 % (0.0-1.0); %Eosinophils 6.1 % (0.0-10.0); %Lymphocytes 13.6 % (21.0-51.0); %Monocytes 11.1 % (0.0-10.0); %Neutrophils 68.7 % (42.0-75.0); Hemoglobin 8.4 g/dL (12.0-16.0); Mean Corpuscular HGB CONC 28.3 g/dL (32.0-36.0); Mean Corpuscular Hemoglobin 25.9 pg (27.0-31.0); Mean Corpuscular Volume 91.5 fL (78.0-98.0); Mean Platelet Volume 9.3 fL (7.4-10.4); Platelet Count 363 thou/uL (130-400); RBC Distribution Width 16.7 % (11.5-14.5); Red Blood Cell (RBC) Count 3.26 mill/uL (4.20-5.40); White Blood Cell (WBC) Count 8.4 thou/uL (4.8-10.8)
[2022-03-28 05:23] LABS: Anion Gap 15 mmol/L (10-20); BUN (Urea Nitrogen) 42 mg/dL (9.8-20.1); Calc. Creatinine Clearance 43 mL/min (70-130); Calcium 8.6 mg/dL (7.8-10.44); Carbon Dioxide 25 mmol/L (23-31); Chloride 104 mmol/L (98-107); Estimated GFR 26; Glucose 184 mg/dL (80-115); Potassium 4.7 mmol/L (3.5-5.1); Sodium 139 mmol/L (136-145)
[2022-03-28] MEDS: HumaLOG 300 UNITS/3 ML VIAL SC PRN ×4 (05:52→21:06)
[2022-03-28] MEDS ORDERED: Furosemide 40 MG/4 ML VIAL SLOW IVP SCH ×4 (06:00→10:00)
[2022-03-28] MEDS: Enoxaparin Sodium 40 MG/0.4 ML SYRINGE SC SCH (09:16)
[2022-03-28] MEDS: Furosemide 40 MG/4 ML VIAL SLOW IVP SCH (15:19)
[2022-03-28] MEDS: DOBUTamine 500 mg/250 ml 250 ML IVPB SCH (17:40)
[2022-03-28] MEDS: Ondansetron PF 4 MG/2 ML Vial IVP PRN (21:05)
[2022-03-28] MEDS ORDERED: Fentanyl 100 MCG/2 ML VIAL SLOW IVP SCH (23:45)
[2022-03-29 05:19] LABS: #Basophils 0.1 thou/uL (0.0-0.2); #Eosinphils 0.6 thou/uL (0.0-0.7); #Lymphocytes 1.1 thou/uL (1.20-3.40); #Monocytes 0.9 thou/uL (0.11-0.59); #Neutrophils 6.1 thou/uL (1.40-6.50); %Basophils 0.6 % (0.0-1.0); %Eosinophils 6.6 % (0.0-10.0); %Lymphocytes 12.6 % (21.0-51.0); %Monocytes 10.6 % (0.0-10.0); %Neutrophils 69.6 % (42.0-75.0); Hemoglobin 8.5 g/dL (12.0-16.0); Mean Corpuscular HGB CONC 28.2 g/dL (32.0-36.0); Mean Corpuscular Hemoglobin 25.6 pg (27.0-31.0); Mean Corpuscular Volume 90.9 fL (78.0-98.0); Mean Platelet Volume 9.2 fL (7.4-10.4); Platelet Count 329 thou/uL (130-400); RBC Distribution Width 16.6 % (11.5-14.5); Red Blood Cell (RBC) Count 3.33 mill/uL (4.20-5.40); White Blood Cell (WBC) Count 8.8 thou/uL (4.8-10.8)
[2022-03-29 05:33] LABS: Anion Gap 14 mmol/L (10-20); BUN (Urea Nitrogen) 38 mg/dL (9.8-20.1); Calc. Creatinine Clearance 53 mL/min (70-130); Calcium 8.7 mg/dL (7.8-10.44); Carbon Dioxide 27 mmol/L (23-31); Chloride 102 mmol/L (98-107); Estimated GFR 35; Glucose 135 mg/dL (80-115); Potassium 4.6 mmol/L (3.5-5.1); Sodium 138 mmol/L (136-145)
[2022-03-29] MEDS: Furosemide 40 MG/4 ML VIAL SLOW IVP SCH ×2 (05:54→17:46)
[2022-03-29] MEDS ORDERED: Aspirin 81 mg Enteric Coated Tablet PO SCH (10:30)
[2022-03-29] MEDS ORDERED: Carvedilol 3.125 MG TAB PO SCH (10:45)
[2022-03-29] MEDS: DOBUTamine 500 mg/250 ml 250 ML IVPB SCH (10:56)
[2022-03-29] MEDS: Enoxaparin Sodium 40 MG/0.4 ML SYRINGE SC SCH (11:12)
[2022-03-29] MEDS: Carvedilol 3.125 MG TAB PO SCH (17:46)
[2022-03-29] MEDS: Morphine 2 MG/ML VIAL SLOW IVP PRN (21:00)
[2022-03-30] MEDS: DOBUTamine 500 mg/250 ml 250 ML IVPB SCH ×2 (04:28→22:19)
[2022-03-30 05:14] LABS: #Eosinphils 0.7 thou/uL (0.0-0.7); #Lymphocytes 0.9 thou/uL (1.20-3.40); #Monocytes 0.9 thou/uL (0.11-0.59); #Neutrophils 6.4 thou/uL (1.40-6.50); %Basophils 0.5 % (0.0-1.0); %Eosinophils 7.6 % (0.0-10.0); %Lymphocytes 10.4 % (21.0-51.0); %Neutrophils 71.5 % (42.0-75.0); Hemoglobin 8.5 g/dL (12.0-16.0); Mean Corpuscular HGB CONC 29.4 g/dL (32.0-36.0); Mean Corpuscular Hemoglobin 26.1 pg (27.0-31.0); Mean Platelet Volume 9.2 fL (7.4-10.4); Platelet Count 291 thou/uL (130-400); RBC Distribution Width 16.3 % (11.5-14.5); Red Blood Cell (RBC) Count 3.25 mill/uL (4.20-5.40); White Blood Cell (WBC) Count 8.9 thou/uL (4.8-10.8)
[2022-03-30 05:17] LABS: Anion Gap 12 mmol/L (10-20); BUN (Urea Nitrogen) 33 mg/dL (9.8-20.1); Calc. Creatinine Clearance 62 mL/min (70-130); Calcium 8.5 mg/dL (7.8-10.44); Carbon Dioxide 29 mmol/L (23-31); Chloride 100 mmol/L (98-107); Estimated GFR 42; Glucose 143 mg/dL (80-115); Potassium 4.6 mmol/L (3.5-5.1); Sodium 136 mmol/L (136-145)
[2022-03-30] MEDS: Furosemide 40 MG/4 ML VIAL SLOW IVP SCH ×2 (05:31→14:10)
[2022-03-30] MEDS: Ondansetron ODT 4 MG TAB PO PRN (06:40)
[2022-03-30] MEDS: Aspirin 81 mg Enteric Coated Tablet PO SCH (09:25)
[2022-03-30] MEDS: Carvedilol 3.125 MG TAB PO SCH ×2 (09:25→16:31)
[2022-03-30] MEDS: Enoxaparin Sodium 40 MG/0.4 ML SYRINGE SC SCH (09:26)
[2022-03-30] MEDS: HumaLOG 300 UNITS/3 ML VIAL SC PRN (16:38)
[2022-03-30] MEDS ORDERED: HYDROcodone/Acetaminophen 5/325 mg Tablet PO SCH (19:30)
[2022-03-31] MEDS ORDERED: HYDROcodone/Acetaminophen 5/325 mg Tablet PO SCH (03:45)
[2022-03-31 04:59] LABS: #Basophils 0.1 thou/uL (0.0-0.2); #Eosinphils 0.6 thou/uL (0.0-0.7); #Lymphocytes 1.4 thou/uL (1.20-3.40); #Monocytes 1.1 thou/uL (0.11-0.59); #Neutrophils 5.5 thou/uL (1.40-6.50); %Basophils 0.6 % (0.0-1.0); %Eosinophils 7.1 % (0.0-10.0); %Lymphocytes 16.3 % (21.0-51.0); %Monocytes 12.2 % (0.0-10.0); %Neutrophils 63.8 % (42.0-75.0); Hemoglobin 8.5 g/dL (12.0-16.0); Mean Corpuscular HGB CONC 29.2 g/dL (32.0-36.0); Mean Corpuscular Hemoglobin 25.9 pg (27.0-31.0); Mean Corpuscular Volume 88.5 fL (78.0-98.0); Mean Platelet Volume 9.2 fL (7.4-10.4); Platelet Count 266 thou/uL (130-400); Red Blood Cell (RBC) Count 3.28 mill/uL (4.20-5.40); White Blood Cell (WBC) Count 8.6 thou/uL (4.8-10.8)
[2022-03-31 05:11] LABS: Anion Gap 14 mmol/L (10-20); BUN (Urea Nitrogen) 29 mg/dL (9.8-20.1); Calc. Creatinine Clearance 61 mL/min (70-130); Calcium 8.6 mg/dL (7.8-10.44); Carbon Dioxide 28 mmol/L (23-31); Chloride 99 mmol/L (98-107); Estimated GFR 42; Glucose 136 mg/dL (80-115); Potassium 4.1 mmol/L (3.5-5.1); Sodium 137 mmol/L (136-145)
[2022-03-31] MEDS: Furosemide 40 MG/4 ML VIAL SLOW IVP SCH ×2 (06:16→15:20)
[2022-03-31] MEDS: Ondansetron PF 4 MG/2 ML Vial IVP PRN (06:19)
[2022-03-31] MEDS: Carvedilol 3.125 MG TAB PO SCH ×2 (08:45→16:45)
[2022-03-31] MEDS: Aspirin 81 mg Enteric Coated Tablet PO SCH (08:45)
[2022-03-31] MEDS: Enoxaparin Sodium 40 MG/0.4 ML SYRINGE SC SCH (08:45)
[2022-03-31] MEDS: HumaLOG 300 UNITS/3 ML VIAL SC PRN ×2 (11:30→17:42)
[2022-03-31] MEDS: Ferrous Sulfate 325 MG TAB PO SCH (16:45)
[2022-03-31] MEDS: Morphine 2 MG/ML VIAL SLOW IVP PRN (18:26)
[2022-03-31] MEDS: DOBUTamine 500 mg/250 ml 250 ML IVPB SCH (18:27)
[2022-03-31] MEDS: HYDROcodone/Acetaminophen 5/325 mg Tablet PO PRN (19:54)
[2022-04-01] MEDS: DOBUTamine 500 mg/250 ml 250 ML IVPB SCH (04:03)
[2022-04-01] MEDS: HYDROcodone/Acetaminophen 5/325 mg Tablet PO PRN ×3 (04:04→20:17)
[2022-04-01 04:48] LABS: Anion Gap 16 mmol/L (10-20); BUN (Urea Nitrogen) 32 mg/dL (9.8-20.1); Calc. Creatinine Clearance 58 mL/min (70-130); Calcium 8.3 mg/dL (7.8-10.44); Carbon Dioxide 27 mmol/L (23-31); Chloride 98 mmol/L (98-107); Estimated GFR 42; Glucose 182 mg/dL (80-115); Potassium 4.2 mmol/L (3.5-5.1); Sodium 137 mmol/L (136-145)
[2022-04-01 05:02] LABS: #Basophils 0.1 thou/uL (0.0-0.2); #Eosinphils 0.5 thou/uL (0.0-0.7); #Lymphocytes 1.1 thou/uL (1.20-3.40); #Neutrophils 6.2 thou/uL (1.40-6.50); %Basophils 0.9 % (0.0-1.0); %Lymphocytes 12.6 % (21.0-51.0); %Monocytes 10.7 % (0.0-10.0); %Neutrophils 69.7 % (42.0-75.0); Hemoglobin 8.4 g/dL (12.0-16.0); Mean Corpuscular HGB CONC 29.7 g/dL (32.0-36.0); Mean Corpuscular Hemoglobin 26.3 pg (27.0-31.0); Mean Corpuscular Volume 88.6 fL (78.0-98.0); Platelet Count 229 thou/uL (130-400); RBC Distribution Width 15.8 % (11.5-14.5); Red Blood Cell (RBC) Count 3.18 mill/uL (4.20-5.40)
[2022-04-01] MEDS: HumaLOG 300 UNITS/3 ML VIAL SC PRN ×2 (05:23→20:18)
[2022-04-01] MEDS: Furosemide 40 MG/4 ML VIAL SLOW IVP SCH ×2 (05:23→14:34)
[2022-04-01] MEDS: Ferrous Sulfate 325 MG TAB PO SCH ×2 (08:50→16:34)
[2022-04-01] MEDS: Enoxaparin Sodium 40 MG/0.4 ML SYRINGE SC SCH (08:52)
[2022-04-01] MEDS: Aspirin 81 mg Enteric Coated Tablet PO SCH (08:53)
[2022-04-01] MEDS: Carvedilol 3.125 MG TAB PO SCH ×2 (08:54→16:34)
[2022-04-01] MEDS: Apixaban 5 MG TAB PO SCH (20:17)
[2022-04-01] MEDS: Amiodarone 200 MG TAB PO SCH (20:17)
[2022-04-01] MEDS: Acetaminophen 325 MG TAB PO PRN (23:48)
[2022-04-01] MEDS: Morphine 2 MG/ML VIAL SLOW IVP PRN (23:48)
[2022-04-02] MEDS: HYDROcodone/Acetaminophen 5/325 mg Tablet PO PRN ×2 (01:21→05:41)
[2022-04-02 04:18] LABS: #Eosinphils 0.1 thou/uL (0.0-0.7); #Lymphocytes 1.1 thou/uL (1.20-3.40); #Neutrophils 7.5 thou/uL (1.40-6.50); %Basophils 0.4 % (0.0-1.0); %Eosinophils 1.3 % (0.0-10.0); %Lymphocytes 11.1 % (21.0-51.0); %Neutrophils 77.2 % (42.0-75.0); Hemoglobin 8.8 g/dL (12.0-16.0); Mean Corpuscular HGB CONC 29.1 g/dL (32.0-36.0); Mean Corpuscular Hemoglobin 25.7 pg (27.0-31.0); Mean Corpuscular Volume 88.4 fL (78.0-98.0); Mean Platelet Volume 9.2 fL (7.4-10.4); Platelet Count 219 thou/uL (130-400); RBC Distribution Width 16.1 % (11.5-14.5); Red Blood Cell (RBC) Count 3.42 mill/uL (4.20-5.40); White Blood Cell (WBC) Count 9.7 thou/uL (4.8-10.8)
[2022-04-02 04:36] LABS: Anion Gap 18 mmol/L (10-20); BUN (Urea Nitrogen) 35 mg/dL (9.8-20.1); Calc. Creatinine Clearance 49 mL/min (70-130); Carbon Dioxide 24 mmol/L (23-31); Chloride 96 mmol/L (98-107); Potassium 4.3 mmol/L (3.5-5.1); Sodium 134 mmol/L (136-145)
[2022-04-02 04:37] LABS: Calcium 8.4 mg/dL (7.8-10.44); Estimated GFR 39; Glucose 185 mg/dL (80-115)
[2022-04-02] MEDS: Furosemide 40 MG/4 ML VIAL SLOW IVP SCH (05:42)
[2022-04-02] MEDS: HumaLOG 300 UNITS/3 ML VIAL SC PRN (05:42)
[2022-04-02] MEDS: Amiodarone 200 MG TAB PO SCH ×2 (08:08→21:22)
[2022-04-02] MEDS: Carvedilol 3.125 MG TAB PO SCH ×2 (08:08→17:40)
[2022-04-02] MEDS: Aspirin 81 mg Enteric Coated Tablet PO SCH (08:08)
[2022-04-02] MEDS: Ferrous Sulfate 325 MG TAB PO SCH ×2 (08:08→17:40)
[2022-04-02] MEDS: Apixaban 5 MG TAB PO SCH ×2 (08:09→21:22)
[2022-04-03] MEDS: HYDROcodone/Acetaminophen 5/325 mg Tablet PO PRN ×3 (02:11→22:08)
[2022-04-03] MEDS: Furosemide 40 MG TAB PO SCH (06:13)
[2022-04-03] MEDS: HumaLOG 300 UNITS/3 ML VIAL SC PRN ×2 (06:18→22:15)
[2022-04-03] MEDS: Amiodarone 200 MG TAB PO SCH ×2 (07:50→22:08)
[2022-04-03] MEDS: Carvedilol 3.125 MG TAB PO SCH ×2 (07:51→16:30)
[2022-04-03] MEDS: Apixaban 5 MG TAB PO SCH ×2 (07:51→22:08)
[2022-04-03] MEDS: Ferrous Sulfate 325 MG TAB PO SCH ×2 (07:51→16:30)
[2022-04-03] MEDS: Aspirin 81 mg Enteric Coated Tablet PO SCH (07:51)
[2022-04-04] MEDS: HYDROcodone/Acetaminophen 5/325 mg Tablet PO PRN ×3 (01:21→20:06)
[2022-04-04] MEDS: HumaLOG 300 UNITS/3 ML VIAL SC PRN ×3 (05:41→20:39)
[2022-04-04] MEDS: Amiodarone 200 MG TAB PO SCH ×2 (09:10→20:02)
[2022-04-04] MEDS: Carvedilol 3.125 MG TAB PO SCH ×2 (09:10→17:03)
[2022-04-04] MEDS: Apixaban 5 MG TAB PO SCH ×2 (09:10→20:02)
[2022-04-04] MEDS: Furosemide 40 MG TAB PO SCH (09:10)
[2022-04-04] MEDS: Aspirin 81 mg Enteric Coated Tablet PO SCH (09:10)
[2022-04-04] MEDS: Ferrous Sulfate 325 MG TAB PO SCH ×2 (09:10→17:03)
[2022-04-05] MEDS: Ondansetron PF 4 MG/2 ML Vial IVP PRN (04:10)
[2022-04-05] MEDS: HumaLOG 300 UNITS/3 ML VIAL SC PRN ×4 (06:42→21:00)
[2022-04-05] MEDS ORDERED: PROPOFOL 20 ML ONE (08:26)
[2022-04-05] MEDS ORDERED: Lidocaine Viscous Sol 2% 15 ml UD Cup ONE (08:26)
[2022-04-05] MEDS ORDERED: PHENYLEPHRINE-NS 100 MCG/ML 10 ML SYRINGE ONE (08:36)
[2022-04-05] MEDS ORDERED: PROPOFOL 200 MG/20 ML VIAL ONE (08:36)
[2022-04-05] MEDS: Furosemide 40 MG TAB PO SCH (10:29)
[2022-04-05] MEDS: Ferrous Sulfate 325 MG TAB PO SCH ×2 (10:29→16:59)
[2022-04-05] MEDS: Carvedilol 3.125 MG TAB PO SCH ×2 (10:29→16:59)
[2022-04-05] MEDS: Apixaban 5 MG TAB PO SCH ×2 (10:30→20:49)
[2022-04-05] MEDS: Amiodarone 200 MG TAB PO SCH ×2 (10:30→20:49)
[2022-04-05] MEDS: Aspirin 81 mg Enteric Coated Tablet PO SCH (10:30)
[2022-04-05] MEDS ORDERED: Polyethylene Glycol 3350 17 GM Packet PO PRN (12:23)
[2022-04-05] MEDS ORDERED: Ondansetron ORAL SOLN. 4 MG/5 ML UDCUP PO PRN (12:24)
[2022-04-05] MEDS: HYDROcodone/Acetaminophen 5/325 mg Tablet PO PRN ×2 (12:26→17:01)
[2022-04-05] MEDS: Ondansetron ODT 4 MG TAB PO PRN (12:26)
[2022-04-05] MEDS ORDERED: Polyethylene Glycol 3350 17 GM Packet PO SCH (13:15)
[2022-04-06] MEDS: HYDROcodone/Acetaminophen 5/325 mg Tablet PO PRN (01:51)
[2022-04-06] MEDS: HumaLOG 300 UNITS/3 ML VIAL SC PRN (05:45)
[2022-04-06] MEDS ORDERED: Empagliflozin 10 MG TAB PO SCH (09:00)
[2022-04-06] MEDS ORDERED: Polyethylene Glycol 3350 17 GM Packet PO SCH (09:00)
[2022-04-06] MEDS: Ferrous Sulfate 325 MG TAB PO SCH (10:13)
[2022-04-06] MEDS: Amiodarone 200 MG TAB PO SCH (10:13)
[2022-04-06] MEDS: Furosemide 40 MG TAB PO SCH (10:13)
[2022-04-06] MEDS: Carvedilol 3.125 MG TAB PO SCH (10:13)
[2022-04-06] MEDS: Apixaban 5 MG TAB PO SCH (10:14)
[2022-04-06] MEDS: Aspirin 81 mg Enteric Coated Tablet PO SCH (10:14)
[2022-04-06 12:36] VITALS: BP 137/68; TEMP 97.1
== END 2022-04-06 17:15 | disposition home health service (06) | DRG 291 ==
LOC: ERS 20:57 → 2NO 23:15
PROVIDERS: ADMIT Hospitalist; ATTEND Hospitalist
PROC: B24BZZ4 Ultrasonography of Heart with Aorta, Transesophageal (ICD-10-PCS; principal; 2022-04-05)
PROC: 5A2204Z Restoration of Cardiac Rhythm, Single (ICD-10-PCS; 2022-04-05)
DX: I13.0 Hypertensive heart and chronic kidney disease with heart failure and stage 1 through stage 4 chronic kidney disease, or unspecified chronic kidney disease (principal); I50.23 Acute on chronic systolic (congestive) heart failure; J96.21 Acute and chronic respiratory failure with hypoxia; N17.9 Acute kidney failure, unspecified; I24.8 Other forms of acute ischemic heart disease; L03.115 Cellulitis of right lower limb; I48.92 Unspecified atrial flutter; M86.9 Osteomyelitis, unspecified; I25.10 Atherosclerotic heart disease of native coronary artery without angina pectoris; E11.51 Type 2 diabetes mellitus with diabetic peripheral angiopathy without gangrene; M54.9 Dorsalgia, unspecified; E87.5 Hyperkalemia; N18.9 Chronic kidney disease, unspecified; E11.22 Type 2 diabetes mellitus with diabetic chronic kidney disease; I25.5 Ischemic cardiomyopathy; G89.29 Other chronic pain; E11.69 Type 2 diabetes mellitus with other specified complication; E78.5 Hyperlipidemia, unspecified; I34.0 Nonrheumatic mitral (valve) insufficiency; D63.1 Anemia in chronic kidney disease; Z90.49 Acquired absence of other specified parts of digestive tract; Z90.710 Acquired absence of both cervix and uterus; Z88.1 Allergy status to other antibiotic agents; Z88.8 Allergy status to other drugs, medicaments and biological substances; Z91.048 Other nonmedicinal substance allergy status; Z91.040 Latex allergy status; Z79.84 Long term (current) use of oral hypoglycemic drugs; Z79.4 Long term (current) use of insulin; Z79.82 Long term (current) use of aspirin; Z79.899 Other long term (current) drug therapy; Z79.01 Long term (current) use of anticoagulants; Z86.711 Personal history of pulmonary embolism; Z95.810 Presence of automatic (implantable) cardiac defibrillator; Z99.81 Dependence on supplemental oxygen
CPT/HCPCS: 36415; 36416; 71045; 76770; 80048; 80053; 81001; 82550; 82553; 83735; 83880; 84484; 85025; 85610; 85730; 87811; 92960; 93005; 93010; 93312; 94640; 96372; 96374; 97139; J1250; J1650; J1815; J1940; J2270; J2405; J2704; J3010; J7620; Q0162; U0003; U0005

== ENCOUNTER 2022-04-07 02:59 | Inpatient (IN) | payer MEDICARE ==
[2022-04-07 04:08] LABS: Actual Bicarbonate (HCO3v) 26 mEq/L (22-28); Base Excess 0.6 mEq/L (-2.0 to +3.0); Calcium, Ionized (venous) 1.04 mmol/L (1.16-1.32); Chloride (VBG) 96 mmol/L (98-106); Hemoglobin (Hb) 9.4 g/dL (11.7-16.1); Potassium (VBG) 4.72 mmol/L (3.70-5.30); Sodium 134.7 mmol/L (133-146); pH (venous) 7.36 (7.32-7.43)
[2022-04-07 04:14] LABS: #Eosinphils 0.2 thou/uL (0.0-0.7); #Monocytes 0.7 thou/uL (0.11-0.59); #Neutrophils 5.9 thou/uL (1.40-6.50); %Basophils 0.5 % (0.0-1.0); %Eosinophils 2.6 % (0.0-10.0); %Lymphocytes 12.5 % (21.0-51.0); %Monocytes 8.7 % (0.0-10.0); %Neutrophils 75.6 % (42.0-75.0); Hemoglobin 8.5 g/dL (12.0-16.0); Mean Corpuscular HGB CONC 29.7 g/dL (32.0-36.0); Mean Corpuscular Hemoglobin 26.2 pg (27.0-31.0); Mean Corpuscular Volume 88.2 fL (78.0-98.0); Mean Platelet Volume 10.7 fL (7.4-10.4); Platelet Count 167 thou/uL (130-400); RBC Distribution Width 16.4 % (11.5-14.5); Red Blood Cell (RBC) Count 3.22 mill/uL (4.20-5.40); White Blood Cell (WBC) Count 7.8 thou/uL (4.8-10.8)
[2022-04-07 04:26] LABS: ALT (SGPT) 52 U/L (8-55); AST (SGOT) 50 U/L (5-34); Albumin 3.3 g/dL (3.4-4.8); Alkaline Phosphatase 159 U/L (40-110); Anion Gap 21 mmol/L (10-20); BUN (Urea Nitrogen) 67 mg/dL (9.8-20.1); Bilirubin, Total 1.2 mg/dL (0.2-1.2); Calc. Creatinine Clearance 0 mL/min (70-130); Calcium 8.7 mg/dL (7.8-10.44); Carbon Dioxide 23 mmol/L (23-31); Chloride 97 mmol/L (98-107); Estimated GFR 23; Globulin 4.8 g/dL (2.4-3.5); Glucose 244 mg/dL (80-115); Potassium 4.7 mmol/L (3.5-5.1); Protein, Total 8.1 g/dL (5.8-8.1); Sodium 136 mmol/L (136-145)
[2022-04-07] MEDS ORDERED: Ondansetron PF 4 MG/2 ML Vial ONE (05:13)
[2022-04-07] MEDS ORDERED: Furosemide 40 MG/4 ML VIAL ONE (06:18)
[2022-04-07] MEDS ORDERED: Acetaminophen 325 MG TAB PO PRN (08:14)
[2022-04-07] MEDS ORDERED: Ondansetron ODT 4 MG TAB PO PRN (08:14)
[2022-04-07] MEDS ORDERED: Ondansetron PF 4 MG/2 ML Vial IVP PRN (08:14)
[2022-04-07] MEDS: Carvedilol 3.125 MG TAB PO SCH ×2 (08:48→20:35)
[2022-04-07] MEDS ORDERED: Spironolactone 25 MG TAB PO SCH (09:00)
[2022-04-07] MEDS: Sodium Chloride 0.45% 1,000 ML IV SCH (11:30)
[2022-04-07] MEDS ORDERED: FLU VACC QS2022-23(65YR UP)/PF 240 MCG/0.7 ML SYRINGE IM ONE (14:00)
[2022-04-07] MEDS ORDERED: Furosemide 40 MG/4 ML VIAL SLOW IVP SCH (14:00)
[2022-04-07] MEDS ORDERED: Dextrose 5% in Water 1,000 ML IV PRN (18:55)
[2022-04-07] MEDS ORDERED: Dextrose 50% Abboject 50 ML SYRINGE SLOW IVP PRN (18:55)
[2022-04-07] MEDS: Apixaban 5 MG TAB PO SCH (20:35)
[2022-04-07] MEDS: HYDROcodone/Acetaminophen 5/325 mg Tablet PO PRN (20:37)
[2022-04-08] MEDS ORDERED: diphenhydrAMINE 25 MG CAP PO SCH ×2 (00:30→21:15)
[2022-04-08] MEDS: Sodium Chloride 0.45% 1,000 ML IV SCH ×2 (00:49→17:31)
[2022-04-08 04:34] LABS: Anion Gap 19 mmol/L (10-20); BUN (Urea Nitrogen) 70 mg/dL (9.8-20.1); Calc. Creatinine Clearance 35 mL/min (70-130); Calcium 8.5 mg/dL (7.8-10.44); Carbon Dioxide 22 mmol/L (23-31); Chloride 98 mmol/L (98-107); Estimated GFR 24; Glucose 228 mg/dL (80-115); Potassium 4.4 mmol/L (3.5-5.1); Sodium 135 mmol/L (136-145)
[2022-04-08] MEDS: HumaLOG 300 UNITS/3 ML VIAL SC PRN ×2 (06:07→12:57)
[2022-04-08] MEDS ORDERED: Aspirin 81 mg Enteric Coated Tablet PO SCH (09:00)
[2022-04-08] MEDS: Carvedilol 3.125 MG TAB PO SCH ×2 (09:33→17:26)
[2022-04-08] MEDS: Apixaban 5 MG TAB PO SCH ×2 (09:33→21:13)
[2022-04-08] MEDS: Amiodarone 200 MG TAB PO SCH (09:33)
[2022-04-08] MEDS: HYDROcodone/Acetaminophen 5/325 mg Tablet PO PRN ×2 (09:42→21:11)
[2022-04-08] MEDS ORDERED: Calcium Carbonate 500 MG ChewTAB PO PRN (11:53)
[2022-04-08] MEDS ORDERED: Albuterol Sulfate 2.5 mg/3 ml Neb NEB PRN (11:53)
[2022-04-08] MEDS ORDERED: Nitroglycerin 0.4 MG TAB (25 Tab Bottle) SL PRN (11:53)
[2022-04-08] MEDS: Ferrous Sulfate 325 MG TAB PO SCH (17:26)
[2022-04-08] MEDS ORDERED: Amiodarone 200 MG TAB PO SCH (21:00)
[2022-04-08] MEDS: Atorvastatin Calcium 40 MG TAB PO SCH (21:13)
[2022-04-08] MEDS: Insulin Regular 300 UNITS/3 ML VIAL SC PRN (21:15)
[2022-04-09] MEDS: HumaLOG 300 UNITS/3 ML VIAL SC PRN ×2 (06:04→13:21)
[2022-04-09] MEDS: Sodium Chloride 0.45% 1,000 ML IV SCH (06:08)
[2022-04-09 08:19] LABS: #Basophils 0.1 thou/uL (0.0-0.2); #Eosinphils 0.5 thou/uL (0.0-0.7); #Lymphocytes 1.1 thou/uL (1.20-3.40); #Monocytes 0.8 thou/uL (0.11-0.59); %Basophils 1.1 % (0.0-1.0); %Eosinophils 6.2 % (0.0-10.0); %Monocytes 10.7 % (0.0-10.0); Mean Corpuscular HGB CONC 28.8 g/dL (32.0-36.0); Mean Corpuscular Hemoglobin 25.9 pg (27.0-31.0); Mean Corpuscular Volume 89.8 fL (78.0-98.0); Mean Platelet Volume 10.1 fL (7.4-10.4); Platelet Count 175 thou/uL (130-400); RBC Distribution Width 16.9 % (11.5-14.5); Red Blood Cell (RBC) Count 3.07 mill/uL (4.20-5.40); White Blood Cell (WBC) Count 7.4 thou/uL (4.8-10.8)
[2022-04-09 08:42] LABS: Anion Gap 16 mmol/L (10-20); BUN (Urea Nitrogen) 66 mg/dL (9.8-20.1); Calc. Creatinine Clearance 41 mL/min (70-130); Calcium 8.3 mg/dL (7.8-10.44); Carbon Dioxide 24 mmol/L (23-31); Chloride 98 mmol/L (98-107); Estimated GFR 29; Glucose 222 mg/dL (80-115); Potassium 4.1 mmol/L (3.5-5.1); Sodium 134 mmol/L (136-145)
[2022-04-09 08:49] LABS: Hypochromia MODERATE=16-30 cells (100X) (0-5/hpf); MDiff Complete? YES; Platelet Morphology Comment Appears Adequate; Polychromasia SLIGHT = 2-3 cells (100X) (0-2/hpf)
[2022-04-09] MEDS: Apixaban 5 MG TAB PO SCH ×2 (09:09→20:49)
[2022-04-09] MEDS: Aspirin 81 mg Enteric Coated Tablet PO SCH (09:09)
[2022-04-09] MEDS: Amiodarone 200 MG TAB PO SCH (09:09)
[2022-04-09] MEDS: Ferrous Sulfate 325 MG TAB PO SCH ×2 (09:09→16:28)
[2022-04-09] MEDS: Carvedilol 3.125 MG TAB PO SCH ×2 (09:09→16:28)
[2022-04-09] MEDS: Empagliflozin 10 MG TAB PO SCH (09:10)
[2022-04-09] MEDS: Magnesium Oxide 400 MG TAB PO SCH (09:10)
[2022-04-09] MEDS: Insulin Glargine 30 UNITS/0.3 ML VIAL SC SCH (09:10)
[2022-04-09] MEDS: Clopidogrel Bisulfate 75 MG TAB PO SCH (09:10)
[2022-04-09] MEDS: Sertraline 25 MG TAB PO SCH (09:11)
[2022-04-09] MEDS: Saccharomyces boulardii 250 MG CAP PO SCH (09:11)
[2022-04-09] MEDS: HYDROcodone/Acetaminophen 5/325 mg Tablet PO PRN ×2 (13:18→20:49)
[2022-04-09] MEDS ORDERED: Morphine 2 MG/ML VIAL SLOW IVP PRN (14:53)
[2022-04-09] MEDS: Melatonin 3 MG TAB PO SCH (20:49)
[2022-04-09] MEDS: Insulin Regular 300 UNITS/3 ML VIAL SC PRN (20:49)
[2022-04-09] MEDS: Atorvastatin Calcium 40 MG TAB PO SCH (20:49)
[2022-04-10] MEDS ORDERED: diphenhydrAMINE 25 MG CAP PO SCH (00:45)
[2022-04-10] MEDS: HYDROcodone/Acetaminophen 5/325 mg Tablet PO PRN ×4 (02:54→22:25)
[2022-04-10 05:08] LABS: Anion Gap 17 mmol/L (10-20); BUN (Urea Nitrogen) 65 mg/dL (9.8-20.1); Calc. Creatinine Clearance 43 mL/min (70-130); Calcium 8.5 mg/dL (7.8-10.44); Carbon Dioxide 24 mmol/L (23-31); Chloride 98 mmol/L (98-107); Estimated GFR 31; Glucose 184 mg/dL (80-115); Potassium 4.5 mmol/L (3.5-5.1); Sodium 134 mmol/L (136-145)
[2022-04-10] MEDS: HumaLOG 300 UNITS/3 ML VIAL SC PRN ×2 (06:21→11:36)
[2022-04-10] MEDS: Carvedilol 3.125 MG TAB PO SCH ×2 (09:11→15:57)
[2022-04-10] MEDS: Insulin Glargine 30 UNITS/0.3 ML VIAL SC SCH (09:12)
[2022-04-10] MEDS: Clopidogrel Bisulfate 75 MG TAB PO SCH (09:12)
[2022-04-10] MEDS: Amiodarone 200 MG TAB PO SCH (09:12)
[2022-04-10] MEDS: Ferrous Sulfate 325 MG TAB PO SCH ×2 (09:12→15:57)
[2022-04-10] MEDS: Apixaban 5 MG TAB PO SCH ×2 (09:12→21:52)
[2022-04-10] MEDS: Aspirin 81 mg Enteric Coated Tablet PO SCH (09:12)
[2022-04-10] MEDS: Empagliflozin 10 MG TAB PO SCH (09:12)
[2022-04-10] MEDS: Saccharomyces boulardii 250 MG CAP PO SCH (09:13)
[2022-04-10] MEDS: Sertraline 25 MG TAB PO SCH (09:13)
[2022-04-10] MEDS: Magnesium Oxide 400 MG TAB PO SCH (09:13)
[2022-04-10] MEDS: ALPRAZolam 0.25 MG TAB PO PRN ×2 (11:34→17:26)
[2022-04-10] MEDS: Melatonin 3 MG TAB PO SCH (21:52)
[2022-04-10] MEDS: Atorvastatin Calcium 40 MG TAB PO SCH (21:52)
[2022-04-11] MEDS: ALPRAZolam 0.25 MG TAB PO PRN (01:16)
[2022-04-11] MEDS: Amiodarone 200 MG TAB PO SCH (09:41)
[2022-04-11] MEDS: Carvedilol 3.125 MG TAB PO SCH ×2 (09:42→18:00)
[2022-04-11] MEDS: Ferrous Sulfate 325 MG TAB PO SCH ×2 (09:42→18:00)
[2022-04-11] MEDS: Apixaban 5 MG TAB PO SCH ×2 (09:42→21:19)
[2022-04-11] MEDS: Magnesium Oxide 400 MG TAB PO SCH (09:42)
[2022-04-11] MEDS: Sertraline 25 MG TAB PO SCH (09:42)
[2022-04-11] MEDS: Empagliflozin 10 MG TAB PO SCH (09:42)
[2022-04-11] MEDS: Saccharomyces boulardii 250 MG CAP PO SCH (09:43)
[2022-04-11] MEDS: Aspirin 81 mg Enteric Coated Tablet PO SCH (09:43)
[2022-04-11] MEDS: Insulin Glargine 30 UNITS/0.3 ML VIAL SC SCH (09:43)
[2022-04-11] MEDS: Clopidogrel Bisulfate 75 MG TAB PO SCH (09:43)
[2022-04-11] MEDS: HumaLOG 300 UNITS/3 ML VIAL SC PRN (12:21)
[2022-04-11] MEDS: HYDROcodone/Acetaminophen 5/325 mg Tablet PO PRN (18:01)
[2022-04-11] MEDS: Atorvastatin Calcium 40 MG TAB PO SCH (21:19)
[2022-04-11] MEDS: Melatonin 3 MG TAB PO SCH (21:19)
[2022-04-12] MEDS: HYDROcodone/Acetaminophen 5/325 mg Tablet PO PRN ×4 (00:47→23:50)
[2022-04-12] MEDS: ALPRAZolam 0.25 MG TAB PO PRN ×4 (01:43→21:29)
[2022-04-12] MEDS: HumaLOG 300 UNITS/3 ML VIAL SC PRN ×3 (06:12→17:38)
[2022-04-12] MEDS: Insulin Glargine 30 UNITS/0.3 ML VIAL SC SCH (08:53)
[2022-04-12] MEDS: Ferrous Sulfate 325 MG TAB PO SCH ×2 (08:54→17:38)
[2022-04-12] MEDS: Empagliflozin 10 MG TAB PO SCH (08:54)
[2022-04-12] MEDS: Saccharomyces boulardii 250 MG CAP PO SCH (08:54)
[2022-04-12] MEDS: Apixaban 5 MG TAB PO SCH ×2 (08:54→21:29)
[2022-04-12] MEDS: Furosemide 40 MG TAB PO SCH (08:54)
[2022-04-12] MEDS: Aspirin 81 mg Enteric Coated Tablet PO SCH (08:54)
[2022-04-12] MEDS: Sertraline 25 MG TAB PO SCH (08:54)
[2022-04-12] MEDS: Amiodarone 200 MG TAB PO SCH ×2 (08:54→21:29)
[2022-04-12] MEDS: Magnesium Oxide 400 MG TAB PO SCH (08:55)
[2022-04-12] MEDS: Clopidogrel Bisulfate 75 MG TAB PO SCH (08:55)
[2022-04-12] MEDS: Carvedilol 3.125 MG TAB PO SCH ×2 (08:55→17:38)
[2022-04-12 12:57] LABS: #Eosinphils 0.2 thou/uL (0.0-0.7); #Lymphocytes 0.9 thou/uL (1.20-3.40); #Monocytes 0.7 thou/uL (0.11-0.59); #Neutrophils 4.9 thou/uL (1.40-6.50); %Basophils 0.5 % (0.0-1.0); %Eosinophils 3.6 % (0.0-10.0); %Lymphocytes 12.5 % (21.0-51.0); %Monocytes 10.9 % (0.0-10.0); %Neutrophils 72.5 % (42.0-75.0); Hemoglobin 7.1 g/dL (12.0-16.0); Mean Corpuscular HGB CONC 28.7 g/dL (32.0-36.0); Mean Corpuscular Hemoglobin 25.7 pg (27.0-31.0); Mean Corpuscular Volume 89.4 fL (78.0-98.0); Mean Platelet Volume 9.8 fL (7.4-10.4); Platelet Count 228 thou/uL (130-400); RBC Distribution Width 16.7 % (11.5-14.5); Red Blood Cell (RBC) Count 2.77 mill/uL (4.20-5.40); White Blood Cell (WBC) Count 6.8 thou/uL (4.8-10.8)
[2022-04-12 13:13] LABS: Anion Gap 15 mmol/L (10-20); BUN (Urea Nitrogen) 60 mg/dL (9.8-20.1); Calc. Creatinine Clearance 50 mL/min (70-130); Calcium 8.3 mg/dL (7.8-10.44); Carbon Dioxide 26 mmol/L (23-31); Chloride 100 mmol/L (98-107); Estimated GFR 35; Glucose 241 mg/dL (80-115); Potassium 4.7 mmol/L (3.5-5.1); Sodium 136 mmol/L (136-145)
[2022-04-12] MEDS: Melatonin 3 MG TAB PO SCH (21:29)
[2022-04-12] MEDS: Atorvastatin Calcium 40 MG TAB PO SCH (21:29)
[2022-04-13 04:16] LABS: #Basophils 0.1 thou/uL (0.0-0.2); #Eosinphils 0.4 thou/uL (0.0-0.7); #Lymphocytes 1.2 thou/uL (1.20-3.40); #Monocytes 0.8 thou/uL (0.11-0.59); #Neutrophils 4.3 thou/uL (1.40-6.50); %Basophils 0.8 % (0.0-1.0); %Eosinophils 5.7 % (0.0-10.0); %Lymphocytes 17.6 % (21.0-51.0); %Neutrophils 63.8 % (42.0-75.0); Mean Corpuscular HGB CONC 29.1 g/dL (32.0-36.0); Mean Corpuscular Volume 89.3 fL (78.0-98.0); Mean Platelet Volume 9.9 fL (7.4-10.4); Platelet Count 239 thou/uL (130-400); RBC Distribution Width 16.5 % (11.5-14.5); Red Blood Cell (RBC) Count 2.69 mill/uL (4.20-5.40); White Blood Cell (WBC) Count 6.7 thou/uL (4.8-10.8)
[2022-04-13] MEDS: ALPRAZolam 0.25 MG TAB PO PRN ×2 (06:08→20:41)
[2022-04-13] MEDS: Ferrous Sulfate 325 MG TAB PO SCH ×2 (09:06→18:17)
[2022-04-13] MEDS: Insulin Glargine 30 UNITS/0.3 ML VIAL SC SCH (09:06)
[2022-04-13] MEDS: Amiodarone 200 MG TAB PO SCH ×2 (09:07→20:41)
[2022-04-13] MEDS: Sertraline 100 MG TAB PO SCH (09:07)
[2022-04-13] MEDS: Aspirin 81 mg Enteric Coated Tablet PO SCH (09:07)
[2022-04-13] MEDS: Furosemide 40 MG TAB PO SCH (09:07)
[2022-04-13] MEDS: Apixaban 5 MG TAB PO SCH ×2 (09:07→20:42)
[2022-04-13] MEDS: Empagliflozin 10 MG TAB PO SCH (09:07)
[2022-04-13] MEDS: Magnesium Oxide 400 MG TAB PO SCH (09:07)
[2022-04-13] MEDS: Carvedilol 3.125 MG TAB PO SCH ×2 (09:07→18:17)
[2022-04-13] MEDS: Saccharomyces boulardii 250 MG CAP PO SCH (09:07)
[2022-04-13] MEDS: Clopidogrel Bisulfate 75 MG TAB PO SCH (09:07)
[2022-04-13] MEDS ORDERED: Epoetin (ESRD) 20,000 UNITS/ML SC SCH (09:15)
[2022-04-13] MEDS: Epoetin (ESRD) 10,000 UNITS/ML VIAL SC SCH (14:12)
[2022-04-13] MEDS: Melatonin 3 MG TAB PO SCH (20:41)
[2022-04-13] MEDS: Atorvastatin Calcium 40 MG TAB PO SCH (20:41)
[2022-04-13] MEDS: HYDROcodone/Acetaminophen 5/325 mg Tablet PO PRN (22:32)
[2022-04-14] MEDS: ALPRAZolam 0.25 MG TAB PO PRN (03:44)
[2022-04-14 04:44] LABS: #Eosinphils 0.3 thou/uL (0.0-0.7); #Lymphocytes 1.1 thou/uL (1.20-3.40); #Monocytes 0.6 thou/uL (0.11-0.59); #Neutrophils 4.3 thou/uL (1.40-6.50); %Basophils 0.6 % (0.0-1.0); %Eosinophils 4.1 % (0.0-10.0); %Lymphocytes 17.4 % (21.0-51.0); %Monocytes 9.5 % (0.0-10.0); %Neutrophils 68.4 % (42.0-75.0); Hemoglobin 6.3 g/dL (12.0-16.0); Mean Corpuscular HGB CONC 28.6 g/dL (32.0-36.0); Mean Corpuscular Hemoglobin 25.6 pg (27.0-31.0); Mean Corpuscular Volume 89.6 fL (78.0-98.0); Mean Platelet Volume 9.9 fL (7.4-10.4); Platelet Count 233 thou/uL (130-400); RBC Distribution Width 16.5 % (11.5-14.5); Red Blood Cell (RBC) Count 2.47 mill/uL (4.20-5.40); White Blood Cell (WBC) Count 6.3 thou/uL (4.8-10.8)
[2022-04-14 07:40] LABS: Chloride 102 mmol/L (98-107); Potassium 4.8 mmol/L (3.5-5.1); Sodium 138 mmol/L (136-145)
[2022-04-14 07:41] LABS: Calcium 8.1 mg/dL (7.8-10.44); Glucose 157 mg/dL (80-115)
[2022-04-14 07:42] LABS: Anion Gap 17 mmol/L (10-20); Carbon Dioxide 24 mmol/L (23-31)
[2022-04-14 07:44] LABS: Calc. Creatinine Clearance 50 mL/min (70-130); Estimated GFR 36
[2022-04-14 07:45] LABS: BUN (Urea Nitrogen) 69 mg/dL (9.8-20.1)
[2022-04-14] MEDS: Furosemide 40 MG TAB PO SCH (08:46)
[2022-04-14] MEDS: Carvedilol 3.125 MG TAB PO SCH ×2 (08:46→17:36)
[2022-04-14] MEDS: Insulin Glargine 30 UNITS/0.3 ML VIAL SC SCH (08:47)
[2022-04-14] MEDS: Saccharomyces boulardii 250 MG CAP PO SCH (08:47)
[2022-04-14] MEDS: Sertraline 100 MG TAB PO SCH (08:47)
[2022-04-14] MEDS: Ferrous Sulfate 325 MG TAB PO SCH ×2 (08:47→17:36)
[2022-04-14] MEDS: Empagliflozin 10 MG TAB PO SCH (08:47)
[2022-04-14] MEDS: Magnesium Oxide 400 MG TAB PO SCH (08:47)
[2022-04-14] MEDS: Amiodarone 200 MG TAB PO SCH ×2 (08:47→21:00)
[2022-04-14] MEDS: Aspirin 81 mg Enteric Coated Tablet PO SCH (09:05)
[2022-04-14] MEDS: Clopidogrel Bisulfate 75 MG TAB PO SCH (09:05)
[2022-04-14] MEDS: Apixaban 5 MG TAB PO SCH (09:05)
[2022-04-14] MEDS: HYDROcodone/Acetaminophen 5/325 mg Tablet PO PRN (17:36)
[2022-04-14 19:13] LABS: Reticulocyte Count 3.9 % (0.5-1.5)
[2022-04-14 19:28] LABS: PTT 53.5 sec (22.9-36.1); Prothrombin Time 32.2 sec (12.0-14.7)
[2022-04-14 19:48] LABS: Iron 139 ug/dL (50-170); Iron Binding Capacity, Total 381 mcg/dL (265-497)
[2022-04-14] MEDS: Atorvastatin Calcium 40 MG TAB PO SCH (21:00)
[2022-04-14] MEDS: Melatonin 3 MG TAB PO SCH (21:00)
[2022-04-14] MEDS: traZODone HCl 50 MG TAB PO SCH (21:01)
[2022-04-15] MEDS: HYDROcodone/Acetaminophen 5/325 mg Tablet PO PRN ×2 (02:05→23:45)
[2022-04-15 04:45] LABS: #Eosinphils 0.1 thou/uL (0.0-0.7); #Lymphocytes 1.1 thou/uL (1.20-3.40); #Monocytes 0.7 thou/uL (0.11-0.59); #Neutrophils 5.9 thou/uL (1.40-6.50); %Basophils 0.1 % (0.0-1.0); %Eosinophils 1.9 % (0.0-10.0); %Lymphocytes 14.3 % (21.0-51.0); %Monocytes 9.1 % (0.0-10.0); %Neutrophils 74.6 % (42.0-75.0); Mean Corpuscular HGB CONC 30.1 g/dL (32.0-36.0); Mean Corpuscular Hemoglobin 27.1 pg (27.0-31.0); Mean Corpuscular Volume 89.8 fL (78.0-98.0); Mean Platelet Volume 9.7 fL (7.4-10.4); Platelet Count 237 thou/uL (130-400); RBC Distribution Width 16.3 % (11.5-14.5); White Blood Cell (WBC) Count 7.9 thou/uL (4.8-10.8)
[2022-04-15 05:23] LABS: Anion Gap 18 mmol/L (10-20); BUN (Urea Nitrogen) 85 mg/dL (9.8-20.1); Calc. Creatinine Clearance 49 mL/min (70-130); Calcium 7.9 mg/dL (7.8-10.44); Carbon Dioxide 23 mmol/L (23-31); Chloride 102 mmol/L (98-107); Estimated GFR 35; Glucose 219 mg/dL (80-115); Potassium 4.8 mmol/L (3.5-5.1); Sodium 138 mmol/L (136-145)
[2022-04-15] MEDS ORDERED: Furosemide 40 MG/4 ML VIAL SLOW IVP SCH (08:45)
[2022-04-15] MEDS: Aspirin 81 mg Enteric Coated Tablet PO SCH (11:42)
[2022-04-15] MEDS: Sertraline 100 MG TAB PO SCH (11:42)
[2022-04-15] MEDS: Clopidogrel Bisulfate 75 MG TAB PO SCH (11:42)
[2022-04-15] MEDS: Ferrous Sulfate 325 MG TAB PO SCH ×2 (11:42→17:45)
[2022-04-15] MEDS: Saccharomyces boulardii 250 MG CAP PO SCH (11:42)
[2022-04-15] MEDS: Amiodarone 200 MG TAB PO SCH ×2 (11:42→22:36)
[2022-04-15] MEDS: Carvedilol 3.125 MG TAB PO SCH ×2 (11:42→17:45)
[2022-04-15] MEDS: Magnesium Oxide 400 MG TAB PO SCH (11:42)
[2022-04-15] MEDS: Insulin Glargine 30 UNITS/0.3 ML VIAL SC SCH (11:43)
[2022-04-15] MEDS: Empagliflozin 10 MG TAB PO SCH (11:44)
[2022-04-15 12:14] LABS: Glucose 220 mg/dL (80-115)
[2022-04-15] MEDS: HumaLOG 300 UNITS/3 ML VIAL SC PRN (13:39)
[2022-04-15] MEDS: Furosemide 40 MG TAB PO SCH (17:45)
[2022-04-15] MEDS: Atorvastatin Calcium 40 MG TAB PO SCH (22:36)
[2022-04-15] MEDS: Melatonin 3 MG TAB PO SCH (22:36)
[2022-04-15] MEDS: traZODone HCl 50 MG TAB PO SCH (22:36)
[2022-04-16 04:55] LABS: INR-International Normal Ratio 3.2; Prothrombin Time 33.4 sec (12.0-14.7)
[2022-04-16 04:56] LABS: PTT 50.6 sec (22.9-36.1)
[2022-04-16 05:33] LABS: Hemoglobin 6.3 g/dL (12.0-16.0); Mean Corpuscular HGB CONC 31.3 g/dL (32.0-36.0); Mean Corpuscular Hemoglobin 28.4 pg (27.0-31.0); Mean Corpuscular Volume 90.8 fL (78.0-98.0); Mean Platelet Volume 9.8 fL (7.4-10.4); Platelet Count 234 thou/uL (130-400); RBC Distribution Width 15.8 % (11.5-14.5); Red Blood Cell (RBC) Count 2.23 mill/uL (4.20-5.40); White Blood Cell (WBC) Count 9.8 thou/uL (4.8-10.8)
[2022-04-16 05:34] LABS: Band 5 % (5-11); Lymphocytes 15 % (21-51); MDiff Complete? YES; Monocytes 4 % (0-10); Neutrophil 75 % (42-75); Nucleated RBC 2 % (0)
[2022-04-16 05:37] LABS: Anion Gap 16 mmol/L (10-20); BUN (Urea Nitrogen) 107 mg/dL (9.8-20.1); Bilirubin, Total 1.3 mg/dL (0.2-1.2); Calc. Creatinine Clearance 45 mL/min (70-130); Calcium 7.9 mg/dL (7.8-10.44); Carbon Dioxide 25 mmol/L (23-31); Chloride 103 mmol/L (98-107); Estimated GFR 31; Glucose 250 mg/dL (80-115); Potassium 4.6 mmol/L (3.5-5.1); Sodium 139 mmol/L (136-145)
[2022-04-16] MEDS ORDERED: Furosemide 40 MG/4 ML VIAL SLOW IVP SCH (09:00)
[2022-04-16] MEDS: Magnesium Oxide 400 MG TAB PO SCH (09:40)
[2022-04-16] MEDS: Aspirin 81 mg Enteric Coated Tablet PO SCH (09:40)
[2022-04-16] MEDS: Saccharomyces boulardii 250 MG CAP PO SCH (09:40)
[2022-04-16] MEDS: Amiodarone 200 MG TAB PO SCH ×2 (09:41→21:11)
[2022-04-16] MEDS: Ferrous Sulfate 325 MG TAB PO SCH ×2 (09:41→17:19)
[2022-04-16] MEDS: Carvedilol 3.125 MG TAB PO SCH ×2 (09:41→17:19)
[2022-04-16] MEDS: Empagliflozin 10 MG TAB PO SCH (09:41)
[2022-04-16] MEDS: Sertraline 100 MG TAB PO SCH (09:41)
[2022-04-16] MEDS: Clopidogrel Bisulfate 75 MG TAB PO SCH (09:41)
[2022-04-16] MEDS: Furosemide 40 MG TAB PO SCH (09:42)
[2022-04-16] MEDS: Insulin Glargine 30 UNITS/0.3 ML VIAL SC SCH (09:46)
[2022-04-16] MEDS: Phytonadione 10 MG/ML AMP IM SCH (09:50)
[2022-04-16 10:37] LABS: ALT (SGPT) 21 U/L (8-55); AST (SGOT) 31 U/L (5-34); Albumin 2.8 g/dL (3.4-4.8); Alkaline Phosphatase 109 U/L (40-110); Bilirubin, Direct 0.9 mg/dL (0.1-0.3); Bilirubin, Total 1.2 mg/dL (0.2-1.2); PT - Undiluted 32.6 sec (12.0-14.7); PTT - Undiluted 47.9 sec (22.9-36.1); Protein, Total 6.4 g/dL (5.8-8.1)
[2022-04-16 11:04] LABS: D-Dimer Test 7.04 *mcg/mL (0.27-0.43)
[2022-04-16 11:14] LABS: PTT 1:1 Mix 33.3 sec (22.9-36.1)
[2022-04-16 12:51] LABS: PT 1:1 37C-90 min. Incubation 16.9 sec (12.0-14.7); PTT 1:1 37C/90 MIN Incubation 35.2 sec (22.9-36.1)
[2022-04-16] MEDS: traZODone HCl 50 MG TAB PO SCH (21:00)
[2022-04-16] MEDS: Melatonin 3 MG TAB PO SCH (21:00)
[2022-04-16] MEDS: Atorvastatin Calcium 40 MG TAB PO SCH (21:11)
[2022-04-17 04:33] LABS: #Eosinphils 0.2 thou/uL (0.0-0.7); #Lymphocytes 1.2 thou/uL (1.20-3.40); #Neutrophils 8.9 thou/uL (1.40-6.50); %Basophils 0.4 % (0.0-1.0); %Eosinophils 2.1 % (0.0-10.0); %Lymphocytes 10.3 % (21.0-51.0); %Monocytes 8.8 % (0.0-10.0); %Neutrophils 78.5 % (42.0-75.0); Hemoglobin 7.1 g/dL (12.0-16.0); Mean Corpuscular HGB CONC 31.8 g/dL (32.0-36.0); Mean Corpuscular Hemoglobin 29.1 pg (27.0-31.0); Mean Corpuscular Volume 91.4 fL (78.0-98.0); Platelet Count 198 thou/uL (130-400); RBC Distribution Width 14.8 % (11.5-14.5); Red Blood Cell (RBC) Count 2.42 mill/uL (4.20-5.40); White Blood Cell (WBC) Count 11.4 thou/uL (4.8-10.8)
[2022-04-17 04:48] LABS: INR-International Normal Ratio 2.2; Prothrombin Time 24.9 sec (12.0-14.7)
[2022-04-17 04:50] LABS: Anion Gap 15 mmol/L (10-20); BUN (Urea Nitrogen) 116 mg/dL (9.8-20.1); Calc. Creatinine Clearance 47 mL/min (70-130); Calcium 8.1 mg/dL (7.8-10.44); Carbon Dioxide 24 mmol/L (23-31); Chloride 105 mmol/L (98-107); Estimated GFR 32; Glucose 293 mg/dL (80-115); Sodium 140 mmol/L (136-145)
[2022-04-17 06:33] LABS: SARS-CoV-2 NAA Rapid Test Not Detected (NotDetected)
[2022-04-17] MEDS: Insulin Glargine 30 UNITS/0.3 ML VIAL SC SCH (08:44)
[2022-04-17] MEDS ORDERED: Ondansetron PF 4 MG/2 ML Vial ONE (08:50)
[2022-04-17] MEDS ORDERED: Midazolam HCl 2 mg/2 ml Vial ONE (08:50)
[2022-04-17] MEDS ORDERED: Phytonadione 1 MG/0.5 ML Miniject SYRINGE IM SCH (09:00)
[2022-04-17] MEDS ORDERED: Ketamine 50 MG/ML (10ML VIAL) ONE (09:55)
[2022-04-17] MEDS ORDERED: PROPOFOL 200 MG/20 ML VIAL ONE (09:58)
[2022-04-17] MEDS ORDERED: Midazolam HCl 2 mg/2 ml Vial SLOW IVP SCH (12:00)
[2022-04-17] MEDS ORDERED: Ondansetron PF 4 MG/2 ML Vial IVP SCH (12:00)
[2022-04-17] MEDS: Aspirin 81 mg Enteric Coated Tablet PO SCH (13:01)
[2022-04-17] MEDS: Ferrous Sulfate 325 MG TAB PO SCH ×2 (13:01→17:13)
[2022-04-17] MEDS: Saccharomyces boulardii 250 MG CAP PO SCH (13:01)
[2022-04-17] MEDS: Empagliflozin 10 MG TAB PO SCH (13:01)
[2022-04-17] MEDS: Amiodarone 200 MG TAB PO SCH ×2 (13:02→20:19)
[2022-04-17] MEDS: Furosemide 40 MG TAB PO SCH (13:02)
[2022-04-17] MEDS: Carvedilol 3.125 MG TAB PO SCH ×2 (13:02→17:13)
[2022-04-17] MEDS: Magnesium Oxide 400 MG TAB PO SCH (13:02)
[2022-04-17] MEDS: Sertraline 100 MG TAB PO SCH (13:02)
[2022-04-17] MEDS: HumaLOG 300 UNITS/3 ML VIAL SC PRN ×3 (13:03→21:41)
[2022-04-17] MEDS: HYDROcodone/Acetaminophen 5/325 mg Tablet PO PRN (13:08)
[2022-04-17] MEDS: Phytonadione 10 MG/ML AMP IM SCH (14:48)
[2022-04-17] MEDS: Ondansetron ODT 4 MG TAB PO PRN (18:39)
[2022-04-17] MEDS: Atorvastatin Calcium 40 MG TAB PO SCH (20:19)
[2022-04-17] MEDS: Melatonin 3 MG TAB PO SCH (20:19)
[2022-04-17] MEDS: Pantoprazole 40 MG VIAL IVP SCH (20:24)
[2022-04-17] MEDS: traZODone HCl 50 MG TAB PO SCH (20:24)
[2022-04-18 05:13] LABS: #Monocytes 0.8 thou/uL (0.11-0.59); #Neutrophils 8.7 thou/uL (1.40-6.50); %Basophils 0.3 % (0.0-1.0); %Eosinophils 0.4 % (0.0-10.0); %Lymphocytes 9.6 % (21.0-51.0); %Monocytes 7.7 % (0.0-10.0); Hemoglobin 6.9 g/dL (12.0-16.0); Mean Corpuscular HGB CONC 31.1 g/dL (32.0-36.0); Mean Corpuscular Hemoglobin 29.3 pg (27.0-31.0); Mean Corpuscular Volume 94.1 fL (78.0-98.0); Platelet Count 197 thou/uL (130-400); RBC Distribution Width 17.5 % (11.5-14.5); Red Blood Cell (RBC) Count 2.36 mill/uL (4.20-5.40); White Blood Cell (WBC) Count 10.6 thou/uL (4.8-10.8)
[2022-04-18 05:19] LABS: INR-International Normal Ratio 1.9; Prothrombin Time 22.3 sec (12.0-14.7)
[2022-04-18 05:25] LABS: Anion Gap 19 mmol/L (10-20); BUN (Urea Nitrogen) 112 mg/dL (9.8-20.1); Calc. Creatinine Clearance 43 mL/min (70-130); Calcium 8.6 mg/dL (7.8-10.44); Carbon Dioxide 24 mmol/L (23-31); Chloride 106 mmol/L (98-107); Estimated GFR 29; Glucose 273 mg/dL (80-115); Potassium 3.6 mmol/L (3.5-5.1); Sodium 145 mmol/L (136-145)
[2022-04-18] MEDS: HumaLOG 300 UNITS/3 ML VIAL SC PRN ×2 (05:56→13:10)
[2022-04-18] MEDS: Sertraline 100 MG TAB PO SCH (09:02)
[2022-04-18] MEDS: Magnesium Oxide 400 MG TAB PO SCH (09:02)
[2022-04-18] MEDS: Saccharomyces boulardii 250 MG CAP PO SCH (09:02)
[2022-04-18] MEDS: Furosemide 40 MG TAB PO SCH (09:02)
[2022-04-18] MEDS: Ferrous Sulfate 325 MG TAB PO SCH ×2 (09:02→16:25)
[2022-04-18] MEDS: Amiodarone 200 MG TAB PO SCH ×2 (09:02→20:49)
[2022-04-18] MEDS: Carvedilol 3.125 MG TAB PO SCH ×2 (09:02→16:25)
[2022-04-18] MEDS: Aspirin 81 mg Enteric Coated Tablet PO SCH (09:02)
[2022-04-18] MEDS: Clopidogrel Bisulfate 75 MG TAB PO SCH (09:03)
[2022-04-18] MEDS: Pantoprazole 40 MG VIAL IVP SCH ×2 (09:03→20:49)
[2022-04-18] MEDS: Empagliflozin 10 MG TAB PO SCH (09:03)
[2022-04-18] MEDS: Insulin Glargine 30 UNITS/0.3 ML VIAL SC SCH (09:03)
[2022-04-18] MEDS: Phytonadione 10 MG/ML AMP IM SCH (09:04)
[2022-04-18] MEDS: Ondansetron ODT 4 MG TAB PO PRN (16:25)
[2022-04-18] MEDS: oxyCODONE 5 MG TAB PO PRN (18:11)
[2022-04-18] MEDS: Melatonin 3 MG TAB PO SCH ×2 (20:49→20:51)
[2022-04-18] MEDS: Atorvastatin Calcium 40 MG TAB PO SCH (20:49)
[2022-04-18] MEDS: Insulin Regular 300 UNITS/3 ML VIAL SC PRN (21:02)
[2022-04-19] MEDS: Ondansetron ODT 4 MG TAB PO PRN ×2 (00:47→21:51)
[2022-04-19 04:47] LABS: #Eosinphils 0.1 thou/uL (0.0-0.7); #Lymphocytes 0.8 thou/uL (1.20-3.40); #Monocytes 0.7 thou/uL (0.11-0.59); #Neutrophils 9.4 thou/uL (1.40-6.50); %Basophils 0.3 % (0.0-1.0); %Eosinophils 0.5 % (0.0-10.0); %Lymphocytes 7.6 % (21.0-51.0); %Monocytes 6.7 % (0.0-10.0); %Neutrophils 84.9 % (42.0-75.0); Mean Corpuscular HGB CONC 32.1 g/dL (32.0-36.0); Mean Corpuscular Hemoglobin 30.3 pg (27.0-31.0); Mean Corpuscular Volume 94.5 fL (78.0-98.0); Platelet Count 191 thou/uL (130-400); RBC Distribution Width 17.5 % (11.5-14.5); Red Blood Cell (RBC) Count 2.65 mill/uL (4.20-5.40); White Blood Cell (WBC) Count 11.1 thou/uL (4.8-10.8)
[2022-04-19 04:58] LABS: INR-International Normal Ratio 1.7; PTT 37.8 sec (22.9-36.1); Prothrombin Time 20.4 sec (12.0-14.7)
[2022-04-19 05:10] LABS: Anion Gap 15 mmol/L (10-20); BUN (Urea Nitrogen) 89 mg/dL (9.8-20.1); Calc. Creatinine Clearance 47 mL/min (70-130); Calcium 8.4 mg/dL (7.8-10.44); Carbon Dioxide 27 mmol/L (23-31); Chloride 105 mmol/L (98-107); Estimated GFR 33; Glucose 217 mg/dL (80-115); Sodium 144 mmol/L (136-145)
[2022-04-19 06:31] LABS: Magnesium 2.2 mg/dL (1.6-2.6)
[2022-04-19] MEDS: HumaLOG 300 UNITS/3 ML VIAL SC PRN ×2 (06:42→17:27)
[2022-04-19] MEDS ORDERED: Potassium Chloride 40 MEQ in Premix Bag 1 BAG IVPB SCH (09:00)
[2022-04-19] MEDS: Empagliflozin 10 MG TAB PO SCH (09:21)
[2022-04-19] MEDS: Ferrous Sulfate 325 MG TAB PO SCH ×2 (09:21→17:27)
[2022-04-19] MEDS: Amiodarone 200 MG TAB PO SCH ×2 (09:21→20:15)
[2022-04-19] MEDS: Insulin Glargine 30 UNITS/0.3 ML VIAL SC SCH (09:21)
[2022-04-19] MEDS: Furosemide 40 MG TAB PO SCH (09:21)
[2022-04-19] MEDS: Clopidogrel Bisulfate 75 MG TAB PO SCH (09:21)
[2022-04-19] MEDS: Aspirin 81 mg Enteric Coated Tablet PO SCH (09:21)
[2022-04-19] MEDS: Sertraline 100 MG TAB PO SCH (09:22)
[2022-04-19] MEDS: Magnesium Oxide 400 MG TAB PO SCH (09:22)
[2022-04-19] MEDS: Saccharomyces boulardii 250 MG CAP PO SCH (09:22)
[2022-04-19] MEDS: Pantoprazole 40 MG VIAL IVP SCH ×2 (09:22→20:17)
[2022-04-19] MEDS: Carvedilol 6.25 MG TAB PO SCH ×2 (09:27→17:27)
[2022-04-19] MEDS: Potassium Chloride 20 MEQ in Premix Bag 1 BAG IVPB SCH ×2 (11:04→12:50)
[2022-04-19] MEDS ORDERED: Phytonadione 10 MG/ML AMP PO SCH (12:15)
[2022-04-19] MEDS ORDERED: Potassium Chloride 20 MEQ TAB PO SCH (16:45)
[2022-04-19 16:52] LABS: Ref Lab Test Ordered Factor V Activity; Reference Lab Name LABCORP
[2022-04-19] MEDS: Atorvastatin Calcium 40 MG TAB PO SCH (20:16)
[2022-04-19] MEDS: Acetaminophen 500 MG TAB PO PRN (21:49)
[2022-04-19] MEDS: Insulin Regular 300 UNITS/3 ML VIAL SC PRN (21:57)
[2022-04-19] MEDS: Melatonin 3 MG TAB PO SCH (23:16)
[2022-04-19] MEDS ORDERED: Calcium Carbonate 500 MG ChewTAB PO PRN (23:28)
[2022-04-20 00:47] LABS: Hemoglobin 7.3 g/dL (12.0-16.0)
[2022-04-20] MEDS: oxyCODONE 5 MG TAB PO PRN (01:54)
[2022-04-20 04:42] LABS: #Eosinphils 0.1 thou/uL (0.0-0.7); #Lymphocytes 0.8 thou/uL (1.20-3.40); #Monocytes 0.6 thou/uL (0.11-0.59); #Neutrophils 8.1 thou/uL (1.40-6.50); %Basophils 0.2 % (0.0-1.0); %Eosinophils 1.1 % (0.0-10.0); %Lymphocytes 7.8 % (21.0-51.0); %Monocytes 6.5 % (0.0-10.0); %Neutrophils 84.4 % (42.0-75.0); Hemoglobin 7.3 g/dL (12.0-16.0); Mean Corpuscular Hemoglobin 29.3 pg (27.0-31.0); Mean Corpuscular Volume 94.6 fl (78.0-98.0); Mean Platelet Volume 10.1 fL (7.4-10.4); Platelet Count 170 thou/uL (130-400); RBC Distribution Width 17.8 % (11.5-14.5); White Blood Cell (WBC) Count 9.6 thou/uL (4.8-10.8)
[2022-04-20 05:10] LABS: Platelet Count 170 thou/uL (130-400)
[2022-04-20 05:11] LABS: Anion Gap 13 mmol/L (10-20); BUN (Urea Nitrogen) 74 mg/dL (9.8-20.1); Calc. Creatinine Clearance 50 mL/min (70-130); Calcium 7.7 mg/dL (7.8-10.44); Carbon Dioxide 28 mmol/L (23-31); Chloride 103 mmol/L (98-107); Estimated GFR 36; Glucose 242 mg/dL (80-115); Potassium 3.2 mmol/L (3.5-5.1); Sodium 141 mmol/L (136-145)
[2022-04-20 05:21] LABS: Fibrinogen 213 mg/dL (253-463)
[2022-04-20 05:22] LABS: INR-International Normal Ratio 1.6; PTT 37.2 sec (22.9-36.1); Prothrombin Time 19.2 sec (12.0-14.7)
[2022-04-20 05:30] LABS: D-Dimer Test 4.96 *mcg/mL (0.27-0.43)
[2022-04-20] MEDS: HumaLOG 300 UNITS/3 ML VIAL SC PRN (06:23)
[2022-04-20] MEDS ORDERED: Metoclopramide HCl 10 MG TAB PO PRN (09:25)
[2022-04-20] MEDS ORDERED: Potassium Chloride 20 MEQ TAB PO SCH (10:00)
[2022-04-20] MEDS: Pantoprazole 40 MG VIAL IVP SCH ×2 (11:47→20:33)
[2022-04-20] MEDS: ALPRAZolam 0.25 MG TAB PO PRN (11:47)
[2022-04-20] MEDS: Ondansetron PF 4 MG/2 ML Vial IVP PRN ×2 (13:00→17:53)
[2022-04-20] MEDS: Saccharomyces boulardii 250 MG CAP PO SCH (13:00)
[2022-04-20] MEDS: Ferrous Sulfate 325 MG TAB PO SCH ×2 (13:01→18:32)
[2022-04-20] MEDS: Carvedilol 6.25 MG TAB PO SCH ×2 (13:01→17:57)
[2022-04-20] MEDS: Clopidogrel Bisulfate 75 MG TAB PO SCH (13:01)
[2022-04-20] MEDS: Amiodarone 200 MG TAB PO SCH ×2 (13:02→20:33)
[2022-04-20] MEDS: Sertraline 100 MG TAB PO SCH (13:02)
[2022-04-20] MEDS: Aspirin 81 mg Enteric Coated Tablet PO SCH (13:02)
[2022-04-20] MEDS: Furosemide 40 MG TAB PO SCH (13:02)
[2022-04-20] MEDS: Magnesium Oxide 400 MG TAB PO SCH (13:02)
[2022-04-20] MEDS: Empagliflozin 10 MG TAB PO SCH (13:02)
[2022-04-20] MEDS: Insulin Glargine 30 UNITS/0.3 ML VIAL SC SCH (13:11)
[2022-04-20] MEDS: Epoetin (ESRD) 10,000 UNITS/ML VIAL SC SCH (15:37)
[2022-04-20] MEDS: Atorvastatin Calcium 40 MG TAB PO SCH (20:33)
[2022-04-20] MEDS: Melatonin 3 MG TAB PO SCH (20:33)
[2022-04-21] MEDS: oxyCODONE 5 MG TAB PO PRN ×2 (02:43→17:24)
[2022-04-21 05:13] LABS: #Eosinphils 0.2 thou/uL (0.0-0.7); #Lymphocytes 0.5 thou/uL (1.20-3.40); #Monocytes 0.7 thou/uL (0.11-0.59); #Neutrophils 8.6 thou/uL (1.40-6.50); %Basophils 0.2 % (0.0-1.0); %Eosinophils 2.2 % (0.0-10.0); %Lymphocytes 5.4 % (21.0-51.0); %Monocytes 6.7 % (0.0-10.0); %Neutrophils 85.6 % (42.0-75.0); Hemoglobin 7.6 g/dL (12.0-16.0); Mean Corpuscular HGB CONC 29.7 g/dL (32.0-36.0); Mean Corpuscular Hemoglobin 28.3 pg (27.0-31.0); Mean Corpuscular Volume 95.4 fl (78.0-98.0); Mean Platelet Volume 10.4 fL (7.4-10.4); Platelet Count 166 thou/uL (130-400); RBC Distribution Width 17.7 % (11.5-14.5); Red Blood Cell (RBC) Count 2.67 mill/uL (4.20-5.40)
[2022-04-21 05:15] LABS: Anion Gap 12 mmol/L (10-20); BUN (Urea Nitrogen) 56 mg/dL (9.8-20.1); Calc. Creatinine Clearance 58 mL/min (70-130); Calcium 7.6 mg/dL (7.8-10.44); Carbon Dioxide 26 mmol/L (23-31); Chloride 105 mmol/L (98-107); Estimated GFR 43; Glucose 278 mg/dL (80-115); Potassium 3.6 mmol/L (3.5-5.1); Sodium 139 mmol/L (136-145)
[2022-04-21] MEDS: HumaLOG 300 UNITS/3 ML VIAL SC PRN ×3 (06:33→17:26)
[2022-04-21] MEDS: Aspirin 81 mg Enteric Coated Tablet PO SCH (08:43)
[2022-04-21] MEDS: Amiodarone 200 MG TAB PO SCH ×2 (08:43→21:23)
[2022-04-21] MEDS: Carvedilol 6.25 MG TAB PO SCH ×2 (08:43→17:18)
[2022-04-21] MEDS: Ferrous Sulfate 325 MG TAB PO SCH ×2 (08:43→17:18)
[2022-04-21] MEDS: Furosemide 40 MG TAB PO SCH (08:43)
[2022-04-21] MEDS: Empagliflozin 10 MG TAB PO SCH (08:44)
[2022-04-21] MEDS: Clopidogrel Bisulfate 75 MG TAB PO SCH (08:44)
[2022-04-21] MEDS: Saccharomyces boulardii 250 MG CAP PO SCH (08:44)
[2022-04-21] MEDS: Magnesium Oxide 400 MG TAB PO SCH (08:44)
[2022-04-21] MEDS: Sertraline 100 MG TAB PO SCH (08:44)
[2022-04-21] MEDS: Ondansetron PF 4 MG/2 ML Vial IVP SCH ×2 (08:44→21:30)
[2022-04-21] MEDS: Insulin Glargine 30 UNITS/0.3 ML VIAL SC SCH (08:45)
[2022-04-21] MEDS: Pantoprazole 40 MG VIAL IVP SCH ×2 (08:45→21:23)
[2022-04-21 09:59] LABS: #Eosinphils 0.2 thou/uL (0.0-0.7); #Lymphocytes 0.6 thou/uL (1.20-3.40); #Monocytes 0.7 thou/uL (0.11-0.59); #Neutrophils 8.4 thou/uL (1.40-6.50); %Basophils 0.2 % (0.0-1.0); %Eosinophils 1.8 % (0.0-10.0); %Lymphocytes 6.1 % (21.0-51.0); %Monocytes 6.6 % (0.0-10.0); %Neutrophils 85.4 % (42.0-75.0); Hemoglobin 7.9 g/dL (12.0-16.0); Mean Corpuscular HGB CONC 30.2 g/dL (32.0-36.0); Mean Corpuscular Hemoglobin 29.1 pg (27.0-31.0); Mean Corpuscular Volume 96.3 fl (78.0-98.0); Mean Platelet Volume 10.3 fL (7.4-10.4); Platelet Count 181 thou/uL (130-400); RBC Distribution Width 17.7 % (11.5-14.5); Red Blood Cell (RBC) Count 2.73 mill/uL (4.20-5.40); White Blood Cell (WBC) Count 9.8 thou/uL (4.8-10.8)
[2022-04-21 10:05] LABS: Fibrinogen 219 mg/dL (253-463)
[2022-04-21 10:06] LABS: INR-International Normal Ratio 1.5; PTT 37.5 sec (22.9-36.1); Prothrombin Time 18.4 sec (12.0-14.7)
[2022-04-21 10:13] LABS: D-Dimer Test 5.11 *mcg/mL (0.27-0.43)
[2022-04-21 10:28] LABS: ALT (SGPT) 19 U/L (8-55); AST (SGOT) 25 U/L (5-34); Albumin 2.7 g/dL (3.4-4.8); Alkaline Phosphatase 104 U/L (40-110); Anion Gap 13 mmol/L (10-20); BUN (Urea Nitrogen) 54 mg/dL (9.8-20.1); Bilirubin, Total 1.4 mg/dL (0.2-1.2); Calc. Creatinine Clearance 54 mL/min (70-130); Calcium 7.8 mg/dL (7.8-10.44); Carbon Dioxide 26 mmol/L (23-31); Chloride 102 mmol/L (98-107); Estimated GFR 39; Globulin 3.5 g/dL (2.4-3.5); Glucose 299 mg/dL (80-115); Potassium 3.7 mmol/L (3.5-5.1); Protein, Total 6.2 g/dL (5.8-8.1); Sodium 137 mmol/L (136-145)
[2022-04-21 10:44] LABS: Platelet Count 181 thou/uL (130-400)
[2022-04-21] MEDS ORDERED: Dextrose 5% in Water 1,000 ML IV PRN (18:31)
[2022-04-21] MEDS ORDERED: Dextrose 50% Abboject 50 ML SYRINGE SLOW IVP PRN (18:31)
[2022-04-21] MEDS: ALPRAZolam 0.25 MG TAB PO PRN (21:22)
[2022-04-21] MEDS: Atorvastatin Calcium 40 MG TAB PO SCH (21:22)
[2022-04-21] MEDS: Apixaban 5 MG TAB PO SCH (21:23)
[2022-04-21] MEDS: Melatonin 3 MG TAB PO SCH (21:23)
[2022-04-22 04:50] LABS: #Eosinphils 0.2 thou/uL (0.0-0.7); #Lymphocytes 0.8 thou/uL (1.20-3.40); #Monocytes 0.8 thou/uL (0.11-0.59); #Neutrophils 6.6 thou/uL (1.40-6.50); %Basophils 0.1 % (0.0-1.0); %Eosinophils 2.9 % (0.0-10.0); %Lymphocytes 9.2 % (21.0-51.0); %Monocytes 9.5 % (0.0-10.0); %Neutrophils 78.3 % (42.0-75.0); Hemoglobin 7.8 g/dL (12.0-16.0); Mean Corpuscular HGB CONC 30.7 g/dL (32.0-36.0); Mean Corpuscular Hemoglobin 29.1 pg (27.0-31.0); Mean Corpuscular Volume 94.8 fl (78.0-98.0); Mean Platelet Volume 10.4 fL (7.4-10.4); Platelet Count 153 thou/uL (130-400); RBC Distribution Width 17.3 % (11.5-14.5); Red Blood Cell (RBC) Count 2.67 mill/uL (4.20-5.40); White Blood Cell (WBC) Count 8.4 thou/uL (4.8-10.8)
[2022-04-22 05:01] LABS: Fibrinogen 237 mg/dL (253-463); INR-International Normal Ratio 1.7; PTT 43.4 sec (22.9-36.1); Prothrombin Time 19.9 sec (12.0-14.7)
[2022-04-22 05:06] LABS: ALT (SGPT) 17 U/L (8-55); AST (SGOT) 24 U/L (5-34); Albumin 2.8 g/dL (3.4-4.8); Alkaline Phosphatase 99 U/L (40-110); Anion Gap 14 mmol/L (10-20); BUN (Urea Nitrogen) 48 mg/dL (9.8-20.1); Bilirubin, Total 1.4 mg/dL (0.2-1.2); Calc. Creatinine Clearance 57 mL/min (70-130); Calcium 7.9 mg/dL (7.8-10.44); Carbon Dioxide 25 mmol/L (23-31); Chloride 102 mmol/L (98-107); Estimated GFR 41; Globulin 3.5 g/dL (2.4-3.5); Glucose 95 mg/dL (80-115); Potassium 3.6 mmol/L (3.5-5.1); Protein, Total 6.3 g/dL (5.8-8.1); Sodium 137 mmol/L (136-145)
[2022-04-22 05:09] LABS: D-Dimer Test 4.84 *mcg/mL (0.27-0.43)
[2022-04-22 05:26] LABS: Platelet Count 153 thou/uL (130-400)
[2022-04-22] MEDS: Furosemide 40 MG TAB PO SCH (06:44)
[2022-04-22] MEDS: oxyCODONE 5 MG TAB PO PRN ×3 (06:47→21:17)
[2022-04-22] MEDS: Carvedilol 6.25 MG TAB PO SCH ×2 (08:08→16:53)
[2022-04-22] MEDS: Ferrous Sulfate 325 MG TAB PO SCH ×2 (08:08→16:53)
[2022-04-22] MEDS: Amiodarone 200 MG TAB PO SCH ×2 (08:09→21:16)
[2022-04-22] MEDS: Magnesium Oxide 400 MG TAB PO SCH (08:09)
[2022-04-22] MEDS: Empagliflozin 10 MG TAB PO SCH (08:09)
[2022-04-22] MEDS: Apixaban 5 MG TAB PO SCH ×2 (08:09→21:17)
[2022-04-22] MEDS: Clopidogrel Bisulfate 75 MG TAB PO SCH (08:09)
[2022-04-22] MEDS: Aspirin 81 mg Enteric Coated Tablet PO SCH (08:09)
[2022-04-22] MEDS: Ondansetron PF 4 MG/2 ML Vial IVP SCH ×2 (08:10→21:16)
[2022-04-22] MEDS: Insulin Glargine 30 UNITS/0.3 ML VIAL SC SCH (08:10)
[2022-04-22] MEDS: Saccharomyces boulardii 250 MG CAP PO SCH (08:10)
[2022-04-22] MEDS: Pantoprazole 40 MG VIAL IVP SCH ×2 (08:10→21:17)
[2022-04-22] MEDS: Sertraline 100 MG TAB PO SCH (08:10)
[2022-04-22] MEDS ORDERED: methylPREDNISolone Sod Succ 40 MG VIAL ONE (10:42)
[2022-04-22] MEDS ORDERED: EPINEPHrine 1 MG/ML AMP ONE (10:42)
[2022-04-22] MEDS ORDERED: diphenhydrAMINE 50 MG/ML VIAL ONE (10:42)
[2022-04-22 13:40] LABS: A/G Ratio 0.8 (0.7-1.7); Albumin 2.6 g/dL (2.9-4.4); Alpha 1 0.3 g/dL (0.0-0.4); Alpha 2 0.5 g/dL (0.4-1.0); Beta 1.1 g/dL (0.7-1.3); Gamma 1.5 g/dL (0.4-1.8); Globulin, Total 3.4 g/dL (2.2-3.9); M-Spike Not Observed g/dL (Not Observed); Protein Electrophoresis Intrp Note: (.)
[2022-04-22] MEDS: ALPRAZolam 0.25 MG TAB PO PRN (14:09)
[2022-04-22 18:03] LABS: Bacteria/HPF 2+ HPF (None Seen); Bilirubin Negative (Negative); Blood, Urine Negative (Negative); Clarity Clear (Clear); Glucose, Urine (Dipstick) Greater than 1000 mg/dL (Negative); Ketone, Urine Negative (Negative); Leukocyte Negative Leu/uL (Negative); Nitrite Negative (Negative); Protein, Urine (Dipstick) Negative (Neg-Trace); RBC/HPF 0-3 HPF (0-3); Specific Gravity, Urine 1.016 (1.002-1.036); Squamous Epithelial 0-3 HPF (0-3); Urobilinogen 3 mg/dL (Less than 2); WBC/HPF 0-3 HPF (0-3); pH, Urine 5.5 (5.0-9.0)
[2022-04-22 18:05] LABS: Urine Culture Reflex Yes Yes
[2022-04-22] MEDS: Melatonin 3 MG TAB PO SCH (21:16)
[2022-04-23] MEDS: oxyCODONE 5 MG TAB PO PRN ×2 (04:39→21:17)
[2022-04-23 04:59] LABS: Fibrinogen 221 mg/dL (253-463); PTT 27.1 sec (22.9-36.1)
[2022-04-23 05:00] LABS: INR-International Normal Ratio 1.8; Prothrombin Time 21.5 sec (12.0-14.7)
[2022-04-23 05:07] LABS: D-Dimer Test 3.83 *mcg/mL (0.27-0.43)
[2022-04-23 05:10] LABS: %Eosinophils 2.1 % (0.0-10.0); %Lymphocytes 5.8 % (21.0-51.0); %Monocytes 8.8 % (0.0-10.0); Hemoglobin 7.8 g/dL (12.0-16.0); Mean Corpuscular HGB CONC 29.3 g/dL (32.0-36.0); Mean Corpuscular Hemoglobin 27.6 pg (27.0-31.0); Mean Corpuscular Volume 94.3 fl (78.0-98.0); Mean Platelet Volume 11.1 fL (7.4-10.4); Platelet Count 159 thou/uL (130-400); Red Blood Cell (RBC) Count 2.84 mill/uL (4.20-5.40); White Blood Cell (WBC) Count 10.1 thou/uL (4.8-10.8)
[2022-04-23 05:11] LABS: #Eosinphils 0.2 thou/uL (0.0-0.7); #Lymphocytes 0.6 thou/uL (1.20-3.40); #Monocytes 0.9 thou/uL (0.11-0.59); #Neutrophils 8.4 thou/uL (1.40-6.50); %Basophils 0.3 % (0.0-1.0)
[2022-04-23 05:17] LABS: ALT (SGPT) 17 U/L (8-55); AST (SGOT) 41 U/L (5-34); Albumin 2.6 g/dL (3.4-4.8); Alkaline Phosphatase 100 U/L (40-110); Anion Gap 16 mmol/L (10-20); BUN (Urea Nitrogen) 41 mg/dL (9.8-20.1); Bilirubin, Total 1.3 mg/dL (0.2-1.2); Calc. Creatinine Clearance 61 mL/min (70-130); Calcium 7.9 mg/dL (7.8-10.44); Carbon Dioxide 21 mmol/L (23-31); Chloride 103 mmol/L (98-107); Estimated GFR 45; Globulin 4.2 g/dL (2.4-3.5); Glucose 58 mg/dL (80-115); Potassium 4.5 mmol/L (3.5-5.1); Protein, Total 6.8 g/dL (5.8-8.1); Sodium 135 mmol/L (136-145)
[2022-04-23] MEDS: Acetaminophen 500 MG TAB PO PRN ×2 (07:13→17:05)
[2022-04-23] MEDS: ALPRAZolam 0.25 MG TAB PO PRN (07:13)
[2022-04-23] MEDS: Furosemide 40 MG TAB PO SCH (07:13)
[2022-04-23] MEDS: Ferrous Sulfate 325 MG TAB PO SCH ×2 (09:39→17:05)
[2022-04-23] MEDS: Apixaban 5 MG TAB PO SCH ×2 (09:39→21:19)
[2022-04-23] MEDS: Magnesium Oxide 400 MG TAB PO SCH (09:39)
[2022-04-23] MEDS: Sertraline 100 MG TAB PO SCH (09:39)
[2022-04-23] MEDS: Empagliflozin 10 MG TAB PO SCH (09:39)
[2022-04-23] MEDS: Amiodarone 200 MG TAB PO SCH ×2 (09:39→21:17)
[2022-04-23] MEDS: Saccharomyces boulardii 250 MG CAP PO SCH (09:39)
[2022-04-23] MEDS: Clopidogrel Bisulfate 75 MG TAB PO SCH (09:39)
[2022-04-23] MEDS: Carvedilol 6.25 MG TAB PO SCH ×2 (09:39→17:05)
[2022-04-23] MEDS: Pantoprazole 40 MG VIAL IVP SCH ×2 (09:40→21:19)
[2022-04-23] MEDS: Ondansetron PF 4 MG/2 ML Vial IVP SCH ×2 (09:40→21:19)
[2022-04-23] MEDS: Melatonin 3 MG TAB PO SCH (21:17)
[2022-04-24 05:10] LABS: #Basophils 0.1 thou/uL (0.0-0.2); #Eosinphils 0.3 thou/uL (0.0-0.7); #Lymphocytes 0.8 thou/uL (1.20-3.40); #Monocytes 0.7 thou/uL (0.11-0.59); #Neutrophils 7.4 thou/uL (1.40-6.50); %Basophils 0.6 % (0.0-1.0); %Eosinophils 3.4 % (0.0-10.0); %Lymphocytes 8.3 % (21.0-51.0); %Monocytes 7.5 % (0.0-10.0); %Neutrophils 80.2 % (42.0-75.0); Mean Corpuscular HGB CONC 29.2 g/dL (32.0-36.0); Mean Corpuscular Hemoglobin 27.3 pg (27.0-31.0); Mean Corpuscular Volume 93.7 fl (78.0-98.0); Platelet Count 187 thou/uL (130-400); RBC Distribution Width 17.7 % (11.5-14.5); Red Blood Cell (RBC) Count 2.92 mill/uL (4.20-5.40); White Blood Cell (WBC) Count 9.2 thou/uL (4.8-10.8)
[2022-04-24 05:14] LABS: Fibrinogen 343 mg/dL (253-463); Platelet Count 187 thou/uL (130-400)
[2022-04-24 05:15] LABS: PTT 62.2 sec (22.9-36.1)
[2022-04-24 05:16] LABS: INR-International Normal Ratio 2.6; Prothrombin Time 28.6 sec (12.0-14.7)
[2022-04-24 05:22] LABS: D-Dimer Test 3.85 *mcg/mL (0.27-0.43)
[2022-04-24 05:24] LABS: ALT (SGPT) 17 U/L (8-55); AST (SGOT) 21 U/L (5-34); Albumin 2.9 g/dL (3.4-4.8); Alkaline Phosphatase 114 U/L (40-110); Anion Gap 14 mmol/L (10-20); BUN (Urea Nitrogen) 39 mg/dL (9.8-20.1); Bilirubin, Total 1.3 mg/dL (0.2-1.2); Calc. Creatinine Clearance 52 mL/min (70-130); Calcium 7.7 mg/dL (7.8-10.44); Carbon Dioxide 23 mmol/L (23-31); Chloride 101 mmol/L (98-107); Estimated GFR 37; Globulin 3.9 g/dL (2.4-3.5); Glucose 188 mg/dL (80-115); Potassium 3.9 mmol/L (3.5-5.1); Protein, Total 6.8 g/dL (5.8-8.1); Sodium 134 mmol/L (136-145)
[2022-04-24] MEDS: oxyCODONE 5 MG TAB PO PRN ×2 (05:31→21:11)
[2022-04-24] MEDS: Empagliflozin 10 MG TAB PO SCH (08:35)
[2022-04-24] MEDS: Magnesium Oxide 400 MG TAB PO SCH (08:35)
[2022-04-24] MEDS: Ferrous Sulfate 325 MG TAB PO SCH ×2 (08:35→17:35)
[2022-04-24] MEDS: Sertraline 100 MG TAB PO SCH (08:35)
[2022-04-24] MEDS: Carvedilol 6.25 MG TAB PO SCH ×2 (08:35→17:35)
[2022-04-24] MEDS: Clopidogrel Bisulfate 75 MG TAB PO SCH (08:35)
[2022-04-24] MEDS: Saccharomyces boulardii 250 MG CAP PO SCH (08:35)
[2022-04-24] MEDS: Furosemide 40 MG TAB PO SCH (08:35)
[2022-04-24] MEDS: Amiodarone 200 MG TAB PO SCH ×2 (08:35→20:57)
[2022-04-24] MEDS: Apixaban 5 MG TAB PO SCH ×2 (08:35→20:58)
[2022-04-24] MEDS: Ondansetron PF 4 MG/2 ML Vial IVP SCH ×2 (08:36→20:58)
[2022-04-24] MEDS: Pantoprazole 40 MG VIAL IVP SCH ×2 (08:43→20:57)
[2022-04-24 18:04] LABS: Sodium, Urine Less than 20 mmol/L (Not Available); Urea Nitrogen, Random Urine 623 mg/dl
[2022-04-24] MEDS: Melatonin 3 MG TAB PO SCH (20:57)
[2022-04-25 05:10] LABS: Platelet Count 203 thou/uL (130-400)
[2022-04-25 05:12] LABS: #Basophils 0.1 thou/uL (0.0-0.2); #Eosinphils 0.1 thou/uL (0.0-0.7); #Lymphocytes 0.6 thou/uL (1.20-3.40); #Monocytes 0.6 thou/uL (0.11-0.59); #Neutrophils 5.7 thou/uL (1.40-6.50); %Basophils 0.8 % (0.0-1.0); %Eosinophils 1.6 % (0.0-10.0); %Lymphocytes 8.4 % (21.0-51.0); %Neutrophils 80.2 % (42.0-75.0); Hemoglobin 7.5 g/dL (12.0-16.0); Mean Corpuscular HGB CONC 29.4 g/dL (32.0-36.0); Mean Corpuscular Hemoglobin 27.3 pg (27.0-31.0); Mean Platelet Volume 10.8 fL (7.4-10.4); Platelet Count 203 thou/uL (130-400); RBC Distribution Width 17.8 % (11.5-14.5); Red Blood Cell (RBC) Count 2.76 mill/uL (4.20-5.40); White Blood Cell (WBC) Count 7.1 thou/uL (4.8-10.8)
[2022-04-25 05:26] LABS: Anion Gap 16 mmol/L (10-20); BUN (Urea Nitrogen) 35 mg/dL (9.8-20.1); Calc. Creatinine Clearance 56 mL/min (70-130); Carbon Dioxide 24 mmol/L (23-31); Chloride 101 mmol/L (98-107); Estimated GFR 39; Glucose 149 mg/dL (80-115); Potassium 4.2 mmol/L (3.5-5.1); Sodium 137 mmol/L (136-145)
[2022-04-25 05:27] LABS: Fibrinogen 310 mg/dL (253-463)
[2022-04-25 05:29] LABS: D-Dimer Test 3.62 *mcg/mL (0.27-0.43); PTT 68.1 sec (22.9-36.1)
[2022-04-25 05:31] LABS: INR-International Normal Ratio 3.3; Prothrombin Time 34.5 sec (12.0-14.7)
[2022-04-25] MEDS ORDERED: Furosemide 20 MG TAB PO SCH (07:30)
[2022-04-25] MEDS: Ferrous Sulfate 325 MG TAB PO SCH ×2 (09:15→17:37)
[2022-04-25] MEDS: Carvedilol 6.25 MG TAB PO SCH ×2 (09:15→17:37)
[2022-04-25] MEDS: oxyCODONE 5 MG TAB PO PRN ×2 (09:15→17:43)
[2022-04-25] MEDS: Furosemide 20 MG TAB PO SCH (09:15)
[2022-04-25] MEDS: Apixaban 5 MG TAB PO SCH ×2 (10:37→20:12)
[2022-04-25] MEDS: Empagliflozin 10 MG TAB PO SCH (10:37)
[2022-04-25] MEDS: Clopidogrel Bisulfate 75 MG TAB PO SCH (10:37)
[2022-04-25] MEDS: Amiodarone 200 MG TAB PO SCH ×2 (10:37→20:12)
[2022-04-25] MEDS: Sertraline 100 MG TAB PO SCH (10:38)
[2022-04-25] MEDS: Magnesium Oxide 400 MG TAB PO SCH (10:38)
[2022-04-25] MEDS: Saccharomyces boulardii 250 MG CAP PO SCH (10:38)
[2022-04-25] MEDS: Ondansetron PF 4 MG/2 ML Vial IVP SCH ×2 (10:38→20:12)
[2022-04-25] MEDS: Pantoprazole 40 MG VIAL IVP SCH ×2 (10:39→20:12)
[2022-04-25] MEDS: Melatonin 3 MG TAB PO SCH (20:12)
[2022-04-25] MEDS: Insulin Regular 300 UNITS/3 ML VIAL SC PRN (20:29)
[2022-04-26 04:57] LABS: Platelet Count 196 thou/uL (130-400)
[2022-04-26 05:03] LABS: Fibrinogen 314 mg/dL (253-463)
[2022-04-26 05:04] LABS: D-Dimer Test 3.01 *mcg/mL (0.27-0.43); INR-International Normal Ratio 3.4; PTT 61.4 sec (22.9-36.1); Prothrombin Time 34.8 sec (12.0-14.7)
[2022-04-26 05:10] LABS: ALT (SGPT) 14 U/L (8-55); AST (SGOT) 32 U/L (5-34); Albumin 2.6 g/dL (3.4-4.8); Alkaline Phosphatase 109 U/L (40-110); Anion Gap 15 mmol/L (10-20); BUN (Urea Nitrogen) 33 mg/dL (9.8-20.1); Bilirubin, Total 1.5 mg/dL (0.2-1.2); Calc. Creatinine Clearance 52 mL/min (70-130); Calcium 7.9 mg/dL (7.8-10.44); Carbon Dioxide 22 mmol/L (23-31); Chloride 103 mmol/L (98-107); Estimated GFR 36; Globulin 3.9 g/dL (2.4-3.5); Glucose 170 mg/dL (80-115); Potassium 4.5 mmol/L (3.5-5.1); Protein, Total 6.5 g/dL (5.8-8.1); Sodium 135 mmol/L (136-145)
[2022-04-26 08:10] LABS: #Basophils 0.1 thou/uL (0.0-0.2); #Eosinphils 0.2 thou/uL (0.0-0.7); #Lymphocytes 0.9 thou/uL (1.20-3.40); #Monocytes 0.9 thou/uL (0.11-0.59); #Neutrophils 5.9 thou/uL (1.40-6.50); %Basophils 0.9 % (0.0-1.0); %Lymphocytes 11.2 % (21.0-51.0); %Monocytes 11.2 % (0.0-10.0); %Neutrophils 74.6 % (42.0-75.0); Hemoglobin 7.6 g/dL (12.0-16.0); Mean Corpuscular HGB CONC 29.3 g/dL (32.0-36.0); Mean Corpuscular Hemoglobin 27.2 pg (27.0-31.0); Mean Corpuscular Volume 92.6 fl (78.0-98.0); Mean Platelet Volume 10.7 fL (7.4-10.4); Platelet Count 214 thou/uL (130-400); RBC Distribution Width 17.9 % (11.5-14.5); White Blood Cell (WBC) Count 7.9 thou/uL (4.8-10.8)
[2022-04-26] MEDS: Magnesium Oxide 400 MG TAB PO SCH (08:46)
[2022-04-26] MEDS: Sertraline 100 MG TAB PO SCH (08:46)
[2022-04-26] MEDS: Furosemide 20 MG TAB PO SCH (08:46)
[2022-04-26] MEDS: Apixaban 5 MG TAB PO SCH ×2 (08:46→20:40)
[2022-04-26] MEDS: Clopidogrel Bisulfate 75 MG TAB PO SCH (08:46)
[2022-04-26] MEDS: Carvedilol 6.25 MG TAB PO SCH ×2 (08:46→16:14)
[2022-04-26] MEDS: Amiodarone 200 MG TAB PO SCH ×2 (08:47→20:40)
[2022-04-26] MEDS: Ondansetron PF 4 MG/2 ML Vial IVP SCH ×2 (08:47→20:44)
[2022-04-26] MEDS: Empagliflozin 10 MG TAB PO SCH (08:47)
[2022-04-26] MEDS: Saccharomyces boulardii 250 MG CAP PO SCH (08:47)
[2022-04-26] MEDS: Ferrous Sulfate 325 MG TAB PO SCH ×2 (08:47→16:14)
[2022-04-26] MEDS: Pantoprazole 40 MG VIAL IVP SCH ×2 (08:47→20:44)
[2022-04-26] MEDS: oxyCODONE 5 MG TAB PO PRN (11:40)
[2022-04-26] MEDS: cefTRIAXone\\ROCEPHIN 1 GM in Sodium Chloride 0.9% 100 ML IVPB SCH (14:05)
[2022-04-26] MEDS: Melatonin 3 MG TAB PO SCH (20:40)
[2022-04-27 04:57] LABS: #Eosinphils 0.3 thou/uL (0.0-0.7); #Monocytes 0.8 thou/uL (0.11-0.59); #Neutrophils 5.4 thou/uL (1.40-6.50); %Basophils 0.7 % (0.0-1.0); %Eosinophils 3.5 % (0.0-10.0); %Lymphocytes 13.6 % (21.0-51.0); %Monocytes 10.5 % (0.0-10.0); %Neutrophils 71.7 % (42.0-75.0); Hemoglobin 7.7 g/dL (12.0-16.0); Mean Corpuscular HGB CONC 29.7 g/dL (32.0-36.0); Mean Corpuscular Hemoglobin 27.6 pg (27.0-31.0); Mean Platelet Volume 10.4 fL (7.4-10.4); Platelet Count 224 thou/uL (130-400); RBC Distribution Width 18.1 % (11.5-14.5); Red Blood Cell (RBC) Count 2.78 mill/uL (4.20-5.40); White Blood Cell (WBC) Count 7.5 thou/uL (4.8-10.8)
[2022-04-27 05:09] LABS: ALT (SGPT) 12 U/L (8-55); AST (SGOT) 18 U/L (5-34); Albumin 2.7 g/dL (3.4-4.8); Alkaline Phosphatase 110 U/L (40-110); Anion Gap 15 mmol/L (10-20); BUN (Urea Nitrogen) 30 mg/dL (9.8-20.1); Bilirubin, Total 1.3 mg/dL (0.2-1.2); Calc. Creatinine Clearance 51 mL/min (70-130); Carbon Dioxide 24 mmol/L (23-31); Chloride 102 mmol/L (98-107); Estimated GFR 35; Globulin 3.7 g/dL (2.4-3.5); Glucose 160 mg/dL (80-115); Potassium 3.8 mmol/L (3.5-5.1); Protein, Total 6.4 g/dL (5.8-8.1); Sodium 137 mmol/L (136-145)
[2022-04-27] MEDS: Ondansetron PF 4 MG/2 ML Vial IVP SCH ×2 (10:37→20:29)
[2022-04-27] MEDS: Magnesium Oxide 400 MG TAB PO SCH (10:37)
[2022-04-27] MEDS: Sertraline 100 MG TAB PO SCH (10:38)
[2022-04-27] MEDS: Saccharomyces boulardii 250 MG CAP PO SCH (10:38)
[2022-04-27] MEDS: Amiodarone 200 MG TAB PO SCH ×2 (10:38→20:28)
[2022-04-27] MEDS: oxyCODONE 5 MG TAB PO PRN ×2 (10:38→20:29)
[2022-04-27] MEDS: Clopidogrel Bisulfate 75 MG TAB PO SCH (10:38)
[2022-04-27] MEDS: Apixaban 5 MG TAB PO SCH ×2 (10:38→20:29)
[2022-04-27] MEDS: Empagliflozin 10 MG TAB PO SCH (10:39)
[2022-04-27] MEDS: Pantoprazole 40 MG VIAL IVP SCH ×2 (10:39→20:30)
[2022-04-27] MEDS: Furosemide 20 MG TAB PO SCH (10:41)
[2022-04-27] MEDS: Ferrous Sulfate 325 MG TAB PO SCH ×2 (10:41→17:10)
[2022-04-27] MEDS: Carvedilol 6.25 MG TAB PO SCH ×3 (10:41→17:10)
[2022-04-27] MEDS: Epoetin (ESRD) 10,000 UNITS/ML VIAL SC SCH (14:20)
[2022-04-27] MEDS: cefTRIAXone\\ROCEPHIN 1 GM in Sodium Chloride 0.9% 100 ML IVPB SCH (14:21)
[2022-04-27] MEDS: Melatonin 3 MG TAB PO SCH (20:29)
[2022-04-28 04:26] LABS: #Eosinphils 0.2 thou/uL (0.0-0.7); #Monocytes 0.7 thou/uL (0.11-0.59); #Neutrophils 4.9 thou/uL (1.40-6.50); %Basophils 0.1 % (0.0-1.0); %Eosinophils 3.4 % (0.0-10.0); %Lymphocytes 14.1 % (21.0-51.0); %Monocytes 10.2 % (0.0-10.0); %Neutrophils 72.2 % (42.0-75.0); Hemoglobin 7.9 g/dL (12.0-16.0); Mean Corpuscular HGB CONC 30.5 g/dL (32.0-36.0); Mean Corpuscular Hemoglobin 28.5 pg (27.0-31.0); Mean Corpuscular Volume 93.2 fl (78.0-98.0); Mean Platelet Volume 10.3 fL (7.4-10.4); Platelet Count 214 thou/uL (130-400); RBC Distribution Width 18.3 % (11.5-14.5); Red Blood Cell (RBC) Count 2.78 mill/uL (4.20-5.40); White Blood Cell (WBC) Count 6.8 thou/uL (4.8-10.8)
[2022-04-28 04:52] LABS: ALT (SGPT) 12 U/L (8-55); AST (SGOT) 24 U/L (5-34); Albumin 2.7 g/dL (3.4-4.8); Alkaline Phosphatase 113 U/L (40-110); Anion Gap 14 mmol/L (10-20); BUN (Urea Nitrogen) 28 mg/dL (9.8-20.1); Bilirubin, Total 1.2 mg/dL (0.2-1.2); Calc. Creatinine Clearance 52 mL/min (70-130); Calcium 7.8 mg/dL (7.8-10.44); Carbon Dioxide 24 mmol/L (23-31); Chloride 104 mmol/L (98-107); Estimated GFR 36; Globulin 3.9 g/dL (2.4-3.5); Glucose 152 mg/dL (80-115); Potassium 4.7 mmol/L (3.5-5.1); Protein, Total 6.6 g/dL (5.8-8.1); Sodium 137 mmol/L (136-145)
[2022-04-28] MEDS: Furosemide 20 MG TAB PO SCH (09:35)
[2022-04-28] MEDS: Carvedilol 6.25 MG TAB PO SCH ×2 (09:35→18:45)
[2022-04-28] MEDS: Apixaban 5 MG TAB PO SCH ×2 (09:36→20:27)
[2022-04-28] MEDS: Amiodarone 200 MG TAB PO SCH ×2 (09:36→20:27)
[2022-04-28] MEDS: Pantoprazole 40 MG VIAL IVP SCH ×2 (09:36→20:27)
[2022-04-28] MEDS: Ondansetron PF 4 MG/2 ML Vial IVP SCH ×2 (09:36→20:27)
[2022-04-28] MEDS: Empagliflozin 10 MG TAB PO SCH (09:36)
[2022-04-28] MEDS: Sertraline 100 MG TAB PO SCH (09:36)
[2022-04-28] MEDS: Clopidogrel Bisulfate 75 MG TAB PO SCH (09:36)
[2022-04-28] MEDS: Magnesium Oxide 400 MG TAB PO SCH (09:36)
[2022-04-28] MEDS: Ferrous Sulfate 325 MG TAB PO SCH ×2 (09:36→18:45)
[2022-04-28] MEDS: Saccharomyces boulardii 250 MG CAP PO SCH (09:36)
[2022-04-28 10:15] LABS: Factor 2 Activity 64 % (.)
[2022-04-28] MEDS: cefTRIAXone\\ROCEPHIN 1 GM in Sodium Chloride 0.9% 100 ML IVPB SCH (14:51)
[2022-04-28] MEDS: Melatonin 3 MG TAB PO SCH (20:26)
[2022-04-28] MEDS: Acetaminophen 500 MG TAB PO PRN (20:29)
[2022-04-29 04:16] LABS: #Eosinphils 0.2 thou/uL (0.0-0.7); #Lymphocytes 0.8 thou/uL (1.20-3.40); #Monocytes 0.6 thou/uL (0.11-0.59); #Neutrophils 4.8 thou/uL (1.40-6.50); %Basophils 0.7 % (0.0-1.0); %Eosinophils 2.9 % (0.0-10.0); %Lymphocytes 12.8 % (21.0-51.0); %Monocytes 9.8 % (0.0-10.0); %Neutrophils 73.9 % (42.0-75.0); Hemoglobin 7.8 g/dL (12.0-16.0); Mean Corpuscular HGB CONC 30.9 g/dL (32.0-36.0); Mean Corpuscular Hemoglobin 28.9 pg (27.0-31.0); Mean Corpuscular Volume 93.7 fl (78.0-98.0); Mean Platelet Volume 9.8 fL (7.4-10.4); Platelet Count 209 thou/uL (130-400); RBC Distribution Width 18.4 % (11.5-14.5); Red Blood Cell (RBC) Count 2.71 mill/uL (4.20-5.40); White Blood Cell (WBC) Count 6.6 thou/uL (4.8-10.8)
[2022-04-29 04:33] LABS: Anion Gap 18 mmol/L (10-20); BUN (Urea Nitrogen) 25 mg/dL (9.8-20.1); Calc. Creatinine Clearance 54 mL/min (70-130); Calcium 7.9 mg/dL (7.8-10.44); Carbon Dioxide 19 mmol/L (23-31); Chloride 104 mmol/L (98-107); Estimated GFR 38; Glucose 135 mg/dL (80-115); Potassium 4.5 mmol/L (3.5-5.1); Sodium 136 mmol/L (136-145)
[2022-04-29] MEDS: Empagliflozin 10 MG TAB PO SCH (09:03)
[2022-04-29] MEDS: Amiodarone 200 MG TAB PO SCH ×2 (09:03→20:47)
[2022-04-29] MEDS: Furosemide 20 MG TAB PO SCH (09:03)
[2022-04-29] MEDS: Sertraline 100 MG TAB PO SCH (09:03)
[2022-04-29] MEDS: Clopidogrel Bisulfate 75 MG TAB PO SCH (09:04)
[2022-04-29] MEDS: Ferrous Sulfate 325 MG TAB PO SCH ×2 (09:04→17:57)
[2022-04-29] MEDS: Apixaban 5 MG TAB PO SCH (09:04)
[2022-04-29] MEDS: Saccharomyces boulardii 250 MG CAP PO SCH (09:04)
[2022-04-29] MEDS: Magnesium Oxide 400 MG TAB PO SCH (09:04)
[2022-04-29] MEDS: Carvedilol 6.25 MG TAB PO SCH ×2 (09:04→17:57)
[2022-04-29] MEDS: Pantoprazole 40 MG VIAL IVP SCH ×2 (09:05→20:47)
[2022-04-29] MEDS: Ondansetron PF 4 MG/2 ML Vial IVP SCH ×2 (09:30→20:48)
[2022-04-29] MEDS: Acetaminophen 500 MG TAB PO PRN (12:24)
[2022-04-29] MEDS: HumaLOG 300 UNITS/3 ML VIAL SC PRN ×2 (12:25→17:10)
[2022-04-29] MEDS: HYDROcodone/Acetaminophen 5/325 mg Tablet PO PRN (20:47)
[2022-04-29] MEDS: Melatonin 3 MG TAB PO SCH (20:48)
[2022-04-30 04:55] LABS: Anion Gap 12 mmol/L (10-20); BUN (Urea Nitrogen) 25 mg/dL (9.8-20.1); Calc. Creatinine Clearance 53 mL/min (70-130); Calcium 7.9 mg/dL (7.8-10.44); Carbon Dioxide 27 mmol/L (23-31); Chloride 105 mmol/L (98-107); Estimated GFR 37; Glucose 151 mg/dL (80-115); Sodium 140 mmol/L (136-145)
[2022-04-30 05:35] LABS: #Basophils 0.1 thou/uL (0.0-0.2); #Eosinphils 0.2 thou/uL (0.0-0.7); #Monocytes 0.7 thou/uL (0.11-0.59); %Basophils 1.1 % (0.0-1.0); %Eosinophils 3.4 % (0.0-10.0); %Lymphocytes 13.8 % (21.0-51.0); %Monocytes 9.8 % (0.0-10.0); Hemoglobin 7.6 g/dL (12.0-16.0); Mean Corpuscular HGB CONC 30.3 g/dL (32.0-36.0); Mean Corpuscular Hemoglobin 27.9 pg (27.0-31.0); Mean Corpuscular Volume 91.9 fl (78.0-98.0); Mean Platelet Volume 10.1 fL (7.4-10.4); Platelet Count 214 thou/uL (130-400); RBC Distribution Width 18.4 % (11.5-14.5); Red Blood Cell (RBC) Count 2.72 mill/uL (4.20-5.40); White Blood Cell (WBC) Count 6.9 thou/uL (4.8-10.8)
[2022-04-30 05:36] LABS: Hypochromia SLIGHT = 6-15 cells (100X) (0-5/hpf); MDiff Complete? YES; Platelet Morphology Comment Appears Adequate
[2022-04-30] MEDS: Furosemide 20 MG TAB PO SCH (09:26)
[2022-04-30] MEDS: Sertraline 100 MG TAB PO SCH (09:26)
[2022-04-30] MEDS: Carvedilol 6.25 MG TAB PO SCH ×2 (09:26→18:42)
[2022-04-30] MEDS: Saccharomyces boulardii 250 MG CAP PO SCH (09:26)
[2022-04-30] MEDS: Ferrous Sulfate 325 MG TAB PO SCH ×2 (09:26→18:42)
[2022-04-30] MEDS: Magnesium Oxide 400 MG TAB PO SCH (09:26)
[2022-04-30] MEDS: Empagliflozin 10 MG TAB PO SCH (09:27)
[2022-04-30] MEDS: Pantoprazole 40 MG VIAL IVP SCH ×2 (09:27→20:00)
[2022-04-30] MEDS: Amiodarone 200 MG TAB PO SCH ×2 (09:27→19:59)
[2022-04-30] MEDS: Ondansetron PF 4 MG/2 ML Vial IVP SCH ×2 (09:27→19:59)
[2022-04-30] MEDS: Clopidogrel Bisulfate 75 MG TAB PO SCH (09:27)
[2022-04-30] MEDS: HYDROcodone/Acetaminophen 5/325 mg Tablet PO PRN (18:44)
[2022-04-30] MEDS: Melatonin 3 MG TAB PO SCH (19:59)
[2022-05-01] MEDS: HumaLOG 300 UNITS/3 ML VIAL SC PRN (06:44)
[2022-05-01] MEDS: Furosemide 20 MG TAB PO SCH (09:47)
[2022-05-01] MEDS: Carvedilol 6.25 MG TAB PO SCH ×2 (09:48→17:55)
[2022-05-01] MEDS: Ferrous Sulfate 325 MG TAB PO SCH ×2 (09:48→17:55)
[2022-05-01] MEDS: Amiodarone 200 MG TAB PO SCH ×2 (09:49→20:13)
[2022-05-01] MEDS: Empagliflozin 10 MG TAB PO SCH (09:49)
[2022-05-01] MEDS: Sertraline 100 MG TAB PO SCH (09:49)
[2022-05-01] MEDS: Clopidogrel Bisulfate 75 MG TAB PO SCH (09:49)
[2022-05-01] MEDS: Saccharomyces boulardii 250 MG CAP PO SCH (09:49)
[2022-05-01] MEDS: Ondansetron PF 4 MG/2 ML Vial IVP SCH ×2 (09:49→20:12)
[2022-05-01] MEDS: Magnesium Oxide 400 MG TAB PO SCH (09:49)
[2022-05-01] MEDS: Pantoprazole 40 MG VIAL IVP SCH ×2 (09:49→20:13)
[2022-05-01] MEDS: HYDROcodone/Acetaminophen 5/325 mg Tablet PO PRN (10:13)
[2022-05-01 12:56] LABS: #Basophils 0.1 thou/uL (0.0-0.2); #Eosinphils 0.1 thou/uL (0.0-0.7); #Lymphocytes 0.9 thou/uL (1.20-3.40); %Eosinophils 1.8 % (0.0-10.0); %Lymphocytes 12.4 % (21.0-51.0); %Monocytes 14.2 % (0.0-10.0); %Neutrophils 70.7 % (42.0-75.0); Hemoglobin 7.7 g/dL (12.0-16.0); Mean Corpuscular HGB CONC 29.2 g/dL (32.0-36.0); Mean Corpuscular Hemoglobin 27.8 pg (27.0-31.0); Mean Corpuscular Volume 95.1 fl (78.0-98.0); Mean Platelet Volume 9.6 fL (7.4-10.4); Platelet Count 204 thou/uL (130-400); RBC Distribution Width 19.1 % (11.5-14.5); Red Blood Cell (RBC) Count 2.77 mill/uL (4.20-5.40)
[2022-05-01 13:01] LABS: INR-International Normal Ratio 1.8; Prothrombin Time 21.7 sec (12.0-14.7)
[2022-05-01 13:06] LABS: Anion Gap 13 mmol/L (10-20); BUN (Urea Nitrogen) 22 mg/dL (9.8-20.1); Calc. Creatinine Clearance 54 mL/min (70-130); Calcium 8.2 mg/dL (7.8-10.44); Carbon Dioxide 25 mmol/L (23-31); Chloride 105 mmol/L (98-107); Estimated GFR 38; Glucose 167 mg/dL (80-115); Potassium 4.1 mmol/L (3.5-5.1); Sodium 139 mmol/L (136-145)
[2022-05-01 14:37] LABS: Hemoglobin 7.2 g/dL (12.0-16.0)
[2022-05-01] MEDS: Melatonin 3 MG TAB PO SCH (20:12)
[2022-05-02] MEDS: ALPRAZolam 0.25 MG TAB PO PRN (01:07)
[2022-05-02 05:04] LABS: #Basophils 0.1 thou/uL (0.0-0.2); #Eosinphils 0.1 thou/uL (0.0-0.7); #Lymphocytes 0.9 thou/uL (1.20-3.40); #Monocytes 0.6 thou/uL (0.11-0.59); #Neutrophils 4.6 thou/uL (1.40-6.50); %Eosinophils 1.7 % (0.0-10.0); %Lymphocytes 14.1 % (21.0-51.0); %Neutrophils 73.2 % (42.0-75.0); Anisocytosis SLIGHT = 6-15 cells (100X) (0-5/hpf); Hemoglobin 7.8 g/dL (12.0-16.0); Hypochromia SLIGHT = 6-15 cells (100X) (0-5/hpf); MDiff Complete? YES; Mean Corpuscular Hemoglobin 28.3 pg (27.0-31.0); Mean Corpuscular Volume 97.5 fl (78.0-98.0); Mean Platelet Volume 9.4 fL (7.4-10.4); Platelet Count 194 thou/uL (130-400); RBC Distribution Width 18.8 % (11.5-14.5); Red Blood Cell (RBC) Count 2.76 mill/uL (4.20-5.40); White Blood Cell (WBC) Count 6.3 thou/uL (4.8-10.8)
[2022-05-02 08:07] LABS: Anion Gap 14 mmol/L (10-20); BUN (Urea Nitrogen) 22 mg/dL (9.8-20.1); Calc. Creatinine Clearance 54 mL/min (70-130); Calcium 8.1 mg/dL (7.8-10.44); Carbon Dioxide 24 mmol/L (23-31); Chloride 106 mmol/L (98-107); Estimated GFR 38; Glucose 147 mg/dL (80-115); Potassium 4.3 mmol/L (3.5-5.1); Sodium 140 mmol/L (136-145)
[2022-05-02] MEDS: Amiodarone 200 MG TAB PO SCH ×2 (09:32→21:05)
[2022-05-02] MEDS: Carvedilol 6.25 MG TAB PO SCH ×2 (09:32→17:28)
[2022-05-02] MEDS: Empagliflozin 10 MG TAB PO SCH (09:32)
[2022-05-02] MEDS: Ferrous Sulfate 325 MG TAB PO SCH ×2 (09:32→17:28)
[2022-05-02] MEDS: Furosemide 20 MG TAB PO SCH (09:33)
[2022-05-02] MEDS: Magnesium Oxide 400 MG TAB PO SCH (09:33)
[2022-05-02] MEDS: Pantoprazole 40 MG VIAL IVP SCH ×2 (09:33→21:05)
[2022-05-02] MEDS: Clopidogrel Bisulfate 75 MG TAB PO SCH (09:33)
[2022-05-02] MEDS: Saccharomyces boulardii 250 MG CAP PO SCH (09:33)
[2022-05-02] MEDS: Ondansetron PF 4 MG/2 ML Vial IVP SCH ×2 (09:33→21:05)
[2022-05-02] MEDS: Sertraline 100 MG TAB PO SCH (09:33)
[2022-05-02] MEDS: HumaLOG 300 UNITS/3 ML VIAL SC PRN ×2 (12:06→17:28)
[2022-05-02] MEDS: Melatonin 3 MG TAB PO SCH (21:05)
[2022-05-03 04:17] LABS: Anion Gap 15 mmol/L (10-20); BUN (Urea Nitrogen) 20 mg/dL (9.8-20.1); Calc. Creatinine Clearance 58 mL/min (70-130); Calcium 8.1 mg/dL (7.8-10.44); Carbon Dioxide 22 mmol/L (23-31); Chloride 108 mmol/L (98-107); Estimated GFR 42; Glucose 130 mg/dL (80-115); Potassium 4.3 mmol/L (3.5-5.1); Sodium 141 mmol/L (136-145)
[2022-05-03] MEDS: Furosemide 20 MG TAB PO SCH (06:38)
[2022-05-03] MEDS: Magnesium Oxide 400 MG TAB PO SCH (09:50)
[2022-05-03] MEDS: Ferrous Sulfate 325 MG TAB PO SCH ×2 (09:50→16:49)
[2022-05-03] MEDS: Empagliflozin 10 MG TAB PO SCH (09:51)
[2022-05-03] MEDS: Sertraline 100 MG TAB PO SCH (09:51)
[2022-05-03] MEDS: Amiodarone 200 MG TAB PO SCH ×2 (09:51→20:33)
[2022-05-03] MEDS: Clopidogrel Bisulfate 75 MG TAB PO SCH (09:51)
[2022-05-03] MEDS: Saccharomyces boulardii 250 MG CAP PO SCH (09:51)
[2022-05-03] MEDS: Pantoprazole 40 MG VIAL IVP SCH ×2 (09:51→20:33)
[2022-05-03] MEDS: Carvedilol 6.25 MG TAB PO SCH ×2 (09:52→16:49)
[2022-05-03] MEDS: Ondansetron PF 4 MG/2 ML Vial IVP SCH ×2 (10:07→20:33)
[2022-05-03] MEDS: Melatonin 3 MG TAB PO SCH (20:33)
[2022-05-03] MEDS: Acetaminophen 500 MG TAB PO PRN (21:03)
[2022-05-03] MEDS: HumaLOG 300 UNITS/3 ML VIAL SC PRN (21:56)
[2022-05-04] MEDS: Furosemide 20 MG TAB PO SCH (06:56)
[2022-05-04] MEDS: Clopidogrel Bisulfate 75 MG TAB PO SCH (09:04)
[2022-05-04] MEDS: Empagliflozin 10 MG TAB PO SCH (09:04)
[2022-05-04] MEDS: Carvedilol 6.25 MG TAB PO SCH ×2 (09:04→17:25)
[2022-05-04] MEDS: Amiodarone 200 MG TAB PO SCH ×2 (09:04→21:05)
[2022-05-04] MEDS: Ferrous Sulfate 325 MG TAB PO SCH ×2 (09:04→17:25)
[2022-05-04] MEDS: Sertraline 100 MG TAB PO SCH (09:05)
[2022-05-04] MEDS: Magnesium Oxide 400 MG TAB PO SCH (09:05)
[2022-05-04] MEDS: Pantoprazole 40 MG VIAL IVP SCH ×2 (09:05→21:05)
[2022-05-04] MEDS: Saccharomyces boulardii 250 MG CAP PO SCH (09:05)
[2022-05-04] MEDS: Ondansetron PF 4 MG/2 ML Vial IVP SCH ×2 (12:14→21:05)
[2022-05-04] MEDS: Epoetin (ESRD) 10,000 UNITS/ML VIAL SC SCH (15:56)
[2022-05-04] MEDS ORDERED: Apixaban 2.5 MG TAB PO SCH (21:00)
[2022-05-04] MEDS: Melatonin 3 MG TAB PO SCH (21:05)
[2022-05-05 00:19] LABS: #Basophils 0.1 thou/uL (0.0-0.2); #Eosinphils 0.1 thou/uL (0.0-0.7); #Monocytes 0.6 thou/uL (0.11-0.59); #Neutrophils 4.4 thou/uL (1.40-6.50); %Basophils 1.1 % (0.0-1.0); %Eosinophils 1.5 % (0.0-10.0); %Lymphocytes 15.8 % (21.0-51.0); %Monocytes 9.2 % (0.0-10.0); %Neutrophils 72.4 % (42.0-75.0); Hemoglobin 7.3 g/dL (12.0-16.0); Mean Corpuscular HGB CONC 29.7 g/dL (32.0-36.0); Mean Corpuscular Volume 94.3 fl (78.0-98.0); Mean Platelet Volume 9.5 fL (7.4-10.4); Platelet Count 183 10x3/uL (130-400); RBC Distribution Width 19.3 % (11.5-14.5); Red Blood Cell (RBC) Count 2.61 mill/uL (4.20-5.40)
[2022-05-05 00:24] LABS: Anion Gap 16 mmol/L (10-20); BUN (Urea Nitrogen) 21 mg/dL (9.8-20.1); Calc. Creatinine Clearance 53 mL/min (70-130); Calcium 7.8 mg/dL (7.8-10.44); Carbon Dioxide 24 mmol/L (23-31); Chloride 104 mmol/L (98-107); Estimated GFR 39; Glucose 197 mg/dL (80-115); Sodium 140 mmol/L (136-145)
[2022-05-05 06:10] LABS: Anion Gap 15 mmol/L (10-20); BUN (Urea Nitrogen) 21 mg/dL (9.8-20.1); Calc. Creatinine Clearance 53 mL/min (70-130); Calcium 7.9 mg/dL (7.8-10.44); Carbon Dioxide 25 mmol/L (23-31); Chloride 104 mmol/L (98-107); Estimated GFR 38; Glucose 206 mg/dL (80-115); Potassium 3.9 mmol/L (3.5-5.1); Sodium 140 mmol/L (136-145)
[2022-05-05] MEDS: HumaLOG 300 UNITS/3 ML VIAL SC PRN ×3 (06:21→17:54)
[2022-05-05 07:14] LABS: #Eosinphils 0.1 thou/uL (0.0-0.7); #Monocytes 0.8 thou/uL (0.11-0.59); #Neutrophils 4.7 thou/uL (1.40-6.50); %Basophils 0.7 % (0.0-1.0); %Eosinophils 1.1 % (0.0-10.0); %Lymphocytes 15.3 % (21.0-51.0); %Monocytes 11.5 % (0.0-10.0); %Neutrophils 71.4 % (42.0-75.0); Hemoglobin 7.5 g/dL (12.0-16.0); Mean Corpuscular HGB CONC 29.7 g/dL (32.0-36.0); Mean Corpuscular Hemoglobin 27.9 pg (27.0-31.0); Mean Corpuscular Volume 94.1 fl (78.0-98.0); Mean Platelet Volume 9.6 fL (7.4-10.4); Platelet Count 189 10x3/uL (130-400); RBC Distribution Width 19.4 % (11.5-14.5); Red Blood Cell (RBC) Count 2.68 mill/uL (4.20-5.40); White Blood Cell (WBC) Count 6.6 10x3/uL (4.8-10.8)
[2022-05-05] MEDS: Sertraline 100 MG TAB PO SCH (08:44)
[2022-05-05] MEDS: Carvedilol 6.25 MG TAB PO SCH ×2 (08:44→16:34)
[2022-05-05] MEDS: Magnesium Oxide 400 MG TAB PO SCH (08:44)
[2022-05-05] MEDS: Empagliflozin 10 MG TAB PO SCH (08:45)
[2022-05-05] MEDS: Saccharomyces boulardii 250 MG CAP PO SCH (08:45)
[2022-05-05] MEDS: Furosemide 20 MG TAB PO SCH (08:45)
[2022-05-05] MEDS: Ferrous Sulfate 325 MG TAB PO SCH ×2 (08:46→16:33)
[2022-05-05] MEDS: Ondansetron PF 4 MG/2 ML Vial IVP SCH ×2 (08:46→20:11)
[2022-05-05] MEDS: Pantoprazole 40 MG VIAL IVP SCH ×2 (08:46→20:03)
[2022-05-05] MEDS: Amiodarone 200 MG TAB PO SCH ×2 (08:46→20:04)
[2022-05-05] MEDS: Clopidogrel Bisulfate 75 MG TAB PO SCH (09:23)
[2022-05-05] MEDS: HYDROcodone/Acetaminophen 5/325 mg Tablet PO PRN (12:00)
[2022-05-05] MEDS: ALPRAZolam 0.25 MG TAB PO PRN (17:32)
[2022-05-05] MEDS: Melatonin 3 MG TAB PO SCH (20:04)
[2022-05-06 05:20] LABS: Anion Gap 13 mmol/L (10-20); BUN (Urea Nitrogen) 19 mg/dL (9.8-20.1); Calc. Creatinine Clearance 52 mL/min (70-130); Calcium 8.1 mg/dL (7.8-10.44); Carbon Dioxide 26 mmol/L (23-31); Chloride 106 mmol/L (98-107); Estimated GFR 37; Glucose 109 mg/dL (80-115); Sodium 141 mmol/L (136-145)
[2022-05-06 05:22] LABS: #Eosinphils 0.1 thou/uL (0.0-0.7); #Lymphocytes 1.2 thou/uL (1.20-3.40); #Monocytes 0.8 thou/uL (0.11-0.59); #Neutrophils 4.8 thou/uL (1.40-6.50); %Basophils 0.7 % (0.0-1.0); %Eosinophils 1.8 % (0.0-10.0); %Lymphocytes 16.8 % (21.0-51.0); %Monocytes 12.2 % (0.0-10.0); %Neutrophils 68.6 % (42.0-75.0); Anisocytosis SLIGHT = 6-15 cells (100X) (0-5/hpf); Hemoglobin 7.5 g/dL (12.0-16.0); Hypochromia SLIGHT = 6-15 cells (100X) (0-5/hpf); MDiff Complete? YES; Mean Corpuscular HGB CONC 29.9 g/dL (32.0-36.0); Mean Corpuscular Hemoglobin 28.4 pg (27.0-31.0); Mean Corpuscular Volume 95.1 fl (78.0-98.0); Mean Platelet Volume 9.9 fL (7.4-10.4); Platelet Count 190 10x3/uL (130-400); RBC Distribution Width 19.7 % (11.5-14.5); Red Blood Cell (RBC) Count 2.64 mill/uL (4.20-5.40); White Blood Cell (WBC) Count 6.9 10x3/uL (4.8-10.8)
[2022-05-06] MEDS: Furosemide 20 MG TAB PO SCH (09:30)
[2022-05-06] MEDS: Carvedilol 6.25 MG TAB PO SCH ×2 (09:31→18:05)
[2022-05-06] MEDS: Amiodarone 200 MG TAB PO SCH ×2 (09:31→21:49)
[2022-05-06] MEDS: Clopidogrel Bisulfate 75 MG TAB PO SCH (09:31)
[2022-05-06] MEDS: Ferrous Sulfate 325 MG TAB PO SCH ×2 (09:31→18:05)
[2022-05-06] MEDS: Ondansetron PF 4 MG/2 ML Vial IVP SCH ×2 (09:32→21:49)
[2022-05-06] MEDS: Pantoprazole 40 MG VIAL IVP SCH ×2 (09:32→21:49)
[2022-05-06] MEDS: Empagliflozin 10 MG TAB PO SCH (09:32)
[2022-05-06] MEDS: Sertraline 100 MG TAB PO SCH (09:33)
[2022-05-06] MEDS: Saccharomyces boulardii 250 MG CAP PO SCH (09:33)
[2022-05-06] MEDS: Magnesium Oxide 400 MG TAB PO SCH (09:43)
[2022-05-06 15:17] LABS: #Basophils 0.1 thou/uL (0.0-0.2); #Eosinphils 0.1 thou/uL (0.0-0.7); #Lymphocytes 0.9 thou/uL (1.20-3.40); #Monocytes 0.7 thou/uL (0.11-0.59); #Neutrophils 5.6 thou/uL (1.40-6.50); %Basophils 0.8 % (0.0-1.0); %Eosinophils 1.2 % (0.0-10.0); %Lymphocytes 12.4 % (21.0-51.0); %Neutrophils 75.6 % (42.0-75.0); Mean Corpuscular HGB CONC 29.8 g/dL (32.0-36.0); Mean Corpuscular Volume 93.8 fl (78.0-98.0); Mean Platelet Volume 9.5 fL (7.4-10.4); Platelet Count 190 10x3/uL (130-400); Red Blood Cell (RBC) Count 2.51 mill/uL (4.20-5.40); White Blood Cell (WBC) Count 7.4 10x3/uL (4.8-10.8)
[2022-05-06 18:12] LABS: #Eosinphils 0.1 thou/uL (0.0-0.7); #Monocytes 0.8 thou/uL (0.11-0.59); #Neutrophils 5.7 thou/uL (1.40-6.50); %Basophils 0.6 % (0.0-1.0); %Eosinophils 1.6 % (0.0-10.0); %Monocytes 10.3 % (0.0-10.0); %Neutrophils 74.5 % (42.0-75.0); Hemoglobin 7.1 g/dL (12.0-16.0); Mean Corpuscular HGB CONC 29.4 g/dL (32.0-36.0); Mean Corpuscular Hemoglobin 27.9 pg (27.0-31.0); Mean Corpuscular Volume 94.7 fl (78.0-98.0); Mean Platelet Volume 9.6 fL (7.4-10.4); Platelet Count 188 10x3/uL (130-400); RBC Distribution Width 20.3 % (11.5-14.5); Red Blood Cell (RBC) Count 2.55 mill/uL (4.20-5.40); White Blood Cell (WBC) Count 7.6 10x3/uL (4.8-10.8)
[2022-05-06 18:36] LABS: ALT (SGPT) 10 U/L (8-55); AST (SGOT) 14 U/L (5-34); Albumin 2.7 g/dL (3.4-4.8); Alkaline Phosphatase 96 U/L (40-110); Anion Gap 14 mmol/L (10-20); BUN (Urea Nitrogen) 19 mg/dL (9.8-20.1); Bilirubin, Total 1.1 mg/dL (0.2-1.2); Calc. Creatinine Clearance 53 mL/min (70-130); Calcium 7.9 mg/dL (7.8-10.44); Carbon Dioxide 25 mmol/L (23-31); Chloride 107 mmol/L (98-107); Estimated GFR 38; Globulin 3.9 g/dL (2.4-3.5); Glucose 151 mg/dL (80-115); Potassium 4.1 mmol/L (3.5-5.1); Protein, Total 6.6 g/dL (5.8-8.1); Sodium 142 mmol/L (136-145)
[2022-05-06 19:07] LABS: Bacteria/HPF None Seen HPF (None Seen); Bilirubin Negative (Negative); Blood, Urine Negative (Negative); Clarity Clear (Clear); Glucose, Urine (Dipstick) Greater than 1000 mg/dL (Negative); Ketone, Urine Negative (Negative); Leukocyte Negative Leu/uL (Negative); Nitrite Negative (Negative); Protein, Urine (Dipstick) Negative (Neg-Trace); RBC/HPF 0-3 HPF (0-3); Specific Gravity, Urine 1.015 (1.002-1.036); Squamous Epithelial None Seen HPF (0-3); Urobilinogen Normal mg/dL (Less than 2); WBC/HPF 0-3 HPF (0-3); pH, Urine 6.5 (5.0-9.0)
[2022-05-06 19:09] LABS: Urine Culture Reflex No No
[2022-05-06 19:43] LABS: Hemoglobin 7.1 g/dL (12.0-16.0)
[2022-05-06] MEDS: Melatonin 3 MG TAB PO SCH (21:49)
[2022-05-07 04:33] LABS: #Eosinphils 0.1 thou/uL (0.0-0.7); #Lymphocytes 0.9 thou/uL (1.20-3.40); #Monocytes 0.6 thou/uL (0.11-0.59); %Basophils 0.4 % (0.0-1.0); %Eosinophils 1.6 % (0.0-10.0); %Monocytes 7.9 % (0.0-10.0); %Neutrophils 78.2 % (42.0-75.0); Hemoglobin 7.4 g/dL (12.0-16.0); Mean Corpuscular HGB CONC 29.2 g/dL (32.0-36.0); Mean Corpuscular Hemoglobin 27.9 pg (27.0-31.0); Mean Corpuscular Volume 95.6 fl (78.0-98.0); Mean Platelet Volume 9.5 fL (7.4-10.4); Platelet Count 210 10x3/uL (130-400); RBC Distribution Width 20.3 % (11.5-14.5); Red Blood Cell (RBC) Count 2.64 mill/uL (4.20-5.40); White Blood Cell (WBC) Count 7.7 10x3/uL (4.8-10.8)
[2022-05-07 05:39] LABS: Anion Gap 13 mmol/L (10-20); BUN (Urea Nitrogen) 19 mg/dL (9.8-20.1); Calc. Creatinine Clearance 55 mL/min (70-130); Calcium 8.1 mg/dL (7.8-10.44); Carbon Dioxide 26 mmol/L (23-31); Chloride 106 mmol/L (98-107); Estimated GFR 40; Glucose 137 mg/dL (80-115); Potassium 4.1 mmol/L (3.5-5.1); Sodium 141 mmol/L (136-145)
[2022-05-07] MEDS: Carvedilol 6.25 MG TAB PO SCH ×2 (08:31→17:51)
[2022-05-07] MEDS: Furosemide 20 MG TAB PO SCH (08:31)
[2022-05-07] MEDS: Ferrous Sulfate 325 MG TAB PO SCH ×2 (08:32→17:51)
[2022-05-07] MEDS: Amiodarone 200 MG TAB PO SCH ×2 (08:33→21:03)
[2022-05-07] MEDS: Clopidogrel Bisulfate 75 MG TAB PO SCH (08:33)
[2022-05-07] MEDS: Empagliflozin 10 MG TAB PO SCH (08:33)
[2022-05-07] MEDS: Pantoprazole 40 MG VIAL IVP SCH ×2 (08:34→21:04)
[2022-05-07] MEDS: Ondansetron PF 4 MG/2 ML Vial IVP SCH ×2 (08:34→21:04)
[2022-05-07] MEDS: Magnesium Oxide 400 MG TAB PO SCH (08:34)
[2022-05-07] MEDS: Saccharomyces boulardii 250 MG CAP PO SCH (08:35)
[2022-05-07] MEDS: Sertraline 100 MG TAB PO SCH (08:35)
[2022-05-07] MEDS: HumaLOG 300 UNITS/3 ML VIAL SC PRN ×2 (12:43→21:03)
[2022-05-07 16:10] VITALS: BMI 38.5
[2022-05-07] MEDS: HYDROcodone/Acetaminophen 5/325 mg Tablet PO PRN (17:52)
[2022-05-07] MEDS: ALPRAZolam 0.25 MG TAB PO PRN (21:03)
[2022-05-08 04:56] LABS: #Eosinphils 0.2 thou/uL (0.0-0.7); #Lymphocytes 1.1 thou/uL (1.20-3.40); #Monocytes 0.9 thou/uL (0.11-0.59); #Neutrophils 6.8 thou/uL (1.40-6.50); %Basophils 0.3 % (0.0-1.0); %Eosinophils 1.8 % (0.0-10.0); %Lymphocytes 11.9 % (21.0-51.0); %Monocytes 10.3 % (0.0-10.0); %Neutrophils 75.7 % (42.0-75.0); Hemoglobin 7.3 g/dL (12.0-16.0); Mean Corpuscular HGB CONC 29.4 g/dL (32.0-36.0); Mean Corpuscular Hemoglobin 28.1 pg (27.0-31.0); Mean Corpuscular Volume 95.8 fl (78.0-98.0); Mean Platelet Volume 9.4 fL (7.4-10.4); Platelet Count 231 10x3/uL (130-400); RBC Distribution Width 20.2 % (11.5-14.5)
[2022-05-08 05:04] LABS: Anion Gap 13 mmol/L (10-20); BUN (Urea Nitrogen) 22 mg/dL (9.8-20.1); Calc. Creatinine Clearance 47 mL/min (70-130); Carbon Dioxide 27 mmol/L (23-31); Chloride 104 mmol/L (98-107); Estimated GFR 33; Glucose 214 mg/dL (80-115); Potassium 4.2 mmol/L (3.5-5.1); Sodium 140 mmol/L (136-145)
[2022-05-08] MEDS: Furosemide 20 MG TAB PO SCH (06:16)
[2022-05-08] MEDS: Ferrous Sulfate 325 MG TAB PO SCH ×2 (09:09→18:22)
[2022-05-08] MEDS: Magnesium Oxide 400 MG TAB PO SCH (09:09)
[2022-05-08] MEDS: Carvedilol 6.25 MG TAB PO SCH ×2 (09:10→17:18)
[2022-05-08] MEDS: Saccharomyces boulardii 250 MG CAP PO SCH (09:11)
[2022-05-08] MEDS: Clopidogrel Bisulfate 75 MG TAB PO SCH (09:11)
[2022-05-08] MEDS: Amiodarone 200 MG TAB PO SCH ×2 (09:11→20:39)
[2022-05-08] MEDS: Sertraline 100 MG TAB PO SCH (09:12)
[2022-05-08] MEDS: Empagliflozin 10 MG TAB PO SCH (09:12)
[2022-05-08] MEDS: Pantoprazole 40 MG VIAL IVP SCH ×2 (09:13→20:39)
[2022-05-08] MEDS: Ondansetron PF 4 MG/2 ML Vial IVP SCH ×2 (09:13→20:39)
[2022-05-08] MEDS: HumaLOG 300 UNITS/3 ML VIAL SC PRN ×2 (12:55→17:22)
[2022-05-08] MEDS: ALPRAZolam 0.25 MG TAB PO PRN (20:39)
[2022-05-09 05:29] LABS: Anion Gap 14 mmol/L (10-20); BUN (Urea Nitrogen) 21 mg/dL (9.8-20.1); Calc. Creatinine Clearance 54 mL/min (70-130); Calcium 8.2 mg/dL (7.8-10.44); Carbon Dioxide 27 mmol/L (23-31); Chloride 102 mmol/L (98-107); Estimated GFR 39; Glucose 137 mg/dL (80-115); Potassium 4.3 mmol/L (3.5-5.1); Sodium 139 mmol/L (136-145)
[2022-05-09 05:36] LABS: #Basophils 0.1 thou/uL (0.0-0.2); #Eosinphils 0.2 thou/uL (0.0-0.7); #Lymphocytes 0.8 thou/uL (1.20-3.40); #Monocytes 0.6 thou/uL (0.11-0.59); #Neutrophils 5.7 thou/uL (1.40-6.50); %Basophils 0.7 % (0.0-1.0); %Eosinophils 2.2 % (0.0-10.0); %Lymphocytes 11.2 % (21.0-51.0); %Neutrophils 77.8 % (42.0-75.0); Hemoglobin 7.9 g/dL (12.0-16.0); Mean Corpuscular HGB CONC 29.1 g/dL (32.0-36.0); Mean Corpuscular Hemoglobin 27.9 pg (27.0-31.0); Mean Corpuscular Volume 95.8 fl (78.0-98.0); Mean Platelet Volume 9.6 fL (7.4-10.4); Platelet Count 261 10x3/uL (130-400); RBC Distribution Width 20.5 % (11.5-14.5); Red Blood Cell (RBC) Count 2.84 mill/uL (4.20-5.40); White Blood Cell (WBC) Count 7.4 10x3/uL (4.8-10.8)
[2022-05-09] MEDS: Furosemide 20 MG TAB PO SCH (06:26)
[2022-05-09] MEDS: Carvedilol 6.25 MG TAB PO SCH ×2 (09:25→15:59)
[2022-05-09] MEDS: Amiodarone 200 MG TAB PO SCH ×2 (09:25→20:50)
[2022-05-09] MEDS: Ferrous Sulfate 325 MG TAB PO SCH ×2 (09:25→15:59)
[2022-05-09] MEDS: Sertraline 100 MG TAB PO SCH (09:25)
[2022-05-09] MEDS: Clopidogrel Bisulfate 75 MG TAB PO SCH (09:25)
[2022-05-09] MEDS: Empagliflozin 10 MG TAB PO SCH (09:25)
[2022-05-09] MEDS: Magnesium Oxide 400 MG TAB PO SCH (09:25)
[2022-05-09] MEDS: Saccharomyces boulardii 250 MG CAP PO SCH (09:25)
[2022-05-09] MEDS: Ondansetron PF 4 MG/2 ML Vial IVP SCH ×2 (09:26→20:51)
[2022-05-09] MEDS: Pantoprazole 40 MG VIAL IVP SCH ×2 (09:26→20:51)
[2022-05-09] MEDS: HYDROcodone/Acetaminophen 5/325 mg Tablet PO PRN (12:05)
[2022-05-09] MEDS: HumaLOG 300 UNITS/3 ML VIAL SC PRN (12:51)
[2022-05-09] MEDS: ALPRAZolam 0.25 MG TAB PO PRN (20:51)
[2022-05-10] MEDS: Furosemide 20 MG TAB PO SCH (06:10)
[2022-05-10 07:33] LABS: #Basophils 0.1 thou/uL (0.0-0.2); #Eosinphils 0.1 thou/uL (0.0-0.7); #Lymphocytes 0.9 thou/uL (1.20-3.40); #Monocytes 0.6 thou/uL (0.11-0.59); #Neutrophils 5.1 thou/uL (1.40-6.50); %Basophils 0.9 % (0.0-1.0); %Eosinophils 1.8 % (0.0-10.0); %Lymphocytes 13.5 % (21.0-51.0); %Monocytes 8.5 % (0.0-10.0); %Neutrophils 75.3 % (42.0-75.0); Hemoglobin 8.1 g/dL (12.0-16.0); Mean Corpuscular HGB CONC 29.1 g/dL (32.0-36.0); Mean Corpuscular Hemoglobin 28.1 pg (27.0-31.0); Mean Corpuscular Volume 96.6 fl (78.0-98.0); Mean Platelet Volume 9.2 fL (7.4-10.4); Platelet Count 287 10x3/uL (130-400); RBC Distribution Width 20.3 % (11.5-14.5); Red Blood Cell (RBC) Count 2.89 mill/uL (4.20-5.40); White Blood Cell (WBC) Count 6.8 10x3/uL (4.8-10.8)
[2022-05-10 07:34] LABS: Anion Gap 13 mmol/L (10-20); BUN (Urea Nitrogen) 18 mg/dL (9.8-20.1); Calc. Creatinine Clearance 52 mL/min (70-130); Calcium 8.2 mg/dL (7.8-10.44); Carbon Dioxide 27 mmol/L (23-31); Chloride 103 mmol/L (98-107); Estimated GFR 37; Glucose 176 mg/dL (80-115); Potassium 4.1 mmol/L (3.5-5.1); Sodium 139 mmol/L (136-145)
[2022-05-10] MEDS: Ondansetron PF 4 MG/2 ML Vial IVP SCH ×2 (09:09→22:08)
[2022-05-10] MEDS: Pantoprazole 40 MG VIAL IVP SCH ×2 (09:10→22:08)
[2022-05-10] MEDS: Magnesium Oxide 400 MG TAB PO SCH (09:11)
[2022-05-10] MEDS: Sertraline 100 MG TAB PO SCH (09:11)
[2022-05-10] MEDS: Saccharomyces boulardii 250 MG CAP PO SCH (09:11)
[2022-05-10] MEDS: Ferrous Sulfate 325 MG TAB PO SCH ×2 (09:11→17:59)
[2022-05-10] MEDS: Amiodarone 200 MG TAB PO SCH ×2 (09:12→22:07)
[2022-05-10] MEDS: Carvedilol 6.25 MG TAB PO SCH ×2 (09:12→17:59)
[2022-05-10] MEDS: Clopidogrel Bisulfate 75 MG TAB PO SCH (09:12)
[2022-05-10] MEDS: Empagliflozin 10 MG TAB PO SCH (09:12)
[2022-05-10] MEDS: HumaLOG 300 UNITS/3 ML VIAL SC PRN (17:59)
[2022-05-11 05:15] LABS: #Eosinphils 0.1 thou/uL (0.0-0.7); #Lymphocytes 0.9 thou/uL (1.20-3.40); #Monocytes 0.6 thou/uL (0.11-0.59); #Neutrophils 6.4 thou/uL (1.40-6.50); %Basophils 0.1 % (0.0-1.0); %Lymphocytes 11.5 % (21.0-51.0); %Monocytes 7.1 % (0.0-10.0); %Neutrophils 80.4 % (42.0-75.0); Hemoglobin 7.6 g/dL (12.0-16.0); Mean Corpuscular HGB CONC 29.4 g/dL (32.0-36.0); Mean Corpuscular Hemoglobin 28.1 pg (27.0-31.0); Mean Corpuscular Volume 95.5 fl (78.0-98.0); Mean Platelet Volume 9.2 fL (7.4-10.4); Platelet Count 293 10x3/uL (130-400); RBC Distribution Width 20.5 % (11.5-14.5)
[2022-05-11 05:35] LABS: ALT (SGPT) 9 U/L (8-55); AST (SGOT) 14 U/L (5-34); Albumin 2.9 g/dL (3.4-4.8); Alkaline Phosphatase 97 U/L (40-110); Anion Gap 13 mmol/L (10-20); BUN (Urea Nitrogen) 18 mg/dL (9.8-20.1); Bilirubin, Total 1.2 mg/dL (0.2-1.2); Calc. Creatinine Clearance 52 mL/min (70-130); Calcium 8.2 mg/dL (7.8-10.44); Carbon Dioxide 27 mmol/L (23-31); Chloride 103 mmol/L (98-107); Estimated GFR 37; Glucose 157 mg/dL (80-115); Potassium 3.9 mmol/L (3.5-5.1); Protein, Total 6.9 g/dL (5.8-8.1); Sodium 139 mmol/L (136-145)
[2022-05-11] MEDS: Furosemide 20 MG TAB PO SCH (06:39)
[2022-05-11] MEDS: Empagliflozin 10 MG TAB PO SCH (09:22)
[2022-05-11] MEDS: Saccharomyces boulardii 250 MG CAP PO SCH (09:22)
[2022-05-11] MEDS: Clopidogrel Bisulfate 75 MG TAB PO SCH (09:22)
[2022-05-11] MEDS: Carvedilol 6.25 MG TAB PO SCH ×2 (09:22→18:14)
[2022-05-11] MEDS: Amiodarone 200 MG TAB PO SCH ×2 (09:22→22:09)
[2022-05-11] MEDS: Magnesium Oxide 400 MG TAB PO SCH (09:22)
[2022-05-11] MEDS: Sertraline 100 MG TAB PO SCH (09:22)
[2022-05-11] MEDS: Ferrous Sulfate 325 MG TAB PO SCH ×2 (09:22→18:14)
[2022-05-11] MEDS: Ondansetron PF 4 MG/2 ML Vial IVP SCH ×2 (09:23→22:09)
[2022-05-11] MEDS: Pantoprazole 40 MG VIAL IVP SCH ×2 (09:23→22:10)
[2022-05-11] MEDS: Epoetin (ESRD) 10,000 UNITS/ML VIAL SC SCH (12:42)
[2022-05-11 14:56] LABS: Hemoglobin 7.9 g/dL (12.0-16.0)
[2022-05-11 19:29] LABS: Bacteria/HPF 4+ HPF (None Seen); Bilirubin Negative (Negative); Blood, Urine Negative (Negative); CAUTI Indications for Culture Alt mental st,lethar; Clarity Clear (Clear); Glucose, Urine (Dipstick) Greater than 1000 mg/dL (Negative); Ketone, Urine Negative (Negative); Leukocyte Negative Leu/uL (Negative); Nitrite Negative (Negative); Protein, Urine (Dipstick) Negative (Neg-Trace); RBC/HPF 0-3 HPF (0-3); Specific Gravity, Urine 1.015 (1.002-1.036); Squamous Epithelial None Seen HPF (0-3); Urobilinogen Normal mg/dL (Less than 2); WBC/HPF 0-3 HPF (0-3); Yeast-Budding 1+ HPF (None Seen)
[2022-05-11 19:31] LABS: Urine Culture Reflex No No
[2022-05-12] MEDS: Furosemide 20 MG TAB PO SCH (06:26)
[2022-05-12 07:14] LABS: Mean Corpuscular HGB CONC 28.8 g/dL (32.0-36.0); Mean Corpuscular Volume 97.3 fl (78.0-98.0); Mean Platelet Volume 8.8 fL (7.4-10.4); Platelet Count 327 10x3/uL (130-400); RBC Distribution Width 20.4 % (11.5-14.5); Red Blood Cell (RBC) Count 2.87 mill/uL (4.20-5.40); White Blood Cell (WBC) Count 7.6 10x3/uL (4.8-10.8)
[2022-05-12 07:15] LABS: #Basophils 0.1 thou/uL (0.0-0.2); #Eosinphils 0.1 thou/uL (0.0-0.7); #Lymphocytes 0.8 thou/uL (1.20-3.40); #Monocytes 0.7 thou/uL (0.11-0.59); %Basophils 0.9 % (0.0-1.0); %Eosinophils 1.2 % (0.0-10.0); %Lymphocytes 10.4 % (21.0-51.0); %Monocytes 8.6 % (0.0-10.0)
[2022-05-12 07:32] LABS: ALT (SGPT) 9 U/L (8-55); AST (SGOT) 14 U/L (5-34); Albumin 2.9 g/dL (3.4-4.8); Alkaline Phosphatase 92 U/L (40-110); Anion Gap 14 mmol/L (10-20); BUN (Urea Nitrogen) 18 mg/dL (9.8-20.1); Bilirubin, Total 1.3 mg/dL (0.2-1.2); Calc. Creatinine Clearance 52 mL/min (70-130); Calcium 8.2 mg/dL (7.8-10.44); Carbon Dioxide 27 mmol/L (23-31); Chloride 103 mmol/L (98-107); Estimated GFR 37; Glucose 169 mg/dL (80-115); Protein, Total 6.9 g/dL (5.8-8.1); Sodium 140 mmol/L (136-145)
[2022-05-12] MEDS: Empagliflozin 10 MG TAB PO SCH (09:27)
[2022-05-12] MEDS: Magnesium Oxide 400 MG TAB PO SCH (09:27)
[2022-05-12] MEDS: Ondansetron PF 4 MG/2 ML Vial IVP SCH (09:28)
[2022-05-12] MEDS: Clopidogrel Bisulfate 75 MG TAB PO SCH (09:28)
[2022-05-12] MEDS: Ferrous Sulfate 325 MG TAB PO SCH (09:28)
[2022-05-12] MEDS: Amiodarone 200 MG TAB PO SCH (09:28)
[2022-05-12] MEDS: Sertraline 100 MG TAB PO SCH (09:28)
[2022-05-12] MEDS: Saccharomyces boulardii 250 MG CAP PO SCH (09:28)
[2022-05-12] MEDS: Carvedilol 6.25 MG TAB PO SCH (09:28)
[2022-05-12] MEDS: Pantoprazole 40 MG VIAL IVP SCH (09:29)
[2022-05-12 09:31] LABS: Anisocytosis SLIGHT = 6-15 cells (100X) (0-5/hpf); Band 10 % (5-11); Eosinophils 3 % (0-10); Hypochromia SLIGHT = 6-15 cells (100X) (0-5/hpf); Lymphocytes 9 % (21-51); MDiff Complete? YES; Metamyelocyte 2 % (0-0); Monocytes 5 % (0-10); Neutrophil 71 % (42-75); Platelet Morphology Comment Appears Adequate; Polychromasia SLIGHT = 2-3 cells (100X) (0-2/hpf)
[2022-05-12 12:52] VITALS: BP 123/61; TEMP 97.6
== END 2022-05-12 15:30 | disposition home health service (06) | DRG 291 ==
LOC: ERS 02:59 → 2NO 07:00 → T4-A 07:28 → 2NO 12:52
PROVIDERS: ADMIT Internal Medicine; ATTEND Internal Medicine
PROC: 30233N1 Transfusion of Nonautologous Red Blood Cells into Peripheral Vein, Percutaneous Approach (ICD-10-PCS; 2022-04-14)
PROC: 30233K1 Transfusion of Nonautologous Frozen Plasma into Peripheral Vein, Percutaneous Approach (ICD-10-PCS; 2022-04-16)
PROC: 0W3P8ZZ Control Bleeding in Gastrointestinal Tract, Via Natural or Artificial Opening Endoscopic (ICD-10-PCS; principal; 2022-04-17)
DX: I13.0 Hypertensive heart and chronic kidney disease with heart failure and stage 1 through stage 4 chronic kidney disease, or unspecified chronic kidney disease (principal); I50.43 Acute on chronic combined systolic (congestive) and diastolic (congestive) heart failure; J96.01 Acute respiratory failure with hypoxia; K31.811 Angiodysplasia of stomach and duodenum with bleeding; N17.9 Acute kidney failure, unspecified; I25.810 Atherosclerosis of coronary artery bypass graft(s) without angina pectoris; D68.9 Coagulation defect, unspecified; N39.0 Urinary tract infection, site not specified; D62 Acute posthemorrhagic anemia; L97.809 Non-pressure chronic ulcer of other part of unspecified lower leg with unspecified severity; K92.1 Melena; D68.2 Hereditary deficiency of other clotting factors; I25.10 Atherosclerotic heart disease of native coronary artery without angina pectoris; E11.51 Type 2 diabetes mellitus with diabetic peripheral angiopathy without gangrene; E11.22 Type 2 diabetes mellitus with diabetic chronic kidney disease; F41.9 Anxiety disorder, unspecified; F32.9 Major depressive disorder, single episode, unspecified; N18.32 Chronic kidney disease, stage 3b; E66.9 Obesity, unspecified; I25.5 Ischemic cardiomyopathy; I48.91 Unspecified atrial fibrillation; D63.1 Anemia in chronic kidney disease; E87.6 Hypokalemia; K59.00 Constipation, unspecified; R59.9 Enlarged lymph nodes, unspecified; E80.6 Other disorders of bilirubin metabolism; E78.2 Mixed hyperlipidemia; D50.9 Iron deficiency anemia, unspecified; D63.8 Anemia in other chronic diseases classified elsewhere; Z95.1 Presence of aortocoronary bypass graft; Z86.010 Personal history of colon polyps; Z20.822 Contact with and (suspected) exposure to COVID-19; Z98.61 Coronary angioplasty status; Z79.82 Long term (current) use of aspirin; Z79.02 Long term (current) use of antithrombotics/antiplatelets; Z95.810 Presence of automatic (implantable) cardiac defibrillator; Z79.899 Other long term (current) drug therapy; Z79.4 Long term (current) use of insulin; Z88.0 Allergy status to penicillin; Z88.8 Allergy status to other drugs, medicaments and biological substances; Z68.38 Body mass index [BMI] 38.0-38.9, adult; Z91.040 Latex allergy status
CPT/HCPCS: 36415; 36416; 36430; 71045; 71046; 72020; 74176; 76705; 80048; 80053; 81001; 82247; 82248; 82274; 82668; 82728; 82805; 83010; 83540; 83550; 83615; 83735; 83880; 84155; 84165; 84300; 84484; 84540; 85025; 85046; 85049; 85060; 85210; 85230; 85260; 85300; 85362; 85379; 85384; 85610; 85611; 85670; 85730; 85732; 86850; 86870; 86880; 86900; 86901; 86905; 86922; 87086; 87811; 93005; 94640; 96374; 96375; 97139; C9113; J0171; J0696; J1200; J1815; J1940; J2250; J2270; J2405; J2704; J2920; J3430; J3480; J3490; J7611; P9016; P9059; Q0162; Q4081; U0002